=== PATIENT | female | born 1950 | race Caucasian/White ===

== ENCOUNTER → 2017-12-08 | Outpatient (CLI) | payer MEDICARE ==
--- NOTE | 2017-12-09 07:21 | CT ---
EXAMINATION TYPE: CT abdomen wo con DATE OF EXAM: 12/08/2017 COMPARISON: 08/23/2015 HISTORY: Abnormal labs CT DLP: 483.2 mGycm Automated exposure control for dose reduction was used. TECHNIQUE: Helical acquisition of images was performed from the lung bases through the top of iliac crest to include entire abdomen. CONTRAST: Performed with Oral Contrast and without IV contrast. FINDINGS: LUNG BASES: There is minimal bibasilar subsegmental dependent atelectasis and subpleural reticulation at the right lung base. LIVER/GB: Hepatic parenchyma is unremarkable in its unenhanced morphology. Near the gallbladder neck on series 3 image 31 and series 6 image 41 is a peripherally calcified stru cture. However, on sagittal imaging this appears to be external to the gallbladder such as on series 7 image 46 and could represent a peripherally calcified mingo hepatis lymph nodes or focal dilation o f the cystic duct. The downstream common bile duct is nondilated measuring up to 6 mm on series 3 gregory ge 27. There is no pericholecystic fluid surrounding the gallbladder or gallbladder dilatation. What is thought to be the cystic duct on coronal image 43 does appear prominent in size. PANCREAS: Unremarkable unenhanced morphology. SPLEEN: No splenomegaly. ADRENALS: There is thickening of the left adrenal gland although it maintains its normal adreniform s hape and is without discrete measurable nodule therefore this likely relates to adrenal gland hyperpl nicola. KIDNEYS: No nephrolithiasis or hydronephrosis is seen bilaterally. There is a probable exophytic righ t renal cyst measuring 9 mm. BOWEL: Scattered colonic diverticula are noted without pericolonic fat stranding. LYMPH NODES: Other than the questionable [place]ingo hepatis lymph node there are no other greater than 1 cm short axis lymph nodes within the abdomen. OSSEOUS STRUCTURES: Mild multilevel degenerative changes of the spine are noted. Additionally there are some patchy bone marrow signal that should be correlated with CBC to ensure no hematologic pathol ogy such as anemia arm lymphoproliferative disorder. FREE AIR: No free air is visualized. OTHER: Extensive calcific atheromatous changes seen of the abdominal aorta and its branches. There is a very small fat filled umbilical hernia. IMPRESSION: 1. PERIPHERALLY CALCIFIED ROUNDED STRUCTURE IN THE MINGO HEPATIS THAT APPEARS TO BE EXTERNAL TO THE G ALLBLADDER ON SAGITTAL IMAGING. THIS COULD REPRESENT A FOCALLY DILATED CYSTIC DUCT, PERIPHERALLY CALC IFIED M[place]O HEPATIS LYMPH NODE, OR LESS LIKELY PERIPHERAL CHOLELITH WITHIN A FOCAL OUTPOUCHING OF THE GALLBLADDER NECK. HIDA SCAN COULD BE PERFORMED TO EVALUATE FOR OBSTRUCTION ALTHOUGH NO OTHER CT EVID ENCE OF ACUTE CHOLECYSTITIS ARE SEEN. 2. HETEROGENOUS BONE MARROW AND MAY BE AN INCIDENTAL FINDING OR COULD RELATE TO MYELOPROLIFERATIVE DI SORDER OR ANEMIA. CORRELATE WITH CBC.
== END | disposition home or self-care (01) ==
LOC: RADCTMAIN 14:11
PROVIDERS: ATTEND Family Medicine
DX: R93.2 Abnormal findings on diagnostic imaging of liver and biliary tract (principal)
CPT/HCPCS: 36415; 74150; 82565; 84520

== ENCOUNTER 2017-12-23 09:05 | Day surgery (SDC) | payer MEDICARE ==
[2017-12-19 14:33] VITALS: BMI 34.4
[~2017-12-23 09:05] MED LIST: DEXAMETHASONE SOD PHOSPHATE 10 MG/ML 1 ML VIAL IV ONE; HEPARIN SODIUM,PORCINE 5,000 UNIT/ML 1 ML VIAL SQ ONE; LACTATED RINGERS 1,000 ML IV SCH; LIDOCAINE 1% 20 ML VIAL (10MG/ML) FOR IV START INTRADERMA PRN; MIDAZOLAM 2 MG/2 ML VIAL IV PRN; ONDANSETRON 4 MG/2 ML VIAL IVP ONE; ceFAZolin IN SWFI 2 GM/20 ML SYRINGE IVP ONE; fentaNYL (PF) 50 MCG/ML 2 ML AMP IV PRN
--- NOTE | 2017-12-23 10:08 | P.GSHP ---
History of Present Illness H&P Date: 12/23/17 Chief Complaint: Right upper quadrant pain Cyst 77-year-old female who presents today for laparoscopic cholestatic. Patient's had complaints of right quadrant pain. Her recent ultrasound shows evidence of cholelithiasis. 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, History of Any Multi-Drug Resistant Organisms: None Reported Past Surgical History: No Surgical Hx Reported Additional Past Surgical History / Comment(s): colonoscopy Past Anesthesia/Blood Transfusion Reactions: No Reported Reaction Smoking Status: Current every day smoker - Past Family History Father Family Medical History: Diabetes Mellitus, Myocardial Infarction ([place]) Additional Family Medical History / Comment(s): KIDNEY FAILURE,EMPHYSEMA Mother Family Medical History: Cancer Additional Family Medical History / Comment(s): bladder/kidney Sister(s) Family Medical History: Diabetes Mellitus Son(s) Family Medical History: Deep Vein Thrombosis (DVT) Medications and Allergies Home Medications Medication Instructions Recorded Confirmed Type Acetaminophen Tab [Tylenol Tab] 325 - 650 mg PO Q4H PRN 12/19/17 12/23/17 History Diazepam [Valium] 5 mg PO HS 12/19/17 12/23/17 History Lisinopril-Hctz 20-25 mg 1 tab PO QAM 12/19/17 12/23/17 History [Zestoretic 20-25] Magokide 1 tab PO DAILY 12/19/17 12/23/17 History rOPINIRole HCL [Requip] 1 mg PO HS 12/19/17 12/23/17 History Allergies Allergy/AdvReac Type Severity Reaction Status Date / Time No Known Allergies Allergy Verified 12/23/17 09:26 Surgical - Exam Vital Signs Temp Pulse Resp BP Pulse Ox 97.8 F 89 18 121/77 97 12/23/17 09:54 12/23/17 09:54 12/23/17 09:54 12/23/17 09:54 12/23/17 09:54 - General well developed, no distress - Eyes PERRL - ENT normal pinna - Neck no masses - Respiratory normal expansion - Cardiovascular Rhythm: regular - Abdomen Abdomen: soft, non tender Assessment and Plan Assessment: Symptomatically lithiasis Chronic cholecystitis We'll perform laparoscopic cholecystectomy.
[2017-12-23 10:26] LABS: Basophils % (A) 0 %; Eosinophils # (A) 0.2 k/uL (0-0.7); Eosinophils % (A) 2 %; HCT 35.5 % (34.0-46.0); HGB 12.3 gm/dL (11.4-16.0); Lymphocytes # (A) 2.7 k/uL (1.0-4.8); Lymphocytes % (A) 31 %; MCH 34.8 pg (25.0-35.0); MCHC 34.7 g/dL (31.0-37.0); MCV 100.3 fL (80.0-100.0); Mean Platelet Volume 6.5; Monocytes # (A) 0.6 k/uL (0-1.0); Monocytes % (A) 7 %; Neutrophils % (A) 57 %; Platelet Count 265 k/uL (150-450); RBC 3.54 m/uL (3.80-5.40); WBC 8.7 k/uL (3.8-10.6)
[2017-12-23 10:36] LABS: Potassium 4.8 mmol/L (3.5-5.1)
[2017-12-23] MEDS ORDERED: KETOROLAC 30 MG/ML 1 ML VIAL ONE (10:40)
[2017-12-23] MEDS ORDERED: GLYCOPYRROLATE 0.2 MG/ML 2 ML VIAL ONE (10:40)
[2017-12-23] MEDS ORDERED: LIDOCAINE 1% INJ 10MG/ML (20 ML MDV) ONE (10:40)
[2017-12-23] MEDS ORDERED: ROCURONIUM BROMIDE 10 MG/ML 10 ML VIAL IV ONE (10:40)
[2017-12-23] MEDS ORDERED: NEOSTIGMINE 1 MG/ML 10 ML VIAL ONE (10:40)
[2017-12-23] MEDS ORDERED: MIDAZOLAM 2 MG/2 ML VIAL ONE (10:40)
[2017-12-23] MEDS ORDERED: SUCCINYLCHOLINE CHLORIDE 100 MG/5 ML SYR IV ONE (10:40)
[2017-12-23] MEDS ORDERED: ALBUTEROL INHALER 60 PUFF/8 GM INHALER INHALATION ONE (10:40)
[2017-12-23] MEDS ORDERED: fentaNYL (PF) 50 MCG/ML 2 ML AMP ONE (10:40)
[2017-12-23] MEDS ORDERED: PROPOFOL 10 MG/ML 20 ML VIAL IV ONE (10:40)
[2017-12-23] MEDS ORDERED: BUPIVACAIN-EPI 0.5%-1:200,000 30 ML VIAL SQ ONE (10:58)
[2017-12-23] MEDS ORDERED: LACTATED RINGERS 1,000 ML IV ONE (11:11)
--- NOTE | 2017-12-23 11:39 | P.OP ---
Date of Procedure: 12/23/17 Preoperative Diagnosis: Cholecystitis Cholelithiasis Postoperative Diagnosis: Cholecystitis Cholelithiasis Procedure(s) Performed: Laparoscopic cholecystectomy Anesthesia: THOM Surgeon: Pasquale Hussein Pathology: other (Gallbladder) Condition: stable Disposition: PACU Description of Procedure: The patient was placed on the operating table. The patient received a general endotracheal tube anesthesia. The patients abdomen was prepped and draped in the usual sterile fashion. Through an infraumbilical stab incision, the fascia of the anterior abdominal wall was grasped with a pair of Kochers and then the Veress needle was placed in the peritoneal cavity. Position of the Veress needle was confirmed with positive drop test. The abdomen was then insufflated. After adequate insufflation, the 10 mm trocar was placed in the peritoneal cavity. Following this the laparoscope was placed in the peritoneal cavity. The patient was placed in the head-up, right side up position and then a 5 mm trocar was placed in the right lateral and right subcostal position under direct visualization. A 8 mm trocar was placed in the epigastric position. The gallbladder was grasped in the fundus and infundibulum. Traction on the gallbladder was placed in the lateral and the cephalad positions. The triangle of Calot was visualized.. The cystic duct was bluntly dissected until the union of the cystic duct and common bile duct was seen. The cystic duct was then divided and sealed with the Harmonic scissors. A PDS Endoloop was then placed throughout the cystic duct stump. The cystic artery divided and sealed with the Harmonic scissors. The gallbladder was then removed from the liver bed using Harmonic scissors. The gallbladder was then extracted through the epigastric port site. Operative field was checked for any bleeding spots and Harmonic scissors was used to coagulate the liver bed. The abdomen was irrigated. The trocars were removed. The skin was closed using interrupted 3-0 Vicryl suture. Dermabond dressing were applied. The patient tolerated the procedure well.
[2017-12-23 11:51] VITALS: TEMP 97.2
[2017-12-23] MEDS ORDERED: MEPERIDINE 50 MG/ML SYRINGE IVP ONE (11:51)
[2017-12-23] MEDS: HYDROmorphone 1 MG/ML 1 ML SYRINGE IVP ONE ×2 (12:23→12:36)
[2017-12-23] MEDS ORDERED: ONDANSETRON 4 MG/2 ML VIAL IVP ONE (14:12)
[2017-12-23] MEDS ORDERED: HYDROcodone/APAP 7.5-325MG 1 EACH TAB PO ONE ×2 (14:35)
[2017-12-23 14:56] VITALS: BP 154/96; PULSE 94; RESP 20
== END 2017-12-23 16:11 | disposition home or self-care (01) ==
LOC: OR 09:05
PROVIDERS: ATTEND Surgery
DX: K80.10 Calculus of gallbladder with chronic cholecystitis without obstruction (principal); I10 Essential (primary) hypertension; F41.9 Anxiety disorder, unspecified; F32.9 Major depressive disorder, single episode, unspecified; G25.81 Restless legs syndrome; F17.210 Nicotine dependence, cigarettes, uncomplicated; Z79.899 Other long term (current) drug therapy
CPT/HCPCS: 88304; 80051; 85025; 47562; J2250; J1644; J1100; J2710; J2175; J2405; J2001; J3010; J1885; J1170; J0330; J2704; J0690

== ENCOUNTER 2017-12-26 12:23 | Inpatient (IN) | payer MEDICARE ==
--- NOTE | 2017-12-26 13:15 | ED ---
Abdominal Pain HPI - General Source: patient, family, RN notes reviewed Mode of arrival: wheelchair Limitations: no limitations <Claudette Chan - Last Filed: 12/26/17 19:04> <Nesha Son - Last Filed: 01/02/18 22:26> - General Chief Complaint: Abdominal Pain Stated Complaint: Post Op Pain Time Seen by Provider: 12/26/17 13:03 - History of Present Illness Initial Comments: This is a 67-year-old female who presents to the emergency department with chief complaint of postoperative abdominal pain. Patient reports having a cholecystectomy performed on Tuesday by Dr. Hussein. Patient states that her pain was improving but yesterday worsened. She states that she is having intermittent sharp pains throughout her entire abdomen. She reports no bowel movement since before surgery. She reports vomiting that started last night. She states that she presented to Dr. Villafana's office this morning and had an x -ray performed. They were concerned for a small bowel obstruction so sent patient to the emergency department for further evaluation. She denies fevers or chills, chest pain or shortness of breath, diarrhea. (Claudette Chan) - Related Data Home Medications Medication Instructions Recorded Confirmed Acetaminophen Tab [Tylenol Tab] 325 - 650 mg PO Q4H PRN 12/19/17 12/26/17 Diazepam [Valium] 5 mg PO HS 12/19/17 12/26/17 Lisinopril-Hctz 20-25 mg 1 tab PO QAM 12/19/17 12/26/17 [Zestoretic 20-25] Magokide 1 tab PO DAILY 12/19/17 12/26/17 rOPINIRole HCL [Requip] 1 mg PO HS 12/19/17 12/26/17 Previous Rx's Medication Instructions Recorded Docusate [Colace] 100 mg PO BID #20 capsule 12/23/17 HYDROcodone/APAP 7.5-325MG [[place] 1 tab PO Q4H PRN 3 Days #18 tab 12/23/17 7.5-325] Allergies Allergy/AdvReac Type Severity Reaction Status Date / Time No Known Allergies Allergy Verified 12/26/17 12:40 Review of Systems ROS Other: All systems not noted in ROS Statement are negative. <Claudette Chan - Last Filed: 12/26/17 19:04> ROS Other: All systems not noted in ROS Statement are negative. <Nesha Son P - Last Filed: 01/02/18 22:26> ROS Statement: Those systems with pertinent positive or pertinent negative responses have been documented in the HPI. 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, History of Any Multi-Drug Resistant Organisms: None Reported Past Surgical History: Cholecystectomy Additional Past Surgical History / Comment(s): colonoscopy Past Anesthesia/Blood Transfusion Reactions: No Reported Reaction Past Psychological History: Anxiety, Depression Smoking Status: Current every day smoker Past Alcohol Use History: None Reported Past Drug Use History: None Reported - Past Family History Father Family Medical History: Diabetes Mellitus, Myocardial Infarction ([place]) Additional Family Medical History / Comment(s): KIDNEY FAILURE,EMPHYSEMA Mother Family Medical History: Cancer Additional Family Medical History / Comment(s): bladder/kidney Sister(s) Family Medical History: Diabetes Mellitus Son(s) Family Medical History: Deep Vein Thrombosis (DVT) <Claudette Chan M - Last Filed: 12/26/17 19:04> General Exam Limitations: no limitations <Claudette Chan M - Last Filed: 12/26/17 19:04> <Nesha Son P - Last Filed: 01/02/18 22:26> - General Exam Comments Initial Comments: General: Awake and alert, well-developed; in no apparent distress. HEENT: Head atraumatic, normocephalic. Pupils are equal, round and reactive to light. Extraocular movements intact. Oropharynx moist without erythema or exudate. Neck: Supple. Normal ROM. Cardiovascular: Regular rate and rhythm. No murmurs, rubs or gallops. Chest symmetrical. Respiratory: Lungs clear to auscultation bilaterally. No wheezes, rales or rhonchi. Normal respiratory effort with no use of accessory muscles. Abdomen: Firm, distended. Generalized tenderness on palpation. Hypoactive bowel sounds in all 4 quadrants. No rigidity or rebound. Incision sites from previous cholecystectomy are noted with surrounding ecchymosis. Musculoskeletal: Normal ROM, no tenderness bilateral upper and lower extremities. Skin: [place], warm and dry without rashes or lesions. Neurological: Alert and oriented x3. CN II-XII grossly intact. Speech is fluent and answers are appropriate. No focal neuro deficits. Psychiatric: Normal mood and affect. No overt signs of depression or anxiety noted. (Claudette Chan) Vital Signs 12/26/17 12/26/17 12/26/17 12:29 13:55 15:56 Temperature 97.4 F L Pulse Rate 118 H 108 H 115 H Respiratory 20 20 22 Rate Blood Pressure 93/79 96/56 115/75 O2 Sat by Pulse 94 L 99 96 Oximetry Medical Decision Making - Lab Data Result diagrams: 12/26/17 13:31 12/26/17 13:31 - Radiology Data Radiology results: report reviewed <Claudette Chan - Last Filed: 12/26/17 19:04> - Lab Data Result diagrams: 12/28/17 06:10 12/28/17 10:33 <Nesha Son - Last Filed: 01/02/18 22:26> - Medical Decision Making This is a 67-year-old female who presents to the emergency department chief complaint of postoperative pain. Patient reports cholecystectomy was performed on Tuesday by Dr. Hussein. Patient states she has not had a bowel movement since before the surgery and has been vomiting. On physical examination, abdomen is firm and distended. Hypoactive bowel sounds. X-ray KUB revealed evidence for a small bowel instruction. CBC revealed an elevated white count 11.7 with left shift at 9.6. BUN elevated at 49 and creatinine 1.90. Liver transaminases are also elevated compared to baseline with AST at [address] Son was in contact with Dr. Hussein. Recommended CT abdomen and pelvis with po contrast. This revealed new ascites, diverticulosis without diverticulitis, new multiple loops of proximal small bowel dilated, dilated stomach. Likely related to an ileus. Case discussed with attending physician, Dr. Son. Patient will be given a bolus of D5 normal saline 250 per hour as well as maintenance normal saline. PRN orders of Reglan and Zofran. Clear liquids to advance as tolerated. Findings and plan were discussed with patient. She is in agreement for admission. Her vital signs are stable and she is in no acute distress. (Claudette Chan) Personally saw and evaluated this patient, patient care was discussed with surgeon Dr. Dunaway who recommended computed tomography scan. Computed tomography scan was suggestive of an ileus. I discussed these results with Dr. Dunaway who agrees to admit patient. Admission orders placed. (Nesha Son) - Lab Data Lab Results 12/26/17 12/26/17 12/26/17 Range/Units 13:31 13:31 13:31 WBC 11.7 H (3.8-10.6) k/uL RBC 3.82 (3.80-5.40) m/uL Hgb 12.9 (11.4-16.0) gm/dL Hct 38.6 (34.0-46.0) % MCV 101.0 H (80.0-100.0) fL MCH 33.7 (25.0-35.0) pg MCHC 33.4 (31.0-37.0) g/dL RDW 12.0 (11.5-15.5) % Plt Count 285 (150-450) k/uL Neutrophils % 82 % Lymphocytes % 9 % Monocytes % 7 % Eosinophils % 1 % Basophils % 0 % Neutrophils # 9.6 H (1.3-7.7) k/uL Lymphocytes # 1.1 (1.0-4.8) k/uL Monocytes # 0.8 (0-1.0) k/uL Eosinophils # 0.1 (0-0.7) k/uL Basophils # 0.0 (0-0.2) k/uL PT 9.6 (9.0-12.0) sec INR 1.0 (<1.2) APTT 21.0 L (22.0-30.0) sec Sodium 134 L (137-145) mmol/L Potassium 4.5 (3.5-5.1) mmol/L Chloride 92 L (98-107) mmol/L Carbon Dioxide 29 (22-30) mmol/L Anion Gap 13 mmol/L BUN 49 H (7-17) mg/dL Creatinine 1.98 H (0.52-1.04) mg/dL Est GFR (CKD-EPI)AfAm 30 (>60 ml/min/1.73 sqM) Est GFR (CKD-EPI)NonAf 26 (>60 ml/min/1.73 sqM) Glucose 123 H (74-99) mg/dL Calcium 12.0 H (8.4-10.2) mg/dL Total Bilirubin 3.4 H (0.2-1.3) mg/dL AST 109 H (14-36) U/L ALT 124 H (9-52) U/L Alkaline Phosphatase 92 (38-126) U/L Total Protein 7.0 (6.3-8.2) g/dL Albumin 3.7 (3.5-5.0) g/dL Amylase 62 (30-110) U/L Lipase 34 (23-300) U/L Urine Color Urine Appearance (Clear) Urine pH (5.0-8.0) Ur Specific [place] (1.001-1.035) Urine Protein (Negative) Urine Glucose (UA) (Negative) Urine Ketones (Negative) Urine Blood (Negative) Urine Nitrite (Negative) Urine Bilirubin (Negative) Urine Urobilinogen (<2.0) mg/dL Ur Leukocyte Esterase (Negative) Urine RBC (0-5) /hpf Urine WBC (0-5) /hpf Ur Squamous Epith Cells (0-4) /hpf Hyaline Casts (0-2) /lpf Urine Mucus (None) /hpf 12/26/ Range/Units 13:46 WBC (3.8-10.6) k/uL RBC (3.80-5.40) m/uL Hgb (11.4-16.0) gm/dL Hct (34.0-46.0) % MCV (80.0-100.0) fL MCH (25.0-35.0) pg MCHC (31.0-37.0) g/dL RDW (11.5-15.5) % Plt Count (150-450) k/uL Neutrophils % % Lymphocytes % % Monocytes % % Eosinophils % % Basophils % % Neutrophils # (1.3-7.7) k/uL Lymphocytes # (1.0-4.8) k/uL Monocytes # (0-1.0) k/uL Eosinophils # (0-0.7) k/uL Basophils # (0-0.2) k/uL PT (9.0-12.0) sec INR (<1.2) APTT (22.0-30.0) sec Sodium (137-145) mmol/L Potassium (3.5-5.1) mmol/L Chloride (98-107) mmol/L Carbon Dioxide (22-30) mmol/L Anion Gap mmol/L BUN (7-17) mg/dL Creatinine (0.52-1.04) mg/dL Est GFR (CKD-EPI)AfAm (>60 ml/min/1.73 sqM) Est GFR (CKD-EPI)NonAf (>60 ml/min/1.73 sqM) Glucose (74-99) mg/dL Calcium (8.4-10.2) mg/dL Total Bilirubin (0.2-1.3) mg/dL AST (14-36) U/L ALT (9-52) U/L Alkaline Phosphatase (38-126) U/L Total Protein (6.3-8.2) g/dL Albumin (3.5-5.0) g/dL Amylase (30-110) U/L Lipase (23-300) U/L Urine Color Dark Brown Urine Appearance Cloudy H (Clear) Urine pH 5.5 (5.0-8.0) Ur Specific [place] 1.023 (1.001-1.035) Urine Protein 1+ H (Negative) Urine Glucose (UA) Negative (Negative) Urine Ketones Negative (Negative) Urine Blood Negative (Negative) Urine Nitrite Negative (Negative) Urine Bilirubin 2+ H (Negative) Urine Urobilinogen 6.0 (<2.0) mg/dL Ur Leukocyte Esterase Negative (Negative) Urine RBC 3 (0-5) /hpf Urine WBC 8 H (0-5) /hpf Ur Squamous Epith Cells 22 H (0-4) /hpf Hyaline Casts 15 H (0-2) /lpf Urine Mucus Rare H (None) /hpf - Radiology Data X-ray KUB impression: Findings suggest small bowel obstruction. Correlate clinically. CT abdomen and pelvis with oral contrast impression: Compared to last exam there is new infiltrate and atelectasis in left lower lobe with small pleural effusion. There is new ascites. There is moderate colonic diverticulosis without diverticulitis. There are multiple loops of proximal small bowel dilated. Dilated stomach. This is likely related to ileus. No transition point seen. (Claudette Chan) Disposition Is patient prescribed a controlled substance at d/c from ED?: No Time of Disposition: 19:11 <[place],Claudette M - Last Filed: 12/26/17 19:04> <Nesha Son - Last Filed: 01/02/18 22:26> Clinical Impression: Postoperative ileus, Ascites Disposition: ADMITTED IP TO THIS HOSP Condition: Good
[2017-12-26 13:43] LABS: Basophils % (A) 0 %; Eosinophils # (A) 0.1 k/uL (0-0.7); Eosinophils % (A) 1 %; HCT 38.6 % (34.0-46.0); HGB 12.9 gm/dL (11.4-16.0); Lymphocytes # (A) 1.1 k/uL (1.0-4.8); Lymphocytes % (A) 9 %; MCH 33.7 pg (25.0-35.0); MCHC 33.4 g/dL (31.0-37.0); Mean Platelet Volume 6.7; Monocytes # (A) 0.8 k/uL (0-1.0); Monocytes % (A) 7 %; Neutrophils # (A) 9.6 k/uL (1.3-7.7); Neutrophils % (A) 82 %; Platelet Count 285 k/uL (150-450); RBC 3.82 m/uL (3.80-5.40); WBC 11.7 k/uL (3.8-10.6)
[2017-12-26 13:54] LABS: Albumin 3.7 g/dL (3.5-5.0); Potassium 4.5 mmol/L (3.5-5.1); Total Bilirubin 3.4 mg/dL (0.2-1.3)
[2017-12-26 13:58] LABS: Prothrombin Time 9.6 sec (9.0-12.0)
--- NOTE | 2017-12-26 15:07 | XR ---
EXAMINATION TYPE: XR KUB DATE OF EXAM: 12/26/2017 COMPARISON: NONE HISTORY: Pain TECHNIQUE: Single supine KUB image of the abdomen is obtained FINDINGS: Dilated loops of small bowel with air-fluid levels seen. Bowel measures up to 4 cm. There is a possibility of gas noted within the colon. No convincing evidence for pneumoperitoneum. No unusual calcifications. The lung bases are clear. The osseous structures are intact. IMPRESSION: 1. Findings suggest small bowel obstruction. Correlate clinically.
[2017-12-26] MEDS ORDERED: SODIUM CHLORIDE 0.9% 1,000 ML IV STA ×2 (15:37→19:05)
[2017-12-26] MEDS ORDERED: SODIUM CHLORIDE 0.9% 2,000 ML IV STA (15:37)
[2017-12-26] MEDS ORDERED: IOPAMIDOL-300 CONTRAST 30 ML VIAL (ORAL USE) PO PRN (15:38)
[2017-12-26 15:54] LABS: Appearance,Urine Cloudy (Clear); Bilirubin,Urine 2+ (Negative); Blood,Urine Negative (Negative); Color,Urine Dark Brown; Glucose,Urine (UA) Negative (Negative); Hyaline Casts,Urine 15 /lpf (0-2); Ketones,Urine Negative (Negative); Leukocyte Esterase,Urine Negative (Negative); Mucus,Urine Rare /hpf; Nitrite,Urine Negative (Negative); PH, Urine 5.5 (5.0-8.0); Protein,Urine 1+ (Negative); RBC,Urine 3 /hpf (0-5); Specific Gravity,Urine 1.023 (1.001-1.035); Squamous Epithelial Cell,Urine 22 /hpf (0-4); WBC,Urine 8 /hpf (0-5)
--- NOTE | 2017-12-26 17:36 | CT ---
EXAMINATION TYPE: CT abdomen pelvis wo con DATE OF EXAM: 12/26/2017 COMPARISON: 12/08/2017 HISTORY: Abdominal pain with nausea and vomiting. Cholecystectomy [address] DLP: 897 mGycm Automated exposure control for dose reduction was used. TECHNIQUE: Helical acquisition of images was performed from the lung bases through the pelvis. FINDINGS: There is some patchy consolidation and atelectasis at the lateral left lung base. There is small left pleural effusion. Liver shows no focal defect. Spleen appears normal. There is a dilated fluid-filled stomach. There ar e some mildly dilated loops of fluid-filled small bowel. These measure up to 3.2 cm. I see no transit ion point. The distal small bowel is nondilated. There are numerous diverticula in the large bowel. T here is mild free fluid in the pelvis. There is no evidence of pancreatic mass. Gallbladder is absent. There is no free air. There is no ret roperitoneal adenopathy. Abdominal aorta is atheromatous. Kidneys show no hydronephrosis. There is a 2 cm cyst on the anterior left kidney. There is no evidence of retroperitoneal adenopathy. I see no s ign of free air. Bladder distends smoothly. Appendix is not seen. There is no sign of appendicitis. IMPRESSION: COMPARED TO LAST EXAM THERE IS NEW INFILTRATE AND ATELECTASIS IN LEFT LOWER LOBE WITH SMALL PLEURAL E FFUSION. THERE IS NEW ASCITES. THERE IS MODERATE COLONIC DIVERTICULOSIS WITHOUT DIVERTICULITIS. THERE ARE NEW MULTIPLE LOOPS OF PROXIMAL SMALL BOWEL DILATED. DILATED STOMACH. THIS IS LIKELY RELATED TO I LEUS. NO TRANSITION POINT SEEN.
[2017-12-26] MEDS ORDERED: ONDANSETRON 4 MG/2 ML VIAL IVP PRN (19:18)
[2017-12-26] MEDS ORDERED: METOCLOPRAMIDE 5 MG/ML 2 ML VIAL IVP PRN (19:18)
[2017-12-26] MEDS: DEXTROSE 5%-0.9% NACL 1,000 ML IV SCH (19:51)
[2017-12-26] MEDS: HYDROmorphone 1 MG/ML 1 ML SYRINGE IVP PRN (23:38)
[2017-12-27] MEDS: DEXTROSE 5%-0.9% NACL 1,000 ML IV SCH ×6 (04:17→23:51)
[2017-12-27] MEDS: HYDROmorphone 1 MG/ML 1 ML SYRINGE IVP PRN ×3 (05:17→13:13)
--- NOTE | 2017-12-27 09:01 | P.GSHP ---
History of Present Illness H&P Date: 12/27/17 Chief Complaint: abdominal pain, nausea this is a 67-year-old female who presented to the emergency room with complaints of nausea and vomiting. The patient also has complaints of some epigastric abdominal pain. She underwent laparoscopic cholecystectomy last week. Patient's CAT scan shows evidence of an ileus. Patient received fluid hydration overnight. Still she still has complaints of some abdominal pain this morning. 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, History of Any Multi-Drug Resistant Organisms: None Reported Past Surgical History: Cholecystectomy Additional Past Surgical History / Comment(s): colonoscopy Past Anesthesia/Blood Transfusion Reactions: No Reported Reaction Past Psychological History: Anxiety, Depression Additional Psychological History / Comment(s): . Smoking Status: Current every day smoker Past Alcohol Use History: None Reported Additional Past Alcohol Use History / Comment(s): CURRENTLY SMOKING 2ppd, states started age 25 Past Drug Use History: None Reported - Past Family History Father Family Medical History: Diabetes Mellitus, Myocardial Infarction ([place]) Additional Family Medical History / Comment(s): KIDNEY FAILURE,EMPHYSEMA Mother Family Medical History: Cancer Additional Family Medical History / Comment(s): bladder/kidney Sister(s) Family Medical History: Diabetes Mellitus Son(s) Family Medical History: Deep Vein Thrombosis (DVT) Medications and Allergies Home Medications Medication Instructions Recorded Confirmed Type Acetaminophen Tab [Tylenol Tab] 325 - 650 mg PO Q4H PRN 12/19/17 12/26/17 History Diazepam [Valium] 5 mg PO HS 12/19/17 12/26/17 History Lisinopril-Hctz 20-25 mg 1 tab PO QAM 12/19/17 12/26/17 History [Zestoretic 20-25] Magokide 1 tab PO DAILY 12/19/17 12/26/17 History rOPINIRole HCL [Requip] 1 mg PO HS 12/19/17 12/26/17 History Docusate [Colace] 100 mg PO BID #20 capsule 12/23/17 12/26/17 Rx HYDROcodone/APAP 7.5-325MG [Hardy 1 tab PO Q4H PRN 3 Days #18 tab 12/23/1712/26 Rx 7.5-325] Allergies Allergy/AdvReac Type Severity Reaction Status Date / Time No Known Allergies Allergy Verified 12/26/17 12:40 Surgical - Exam Vital Signs Temp Pulse Resp BP Pulse Ox 97.4 F L 118 H 20 93/79 94 L 12/26/17 12:29 12/26/17 12:29 12/26/17 12:29 12/26/17 12:29 12/26/17 12:29 - General well developed, well nourished, no distress - Eyes PERRL - ENT normal pinna - Neck no masses - Respiratory normal expansion - Cardiovascular Rhythm: regular - Abdomen abdomen soft. There is minimal tenderness throughout. Incision sites are clean dry and intact. Abdomen: soft Results - Labs 12/26/17 13:31 12/26/17 13:31 Abnormal Lab Results - Last 24 Hours (Table) 12/26/17 12/26/17 12/26/17 Range/Units 13:31 13:31 13:31 WBC 11.7 H (3.8-10.6) k/uL MCV 101.0 H (80.0-100.0) fL Neutrophils # 9.6 H (1.3-7.7) k/uL APTT 21.0 L (22.0-30.0) sec Sodium 134 L (137-145) mmol/L Chloride 92 L (98-107) mmol/L BUN 49 H (7-17) mg/dL Creatinine 1.98 H (0.52-1.04) mg/dL Glucose 123 H (74-99) mg/dL Calcium 12.0 H (8.4-10.2) mg/dL Total Bilirubin 3.4 H (0.2-1.3) mg/dL AST 109 H (14-36) U/L ALT 124 H (9-52) U/L Urine Appearance (Clear) Urine Protein (Negative) Urine Bilirubin (Negative) Urine WBC (0-5) /hpf Ur Squamous Epith Cells (0-4) /hpf Hyaline Casts (0-2) /lpf Urine Mucus (None) /hpf 12/26/17 Range/Units 13:46 WBC (3.8-10.6) k/uL MCV (80.0-100.0) fL Neutrophils # (1.3-7.7) k/uL APTT (22.0-30.0) sec Sodium (137-145) mmol/L Chloride (98-107) mmol/L BUN (7-17) mg/dL Creatinine (0.52-1.04) mg/dL Glucose (74-99) mg/dL Calcium (8.4-10.2) mg/dL Total Bilirubin (0.2-1.3) mg/dL AST (14-36) U/L ALT (9-52) U/L Urine Appearance Cloudy H (Clear) Urine Protein 1+ H (Negative) Urine Bilirubin 2+ H (Negative) Urine WBC 8 H (0-5) /hpf Ur Squamous Epith Cells 22 H (0-4) /hpf Hyaline Casts 15 H (0-2) /lpf Urine Mucus Rare H (None) /hpf Diabetes panel 12/26/17 Range/Units 13:31 Sodium 134 L (137-145) mmol/L Potassium 4.5 (3.5-5.1) mmol/L Chloride 92 L (98-107) mmol/L Carbon Dioxide 29 (22-30) mmol/L BUN 49 H (7-17) mg/dL Creatinine 1.98 H (0.52-1.04) mg/dL Glucose 123 H (74-99) mg/dL Calcium 12.0 H (8.4-10.2) mg/dL AST 109 H (14-36) U/L ALT 124 H (9-52) U/L Alkaline Phosphatase 92 (38-126) U/L Total Protein 7.0 (6.3-8.2) g/dL Albumin 3.7 (3.5-5.0) g/dL Calcium panel 12/26/17 Range/Units 13:31 Calcium 12.0 H (8.4-10.2) mg/dL Albumin 3.7 (3.5-5.0) g/dL Pituitary panel 12/26/17 Range/Units 13:31 Sodium 134 L (137-145) mmol/L Potassium 4.5 (3.5-5.1) mmol/L Chloride 92 L (98-107) mmol/L Carbon Dioxide 29 (22-30) mmol/L BUN 49 H (7-17) mg/dL Creatinine 1.98 H (0.52-1.04) mg/dL Glucose 123 H (74-99) mg/dL Calcium 12.0 H (8.4-10.2) mg/dL Adrenal panel 12/26/17 Range/Units 13:31 Sodium 134 L (137-145) mmol/L Potassium 4.5 (3.5-5.1) mmol/L Chloride 92 L (98-107) mmol/L Carbon Dioxide 29 (22-30) mmol/L BUN 49 H (7-17) mg/dL Creatinine 1.98 H (0.52-1.04) mg/dL Glucose 123 H (74-99) mg/dL Calcium 12.0 H (8.4-10.2) mg/dL Total Bilirubin 3.4 H (0.2-1.3) mg/dL AST 109 H (14-36) U/L ALT 124 H (9-52) U/L Alkaline Phosphatase 92 (38-126) U/L Total Protein 7.0 (6.3-8.2) g/dL Albumin 3.7 (3.5-5.0) g/dL - Imaging CT scan - abdomen: report reviewed (CT shows evidence of cholecystectomy. There is some mention of some ascitic fluid which may be irrigation fluid. There is evidence of an ileus with dilated proximal small bowel.) Assessment and Plan Assessment: status post cholecystectomy. Patient has evidence of ileus. Patient's pathology was reviewed. Patient hadchronic erosive cholecystitis and cholelithiasis. The patient has mildly elevated liver function tests and elevated bilirubin. The GI service has been consult for possible ERCP for choledocholithiasis. I discussed the case with Dr. Isaacs. The patient will be nothing by mouth for possible ERCP. I will be leaving town today. Dr. Avalos will cover me in my absence.
[2017-12-27] MEDS ORDERED: AMPICILLIN-SULBACTAM 3 GM in SODIUM CHLORIDE 0.9% 100 ML IVPB STA (11:41)
[2017-12-27] MEDS ORDERED: INDOMETHACIN 50MG SUPPOSITORY RECTAL ONE (11:45)
[2017-12-27] MEDS ORDERED: IV FLUID CONTINUATION 1,000 ML IV ONE (14:00)
[2017-12-27 14:08] LABS: HCT 33.3 % (34.0-46.0); HGB 10.7 gm/dL (11.4-16.0); MCH 34.3 pg (25.0-35.0); MCHC 32.2 g/dL (31.0-37.0); Macrocytosis Slight; Mean Platelet Volume 6.8; Platelet Count 216 k/uL (150-450); RBC 3.14 m/uL (3.80-5.40); RDW 12.2 % (11.5-15.5); WBC 9.2 k/uL (3.8-10.6)
[2017-12-27] MEDS ORDERED: PROPOFOL 10 MG/ML 20 ML VIAL IV ONE ×2 (14:11→21:09)
[2017-12-27] MEDS ORDERED: GLUCAGON 1 MG/ML VIAL ONE (14:11)
[2017-12-27] MEDS ORDERED: fentaNYL (PF) 50 MCG/ML 2 ML AMP ONE ×2 (14:11→21:09)
[2017-12-27] MEDS ORDERED: MIDAZOLAM 2 MG/2 ML VIAL ONE ×2 (14:11→21:09)
[2017-12-27] MEDS ORDERED: ePHEDrine SULFATE/0.9% NACL/PF 50 MG/5 ML SYRINGE IV ONE (14:11)
[2017-12-27] MEDS ORDERED: PHENYLEPHRINE-0.9% NACL SYG 1 MG/10 ML SYRINGE ONE ×2 (14:11→21:09)
[2017-12-27] MEDS ORDERED: SUCCINYLCHOLINE CHLORIDE 100 MG/5 ML SYR IV ONE ×2 (14:11→21:09)
[2017-12-27] MEDS ORDERED: LIDOCAINE 1% INJ 10MG/ML (20 ML MDV) ONE ×2 (14:11→21:09)
[2017-12-27 14:14] LABS: Albumin 2.7 g/dL (3.5-5.0); Calcium 9.4 mg/dL (8.4-10.2); Potassium 4.2 mmol/L (3.5-5.1); Total Bilirubin 2.3 mg/dL (0.2-1.3); Total Protein 5.5 g/dL (6.3-8.2)
[2017-12-27 14:15] LABS: MCV 106.3 fL (80.0-100.0)
[2017-12-27] MEDS ORDERED: LACTATED RINGERS 1,000 ML IV ONE ×2 (14:45→22:18)
--- NOTE | 2017-12-27 15:54 | P.CONS ---
History of Present Illness - Reason for Consult Consult date: 12/27/17 Medical management Requesting physician: Pasquale Hussein - Chief Complaint Abdominal pain - History of Present Illness This is a 67-year-old female, patient of [facility]. She has a known past medical history of hypertension, chronic knee disease, nicotine dependence and recent cholecystectomy. She had a cholecystectomy completed on Tuesday. Presents to the emergency room with complaints of abdominal pain. She was admitted to Dr. Gan service and he was the surgeon who completed the laparoscopic cholecystectomy last Tuesday. We have been consulted for medical management. Patient had a computed tomography scan of the abdomen and pelvis completed in the ER showing new infiltrate and atelectasis in the left lower lobe with pleural effusion. There is new ascites. There is moderate colonic diverticulosis without diverticulitis. There are new multiple loops of proximal small bowel dilated. Dilated stomach. This is likely related to ileus. Patient also had elevated LFTs and total bilirubin. Total bili 3.4 AST 109 and ALT 124. There were concerns for possible choledocholithiasis and GI service was also consulted. GI service was proceeding with an ERCP today. Patient also having episodes of hypotension. Her Zestoretic has been on hold. She's been given IV fluids. Patient denies any fever chills or sweats. Denies any nausea or vomiting. Denies any chest pain. Denies any burning with urination. Does report constipation. White count 11.7 on admission. Review of Systems Please refer to HPI otherwise unremarkable 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, History of Any Multi-Drug Resistant Organisms: None Reported Past Surgical History: Cholecystectomy Additional Past Surgical History / Comment(s): colonoscopy Past Anesthesia/Blood Transfusion Reactions: No Reported Reaction Past Psychological History: Anxiety, Depression Additional Psychological History / Comment(s): . Smoking Status: Current every day smoker Past Alcohol Use History: None Reported Additional Past Alcohol Use History / Comment(s): CURRENTLY SMOKING 2ppd, states started age 25 Past Drug Use History: None Reported - Past Family History Father Family Medical History: Diabetes Mellitus, Myocardial Infarction ([place]) Additional Family Medical History / Comment(s): KIDNEY FAILURE,EMPHYSEMA Mother Family Medical History: Cancer Additional Family Medical History / Comment(s): bladder/kidney Sister(s) Family Medical History: Diabetes Mellitus Son(s) Family Medical History: Deep Vein Thrombosis (DVT) Medications and Allergies Home Medications Medication Instructions Recorded Confirmed Type Acetaminophen Tab [Tylenol Tab] 325 - 650 mg PO Q4H PRN 12/19/17 12/26/17 History Diazepam [Valium] 5 mg PO HS 12/19/17 12/26/17 History Lisinopril-Hctz 20-25 mg 1 tab PO QAM 12/19/17 12/26/17 History [Zestoretic 20-25] Magokide 1 tab PO DAILY 12/19/17 12/26/17 History rOPINIRole HCL [Requip] 1 mg PO HS 12/19/17 12/26/17 History Docusate [Colace] 100 mg PO BID #20 capsule 12/23/17 12/26/17 Rx HYDROcodone/APAP 7.5-325MG [Ephraim 1 tab PO Q4H PRN 3 Days #18 tab 12/23/1712/26 Rx 7.5-325] Allergies Allergy/AdvReac Type Severity Reaction Status Date / Time No Known Allergies Allergy Verified 12/26/17 12:40 Physical Exam Vitals: Vital Signs Temp Pulse Pulse Resp BP BP Pulse Ox 12/27/17 08:00 16 12/27/17 05:42 97.3 F L 98 16 90/60 94 L 12/26/17 22:53 96.8 F L 92 16 95/62 94 L 12/26/17 20:31 99.0 F 92 16 147/57 96 12/26/17 15:56 115 H 22 115/75 96 Intake and Output 12/27/17 12/27/17 12/27/17 06:59 14:59 22:59 Other: Voiding Method Toilet # Voids 2 1 Head normocephalic Neck supple Lungs clear to auscultation bilaterally no wheezing or crackles Heart regular rate and rhythm S1-S2, no rub or gallop Abdomen is soft nontender nondistended positive bowel sounds no hepatosplenomegaly Extremities no edema Neuro alert and orientated to 3 Results CBC & Chem 7: 12/27/17 13:54 12/27/17 13:54 Labs: Abnormal Lab Results - Last 24 Hours (Table) 12/26/17 12/27/17 12/27/17 Range/Units 13:46 13:54 13:54 RBC 3.14 L (3.80-5.40) m/uL Hgb 10.7 L (11.4-16.0) gm/dL Hct 33.3 L (34.0-46.0) % MCV 106.3 H D (80.0-100.0) fL Sodium 134 L (137-145) mmol/L BUN 40 H (7-17) mg/dL Creatinine 1.29 H (0.52-1.04) mg/dL Glucose 100 H (74-99) mg/dL Total Bilirubin 2.3 H (0.2-1.3) mg/dL AST 58 H (14-36) U/L ALT 81 H (9-52) U/L Total Protein 5.5 L (6.3-8.2) g/dL Albumin 2.7 L (3.5-5.0) g/dL Urine Appearance Cloudy H (Clear) Urine Protein 1+ H (Negative) Urine Bilirubin 2+ H (Negative) Urine WBC 8 H (0-5) /hpf Ur Squamous Epith Cells 22 H (0-4) /hpf Hyaline Casts 15 H (0-2) /lpf Urine Mucus Rare H (None) /hpf Assessment and Plan Assessment: 1. Abdominal pain: Status post recent cholecystectomy about 5 days ago. Abdominal pain could be contributed to ileus as well as possible choledocholithiasis. 2. Choledocholithiasis with elevated LFTs and total bilirubin. GI service is following and patient is having ERCP today 3. Hypotension: Continue IV fluid hydration. Hold Zestoretic. Continue to monitor 4. Infiltrate and atelectasis left lower lobe. Check chest x-ray and order incentive spirometer 5. History of nicotine dependence: Discussed smoking cessation for greater than 3 minutes 6. Acute on chronic kidney disease, stage 3. Creatinine is showing improvement with IV fluids. Creatinine 1.29. 7. History of essential hypertension GI prophylaxis Pepcid and DVT prophylaxis subcu heparin Thank you for this consultation. We will continue to follow along during patient's hospitalization Time with Patient: Greater than 30 (Greater than 60% of the total time spent in counseling and coordination of care.I performed an examination of the patient and discussed their management with the physician Record Press Operator. I have reviewed the Physician Record Press Operator's notes and agree with the documented findings and plan of care)
--- NOTE | 2017-12-27 18:26 | XR ---
EXAMINATION TYPE: XR chest 2V DATE OF EXAM: 12/27/2017 COMPARISON: 08/22/2015 HISTORY: Follow-up pneumonia TECHNIQUE: Frontal and lateral views of the chest are obtained. FINDINGS: There is some patchy infiltrate and atelectasis at the right lung base. There is no heart failure. Heart size is normal. Thoracic aorta is atheromatous. Bony thorax is intact. IMPRESSION: There is new infiltrate and atelectasis at the lateral right lung base compared to old e xam. No heart failure seen.
--- NOTE | 2017-12-27 20:45 | P.PN ---
Progress Note - Text Progress Note Date: 12/27/17 I was contacted by the nursing staff to evaluate the patient because of bilious drainage from her umbilical incision. There is a large volume of bile present on the dressing and on the sheets. Patient is having some abdominal discomfort although she states that about the same as it was previously. She has had some blood pressure readings that are lower than they had been previously with one of the systolic blood pressures in the 80s. ERCP attempted earlier today was not able to cannulate the common bile duct. No definite choledocholithiasis seen. No bile leak seen. Abdomen is distended with some tenderness. Tenderness is mostly diffuse in nature. Only area of bilious drainage from the incision is at the umbilicus. Options discussed with the patient in detail. Advise diagnostic laparoscopy with control of bile leak at this time. Goal will be to identify the source of bilious drainage and close the leak site if possible. If exact site is not identifiable or if this is close to the common bile duct will plan drain placement. Attempts at cholangiogram or common bile duct exploration not plan at this time as the bile leak may be the etiology for the patient's review presentation and elevated liver enzymes. Patient was informed that she may require reattempts at ERCP or possibly even reoperation if choledocholithiasis is felt to be contributing to the bile leak. Was discussed with the patient that those secondary procedures would likely be best served at a tertiary care center if necessary. Patient understands the above issues and the clinical scenario and consents for procedure.
[2017-12-27] MEDS ORDERED: DOCUSATE 100 MG CAP PO SCH (21:00)
[2017-12-27] MEDS ORDERED: DIAZEPAM 5 MG TAB PO SCH (21:00)
[2017-12-27] MEDS ORDERED: ONDANSETRON 4 MG/2 ML VIAL ONE (21:09)
[2017-12-27] MEDS ORDERED: ROCURONIUM BROMIDE 10 MG/ML 10 ML VIAL IV ONE (21:09)
[2017-12-27] MEDS ORDERED: IV FLUID CONTINUATION 300 ML IV ONE (21:09)
[2017-12-27] MEDS ORDERED: HEPARIN SODIUM,PORCINE 5,000 UNIT/ML 1 ML VIAL ONE (21:09)
[2017-12-27] MEDS ORDERED: GLYCOPYRROLATE 0.2 MG/ML 2 ML VIAL ONE (21:09)
[2017-12-27] MEDS ORDERED: HYDROmorphone (PF) 1 MG/ML ONE (21:09)
[2017-12-27] MEDS ORDERED: NEOSTIGMINE 1 MG/ML 10 ML VIAL ONE (21:09)
[2017-12-27] MEDS ORDERED: SODIUM CHLORIDE 0.9% 100 ML with ceFAZolin 2,000 MG IV ONE ×2 (21:27)
--- NOTE | 2017-12-27 21:37 | FL ---
EXAMINATION TYPE: FL ERCP DATE OF EXAM: 12/27/2017 FLUOROSCOPY Fluoroscopy time of 27 seconds was used during ERCP. 1 image/s document/s the procedure.
[2017-12-27] MEDS ORDERED: BUPIVACAIN-EPI 0.5%-1:200,000 30 ML VIAL SQ ONE (21:40)
[2017-12-27] MEDS ORDERED: MORPHINE SULFATE 2 MG/ML SYRINGE IV PRN (21:43)
[2017-12-27] MEDS ORDERED: ONDANSETRON 4 MG/2 ML VIAL IVP PRN (21:43)
[2017-12-27] MEDS ORDERED: HYDROmorphone 1 MG/ML 1 ML SYRINGE IVP PRN (21:43)
[2017-12-27] MEDS ORDERED: LACTATED RINGERS 1,000 ML IV SCH (21:45)
--- NOTE | 2017-12-27 22:30 | P.OP ---
Date of Procedure: 12/27/17 Procedure(s) Performed: PREOPERATIVE DIAGNOSIS: Bile leak POSTOPERATIVE DIAGNOSIS: Same PROCEDURE: Diagnostic laparoscopy with drain placement SURGEON: Teagan EBL: Minimal see anesthesia record ANESTHESIA: Gen. COMPLICATIONS: None OPERATIVE PROCEDURE: The patient was brought and placed on the operating room table in the supine position. The patient was placed under general anesthesia at that time. The abdomen was prepped and draped in the usual sterile fashion. A small vertical infraumbilical incision was made through the previous incision site. This was where bile was seen leaking. The fascia was retracted anteriorly and the Veress needle was advanced into the perineal cavity. The saline drop test was normal. Insufflation took place up to 15 mmHg. A 5 mm optical trocar was advanced and the peritoneal cavity. 2 additional 5 mm trochars were placed in the right upper quadrant under direct visualization through the previous trocar sites. A 10 mm trocar was advanced into the epigastric incision site. The patient had moderate amount of bilious fluid within the abdominal cavity. This was evacuated to the best of my ability. The patient's small bowel and even colon were distended with air. This appeared consistent with an ileus and also consistent with the endoscopic procedure performed earlier. I inspected the area of the cystic duct and the agustin hepatis. The previously placed Prolene Endoloop was identified and appeared free of any bilious leak in that area. Pushing on the agustin hepatis bluntly did not elicit any definite bilious leak. There was no evidence of leak from the stomach or duodenal sweep. There was an area at the lower aspect of the gallbladder fossa that had a small ooze that was thought to be likely a small amount of venous blood. The more I inspected that area and watched it mixed with our saline irrigation the more I question whether this could be the source of the bile leak. This would have been consistent with a duct of Luschka leak. The fluid had a reddish tinge however and I'm not confident that that was the actual site of leak. This was controlled either way with a single firing of the 10 mm clip. No additional abnormalities suspicious areas were seen. A channel drain was placed in the gallbladder fossa and exited from the most lateral right upper quadrant trocar site. This was sutured to the skin using a 2-0 silk stitch. The pneumoperitoneum was evacuated. The skin at all 4 sites was closed using a 4-0 Monocryl stitch. At the end of this procedure the sponge and needle counts were correct. DISPOSITION: Stable to the recovery room
[2017-12-27 22:49] LABS: Glucose,Whole Blood 112 mg/dL (75-99)
[2017-12-27] MEDS ORDERED: NALOXONE 0.4 MG/ML 1 ML VIAL IV PRN (22:59)
[2017-12-27 23:17] LABS: Appearance,Urine Clear (Clear); Bilirubin,Urine 1+ (Negative); Blood,Urine Negative (Negative); Color,Urine Yellow; Glucose,Urine (UA) Negative (Negative); Ketones,Urine Negative (Negative); Leukocyte Esterase,Urine Negative (Negative); Nitrite,Urine Negative (Negative); Protein,Urine Trace (Negative); Specific Gravity,Urine 1.016 (1.001-1.035); Urobilinogen,Urine <2.0 mg/dL (<2.0)
--- NOTE | 2017-12-27 23:25 | P.CONS ---
History of Present Illness - Reason for Consult Consult date: 12/27/17 Abdominal pain, elevated liver enzymes, suspected choledocholithiasis Requesting physician: Pasquale Hussein - Chief Complaint Abdominal pain - History of Present Illness Patient is a 67-year-old female who recently underwent a laparoscopic cholecystectomy on Tuesday of last week. The patient presents back to the hospital with complaints of nausea and vomiting as well as epigastric abdominal pain. The patient reports intermittent sharp abdominal pain diffusely across her abdomen. She reports that the pain initially started the day after the procedure and continued to increase. This was associated with multiple episodes of nonbloody nonbilious vomiting. The patient presented back to the hospital where she was found to have elevation in her liver enzymes with a total bilirubin of 3.4, a alkaline phosphatase of 92, a AST of 109, and an ALT of 124. The patient also had a CT scan which was significant for ascites, diverticulosis and dilated bowel suggestive of an ileus. Review of Systems Constitutional: Denies any fatigue, change in weight Eyes: Denies any change in vision, pain denies Nose: Denies any congestion, rhinorrhea Ears: Denies any change in hearing, new onset tinnitus Lungs: Denies any wheezing, shortness of breath, cough, or hemoptysis Cardiac: Denies any pain in chest, shortness of breath, lower extremity swelling Abdomen: As per history of present illness Skin: Denies any new rashes or pruritus Urine: Denies any dysuria or hematuria Neuro: Denies any change in mental status, new focal deficits 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, History of Any Multi-Drug Resistant Organisms: None Reported Past Surgical History: Cholecystectomy Additional Past Surgical History / Comment(s): colonoscopy Past Anesthesia/Blood Transfusion Reactions: No Reported Reaction Past Psychological History: Anxiety, Depression Additional Psychological History / Comment(s): . Smoking Status: Current every day smoker Past Alcohol Use History: None Reported Additional Past Alcohol Use History / Comment(s): CURRENTLY SMOKING 2ppd, states started age 25 Past Drug Use History: None Reported - Past Family History Father Family Medical History: Diabetes Mellitus, Myocardial Infarction ([place]) Additional Family Medical History / Comment(s): KIDNEY FAILURE,EMPHYSEMA Mother Family Medical History: Cancer Additional Family Medical History / Comment(s): bladder/kidney Sister(s) Family Medical History: Diabetes Mellitus Son(s) Family Medical History: Deep Vein Thrombosis (DVT) Medications and Allergies Home Medications Medication Instructions Recorded Confirmed Type Acetaminophen Tab [Tylenol Tab] 325 - 650 mg PO Q4H PRN 12/19/17 12/26/17 History Diazepam [Valium] 5 mg PO HS 12/19/17 12/26/17 History Lisinopril-Hctz 20-25 mg 1 tab PO QAM 12/19/17 12/26/17 History [Zestoretic 20-25] Magokide 1 tab PO DAILY 12/19/17 12/26/17 History rOPINIRole HCL [Requip] 1 mg PO HS 12/19/17 12/26/17 History Docusate [Colace] 100 mg PO BID #20 capsule 12/23/17 12/26/17 Rx HYDROcodone/APAP 7.5-325MG [Palmer 1 tab PO Q4H PRN 3 Days #18 tab 12/23/1712/26 Rx 7.5-325] Allergies Allergy/AdvReac Type Severity Reaction Status Date / Time No Known Allergies Allergy Verified 12/26/17 12:40 Physical Exam Vitals: Vital Signs Temp Pulse Resp BP Pulse Ox 12/27/17 19:18 97.7 F 112 H 16 87/62 97 12/27/17 18:30 61 148/70 92 L 12/27/17 18:15 77 149/73 92 L 12/27/17 18:00 69 122/72 93 L 12/27/17 17:45 78 137/83 92 L 12/27/17 17:28 97.6 F 114 H 18 115/76 92 L 12/27/17 17:00 115 H 16 102/70 12/27/17 16:45 110 H 18 105/70 95 12/27/17 16:38 97.6 F 113 H 12 115/74 96 12/27/17 16:00 114 H 18 12/27/17 08:00 16 12/27/17 05:42 97.3 F L 98 16 90/60 94 L Intake and Output 12/27/17 12/27/17 12/28/17 14:59 22:59 06:59 Intake Total 900 800 Output Total 5 Balance 900 795 Intake: IV 900 800 Output: Estimated Blood Loss 5 Other: Voiding Method Toilet Toilet # Voids 1 Results CBC & Chem 7: 12/27/17 13:54 12/27/17 13:54 Labs: Abnormal Lab Results - Last 24 Hours (Table) 12/27/17 12/27/17 12/27/17 Range/Units 13:54 13:54 22:46 RBC 3.14 L (3.80-5.40) m/uL Hgb 10.7 L (11.4-16.0) gm/dL Hct 33.3 L (34.0-46.0) % MCV 106.3 H D (80.0-100.0) fL Sodium 134 L (137-145) mmol/L BUN 40 H (7-17) mg/dL Creatinine 1.29 H (0.52-1.04) mg/dL Glucose 100 H (74-99) mg/dL POC Glucose (mg/dL) 112 H (75-99) mg/dL Total Bilirubin 2.3 H (0.2-1.3) mg/dL AST 58 H (14-36) U/L ALT 81 H (9-52) U/L Total Protein 5.5 L (6.3-8.2) g/dL Albumin 2.7 L (3.5-5.0) g/dL Urine Protein (Negative) Urine Bilirubin (Negative) 12/27/17 Range/Units 23:00 RBC (3.80-5.40) m/uL Hgb (11.4-16.0) gm/dL Hct (34.0-46.0) % MCV (80.0-100.0) fL Sodium (137-145) mmol/L BUN (7-17) mg/dL Creatinine (0.52-1.04) mg/dL Glucose (74-99) mg/dL POC Glucose (mg/dL) (75-99) mg/dL Total Bilirubin (0.2-1.3) mg/dL AST (14-36) U/L ALT (9-52) U/L Total Protein (6.3-8.2) g/dL Albumin (3.5-5.0) g/dL Urine Protein Trace H (Negative) Urine Bilirubin 1+ H (Negative) CT scan - abdomen: pending (Significant for diverticulosis without diverticulitis, ascites and dilated bowel suggestive of ileus.) Assessment and Plan (1) Elevated liver enzymes Narrative/Plan: Elevated liver enzymes with total bilirubin of 3.2 on presentation as well as elevation of AST ALT and alkaline phosphatase suggestive of possible choledocholithiasis in a patient who is status post cholecystectomy 5 days ago. Current Visit: Yes Status: Acute Code(s): R74.8 - ABNORMAL LEVELS OF OTHER SERUM ENZYMES SNOMED Code(s): 028326074 (2) Abdominal pain Narrative/Plan: Multifactorial given findings of a ascites, ileus and suggestion of choledocholithiasis on labs. Current Visit: Yes Status: Acute Code(s): R10.9 - UNSPECIFIED ABDOMINAL PAIN SNOMED Code(s): 16017494 (3) Ascites Narrative/Plan: Likely secondary to irrigation during recent cholecystectomy versus bile leak versus postop bleed. Current Visit: Yes Status: Acute Code(s): R18.8 - OTHER ASCITES SNOMED Code(s): 157131786 (4) Postoperative ileus Current Visit: Yes Status: Acute Code(s): K91.89 - OTH POSTPROCEDURAL COMPLICATIONS AND DISORDERS OF DGSTV SYS; K56.7 - ILEUS, UNSPECIFIED SNOMED Code(s): 989235124 Plan: Supportive care Nothing by mouth Plan on ERCP We'll discuss findings with surgical team Further management further service Will follow liver enzymes Thank you for allowing us to protect this patient in the care of this patient
--- NOTE | 2017-12-27 23:25 | P.PCN ---
Date of Procedure: 12/27/17 Description of Procedure: Brief history: This 67-year-old female who presented to the hospital with complaints of worsening abdominal pain after recent laparoscopic cholecystectomy last Tuesday. In discussion with the surgeon the patient had multiple gallstones noted at that time. CT scan on presentation was significant for ascites, diverticulosis and dilated bowel suggestive of an ileus. The patient had elevation in her liver enzymes suggestive of choledocholithiasis and given her pain was brought for ERCP. Procedure performed: Attempted ERCP, failed cannulation Procedure performed by: Dr. Herbert Bowers, Dr. Kwasi Putnam Preoperative diagnoses: Elevated bilirubin, elevated transaminases, abdominal pain IV sedation per anesthesia: Procedure: After informed consent was obtained from the patient and after the risks benefits and complications including bleeding perforation and pancreatitis explained in detail the patient was brought into the endoscopy unit. The patient was placed in prone position and IV conscious sedation was administered by anesthesia under continuous monitoring. The Olympus side-viewing duodenoscope was then inserted into the mouth and esophagus intubated without any difficulty. The scope was gradually advanced into the stomach and duodenum. The major papilla was identified without any difficulty. Multiple attempts were made cannulation with a short nose Ultratome however given the patient's anatomy, diverticular relationship of the ampulla, the procedure was technically difficult and cannulation was not achieved. The pancreatic duct was not injected, however wire cannulation did occur. The procedure was aborted. Impression: Attempted ERCP aborted due to failed cannulation of the bile duct Recommendations: The findings of this examination were discussed with both Dr Hussein who performed omrgan patients cholecystectomy and Dr. Jett who is the covering physician. Multiple attempts were made to discuss the findings of the examination with the patient's however he left the waiting area and could not be found. At this time the recommendation is to keep the patient overnight and follow liver enzymes in the morning. The patient can be started on a clear diet. We'll decide on further management depending on the patient's clinical condition and laboratory values tomorrow.
[2017-12-28] MEDS ORDERED: SODIUM CHLORIDE 0.9% 2,000 ML IV ONE (00:19)
--- NOTE | 2017-12-28 00:19 | XR ---
EXAM: XR Chest, 1 View CLINICAL HISTORY: recent intubation TECHNIQUE: Frontal view of the chest. COMPARISON: No relevant prior studies available. FINDINGS: Lungs: Bilateral atelectasis or scar. Pleural space: Small bilateral pleural effusions. No pneumothorax. Heart: Stable cardiomediastinal silhouette. Mediastinum: See above. Bones/joints: No acute osseous abnormality. Tubes, lines and devices: Endotracheal tube terminates approximately 3. 9 cm above the abraham. Esophagogastric tube traverses the diaphragm and extends off the [id number]. IMPRESSION: 1. Endotracheal tube terminates approximately 3.9 cm above the abraham. 2. Small bilateral pleural effusions.
[2017-12-28 00:24] LABS: HCT 30.4 % (34.0-46.0); HGB 10.2 gm/dL (11.4-16.0); MCH 35.3 pg (25.0-35.0); MCHC 33.5 g/dL (31.0-37.0); MCV 105.3 fL (80.0-100.0); Macrocytosis Slight; Mean Platelet Volume 7.5; Platelet Count 184 k/uL (150-450); RBC 2.88 m/uL (3.80-5.40); RDW 12.3 % (11.5-15.5); WBC 8.6 k/uL (3.8-10.6)
[2017-12-28] MEDS ORDERED: NOREPINEPHRINE 4 MG in SODIUM CHLORIDE 0.9% 250 ML IV SCH (00:30)
[2017-12-28 00:43] LABS: Calcium 8.8 mg/dL (8.4-10.2); Magnesium 1.4 mg/dL (1.6-2.3); Phosphorus 3.1 mg/dL (2.5-4.5); Potassium 4.7 mmol/L (3.5-5.1)
[2017-12-28] MEDS ORDERED: SODIUM CHLORIDE 0.9% 1,000 ML IV ONE (00:49)
[2017-12-28 00:50] LABS: Albumin 2.2 g/dL (3.5-5.0); Total Bilirubin 1.7 mg/dL (0.2-1.3); Total Protein 4.8 g/dL (6.3-8.2)
[2017-12-28 00:55] LABS: ABG Base Excess -6.5 mmol/L; ABG HCO3 20 mmol/L (21-25); ABG Oxygen Saturation 99.9 % (94-97); ABG PCO2 42 mmHg (35-45); ABG PH 7.29 (7.35-7.45); ABG PO2 196 mmHg (83-108); ABG TCO2 21 mmol/L (19-24)
[2017-12-28] MEDS ORDERED: DOCUSATE ORAL SOLN 100 MG/10 ML CUP PO PRN (01:14)
[2017-12-28] MEDS: AMPICILLIN-SULBACTAM 3 GM in SODIUM CHLORIDE 0.9% 100 ML IVPB SCH ×2 (01:15→08:30)
[2017-12-28] MEDS ORDERED: Magnesium Replacement Protocol 1 EACH MISC MISCELLANE PRN (01:31)
[2017-12-28] MEDS: HEPARIN SODIUM,PORCINE 5,000 UNIT/ML 1 ML VIAL SQ SCH ×2 (01:45→08:26)
[2017-12-28] MEDS: MAGNESIUM SULFATE-D5W PMX 1 GM in DEXTROSE/WATER 1 100ML.BAG IVPB SCH ×3 (02:15→05:00)
[2017-12-28] MEDS: DEXTROSE 5%-0.9% NACL 1,000 ML IV SCH ×3 (02:15→12:28)
[2017-12-28] MEDS: PROPOFOL 1,000 MG in EMPTY BAG 1 BAG IV SCH ×3 (02:16→09:28)
[2017-12-28] MEDS: CHLORHEXIDINE GLUCONATE 15 ML CUP MUCOUS MEM SCH ×2 (02:38→08:26)
[2017-12-28 06:01] LABS: Calcium 7.6 mg/dL (8.4-10.2); Magnesium 2.1 mg/dL (1.6-2.3); Phosphorus 2.5 mg/dL (2.5-4.5); Potassium 3.9 mmol/L (3.5-5.1); Total Protein 4.4 g/dL (6.3-8.2)
[2017-12-28] MEDS ORDERED: Potassium Replacement Protocol 1 EACH MISC MISCELLANE PRN (06:03)
[2017-12-28 06:31] LABS: Glucose,Whole Blood 172 mg/dL (75-99)
[2017-12-28 06:44] LABS: Basophils % (A) 0 %; Eosinophils # (A) 0.3 k/uL (0-0.7); Eosinophils % (A) 3 %; HCT 32.9 % (34.0-46.0); HGB 10.7 gm/dL (11.4-16.0); Lymphocytes # (A) 1.6 k/uL (1.0-4.8); Lymphocytes % (A) 16 %; MCH 34.7 pg (25.0-35.0); MCHC 32.6 g/dL (31.0-37.0); MCV 106.3 fL (80.0-100.0); Macrocytosis Slight; Mean Platelet Volume 7.5; Monocytes # (A) 0.6 k/uL (0-1.0); Monocytes % (A) 6 %; Neutrophils # (A) 7.5 k/uL (1.3-7.7); Neutrophils % (A) 74 %; Platelet Count 275 k/uL (150-450); RBC 3.09 m/uL (3.80-5.40); RDW 12.3 % (11.5-15.5); WBC 10.2 k/uL (3.8-10.6)
[2017-12-28] MEDS ORDERED: POTASSIUM BICARBONATE/CIT AC 20 MEQ TABLET.EFF NG-TUBE SCH ×2 (07:00→12:00)
[2017-12-28] MEDS ORDERED: INSULIN ASPART 100 UNIT/ML 1 ML 10 ML VIAL SQ SCH ×2 (07:30→12:00)
[2017-12-28 07:44] LABS: ABG Base Excess -7.2 mmol/L; ABG HCO3 20 mmol/L (21-25); ABG Oxygen Saturation 99.3 % (94-97); ABG PCO2 43 mmHg (35-45); ABG PH 7.27 (7.35-7.45); ABG PO2 155 mmHg (83-108); ABG TCO2 21 mmol/L (19-24)
[2017-12-28] MEDS: NOREPINEPHRINE 4 MG in DEXTROSE 5% IN WATER 250 ML IV SCH ×4 (08:57)
[2017-12-28] MEDS ORDERED: FAMOTIDINE 20 MG TAB PO SCH (09:00)
[2017-12-28] MEDS ORDERED: FAMOTIDINE 20 MG/2 ML VIAL IV SCH (09:00)
--- NOTE | 2017-12-28 09:37 | XR ---
EXAMINATION TYPE: XR chest 1V portable DATE OF EXAM: 12/28/2017 COMPARISON: 12/27/2017 INDICATION: Tube placement, prior abnormal chest TECHNIQUE: Single frontal view of the chest is obtained. FINDINGS: The heart size is normal. The pulmonary vasculature is normal. Some atelectatic changes are at the right base. There is diaphragm silhouetting on the left. Small ef fusion is likely present. Findings are stable from comparison. Endotracheal tube has its tip above the abraham. Nasogastric tube transverses the thorax the tip in th e left upper quadrant of the abdomen. IMPRESSION: 1. Bibasilar infiltrates. Small left pleural effusion may be present. Findings are stable. 2. Lines and catheters stable in position.
[2017-12-28] MEDS ORDERED: NOREPINEPHRINE 16 MG in SODIUM CHLORIDE 0.9% 250 ML IV SCH (10:15)
--- NOTE | 2017-12-28 10:24 | XR ---
EXAMINATION TYPE: XR chest 1V portable DATE OF EXAM: 12/28/2017 COMPARISON: 12/28/2017 INDICATION: Right central line placement TECHNIQUE: Single frontal view of the chest is obtained. FINDINGS: The heart size is enlarged. The pulmonary vasculature is normal. Small left pleural effusion and silhouetting left diaphragm remains present. There may be some improv ement of suspected atelectasis at the right base. Endotracheal tube and nasogastric tube remain in position. There is placement of a right central veno us catheter, tip is within the right atrium. No pneumothorax is evident. IMPRESSION: 1. Placement of a right central venous catheter with tip in the right atrium. No pneumothorax. 2. Additional lines and catheters stable in position. 3. Bibasilar infiltrates and left pleural effusion again evident.
[2017-12-28 10:41] VITALS: BP 135/63
--- NOTE | 2017-12-28 10:48 | PCN ---
PROCEDURE NOTE PROCEDURE: Placement of a left radial arterial line. PREOPERATIVE DIAGNOSES: 1. Hypotension and cough. 2. Possible abdominal sepsis. POSTOPERATIVE DIAGNOSES: 1. Hypotension and cough. 2. Possible abdominal sepsis. ANESTHESIA USED: None deployed. PROCEDURE DESCRIPTION: The left wrist was prepared in a sterile fashion, drapes were applied. The left radial artery was palpated, cannulated easily, and a guidewire was placed. Good blood flow was noted, and then a Cook catheter was inserted over the guidewire, and the guidewire was removed. Good blood flow noted, line was secured using 3.0 silk sutures, good waveform was noted. The procedure was well tolerated. No evidence of any immediate complications. MMODL / IJN: [id number] /
--- NOTE | 2017-12-28 10:51 | P.CNPUL ---
History of Present Illness Consult date: 12/28/17 Requesting physician: Honorio Candelaria Reason for consult: other (ICU management, patient is on mechanical ventilation , hypotensive.) Chief complaint: Abdominal pain, nausea and vomiting History of present illness: This is a 67-year-old female who had recent laparoscopic cholecystectomy, on Tuesday, about 5 days ago. This was done by Dr. Hussein. Patient presented back to the hospital yesterday complaining of few days' history of abdominal pain, epigastric discomfort, nausea and vomiting. Pain actually started the day after the procedure, and his been gradually getting worse. Patient had multiple episodes of nonbloody nonbilious vomiting. Workup in the ER included liver enzymes which were noted to be elevated including elevated total bilirubin of 3.4, and the transaminases were slightly elevated. CT of the abdomen and pelvis showed ascites, diverticulosis, and dilated bowel loops suggestive of an ileus. Patient was admitted, hydrated, and she was seen by gastroenterology on consultation. ERCP was attempted, but it was aborted due to failed cannulation of the bile duct. Apparently multiple attempts were made to cannulate the bile duct, apparently the procedure was technically difficult, and cannulation could not be achieved. Dr. segovia will is covering for Dr. Hussein was consulted, he felt that the patient may have bile leak, then patient was taken to the OR, and she underwent diagnostic laparoscopy with drain placement. Patient was found to have moderate amount of bilious fluid within the abdominal cavity. However could not identify the exact source of the biliary leak. He felt that the patient will definitely need stenting of the common bile duct, but since ERCP could not be accomplished he is now recommending transferring the patient to [facility]. I was asked to see the patient on consultation, she is presently on mechanical ventilation, and her ventilator settings were adjusted. She is now on FiO2 of 40%, assist control rate of 18, tidal volume of 450. PEEP of 5. Patient is now on 20 mics of norepinephrine, and she has no central access. And there is no arterial line noted. As soon as I evaluated the patient, and realized that the patient is being transferred I recommended a central line placement which was done, I was able to place a right IJ triple-lumen catheter. I also recommended an arterial line, and I was able to place a left radial arterial line. Dr. segovia is in the process of communicating with the surgeons at [facility] to arrange for the transfer as soon as possible. I recommended a CVP monitor, will likely give the patient more fluids and try to cut down on the dose of norepinephrine. Patient is presently on antibiotics in the form of Unasyn. She is on 50 g of propofol, and the dose is being adjusted accordingly. We'll maintain a rass scale of -3. Chest x-ray showed bibasilar atelectasis and small left pleural effusion noted. No evidence of pneumothorax post line placement. All labs were reviewed. Review of Systems ROS unobtainable: due to endotracheal tube 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, History of Any Multi-Drug Resistant Organisms: None Reported Past Surgical History: Cholecystectomy Additional Past Surgical History / Comment(s): colonoscopy Past Anesthesia/Blood Transfusion Reactions: No Reported Reaction Past Psychological History: Anxiety, Depression Additional Psychological History / Comment(s): . Smoking Status: Current every day smoker Past Alcohol Use History: None Reported Additional Past Alcohol Use History / Comment(s): CURRENTLY SMOKING 2ppd, states started age 25 Past Drug Use History: None Reported - Past Family History Father Family Medical History: Diabetes Mellitus, Myocardial Infarction ([place]) Additional Family Medical History / Comment(s): KIDNEY FAILURE,EMPHYSEMA Mother Family Medical History: Cancer Additional Family Medical History / Comment(s): bladder/kidney Sister(s) Family Medical History: Diabetes Mellitus Son(s) Family Medical History: Deep Vein Thrombosis (DVT) Medications and Allergies Home Medications Medication Instructions Recorded Confirmed Type Acetaminophen Tab [Tylenol Tab] 325 - 650 mg PO Q4H PRN 12/19/17 12/26/17 History Diazepam [Valium] 5 mg PO HS 12/19/17 12/26/17 History Lisinopril-Hctz 20-25 mg 1 tab PO QAM 12/19/17 12/26/17 History [Zestoretic 20-25] [place] 1 tab PO DAILY 12/19/17 12/26/17 History rOPINIRole HCL [Requip] 1 mg PO HS 12/19/17 12/26/17 History Docusate [Colace] 100 mg PO BID #20 capsule 12/23/17 12/26/17 Rx HYDROcodone/APAP 7.5-325MG [[place] 1 tab PO Q4H PRN 3 Days #18 tab 12/23/1712/26 Rx 7.5-325] Allergies Allergy/AdvReac Type Severity Reaction Status Date / Time No Known Allergies Allergy Verified 12/26/17 12:40 Physical Exam Vitals: Vital Signs Temp Pulse Pulse Resp BP BP Pulse Ox 12/28/17 08:30 80 12 92/72 100 12/28/17 08:15 86 16 108/72 98 12/28/17 08:00 85 22 125/62 100 12/28/17 07:45 96.8 F L 76 18 99/66 100 12/28/17 07:30 63 15 91/57 100 12/28/17 07:15 63 16 81/57 100 12/28/17 07:00 67 16 81/55 100 12/28/17 06:45 65 16 82/54 100 12/28/17 06:30 68 16 91/63 100 12/28/17 06:15 64 16 89/50 100 12/28/17 06:00 66 16 83/59 100 12/28/17 05:45 64 16 86/57 100 12/28/17 05:30 64 16 85/57 100 12/28/17 05:15 66 16 95/59 100 12/28/17 05:00 68 16 100/59 100 12/28/17 04:45 82 16 87/59 100 12/28/17 04:30 86 16 97/56 100 12/28/17 04:15 110 H 18 99/73 100 12/28/17 04:00 96.8 F L 104 H 17 106/83 99 12/28/17 03:45 77 18 83/54 99 12/28/17 03:30 85 17 91/58 99 12/28/17 03:15 73 16 91/58 100 12/28/17 03:00 75 16 85/64 100 12/28/17 02:45 60 16 89/59 100 12/28/17 02:30 61 16 95/63 100 12/28/17 02:00 62 16 96/52 100 12/28/17 01:30 64 16 98/58 100 12/28/17 01:00 59 L 16 108/69 100 12/28/17 00:30 87 20 86/50 100 12/28/17 00:00 80 25 H 93/46 100 12/27/17 23:30 87 29 H 134/96 100 12/27/17 23:00 114 H 27 H 87/60 100 12/27/17 22:46 97.4 F L 12/27/17 20:45 97/68 12/27/17 20:00 97.7 F 109 H 17 83/62 97 12/27/17 19:18 97.7 F 112 H 16 87/62 97 12/27/17 18:30 61 148/70 92 L 12/27/17 18:15 77 149/73 92 L 12/27/17 18:00 69 122/72 93 L 12/27/17 17:45 78 137/83 92 L 12/27/17 17:28 97.6 F 114 H 18 115/76 92 L 12/27/17 17:00 115 H 16 102/70 12/27/17 16:45 110 H 18 105/70 95 12/27/17 16:38 97.6 F 113 H 12 115/74 96 12/27/17 16:00 114 H 18 Intake and Output 12/27/17 12/28/17 12/28/17 22:59 06:59 14:59 Intake Total 800 4581.840 622.544 Output Total 5 2195 430 Balance 795 2386.840 192.544 Intake: IV 800 4400 380 Ampicillin-Sulbactam 3 gm 100 100 In Sodium Chloride 0.9% 100 ml @ 100 mls/hr IVPB ONCE STA Rx#:[id number] Dextrose 5%-0.9% NaCl 1, 1000 250 000 ml @ 125 mls/hr IV . Q8H [facility] Rx#:[id number] Lactated Ringers 1,000 ml 20 @ 20 mls/hr IV .Q24H ESTELA Rx#:[id number] Magnesium Sulfate-D5w Pmx 300 1 gm In Dextrose/Water 1 100ml.bag @ 100 mls/hr IVPB Q1H [facility] Rx#: [id number] NS 10 Sodium Chloride 0.9% 2, 3000 000 ml @ 999 mls/hr IV . Q2H1M ONE Rx#:[id number] Intake, IV Titration 181.840 242.544 Amount Norepinephrine 4 mg In 103.125 146.875 Dextrose 5% in Water 250 ml @ Titrate IV .Q0M ESTELA Rx#:[id number] Propofol 1,000 mg In 78.715 95.669 Empty Bag 1 bag @ Titrate IV .Q0M [facility] Rx#: [id number] Output: Drainage 900 80 Right Abdomen 900 80 Urine 1295 350 Estimated Blood Loss 5 Other: Voiding Method Toilet Indwelling Catheter Indwelling Catheter Weight 99.9 kg Physical Exam: Revealed a 67-year-old female on mechanical ventilation, arousable, follows simple instructions, not in pain and not in distress. Head: Atraumatic, normocephalic, endotracheal tube is intact, orogastric tube is intact. HEENT:[Neck is supple.] [No neck masses.] [No thyromegaly.] [No JVD.] PERRLA, EOMI, no icterus. Throat is clear. Tubes were intact. Right IJ triple-lumen catheter is noted. Chest: [Diminished breath sounds at the bases, no crackles or rhonchi or wheezes , symmetrical chest expansion noted, no chest wall tenderness.] Cardiac Exam: [Normal S1 and S2, no S3 gallop, no murmur.] Abdomen: [Soft, nontender, no megaly, no rebound, no guarding, diminished bowel sounds, postsurgical changes noted in the abdomen ANMOL drain is noted. Extremities: [No clubbing, no edema, no cyanosis.] Neurological Exam: Sedated, but arousable, follows simple instructions. No gross focal neurologic deficits. Psychiatric: Could not be assessed. Lymphatics: No lymphadenopathy. Results - Laboratory Findings CBC and BMP: 12/28/17 06:10 12/28/17 05:06 ABG ABG pH 7.27 (7.35-7.45) L 12/28/17 07:39 ABG pCO2 43 mmHg (35-45) 12/28/17 07:39 ABG pO2 155 mmHg (83-108) H 12/28/17 07:39 ABG O2 Saturation 99.3 % (94-97) H 12/28/17 07:39 PT/INR, D-dimer PT 9.6 sec (9.0-12.0) 12/26/17 13:31 INR 1.0 (<1.2) 12/26/17 13:31 Abnormal lab findings: Abnormal Labs 12/26/17 12/26/17 12/26/17 13:31 13:31 13:31 WBC 11.7 H RBC Hgb Hct MCV 101.0 H MCH Neutrophils # 9.6 H APTT 21.0 L ABG pH ABG pO2 ABG HCO3 ABG O2 Saturation Sodium 134 L Chloride 92 L Carbon Dioxide BUN 49 H Creatinine 1.98 H Glucose 123 H POC Glucose (mg/dL) Calcium 12.0 H Magnesium Total Bilirubin 3.4 H AST 109 H ALT 124 H Total Protein Albumin Urine Appearance Urine Protein Urine Bilirubin Urine WBC Ur Squamous Epith Cells Hyaline Casts Urine Mucus 12/26/17 12/27/17 12/27/17 13:46 00:50 13:54 WBC RBC Hgb Hct MCV MCH Neutrophils # APTT ABG pH 7.29 L ABG pO2 196 H ABG HCO3 20 L ABG O2 Saturation 99.9 H Sodium 134 L Chloride Carbon Dioxide BUN 40 H Creatinine 1.29 H Glucose 100 H POC Glucose (mg/dL) Calcium Magnesium Total Bilirubin 2.3 H AST 58 H ALT 81 H Total Protein 5.5 L Albumin 2.7 L Urine Appearance Cloudy H Urine Protein 1+ H Urine Bilirubin 2+ H Urine WBC 8 H Ur Squamous Epith Cells 22 H Hyaline Casts 15 H Urine Mucus Rare H 12/27/17 12/27/17 12/27/17 13:54 22:46 23:00 WBC RBC 3.14 L Hgb 10.7 L Hct 33.3 L MCV 106.3 H D MCH Neutrophils # APTT ABG pH ABG pO2 ABG HCO3 ABG O2 Saturation Sodium Chloride Carbon Dioxide BUN Creatinine Glucose POC Glucose (mg/dL) 112 H Calcium Magnesium Total Bilirubin AST ALT Total Protein Albumin Urine Appearance Urine Protein Trace H Urine Bilirubin 1+ H Urine WBC Ur Squamous Epith Cells Hyaline Casts Urine Mucus 12/27/17 12/27/17 12/28/17 23:59 23:59 05:06 WBC RBC 2.88 L Hgb 10.2 L Hct 30.4 L MCV 105.3 H MCH 35.3 H Neutrophils # APTT ABG pH ABG pO2 ABG HCO3 ABG O2 Saturation Sodium 133 L 135 L Chloride 109 H 113 H Carbon Dioxide 18 L 16 L BUN 40 H 28 H Creatinine 1.20 H Glucose 154 H 152 H POC Glucose (mg/dL) Calcium 7.6 L Magnesium 1.4 L Total Bilirubin 1.7 H AST 73 H 52 H ALT 75 H 66 H Total Protein 4.8 L 4.4 L Albumin 2.2 L 2.0 L Urine Appearance Urine Protein Urine Bilirubin Urine WBC Ur Squamous Epith Cells Hyaline Casts Urine Mucus 12/28/17 12/28/17 12/28/17 06:10 06:29 07:39 WBC RBC 3.09 L Hgb 10.7 L Hct 32.9 L MCV 106.3 H MCH Neutrophils # APTT ABG pH 7.27 L ABG pO2 155 H ABG HCO3 20 L ABG O2 Saturation 99.3 H Sodium Chloride Carbon Dioxide BUN Creatinine Glucose POC Glucose (mg/dL) 172 H Calcium Magnesium Total Bilirubin AST ALT Total Protein Albumin Urine Appearance Urine Protein Urine Bilirubin Urine WBC Ur Squamous Epith Cells Hyaline Casts Urine Mucus - Diagnostic Findings CT scan - chest: image reviewed (As noted in HPI.) Assessment and Plan Assessment: Impression: 1 abdominal pain, elevated liver enzymes, with biliary leak post cholecystectomy most likely secondary to bile duct injury. 2 postoperative respiratory failure requiring mechanical ventilation, unexpected , associated with hypotension, which is likely multifactorial, and the differential diagnoses includes hypovolemia, abdominal sepsis, and also secondary to sedation. Blood pressure was noted to improve once I cut down on the propofol to a lower dose. 3 postoperative ileus, being addressed by surgery on the case. 4 postoperative ascites, could be related to recent laparoscopic cholecystectomy and irrigation. 5 suspect bile duct injury from recent gallbladder surgery 6 failed ERCP to cannulate and stent common bile duct. 7 history of multiple comorbidities including benign essential hypertension, restless leg syndrome, osteoarthritis of both hips, and history of diverticulitis. Recommendation: Agree with the present treatment plan, patient will remain on mechanical ventilation, fluids, antibiotics, pressors, GI and DVT prophylaxis, degree with transfer plans to [facility]. Prior to transfer, I went ahead and placed a right IJ triple-lumen catheter, and a left radial arterial line. We'll continue to follow. Critical care time is 55 minutes not including the time spent on procedures. Time with Patient: Greater than 30
--- NOTE | 2017-12-28 11:08 | PCN ---
PROCEDURE NOTE OPERATIVE REPORT: Placement of a right internal jugular triple-lumen catheter. PREOPERATIVE DIAGNOSES: 1. Hypotension. 2. Possible abdominal sepsis. POSTOPERATIVE DIAGNOSES: 1. Hypotension. 2. Possible abdominal sepsis. ANESTHESIA USED: 2 mL of 1% lidocaine. PROCEDURE: Patient was placed in a Trendelenburg position. The area of the right subclavian was initially prepared in a sterile fashion and drapes were applied. The area of the right subclavian was attempted, and could not cannulate the right subclavian vein easily, then I moved to the right IJ area. The area was locally anesthetized, and using the posterior approach, I accessed the right internal jugular vein easily. Then, a guidewire was placed, and the area around the guidewire was dilated using a dilator. The dilator was removed. Then a triple-lumen catheter was inserted over the guidewire, and the guidewire was removed. Good blood flow was noted in the 3 different ports of the triple-lumen catheter. The procedure was well tolerated. Line was secured using 3.0 silk sutures. Chest x-ray postoperatively showed no evidence of any pneumothorax. MMODL / IJN: [id number] /
[2017-12-28 12:01] LABS: Glucose,Whole Blood 116 mg/dL (75-99)
[2017-12-28 12:40] VITALS: TEMP 97.8
--- NOTE | 2017-12-28 12:56 | P.PN ---
Subjective Progress Note Date: 12/28/17 This is a 67-year-old female, patient of [facility]. She has a known past medical history of hypertension, chronic knee disease, nicotine dependence and recent cholecystectomy. She had a cholecystectomy completed on Tuesday. Presents to the emergency room with complaints of abdominal pain. She was admitted to Dr. Gan service and he was the surgeon who completed the laparoscopic cholecystectomy last Tuesday. We have been consulted for medical management. Patient had a computed tomography scan of the abdomen and pelvis completed in the ER showing new infiltrate and atelectasis in the left lower lobe with pleural effusion. There is new ascites. There is moderate colonic diverticulosis without diverticulitis. There are new multiple loops of proximal small bowel dilated. Dilated stomach. This is likely related to ileus. Patient also had elevated LFTs and total bilirubin. Total bili 3.4 AST 109 and ALT 124. There were concerns for possible choledocholithiasis and GI service was also consulted. GI service was proceeding with an ERCP today. Patient also having episodes of hypotension. Her Zestoretic has been on hold. She's been given IV fluids. Patient denies any fever chills or sweats. Denies any nausea or vomiting. Denies any chest pain. Denies any burning with urination. Does report constipation. White count 11.7 on admission. On 12/28/2017 patient is currently in the intensive care unit on mechanical ventilation. ERCP was attempted, but was aborted due to failed cannulation of the bile duct. Family multiple times for me to cannulate bile duct apparently the procedure was technically difficult cannulation could not be achieved. Patient was then taken to the OR where she underwent a diagnostic laparoscope he with drain placement. Patient was found to have a moderate amount of bilious fluid within the abdominal cavity. However could not identify the exact source of the biliary leak. Surgical services recommending transferred to [facility] for further intervention. Patient is currently requiring levophed for blood pressure support. Patient remains on diprivan for sedation. Critical care team following closely. Surgical team initiating transferred to [facility]. Objective - Vital Signs Vital signs: Vital Signs Temp 97.8 F 12/28/17 12:00 Pulse 94 12/28/17 12:30 Resp 17 12/28/17 12:30 BP 135/63 12/28/17 09:45 Pulse Ox 99 12/28/17 12:30 Intake & Output 12/27/17 12/28/17 12/28/17 18:59 06:59 18:59 Intake Total 1000 5281.840 1352.857 Output Total 2200 975 Balance 1000 3081.840 377.857 Weight 99.9 kg Intake: IV 1000 5100 990 Ampicillin-Sulbactam 3 gm 100 100 In Sodium Chloride 0.9% 100 ml @ 100 mls/hr IVPB ONCE [facility] Rx#:[id number] Dextrose 5%-0.9% NaCl 1, 1000 750 000 ml @ 125 mls/hr IV . Q8H [facility] Rx#:[id number] Lactated Ringers 1,000 ml 100 @ 20 mls/hr IV .Q24H [facility] Rx#:[id number] Magnesium Sulfate-D5w Pmx 300 1 gm In Dextrose/Water 1 100ml.bag @ 100 mls/hr IVPB Q1H [facility] Rx#: [id number] NS 40 Sodium Chloride 0.9% 2, 3000 000 ml @ 999 mls/hr IV . Q2H1M [facility] Rx#:[id number] Intake, IV Titration 181.840 362.857 Amount Norepinephrine 4 mg In 103.125 267.188 Dextrose 5% in Water 250 ml @ Titrate IV .Q0M [facility] Rx#:[id number] Propofol 1,000 mg In 78.715 95.669 Empty Bag 1 bag @ Titrate IV .Q0M [facility] Rx#: [id number] Output: Drainage 900 180 Right Abdomen 900 180 Urine 1295 795 Estimated Blood Loss 5 Other: Voiding Method Toilet Indwelling Catheter Indwelling Catheter # Voids 1 ABP, PAP, CO, CI - Last Documented Arterial Blood Pressure 101/57 - Exam Head normocephalic Neck supple Lungs patient currently on mechanical ventilation. Heart regular rate and rhythm S1-S2, no rub or gallop Abdomen ANMOL drain in place. Extremities no edema Neuro patient on sedation - Labs CBC & Chem 7: 12/28/17 06:10 12/28/17 10:33 Labs: Abnormal Lab Results - Last 24 Hours (Table) 12/27/17 12/27/17 12/27/17 Range/Units 00:50 13:54 13:54 RBC 3.14 L (3.80-5.40) m/uL Hgb 10.7 L (11.4-16.0) gm/dL Hct 33.3 L (34.0-46.0) % MCV 106.3 H D (80.0-100.0) fL MCH (25.0-35.0) pg ABG pH 7.29 L (7.35-7.45) ABG pO2 196 H (83-108) mmHg ABG HCO3 20 L (21-25) mmol/L ABG O2 Saturation 99.9 H (94-97) % Sodium 134 L (137-145) mmol/L Chloride (98-107) mmol/L Carbon Dioxide (22-30) mmol/L BUN 40 H (7-17) mg/dL Creatinine 1.29 H (0.52-1.04) mg/dL Glucose 100 H (74-99) mg/dL POC Glucose (mg/dL) (75-99) mg/dL Calcium (8.4-10.2) mg/dL Magnesium (1.6-2.3) mg/dL Total Bilirubin 2.3 H (0.2-1.3) mg/dL AST 58 H (14-36) U/L ALT 81 H (9-52) U/L Total Protein 5.5 L (6.3-8.2) g/dL Albumin 2.7 L (3.5-5.0) g/dL Urine Protein (Negative) Urine Bilirubin (Negative) 12/27/17 12/27/17 12/27/17 Range/Units 22:46 23:00 23:59 RBC 2.88 L (3.80-5.40) m/uL Hgb 10.2 L (11.4-16.0) gm/dL Hct 30.4 L (34.0-46.0) % MCV 105.3 H (80.0-100.0) fL MCH 35.3 H (25.0-35.0) pg ABG pH (7.35-7.45) ABG pO2 (83-108) mmHg ABG HCO3 (21-25) mmol/L ABG O2 Saturation (94-97) % Sodium (137-145) mmol/L Chloride (98-107) mmol/L Carbon Dioxide (22-30) mmol/L BUN (7-17) mg/dL Creatinine (0.52-1.04) mg/dL Glucose (74-99) mg/dL POC Glucose (mg/dL) 112 H (75-99) mg/dL Calcium (8.4-10.2) mg/dL Magnesium (1.6-2.3) mg/dL Total Bilirubin (0.2-1.3) mg/dL AST (14-36) U/L ALT (9-52) U/L Total Protein (6.3-8.2) g/dL Albumin (3.5-5.0) g/dL Urine Protein Trace H (Negative) Urine Bilirubin 1+ H (Negative) 12/27/17 12/28/17 12/28/17 Range/Units 23:59 05:06 06:10 RBC 3.09 L (3.80-5.40) m/uL Hgb 10.7 L (11.4-16.0) gm/dL Hct 32.9 L (34.0-46.0) % MCV 106.3 H (80.0-100.0) fL MCH (25.0-35.0) pg ABG pH (7.35-7.45) ABG pO2 (83-108) mmHg ABG HCO3 (21-25) mmol/L ABG O2 Saturation (94-97) % Sodium 133 L 135 L (137-145) mmol/L Chloride 109 H 113 H (98-107) mmol/L Carbon Dioxide 18 L 16 L (22-30) mmol/L BUN 40 H 28 H (7-17) mg/dL Creatinine 1.20 H (0.52-1.04) mg/dL Glucose 154 H 152 H (74-99) mg/dL POC Glucose (mg/dL) (75-99) mg/dL Calcium 7.6 L (8.4-10.2) mg/dL Magnesium 1.4 L (1.6-2.3) mg/dL Total Bilirubin 1.7 H (0.2-1.3) mg/dL AST 73 H 52 H (14-36) U/L ALT 75 H 66 H (9-52) U/L Total Protein 4.8 L 4.4 L (6.3-8.2) g/dL Albumin 2.2 L 2.0 L (3.5-5.0) g/dL Urine Protein (Negative) Urine Bilirubin (Negative) 12/28/17 12/28/17 12/28/17 Range/Units 06:29 07:39 11:57 RBC (3.80-5.40) m/uL Hgb (11.4-16.0) gm/dL Hct (34.0-46.0) % MCV (80.0-100.0) fL MCH (25.0-35.0) pg ABG pH 7.27 L (7.35-7.45) ABG pO2 155 H (83-108) mmHg ABG HCO3 20 L (21-25) mmol/L ABG O2 Saturation 99.3 H (94-97) % Sodium (137-145) mmol/L Chloride (98-107) mmol/L Carbon Dioxide (22-30) mmol/L BUN (7-17) mg/dL Creatinine (0.52-1.04) mg/dL Glucose (74-99) mg/dL POC Glucose (mg/dL) 172 H 116 H (75-99) mg/dL Calcium (8.4-10.2) mg/dL Magnesium (1.6-2.3) mg/dL Total Bilirubin (0.2-1.3) mg/dL AST (14-36) U/L ALT (9-52) U/L Total Protein (6.3-8.2) g/dL Albumin (3.5-5.0) g/dL Urine Protein (Negative) Urine Bilirubin (Negative) Microbiology - Last 24 Hours (Table) 12/27/17 23:30 Gram Stain - Preliminary Sputum Sputum Culture - Preliminary Assessment and Plan Assessment: 1. Abdominal pain: Status post recent cholecystectomy about 5 days ago. Abdominal pain could be contributed to ileus as well as possible choledocholithiasis.1. Abdominal pain: Status post recent cholecystectomy about 5 days ago. Abdominal pain could be contributed to ileus as well as possible choledocholithiasis. Patient currently on Unasyn IV antibiotic per surgical team 2. Choledocholithiasis with elevated LFTs and total bilirubin. GI service is following and patient is having ERCP today. ERCP was attempted, but was aborted due to failed cannulation of the bile duct. multiple attemps were made to cannulate bile duct apparently the procedure was technically difficult and cannulation could not be achieved. Patient was then taken to the OR where she underwent a diagnostic laparoscope he with drain placement. Patient was found to have a moderate amount of bilious fluid within the abdominal cavity. However could not identify the exact source of the biliary leak. Surgical services recommending transferred to [facility] for further intervention. 3. Postoperative respiratory failure requiring mechanical ventilation. Patient is currently in the intensive care unit. Critical team following closely. Transfer to [facility] per surgical team in process 3. Hypotension: Continue IV fluid hydration. Hold Zestoretic. Continue to monitor. Patient currently on Levophed for pressure support 4. Infiltrate and atelectasis left lower lobe. Chest x-ray completed showing bibasilar infiltrates and left pleural effusion again evident. 5. History of nicotine dependence: Discussed smoking cessation for greater than 3 minutes 6. Acute on chronic kidney disease, stage 3. Creatinine is showing improvement with IV fluids. Creatinine 1.04. 7. History of essential hypertension. Patient is now having hypotension. CVP monitoring per critical care team. Patient currently on levophed for pressure support Patient is in the process of being transferred to [facility] for further intervention per surgical team I performed an examination of the patient and discussed their management with the Nurse Practitioner. I have reviewed the Nurse Practitioner's notes and agree with the documented findings and plan of care
[2017-12-28 14:53] VITALS: PULSE 87; RESP 18
[2017-12-28 18:29] LABS: Hemoglobin A1C 5.1 % (4.0-6.0)
--- NOTE | 2017-12-28 22:15 | P.PN ---
Subjective Progress Note Date: 12/28/17 Principal diagnosis: Bile leak Patient was evaluated earlier this morning. I had a long discussion on the phone with the patient's son and also in person with the patient's daughter and sister and niece. The patient's liver enzymes are improved. Her ANMOL drain output and the output around her ANMOL drain itself is a light yellowish tinged fluid. This is not wen bile in color at this time although does appear to contain some degree of bile. The patient unfortunately did demonstrate some vascular clamps last night and required multiple boluses some oliguria and pressor support. The Levophed requirements have improved however. The patient remains sedated on a ventilator. Objective - Vital Signs Vital signs: Vital Signs Temp 97.8 F 12/28/17 12:00 Pulse 87 12/28/17 14:15 Resp 18 12/28/17 14:15 BP 135/63 12/28/17 09:45 Pulse Ox 100 12/28/17 14:15 Intake & Output 12/28/17 12/28/17 12/29/17 06:59 18:59 06:59 Intake Total 5281.840 1733.176 Output Total 2200 1275 Balance 3081.840 458.176 Weight 99.9 kg 100.2 kg Intake: IV 5100 1250 Ampicillin-Sulbactam 3 gm 100 100 In Sodium Chloride 0.9% 100 ml @ 100 mls/hr IVPB ONCE ST[facility] Rx#:[id number] Dextrose 5%-0.9% NaCl 1, 1000 1000 000 ml @ 125 mls/hr IV . Q8H [facility] Rx#:[id number] Lactated Ringers 1,000 ml 100 @ 20 mls/hr IV .Q24H [facility] Rx#:[id number] Magnesium Sulfate-D5w Pmx 300 1 gm In Dextrose/Water 1 100ml.bag @ 100 mls/hr IVPB Q1H [facility] Rx#: [id number] NS 50 Sodium Chloride 0.9% 2, 3000 000 ml @ 999 mls/hr IV . Q2H1M [facility] Rx#:[id number] Intake, IV Titration 181.840 483.176 Amount Norepinephrine 4 mg In 103.125 302.813 Dextrose 5% in Water 250 ml @ Titrate IV .Q0M [facility] Rx#:[id number] Propofol 1,000 mg In 78.715 180.363 Empty Bag 1 bag @ Titrate IV .Q0M [facility] Rx#: [id number] Output: Drainage 900 280 Right Abdomen 900 280 Urine 1295 995 Estimated Blood Loss 5 Other: Voiding Method Indwelling Catheter Indwelling Catheter ABP, PAP, CO, CI - Last Documented Arterial Blood Pressure 124/64 - Exam Abdomen: Soft, Ali distended, incisions clean and dry, ANMOL drain with light yellowish color - Labs CBC & Chem 7: 12/28/17 06:10 12/28/17 10:33 Labs: Abnormal Lab Results - Last 24 Hours (Table) 12/27/17 12/27/17 12/27/17 Range/Units 00:50 22:46 23:00 RBC (3.80-5.40) m/uL Hgb (11.4-16.0) gm/dL Hct (34.0-46.0) % MCV (80.0-100.0) fL MCH (25.0-35.0) pg ABG pH 7.29 L (7.35-7.45) ABG pO2 196 H (83-108) mmHg ABG HCO3 20 L (21-25) mmol/L ABG O2 Saturation 99.9 H (94-97) % Sodium (137-145) mmol/L Chloride (98-107) mmol/L Carbon Dioxide (22-30) mmol/L BUN (7-17) mg/dL Creatinine (0.52-1.04) mg/dL Glucose (74-99) mg/dL POC Glucose (mg/dL) 112 H (75-99) mg/dL Calcium (8.4-10.2) mg/dL Magnesium (1.6-2.3) mg/dL Total Bilirubin (0.2-1.3) mg/dL AST (14-36) U/L ALT (9-52) U/L Total Protein (6.3-8.2) g/dL Albumin (3.5-5.0) g/dL Urine Protein Trace H (Negative) Urine Bilirubin 1+ H (Negative) 12/27/17 12/27/17 12/28/17 Range/Units 23:59 23:59 05:06 RBC 2.88 L (3.80-5.40) m/uL Hgb 10.2 L (11.4-16.0) gm/dL Hct 30.4 L (34.0-46.0) % MCV 105.3 H (80.0-100.0) fL MCH 35.3 H (25.0-35.0) pg ABG pH (7.35-7.45) ABG pO2 (83-108) mmHg ABG HCO3 (21-25) mmol/L ABG O2 Saturation (94-97) % Sodium 133 L 135 L (137-145) mmol/L Chloride 109 H 113 H (98-107) mmol/L Carbon Dioxide 18 L 16 L (22-30) mmol/L BUN 40 H 28 H (7-17) mg/dL Creatinine 1.20 H (0.52-1.04) mg/dL Glucose 154 H 152 H (74-99) mg/dL POC Glucose (mg/dL) (75-99) mg/dL Calcium 7.6 L (8.4-10.2) mg/dL Magnesium 1.4 L (1.6-2.3) mg/dL Total Bilirubin 1.7 H (0.2-1.3) mg/dL AST 73 H 52 H (14-36) U/L ALT 75 H 66 H (9-52) U/L Total Protein 4.8 L 4.4 L (6.3-8.2) g/dL Albumin 2.2 L 2.0 L (3.5-5.0) g/dL Urine Protein (Negative) Urine Bilirubin (Negative) 12/28/17 12/28/17 12/28/17 Range/Units 06:10 06:29 07:39 RBC 3.09 L (3.80-5.40) m/uL Hgb 10.7 L (11.4-16.0) gm/dL Hct 32.9 L (34.0-46.0) % MCV 106.3 H (80.0-100.0) fL MCH (25.0-35.0) pg ABG pH 7.27 L (7.35-7.45) ABG pO2 155 H (83-108) mmHg ABG HCO3 20 L (21-25) mmol/L ABG O2 Saturation 99.3 H (94-97) % Sodium (137-145) mmol/L Chloride (98-107) mmol/L Carbon Dioxide (22-30) mmol/L BUN (7-17) mg/dL Creatinine (0.52-1.04) mg/dL Glucose (74-99) mg/dL POC Glucose (mg/dL) 172 H (75-99) mg/dL Calcium (8.4-10.2) mg/dL Magnesium (1.6-2.3) mg/dL Total Bilirubin (0.2-1.3) mg/dL AST (14-36) U/L ALT (9-52) U/L Total Protein (6.3-8.2) g/dL Albumin (3.5-5.0) g/dL Urine Protein (Negative) Urine Bilirubin (Negative) 12/28/17 Range/Units 11:57 RBC (3.80-5.40) m/uL Hgb (11.4-16.0) gm/dL Hct (34.0-46.0) % MCV (80.0-100.0) fL MCH (25.0-35.0) pg ABG pH (7.35-7.45) ABG pO2 (83-108) mmHg ABG HCO3 (21-25) mmol/L ABG O2 Saturation (94-97) % Sodium (137-145) mmol/L Chloride (98-107) mmol/L Carbon Dioxide (22-30) mmol/L BUN (7-17) mg/dL Creatinine (0.52-1.04) mg/dL Glucose (74-99) mg/dL POC Glucose (mg/dL) 116 H (75-99) mg/dL Calcium (8.4-10.2) mg/dL Magnesium (1.6-2.3) mg/dL Total Bilirubin (0.2-1.3) mg/dL AST (14-36) U/L ALT (9-52) U/L Total Protein (6.3-8.2) g/dL Albumin (3.5-5.0) g/dL Urine Protein (Negative) Urine Bilirubin (Negative) Microbiology - Last 24 Hours (Table) 12/27/17 23:30 Gram Stain - Preliminary Sputum Sputum Culture - Preliminary Assessment and Plan (1) Bile leak, postoperative Narrative/Plan: Clinical scenario discussed with the family members earlier today. Given the potential need for repeat ERCP I favor transferred to [facility] given the inability to perform the ERCP locally yesterday. I am however more optimistic after seeing the patient just prior to transfer given the appearance of the ANMOL drain output. The seriousness of the patient's condition was reviewed with family in detail and they are agreeable to the transfer and appear happy with the care she has received while here locally. Status: Acute Code(s): K91.89 - OTH POSTPROCEDURAL COMPLICATIONS AND DISORDERS OF DGSTV SYS; K83.8 - OTHER SPECIFIED DISEASES OF BILIARY TRACT SNOMED Code(s): 226724211
[2017-12-29] MEDS ORDERED: FAMOTIDINE 20 MG/2 ML VIAL IV SCH (09:00)
--- NOTE | 2017-12-29 10:25 | CDI ---
Last Revision, April 2017 Documentation Clarification Form Date: 12/29/17 From: Ashlie Rocha Phone: If you have a question regarding this query, please contact Patsy Vanegas at [phone] between 8am and 5pm. Admit Date: 12/26/2017 7:12:00 PM Patient Name: Bianka Saleem Visit Number: [id number] Discharge Date: 12/28/17 ATTENTION: The Clinical Documentation Specialists (CDI) and [facility] Coding Staff appreciate your assistance in clarifying documentation. Please respond to the clarification below the line at the bottom and electronically sign. The CDI & [facility] Coding staff will review the response and follow-up if needed. Please note: Queries are made part of the Legal Health Record. If you have any questions, please contact the author of this message via ITS. Dr. TOMAS, Possible abdominal sepsis documented in Dr. Spera's procedure notes and Consult Note. Patient history/risk factors: Patient recently had a cholecystectomy. Patient admitted for choledocholithiasis and ileus and had a bile leak. Clinical Indicators: Abdominal pain. Lab findings: WBC 11.7, lactic acid 1.3 Vital Signs: T. 97.4, P. 118, R. 20, BP 93/79 on admission then down to 96/56 1.5 hours later. Treatment: IV ampicillin, IV Sodium Chloride 2,000 mls @999 mls/hr. Laparoscopy with drain placement. In your professional opinion, can you please clarify the condition that best describes the above findings? Peritoneal infection Sepsis Severe sepsis Other, please specify Unable to determine Unable to determine MTDD
== END 2017-12-28 15:13 | disposition short-term general hospital (02) | DRG 388 ==
LOC: EC 12:23 → 4MS4W 19:12 → 6ICU 12-27 22:42
PROVIDERS: ADMIT Surgery; ATTEND Surgery
PROC: 0DJ08ZZ Inspection of Upper Intestinal Tract, Via Natural or Artificial Opening Endoscopic (ICD-10-PCS; 2017-12-27)
PROC: 5A1935Z Respiratory Ventilation, Less than 24 Consecutive Hours (ICD-10-PCS; 2017-12-27)
PROC: 0BH17EZ Insertion of Endotracheal Airway into Trachea, Via Natural or Artificial Opening (ICD-10-PCS; 2017-12-27)
PROC: 0W9G40Z Drainage of Peritoneal Cavity with Drainage Device, Percutaneous Endoscopic Approach (ICD-10-PCS; principal; 2017-12-27 07:30)
PROC: 02H633Z Insertion of Infusion Device into Right Atrium, Percutaneous Approach (ICD-10-PCS; 2017-12-28)
PROC: 03HC33Z Insertion of Infusion Device into Left Radial Artery, Percutaneous Approach (ICD-10-PCS; 2017-12-28)
DX: K91.30 Postprocedural intestinal obstruction, unspecified as to partial versus complete (principal); J96.00 Acute respiratory failure, unspecified whether with hypoxia or hypercapnia; J90 Pleural effusion, not elsewhere classified; K91.86 Retained cholelithiasis following cholecystectomy; J98.11 Atelectasis; K91.89 Other postprocedural complications and disorders of digestive system; N17.9 Acute kidney failure, unspecified; R18.8 Other ascites; F17.210 Nicotine dependence, cigarettes, uncomplicated; N18.3 Chronic kidney disease, stage 3 (moderate); F32.9 Major depressive disorder, single episode, unspecified; F41.9 Anxiety disorder, unspecified; G25.81 Restless legs syndrome; G89.18 Other acute postprocedural pain; I12.9 Hypertensive chronic kidney disease with stage 1 through stage 4 chronic kidney disease, or unspecified chronic kidney disease; K57.30 Diverticulosis of large intestine without perforation or abscess without bleeding; M16.0 Bilateral primary osteoarthritis of hip; R74.8 Abnormal levels of other serum enzymes; Z79.899 Other long term (current) drug therapy; Z83.3 Family history of diabetes mellitus; Z82.49 Family history of ischemic heart disease and other diseases of the circulatory system; Z82.5 Family history of asthma and other chronic lower respiratory diseases; Z80.52 Family history of malignant neoplasm of bladder; Z80.51 Family history of malignant neoplasm of kidney; Z84.1 Family history of disorders of kidney and ureter
CPT/HCPCS: 36415; 36600; 43260; 71045; 71046; 74018; 74176; 74330; 80053; 81001; 81003; 82150; 82805; 83036; 83605; 83690; 83735; 84100; 84132; 85025; 85027; 85610; 85730; 87070; 87205; 94002; 94003; 96360; 96361; 99285

== ENCOUNTER 2018-02-10 09:30 | Day surgery (SDC) | payer MEDICARE ==
[2018-02-09 09:47] VITALS: BMI 32.3
[~2018-02-10 09:30] MED LIST changes: -DEXAMETHASONE SOD PHOSPHATE 10 MG/ML 1 ML VIAL IV ONE; -HEPARIN SODIUM,PORCINE 5,000 UNIT/ML 1 ML VIAL SQ ONE; -MIDAZOLAM 2 MG/2 ML VIAL IV PRN; -ONDANSETRON 4 MG/2 ML VIAL IVP ONE; -ceFAZolin IN SWFI 2 GM/20 ML SYRINGE IVP ONE; -fentaNYL (PF) 50 MCG/ML 2 ML AMP IV PRN
[2018-02-10 11:12] VITALS: TEMP 97.9
[2018-02-10] MEDS ORDERED: MIDAZOLAM 2 MG/2 ML VIAL IV ONE (11:32)
[2018-02-10] MEDS ORDERED: PROPOFOL 10 MG/ML 20 ML VIAL IV ONE (11:50)
[2018-02-10] MEDS ORDERED: LIDOCAINE 1% INJ 10MG/ML (20 ML MDV) ONE (11:50)
--- NOTE | 2018-02-10 11:51 | P.GSHP ---
History of Present Illness H&P Date: 02/10/18 Chief Complaint: History of biloma This a 67-year-old female who's had previous history of a biloma after laparoscopic cholestatic. Patient is today for biliary stent removal. 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, STATES HAD COMPLICATION POST CHOLECYSTECTOMY AND WAS TRANSFERRED TO [facility] AND WAS ON A VENTILATOR History of Any Multi-Drug Resistant Organisms: None Reported Past Surgical History: Cholecystectomy Additional Past Surgical History / Comment(s): colonoscopy Past Anesthesia/Blood Transfusion Reactions: No Reported Reaction Smoking Status: Current every day smoker - Past Family History Father Family Medical History: Diabetes Mellitus, Myocardial Infarction ([place]) Additional Family Medical History / Comment(s): KIDNEY FAILURE,EMPHYSEMA Mother Family Medical History: Cancer Additional Family Medical History / Comment(s): bladder/kidney Sister(s) Family Medical History: Diabetes Mellitus Son(s) Family Medical History: Deep Vein Thrombosis (DVT) Medications and Allergies Home Medications Medication Instructions Recorded Confirmed Type Acetaminophen Tab [Tylenol Tab] 325 - 650 mg PO Q4H PRN 12/19/17 02/10/18 History Diazepam [Valium] 5 mg PO HS 12/19/17 02/10/18 History Lisinopril-Hctz 20-25 mg 1 tab PO QAM 12/19/17 02/10/18 History [Zestoretic 20-25] rOPINIRole HCL [Requip] 1 mg PO HS 12/19/17 02/10/18 History Docusate [Colace] 100 mg PO BID PRN 02/09/18 02/10/18 History Multivitamins, Thera [Multivitamin 1 tab PO DAILY 02/09/18 02/09/18 History (formulary)] Allergies Allergy/AdvReac Type Severity Reaction Status Date / Time No Known Allergies Allergy Verified 02/10/18 11:13 Surgical - Exam Vital Signs Temp Pulse Resp BP Pulse Ox 97.9 F 89 16 130/77 99 02/10/18 11:11 02/10/18 11:11 02/10/18 11:11 02/10/18 11:11 02/10/18 11:11 - General well developed, no distress - Eyes PERRL - ENT normal pinna - Neck no masses - Respiratory normal expansion - Cardiovascular Rhythm: regular - Abdomen Abdomen: soft, non tender Assessment and Plan Assessment: History of biloma. We'll perform EGD with removal of biliary stent.
--- NOTE | 2018-02-10 12:01 | P.OP ---
Date of Procedure: 02/10/18 Preoperative Diagnosis: History of bile duct leak Postoperative Diagnosis: History of bile duct leak Procedure(s) Performed: EGD with removal of biliary stent Anesthesia: MAC Surgeon: Pasquale Hussein Pathology: none sent Condition: stable Disposition: PACU Description of Procedure: Patient's placed on the endoscopy table in the lateral position. She received IV sedation. The gastroscope placed oropharynx passed in the esophagus and stomach. Scope was then placed through the pylorus. The biliary stent was visualized. This was snared. The patient was then removed. The gastric scope was removed from patient. The entire stent was removed the patient. Patient top she will was sent to recovery in stable condition.
[2018-02-10 12:15] VITALS: RESP 18
[2018-02-10 12:21] VITALS: BP 110/79; PULSE 96
[2018-02-10] MEDS ORDERED: HYDROcodone/APAP 7.5-325MG 1 EACH TAB PO ONE (12:25)
== END 2018-02-10 13:00 | disposition home or self-care (01) ==
LOC: ORWHC2ENDO 09:30
PROVIDERS: ATTEND Surgery
DX: K91.89 Other postprocedural complications and disorders of digestive system (principal); Z45.89 Encounter for adjustment and management of other implanted devices; I10 Essential (primary) hypertension; G25.81 Restless legs syndrome; F17.200 Nicotine dependence, unspecified, uncomplicated; Z80.52 Family history of malignant neoplasm of bladder; Z80.51 Family history of malignant neoplasm of kidney; Z79.899 Other long term (current) drug therapy
CPT/HCPCS: 43247; J2250; J2001; J2704; 44799

== ENCOUNTER 2019-04-07 13:52 | Emergency (ER) | payer MEDICARE ==
[2019-04-07 14:21] VITALS: TEMP 98.2
[2019-04-07] MEDS ORDERED: SODIUM CHLORIDE 0.9% 1,000 ML IV ONE (15:06)
[2019-04-07] MEDS ORDERED: SODIUM CHLORIDE 0.9% 1,000 ML IV STA ×2 (15:06→16:40)
--- NOTE | 2019-04-07 15:07 | ED ---
Altered Mental Status HPI - General Chief Complaint: Altered Mental Status Stated Complaint: AMS Source: patient Mode of arrival: EMS Limitations: altered mental status - History of Present Illness Initial Comments: This is a 60-year-old female here for evaluation. Patient several blood pressure history no medications no recent traumas. Patient is brought in by family member for evaluation of possible stroke. Patient's respiratory arrest secondary to unresponsive. Concern for again stroke. Patient herself is arousable but altered. No recent travel history or sick contact appears cough or congestion. MD Complaint: altered mental status, confusion, decreased responsiveness, weakness -: hour(s) Severity: moderate Consistency of Symptoms: waxing and waning Associated Symptoms: denies other symptoms - Related Data Home Medications Medication Instructions Recorded Confirmed Acetaminophen Tab [Tylenol Tab] 325 - 650 mg PO Q4H PRN 12/19/17 02/10/18 Diazepam [Valium] 5 mg PO HS 12/19/17 02/10/18 Lisinopril-Hctz 20-25 mg 1 tab PO QAM 12/19/17 02/10/18 [Zestoretic 20-25] rOPINIRole HCL [Requip] 1 mg PO HS 12/19/17 02/10/18 Docusate [Colace] 100 mg PO BID PRN 02/09/18 02/10/18 Multivitamins, Thera [Multivitamin 1 tab PO DAILY 02/09/18 02/09/18 (formulary)] Allergies Allergy/AdvReac Type Severity Reaction Status Date / Time No Known Allergies Allergy Verified 02/10/18 11:13 Review of Systems ROS Statement: Those systems with pertinent positive or pertinent negative responses have been documented in the HPI. ROS Other: All systems not noted in ROS Statement are negative. 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, STATES HAD COMPLICATION POST CHOLECYSTECTOMY AND WAS TRANSFERRED TO [facility] AND WAS ON A VENTILATOR History of Any Multi-Drug Resistant Organisms: None Reported Past Surgical History: Cholecystectomy Additional Past Surgical History / Comment(s): colonoscopy Past Anesthesia/Blood Transfusion Reactions: No Reported Reaction Past Psychological History: Anxiety, Depression Smoking Status: Current every day smoker - Past Family History Father Family Medical History: Diabetes Mellitus, Myocardial Infarction ([place]) Additional Family Medical History / Comment(s): KIDNEY FAILURE,EMPHYSEMA Mother Family Medical History: Cancer Additional Family Medical History / Comment(s): bladder/kidney Sister(s) Family Medical History: Diabetes Mellitus Son(s) Family Medical History: Deep Vein Thrombosis (DVT) General Exam Limitations: altered mental status General appearance: alert, in no apparent distress, anxious Head exam: Present: atraumatic, normocephalic, normal inspection Eye exam: Present: normal appearance, PERRL, EOMI. Absent: scleral icterus, conjunctival injection, periorbital swelling ENT exam: Present: normal exam, mucous membranes moist Neck exam: Present: normal inspection. Absent: tenderness, meningismus, lymphadenopathy Respiratory exam: Present: normal lung sounds bilaterally. Absent: respiratory distress, wheezes, rales, rhonchi, stridor Cardiovascular Exam: Present: normal rhythm, tachycardia, normal heart sounds. Absent: systolic murmur, diastolic murmur, rubs, gallop, clicks GI/Abdominal exam: Present: soft, normal bowel sounds. Absent: distended, tenderness, guarding, rebound, rigid Extremities exam: Present: normal inspection, full ROM, normal capillary refill. Absent: tenderness, pedal edema, joint swelling, calf tenderness Back exam: Present: normal inspection Neurological exam: Present: alert, oriented X3, CN II-XII intact Psychiatric exam: Present: normal affect, normal mood Skin exam: Present: warm, dry, intact, normal color. Absent: rash Course Vital Signs 04/07/19 04/07/19 14:17 15:00 Temperature 98.2 F Pulse Rate 123 H 122 H Respiratory 18 28 H Rate Blood Pressure 139/110 176/112 O2 Sat by Pulse 96 96 Oximetry - Reevaluation(s) Reevaluation #1: 04/07/19 16:51 Records reviewed Reevaluation #2: 04/07/19 16:51 Patient is able to respond, able to answer questions and understand family members at bedside disagreeable family members regarding patient's findings, the questions were answered - Consultations Consultation #1: Spoke jose Barr will call agreeable to accept transfer Medical Decision Making - Medical Decision Making 60 female DF for evaluation patient presents today for evaluation regarding altered mental status and acting appropriately. Patient has evidence of basal gain or hemorrhage could be underlying mass with surrounding vasogenic edema. Patient given steroids transferable clinical call for neurosurgical evaluation - Lab Data Result diagrams: 04/07/19 14:36 04/07/19 14:36 Lab Results 04/07/19 04/07/19 04/07/19 Range/Units 14:35 14:36 14:36 WBC 16.1 H (3.8-10.6) k/uL RBC 4.36 (3.80-5.40) m/uL Hgb 14.6 (11.4-16.0) gm/dL Hct 42.4 (34.0-46.0) % MCV 97.3 (80.0-100.0) fL MCH 33.6 (25.0-35.0) pg MCHC 34.5 (31.0-37.0) g/dL RDW 12.3 (11.5-15.5) % Plt Count 265 (150-450) k/uL Neutrophils % 82 % Lymphocytes % 11 % Monocytes % 5 % Eosinophils % 1 % Basophils % 0 % Neutrophils # 13.1 H (1.3-7.7) k/uL Lymphocytes # 1.8 (1.0-4.8) k/uL Monocytes # 0.8 (0-1.0) k/uL Eosinophils # 0.1 (0-0.7) k/uL Basophils # 0.0 (0-0.2) k/uL PT (9.0-12.0) sec INR (<1.2) APTT (22.0-30.0) sec Sodium (137-145) mmol/L Potassium (3.5-5.1) mmol/L Chloride (98-107) mmol/L Carbon Dioxide (22-30) mmol/L Anion Gap mmol/L BUN (7-17) mg/dL Creatinine (0.52-1.04) mg/dL Est GFR (CKD-EPI)AfAm (>60 ml/min/1.73 sqM) Est GFR (CKD-EPI)NonAf (>60 ml/min/1.73 sqM) Glucose (74-99) mg/dL Plasma Lactic Acid Nico 1.6 (0.7-2.0) mmol/L Calcium (8.4-10.2) mg/dL Phosphorus (2.5-4.5) mg/dL Magnesium (1.6-2.3) mg/dL Total Bilirubin (0.2-1.3) mg/dL AST (14-36) U/L ALT (9-52) U/L Alkaline Phosphatase (38-126) U/L Ammonia <9 (<30) umol/L Creatine Kinase (30-135) U/L Troponin I (0.000-0.034) ng/mL NT-Pro-B Natriuret Pep pg/mL Total Protein (6.3-8.2) g/dL Albumin (3.5-5.0) g/dL TSH (0.465-4.680) mIU/L Urine Color Yellow Urine Appearance Clear (Clear) Urine pH 6.5 (5.0-8.0) Ur Specific Temple 1.017 (1.001-1.035) Urine Protein 1+ H (Negative) Urine Glucose (UA) Negative (Negative) Urine Ketones 1+ H (Negative) Urine Blood Negative (Negative) Urine Nitrite Negative (Negative) Urine Bilirubin Negative (Negative) Urine Urobilinogen <2.0 (<2.0) mg/dL Ur Leukocyte Esterase Negative (Negative) Urine RBC 1 (0-5) /hpf Urine WBC 1 (0-5) /hpf Ur Squamous Epith Cells <1 (0-4) /hpf Hyaline Casts 1 (0-2) /lpf Urine Opiates Screen Not Detected (NotDetected) Ur Oxycodone Screen Not Detected (NotDetected) Urine Methadone Screen Not Detected (NotDetected) Ur Propoxyphene Screen Not Detected (NotDetected) Ur Barbiturates Screen Not Detected (NotDetected) U Tricyclic Antidepress Not Detected (NotDetected) Ur Phencyclidine Scrn Not Detected (NotDetected) Ur Amphetamines Screen Not Detected (NotDetected) U Methamphetamines Scrn Not Detected (NotDetected) U Benzodiazepines Scrn Not Detected (NotDetected) Urine Cocaine Screen Not Detected (NotDetected) U Marijuana (THC) Screen Not Detected (NotDetected) 04/07/19 04/07/19 04/07/19 Range/Units 14:36 14:36 14:36 WBC (3.8-10.6) k/uL RBC (3.80-5.40) m/uL Hgb (11.4-16.0) gm/dL Hct (34.0-46.0) % MCV (80.0-100.0) fL MCH (25.0-35.0) pg MCHC (31.0-37.0) g/dL RDW (11.5-15.5) % Plt Count (150-450) k/uL Neutrophils % % Lymphocytes % % Monocytes % % Eosinophils % % Basophils % % Neutrophils # (1.3-7.7) k/uL Lymphocytes # (1.0-4.8) k/uL Monocytes # (0-1.0) k/uL Eosinophils # (0-0.7) k/uL Basophils # (0-0.2) k/uL PT 9.7 (9.0-12.0) sec INR 0.9 (<1.2) APTT 24.5 (22.0-30.0) sec Sodium 138 (137-145) mmol/L Potassium 4.6 (3.5-5.1) mmol/L Chloride 103 (98-107) mmol/L Carbon Dioxide 26 (22-30) mmol/L Anion Gap 9 mmol/L BUN 22 H (7-17) mg/dL Creatinine 1.24 H (0.52-1.04) mg/dL Est GFR (CKD-EPI)AfAm 52 (>60 ml/min/1.73 sqM) Est GFR (CKD-EPI)NonAf 45 (>60 ml/min/1.73 sqM) Glucose 108 H (74-99) mg/dL Plasma Lactic Acid Nico (0.7-2.0) mmol/L Calcium 9.7 (8.4-10.2) mg/dL Phosphorus 4.3 (2.5-4.5) mg/dL Magnesium 1.9 (1.6-2.3) mg/dL Total Bilirubin 0.8 (0.2-1.3) mg/dL AST 33 (14-36) U/L ALT 22 (9-52) U/L Alkaline Phosphatase 95 (38-126) U/L Ammonia (<30) umol/L Creatine Kinase 633 H (30-135) U/L Troponin I (0.000-0.034) ng/mL NT-Pro-B Natriuret Pep 604 pg/mL Total Protein 8.1 (6.3-8.2) g/dL Albumin 4.3 (3.5-5.0) g/dL TSH 4.240 (0.465-4.680) mIU/L Urine Color Urine Appearance (Clear) Urine pH (5.0-8.0) Ur Specific Temple (1.001-1.035) Urine Protein (Negative) Urine Glucose (UA) (Negative) Urine Ketones (Negative) Urine Blood (Negative) Urine Nitrite (Negative) Urine Bilirubin (Negative) Urine Urobilinogen (<2.0) mg/dL Ur Leukocyte Esterase (Negative) Urine RBC (0-5) /hpf Urine WBC (0-5) /hpf Ur Squamous Epith Cells (0-4) /hpf Hyaline Casts (0-2) /lpf Urine Opiates Screen (NotDetected) Ur Oxycodone Screen (NotDetected) Urine Methadone Screen (NotDetected) Ur Propoxyphene Screen (NotDetected) Ur Barbiturates Screen (NotDetected) U Tricyclic Antidepress (NotDetected) Ur Phencyclidine Scrn (NotDetected) Ur Amphetamines Screen (NotDetected) U Methamphetamines Scrn (NotDetected) U Benzodiazepines Scrn (NotDetected) Urine Cocaine Screen (NotDetected) U Marijuana (THC) Screen (NotDetected) 04/07/19 Range/Units 14:36 WBC (3.8-10.6) k/uL RBC (3.80-5.40) m/uL Hgb (11.4-16.0) gm/dL Hct (34.0-46.0) % MCV (80.0-100.0) fL MCH (25.0-35.0) pg MCHC (31.0-37.0) g/dL RDW (11.5-15.5) % Plt Count (150-450) k/uL Neutrophils % % Lymphocytes % % Monocytes % % Eosinophils % % Basophils % % Neutrophils # (1.3-7.7) k/uL Lymphocytes # (1.0-4.8) k/uL Monocytes # (0-1.0) k/uL Eosinophils # (0-0.7) k/uL Basophils # (0-0.2) k/uL PT (9.0-12.0) sec INR (<1.2) APTT (22.0-30.0) sec Sodium (137-145) mmol/L Potassium (3.5-5.1) mmol/L Chloride (98-107) mmol/L Carbon Dioxide (22-30) mmol/L Anion Gap mmol/L BUN (7-17) mg/dL Creatinine (0.52-1.04) mg/dL Est GFR (CKD-EPI)AfAm (>60 ml/min/1.73 sqM) Est GFR (CKD-EPI)NonAf (>60 ml/min/1.73 sqM) Glucose (74-99) mg/dL Plasma Lactic Acid Nico (0.7-2.0) mmol/L Calcium (8.4-10.2) mg/dL Phosphorus (2.5-4.5) mg/dL Magnesium (1.6-2.3) mg/dL Total Bilirubin (0.2-1.3) mg/dL AST (14-36) U/L ALT (9-52) U/L Alkaline Phosphatase (38-126) U/L Ammonia (<30) umol/L Creatine Kinase (30-135) U/L Troponin I <0.012 (0.000-0.034) ng/mL NT-Pro-B Natriuret Pep pg/mL Total Protein (6.3-8.2) g/dL Albumin (3.5-5.0) g/dL TSH (0.465-4.680) mIU/L Urine Color Urine Appearance (Clear) Urine pH (5.0-8.0) Ur Specific Temple (1.001-1.035) Urine Protein (Negative) Urine Glucose (UA) (Negative) Urine Ketones (Negative) Urine Blood (Negative) Urine Nitrite (Negative) Urine Bilirubin (Negative) Urine Urobilinogen (<2.0) mg/dL Ur Leukocyte Esterase (Negative) Urine RBC (0-5) /hpf Urine WBC (0-5) /hpf Ur Squamous Epith Cells (0-4) /hpf Hyaline Casts (0-2) /lpf Urine Opiates Screen (NotDetected) Ur Oxycodone Screen (NotDetected) Urine Methadone Screen (NotDetected) Ur Propoxyphene Screen (NotDetected) Ur Barbiturates Screen (NotDetected) U Tricyclic Antidepress (NotDetected) Ur Phencyclidine Scrn (NotDetected) Ur Amphetamines Screen (NotDetected) U Methamphetamines Scrn (NotDetected) U Benzodiazepines Scrn (NotDetected) Urine Cocaine Screen (NotDetected) U Marijuana (THC) Screen (NotDetected) - EKG Data -: EKG Interpreted by Me (EKG shows sinus tachycardia rate of 180, ID 140, QRS 70, QTc 451) - Radiology Data Radiology results: report reviewed (CT brain shows basal ganglia mass possible intracerebral hemorrhage, edema), image reviewed Critical Care Time Critical Care Time: Yes Total Critical Care Time: 31 Disposition Clinical Impression: Intracerebral hemorrhage Narrative: Possible Edema from Brain Tumor Disposition: OTHER INSTITUTION NOT DEFINED Condition: Fair Is patient prescribed a controlled substance at d/c from ED?: No Referrals: Sandra Villafana DO [Primary Care Provider] - 1-2 days - Out of Hospital Transfer - Req. Specs Out of Hospital Transfer - Requested Specifics: Other Emergency Center ([facility])
[2019-04-07 15:37] LABS: Basophils % (A) 0 %; Eosinophils # (A) 0.1 k/uL (0-0.7); Eosinophils % (A) 1 %; HCT 42.4 % (34.0-46.0); HGB 14.6 gm/dL (11.4-16.0); Lymphocytes # (A) 1.8 k/uL (1.0-4.8); Lymphocytes % (A) 11 %; MCH 33.6 pg (25.0-35.0); MCHC 34.5 g/dL (31.0-37.0); MCV 97.3 fL (80.0-100.0); Mean Platelet Volume 7.1; Monocytes # (A) 0.8 k/uL (0-1.0); Monocytes % (A) 5 %; Neutrophils # (A) 13.1 k/uL (1.3-7.7); Neutrophils % (A) 82 %; Platelet Count 265 k/uL (150-450); RBC 4.36 m/uL (3.80-5.40); RDW 12.3 % (11.5-15.5); WBC 16.1 k/uL (3.8-10.6)
[2019-04-07 15:39] LABS: Appearance,Urine Clear (Clear); Bilirubin,Urine Negative (Negative); Blood,Urine Negative (Negative); Color,Urine Yellow; Glucose,Urine (UA) Negative (Negative); Hyaline Casts,Urine 1 /lpf (0-2); Ketones,Urine 1+ (Negative); Leukocyte Esterase,Urine Negative (Negative); Nitrite,Urine Negative (Negative); PH, Urine 6.5 (5.0-8.0); Protein,Urine 1+ (Negative); RBC,Urine 1 /hpf (0-5); Specific Gravity,Urine 1.017 (1.001-1.035); Squamous Epithelial Cell,Urine <1 /hpf (0-4); Urobilinogen,Urine <2.0 mg/dL (<2.0); WBC,Urine 1 /hpf (0-5)
[2019-04-07 15:48] LABS: Amphetamine Screen,Urine Not Detected (NotDetected); Barbiturate Screen,Urine Not Detected (NotDetected); Benzodiazepines Screen,Urine Not Detected (NotDetected); Cocaine Screen,Urine Not Detected (NotDetected); Methadone Screen, Urine Not Detected (NotDetected); Opiate Screen,Urine Not Detected (NotDetected); Oxycodone Screen, Urine Not Detected (NotDetected); Phencyclidine Screen,Urine Not Detected (NotDetected); Tricyclic Antidepressant,Urine Not Detected (NotDetected); Urn Cannabinoid Scrn Not Detected (NotDetected)
[2019-04-07 15:50] LABS: INR 0.9 (<1.2); Partial Thromboplastin Time 24.5 sec (22.0-30.0); Prothrombin Time 9.7 sec (9.0-12.0)
[2019-04-07 15:51] LABS: Ammonia <9 umol/L (<30); Lactic Acid, Venous 1.6 mmol/L (0.7-2.0)
[2019-04-07 15:56] LABS: Albumin 4.3 g/dL (3.5-5.0); Calcium 9.7 mg/dL (8.4-10.2); Magnesium 1.9 mg/dL (1.6-2.3); Phosphorus 4.3 mg/dL (2.5-4.5); Potassium 4.6 mmol/L (3.5-5.1); Total Bilirubin 0.8 mg/dL (0.2-1.3); Total Protein 8.1 g/dL (6.3-8.2)
--- NOTE | 2019-04-07 16:17 | CT ---
EXAMINATION TYPE: CT brain wo con DATE OF EXAM: 04/07/2019 HISTORY: Altered mental status COMPARISON: None TECHNIQUE: 1. Axial CT images of the head without contrast. Bone windows and sagittal and coronal reformats were reviewed. 2. CT DLP: 1078.4 mGycm Automated exposure control for dose reduction was used. FINDINGS: There is faint high attenuation within the left basal ganglia spanning 3 cm AP by 0.8 cm TR dimension ; surrounding edema with mild mass effect is noted. A component of the ortiz-white differentiation bet ween the anterior limb internal capsule and caudate head is obscured which is difficult to discern if this represents ischemic change or is a result of edema. The ortiz-white differentiation at the left insular ribbon is maintained. Scattered periventricular and deep cortical white matter areas of low a ttenuation, likely representing sequela of chronic microangiopathy. Mild cerebral volume loss with appropriate size and morphology of the ventricular system. No extra-ax ial fluid collections or midline shift of structures. Patent basal cisterns. No depressed or displaced calvarial fracture. Intracranial vascular calcifications. Visualized parana sayra sinuses and temporal bone structures are well aerated. The orbits and skull base are unremarkable . IMPRESSION: 1. Faint increased attenuation within the left basal ganglia with surrounding edema. This may represe nt subacute intraparenchymal hemorrhage however the possibility of underlying mass is not entirely ex cluded. MRI with intravenous contrast is recommended. 2. Senescent changes including cerebral volume loss and sequale of chronic microangiopathy. The findings were called to Marty Larson by May Jaffe at 4:15 PM on 04/07/2019.
[2019-04-07] MEDS ORDERED: DEXAMETHASONE SOD PHOSPHATE 10 MG/ML 1 ML VIAL IV STA (16:40)
[2019-04-07] MEDS ORDERED: IPRATROPIUM-ALBUTEROL 3 ML NEB INHALATION STA (16:40)
[2019-04-07] MEDS ORDERED: LABETALOL 5 MG/ML VIAL MDV IVP STA (16:54)
[2019-04-07 17:08] VITALS: RESP 18
--- NOTE | 2019-04-07 17:15 | XR ---
EXAMINATION TYPE: XR chest 2V DATE OF EXAM: 04/07/2019 COMPARISON: NONE TECHNIQUE: PA and lateral views submitted. HISTORY: Altered mental status FINDINGS: The lungs are clear and there is no pneumothorax, pleural effusion, or focal pneumonia. 12/28/2018 somewhat nodular density in the right perihilar region measuring 1.2 cm. Atherosclerotic ch dayron of aorta. No overt failure. Heart size stable. IMPRESSION: 1. No acute process. Questionable nodular density right perihilar region which could be followed with short-term follow-up CT chest.
[2019-04-07 18:17] VITALS: BP 153/94; PULSE 89
== END 2019-04-07 18:31 | disposition short-term general hospital (02) ==
LOC: EC 13:52
DX: I61.9 Nontraumatic intracerebral hemorrhage, unspecified (principal); R00.0 Tachycardia, unspecified; I10 Essential (primary) hypertension; G25.81 Restless legs syndrome; F41.9 Anxiety disorder, unspecified; F17.200 Nicotine dependence, unspecified, uncomplicated; Z79.899 Other long term (current) drug therapy; Z82.49 Family history of ischemic heart disease and other diseases of the circulatory system
CPT/HCPCS: 36415; 94640; 93005; 83880; 80053; 82140; 82550; 83605; 83735; 84100; 84443; 84484; 85025; 85610; 85730; 81001; 80306; 71046; 70450; 99291; 96374; 96375; 96361 ×3; J1100

== ENCOUNTER 2021-08-07 08:18 | Inpatient (IN) | payer MEDICARE, OTHER ==
[2021-08-07] MEDS ORDERED: IBUPROFEN 400 MG TAB PO STA (08:42)
--- NOTE | 2021-08-07 08:54 | ED ---
General Adult HPI - General Chief complaint: Recheck/Abnormal Lab/Rx Stated complaint: Sent by , air pocket Time Seen by Provider: 08/07/21 08:28 Source: patient, RN notes reviewed, old records reviewed Mode of arrival: wheelchair Limitations: altered mental status - History of Present Illness Initial comments: Patient is a 71-year-old female who is brought in by son for evaluation. Patient disclosed to her son that she had a fall on Tuesday. A few days later home doctor came to evaluate her. They obtained ultrasound as well as x-rays. His concern for possible fracture in the right arm. There is also concern for "air somewhere in her belly" as they obtain an ultrasound of the abdomen, however patient's son is uncertain where this was. He brought her to the emergency department further evaluation. Patient does have full right arm para lysis secondary to a prior stroke with residual aphasia and dysarthria. She lives at home with a walker which is unchanged. She's been acting normally since Tuesday. He is not on blood thinners. Denies any chest pain. Denies any abdominal pain. Does endorse mild shortness of breath. Also endorses a nonproductive cough. Denies any fevers, chills. Was vaccinated for both Covid as well as flu. Denies any cardiac history. His no other acute complaints at this time. Patient is acting her baseline. Presents for evaluation of the upper respiratory type symptoms, possible right shoulder injury, as well as uncertainty surrounding the ultrasound.Denies PND, orthopnea, lower extremity edema. Patient is relatively a poor historian.Patient is having regular bowel movements and unchanged. Last bowel movement was yesterday and normal, nonbloody. Denies nausea or vomiting. Denies dysuria or hematuria. - Related Data Home Medications Medication Instructions Recorded Confirmed rOPINIRole HCL [Requip] 1 mg PO TID 12/19/17 08/07/21 Atorvastatin [Lipitor] 80 mg PO HS 08/07/21 08/07/21 Citalopram Hydrobromide [CeleXA] 20 mg PO DAILY 08/07/21 08/07/21 Allergies Allergy/AdvReac Type Severity Reaction Status Date / Time No Known Allergies Allergy Verified 08/07/21 11:00 Review of Systems ROS Statement: Those systems with pertinent positive or pertinent negative responses have been documented in the HPI. Review of Systems: CONST: Denies fever EYES: Denies blurry vision ENT: Denies nasal congestion C/V: Denies Chest pain RESP: Endorse's occasional shortness of breath GI: Denies abdominal pain : Denies dysuria SKIN: Denies rash. MSK: Endorses mild right shoulder pain. NEURO: Denies headache ROS Other: All systems not noted in ROS Statement are negative. 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, STATES HAD COMPLICATION POST CHOLECYSTECTOMY AND WAS TRANSFERRED TO [facility] AND WAS ON A VENTILATOR History of Any Multi-Drug Resistant Organisms: None Reported Past Surgical History: Cholecystectomy Additional Past Surgical History / Comment(s): colonoscopy Past Anesthesia/Blood Transfusion Reactions: No Reported Reaction Past Psychological History: Anxiety, Depression Past Alcohol Use History: None Reported Past Drug Use History: None Reported - Past Family History Father Family Medical History: Diabetes Mellitus, Myocardial Infarction (MD) Additional Family Medical History / Comment(s): KIDNEY FAILURE,EMPHYSEMA Mother Family Medical History: Cancer Additional Family Medical History / Comment(s): bladder/kidney Sister(s) Family Medical History: Diabetes Mellitus Son(s) Family Medical History: Deep Vein Thrombosis (DVT) General Exam - General Exam Comments Initial Comments: General: Appears in no acute distress. HEAD: Normal with no signs of head trauma. EYES: PERRLA, EOMI, conjunctiva normal, no discharge. Pupils 2+ and equal bilaterally. ENT: Hearing grossly intact, normal oropharynx. RESPIRATORY: Clear breath sounds bilaterally. No wheezes, rales, or rhonchi. No hypoxia. No increased work of breathing. C/V: Regular rate and rhythm. S1 and S2 auscultated, no edema, peripheral pulses 2+ and intact throughout. Peripheral pulses 2+ in the right radial specifically. ABD: Abd is soft, nontender, nondistended EXT: Patient is paralyzed in the right upper extremity. Normal range of motion of the remainder extremities. Tenderness to palpation all over the right shoulder that is nonspecific. SKIN: No rashes or lesions observed on exposed skin. NEURO: Alert and oriented 3 which is her baseline. Right upper extremity paralysis which is chronic. Aphasia which is chronic. Dysarthria which is chronic. NIH for any symptoms of 0. No focal deficits otherwise. GCS is 15. Limitations: altered mental status Course Vital Signs 08/07/21 08/07/21 08/07/21 08:20 10:31 10:54 Temperature 97.9 F Pulse Rate 88 72 65 Respiratory 16 18 18 Rate Blood Pressure 114/78 126/86 O2 Sat by Pulse 96 98 100 Oximetry 08/07/21 12:13 Temperature Pulse Rate 73 Respiratory 15 Rate Blood Pressure 153/86 O2 Sat by Pulse 100 Oximetry Medical Decision Making - Medical Decision Making Based on the patient's presentation and physical exam, she presents with multiple complaints. Imaging performed earlier this week and some is uncertain of the results. Brought her to the emergency department for further evaluation. Was complaining of abdominal pain early in the week which is resolved. Crystal her pocket on ultrasound early in the week as well. We have no access to this imaging. Therefore we will obtain cardiac labs as well as BNP, d-dimer screening. Patient is a suspected right shoulder injury from fall, we will repeat x-rays. Chest x-ray will also be obtained as well as Covid and flu swabs that she is coughing. They were in agreement with this plan. She'll be given ibuprofen for pain control. EKG showed no signs of acute ischemia. Laboratory studies remarkable for d- dimer elevated to 14.9. Patient is a very mildly elevated BUN and creatinine of 28 and 1.18 respectively. Troponin is negative. BNP is within normal limits. Covid, flu, RSV are not detected. Remainder the labs are unremarkable. Patient's chest x-ray shows a small pneumothorax over the right lung. There are also a right rib fracture. There is also findings concerning for possible mass in the hilar region. X-rays of the right upper extremity reveal a surgical neck fracture of the right humerus that is an acute, nondisplaced transverse fracture. Due to the patient's elevated d-dimer, did recommend we obtain a CT angiogram of the chest. She was in agreement this plan. It showed no signs of PE. It showed a right sixth rib fracture the right chest wall with some mild edema. There is also the redemonstration the small right-sided pneumothorax. There is also a suspicious right hilar and right central lobe upper mass with suspicious metastatic right hilar lymph nodes. Possible concerning for lung cancer. Recommend follow-up.Patient's vital signs remained within normal limits and stable. She is in no respiratory distress. She is saturating normally on room air. On reevaluation, I discussed the findings with the patient as well as her son. Patiently placed in a sling. Orthopedic surgery will evaluate the patient, and I attempted to call Dr. Mustafa due to the fall but he was in surgery so I talked to ROLY Montalvo. Due to the small pneumothorax, I did contact CT surgery initially and spoke with the P who agreed to the consult under Dr. Johnson. They agree with medical management at this time as well as serial chest x-rays. Patient will be continued on nasal cannula oxygen. She declines being in any pain at this time. Patient will therefore be admitted. I did initially speak with trauma surgery on-call, Dr. Boothe and we agreed that as the fall was last week, I believe medicine admit is appropriate with the appropriate consulted services. Therefore I did contact the admitting team, Dr. Jose who was in agreement with this plan. - Lab Data Result diagrams: 08/07/21 09:00 08/07/21 09:11 Lab Results 08/07/21 08/07/21 08/07/21 Range/Units 09:00 09:11 09:11 WBC 8.8 (3.8-10.6) k/uL RBC 3.86 (3.80-5.40) m/uL Hgb 12.9 (11.4-16.0) gm/dL Hct 37.4 (34.0-46.0) % MCV 96.9 (80.0-100.0) fL MCH 33.6 (25.0-35.0) pg MCHC 34.6 (31.0-37.0) g/dL RDW 12.5 (11.5-15.5) % Plt Count 215 (150-450) k/uL MPV 7.0 Neutrophils % 71 % Lymphocytes % 17 % Monocytes % 5 % Eosinophils % 5 % Basophils % 0 % Neutrophils # 6.3 (1.3-7.7) k/uL Lymphocytes # 1.5 (1.0-4.8) k/uL Monocytes # 0.4 (0-1.0) k/uL Eosinophils # 0.4 (0-0.7) k/uL Basophils # 0.0 (0-0.2) k/uL PT 10.5 (9.0-12.0) sec INR 1.0 (<1.2) APTT 20.6 L (22.0-30.0) sec D-Dimer 14.91 H (<0.60) mg/L FEU Sodium 137 (137-145) mmol/L Potassium 4.3 (3.5-5.1) mmol/L Chloride 110 H (98-107) mmol/L Carbon Dioxide 20 L (22-30) mmol/L Anion Gap 7 mmol/L BUN 28 H (7-17) mg/dL Creatinine 1.18 H (0.52-1.04) mg/dL Est GFR (CKD-EPI)AfAm 54 (>60 ml/min/1.73 sqM) Est GFR (CKD-EPI)NonAf 47 (>60 ml/min/1.73 sqM) Glucose 109 H (74-99) mg/dL Calcium 8.7 (8.4-10.2) mg/dL Total Bilirubin 0.8 (0.2-1.3) mg/dL AST 45 H (14-36) U/L ALT 15 (4-34) U/L Alkaline Phosphatase 109 (38-126) U/L Troponin I (0.000-0.034) ng/mL NT-Pro-B Natriuret Pep pg/mL Total Protein 8.0 (6.3-8.2) g/dL Albumin 3.6 (3.5-5.0) g/dL Influenza Type A (PCR) (Not Detectd) Influenza Type B (PCR) (Not Detectd) RSV (PCR) (Not Detectd) SARS-CoV-2 (PCR) (Not Detectd) 08/07/21 08/07/21 08/07/21 Range/Units 09:11 09:11 09:11 WBC (3.8-10.6) k/uL RBC (3.80-5.40) m/uL Hgb (11.4-16.0) gm/dL Hct (34.0-46.0) % MCV (80.0-100.0) fL MCH (25.0-35.0) pg MCHC (31.0-37.0) g/dL RDW (11.5-15.5) % Plt Count (150-450) k/uL MPV Neutrophils % % Lymphocytes % % Monocytes % % Eosinophils % % Basophils % % Neutrophils # (1.3-7.7) k/uL Lymphocytes # (1.0-4.8) k/uL Monocytes # (0-1.0) k/uL Eosinophils # (0-0.7) k/uL Basophils # (0-0.2) k/uL PT (9.0-12.0) sec INR (<1.2) APTT (22.0-30.0) sec D-Dimer (<0.60) mg/L FEU Sodium (137-145) mmol/L Potassium (3.5-5.1) mmol/L Chloride (98-107) mmol/L Carbon Dioxide (22-30) mmol/L Anion Gap mmol/L BUN (7-17) mg/dL Creatinine (0.52-1.04) mg/dL Est GFR (CKD-EPI)AfAm (>60 ml/min/1.73 sqM) Est GFR (CKD-EPI)NonAf (>60 ml/min/1.73 sqM) Glucose (74-99) mg/dL Calcium (8.4-10.2) mg/dL Total Bilirubin (0.2-1.3) mg/dL AST (14-36) U/L ALT (4-34) U/L Alkaline Phosphatase (38-126) U/L Troponin I <0.012 (0.000-0.034) ng/mL NT-Pro-B Natriuret Pep 163 pg/mL Total Protein (6.3-8.2) g/dL Albumin (3.5-5.0) g/dL Influenza Type A (PCR) Not Detected (Not Detectd) Influenza Type B (PCR) Not Detected (Not Detectd) RSV (PCR) Not Detected (Not Detectd) SARS-CoV-2 (PCR) Not Detected (Not Detectd) - EKG Data -: EKG Interpreted by Me EKG Comments: 12-lead Electrocardiogram Interpretation Note EKG was reviewed and interpreted by myself. 12-lead ECG performed at 0903 is interpreted by me as revealing normal sinus rhythm at a rate of 74 beats per minute. [place] is normal. MS interval is 161 ms, QRS duration is 81 ms, QTc is 396 ms.. There were no ST or T wave abnormalities to suggest myocardial ischemia or injury. R wave progression across the precordium was satisfactory. By my interpretation this EKG is non-diagnostic for acute ischemia. Critical Care Time Critical Care Time: Yes Total Critical Care Time: 35 Critical Care Time: Upon my evaluation, this patient had a high probability of imminent or life- threatening deterioration due to right-sided pneumothorax, traumatic. Right surgical humeral neck transverse fracture, rib fracture, which required my direct attention, intervention, and personal management. I have personally provided 35 minutes of critical care time exclusive of time spent on separately billable procedures. Time includes review of laboratory data, radiology results, discussion with consultants, and monitoring for potential decompensation. Interventions were performed as documented in my note. Disposition Clinical Impression: Pneumothorax, traumatic, Rib fracture, Humeral surgical neck fracture, Lung mass Disposition: ADMITTED IP TO THIS HOSP Condition: Serious Referrals: Emir Mcdowell MD [Primary Care Provider] - 1-2 days Time of Disposition: 11:50
[2021-08-07 09:41] LABS: Basophils % (A) 0 %; Eosinophils # (A) 0.4 k/uL (0-0.7); Eosinophils % (A) 5 %; HCT 37.4 % (34.0-46.0); HGB 12.9 gm/dL (11.4-16.0); Lymphocytes # (A) 1.5 k/uL (1.0-4.8); Lymphocytes % (A) 17 %; MCH 33.6 pg (25.0-35.0); MCHC 34.6 g/dL (31.0-37.0); MCV 96.9 fL (80.0-100.0); Monocytes # (A) 0.4 k/uL (0-1.0); Monocytes % (A) 5 %; Neutrophils # (A) 6.3 k/uL (1.3-7.7); Neutrophils % (A) 71 %; Platelet Count 215 k/uL (150-450); RBC 3.86 m/uL (3.80-5.40); RDW 12.5 % (11.5-15.5); WBC 8.8 k/uL (3.8-10.6)
[2021-08-07 10:05] LABS: Albumin 3.6 g/dL (3.5-5.0); Calcium 8.7 mg/dL (8.4-10.2); Total Bilirubin 0.8 mg/dL (0.2-1.3)
[2021-08-07 10:07] LABS: Prothrombin Time 10.5 sec (9.0-12.0)
[2021-08-07 10:10] LABS: Potassium 4.3 mmol/L (3.5-5.1)
[2021-08-07 10:16] LABS: Partial Thromboplastin Time 20.6 sec (22.0-30.0)
[2021-08-07] MEDS ORDERED: SODIUM CHLORIDE 0.9% 1,000 ML IV STA (10:23)
--- NOTE | 2021-08-07 10:26 | XR ---
EXAMINATION TYPE: XR chest 2V DATE OF EXAM: 08/07/2021 COMPARISON: Chest x-ray April 07, 2019 HISTORY: Difficulty breathing after recent fall injury TECHNIQUE: Frontal and lateral views of the chest are obtained. FINDINGS: Diminished inspiration on current study. Dimension inspiration. Enlarging right hilar mass. Increased interstitial markings bilaterally with peripheral increased opacities right mid to lower l sky. There is small right apical pneumothorax estimated near 15%. Adjacent subcutaneous emphysema in the right neck and lateral lower thorax. Mild cardiomegaly with atherosclerotic aorta. Poor visualiza tion of suspected displaced right rib fractures. IMPRESSION: New small right pneumothorax estimated 15-20%. Probable underlying right rib fractures. New subcutaneous emphysema. Diminished inspiration with suspected right hilar mass or neoplasm. Mild diffuse interstitial edema. More focal atelectasis and/or consolidation throughout the right mid to lower lung periphery. Results communicated with ordering ER physician via telephone at time of dictation
--- NOTE | 2021-08-07 10:29 | XR ---
EXAMINATION TYPE: XR shoulder complete RT, XR elbow complete RT, XR humerus RT, XR clavicle RT DATE OF EXAM: 08/07/2021 CLINICAL HISTORY: Fall injury with pain TECHNIQUE: Three views of the right shoulder and elbow are obtained. 2 views right humerus and 2 vie ws right clavicle. COMPARISON: None. FINDINGS: Osseous structures are demineralized. No acute displaced fracture in the right clavicle. F ocal soft tissue swelling and subcutaneous emphysema right supraclavicular region. Moderate to severe narrowing at the acromioclavicular joint with mild spurring. Moderate to severe in ferior narrowing glenohumeral joint. The visualized ribs are intact. Small right apical pneumothorax is identified and externally rotated view. There is acute nondisplaced transverse fracture surgical n robert right proximal humerus. Images of right humerus show no additional acute displaced fracture. Overlying clothing or blanket ma terial is present. Images of right elbow show no additional acute displaced fracture. No abnormal fat pad signs are seen . IMPRESSION: There is acute nondisplaced transverse fracture surgical neck right proximal humerus. Sm all right apical pneumothorax redemonstrated.
--- NOTE | 2021-08-07 11:13 | CT ---
EXAMINATION TYPE: CT chest angio for PE DATE OF EXAM: 08/07/2021 COMPARISON: No previous CT scan is available for comparison. HISTORY: fall. RT side broken ribs and pneumonia CT DLP: 451.1 mGy.cm. Automated Exposure Control for Dose Reduction was Utilized. TECHNIQUE AND CONTRAST: CTA scan of the thorax is performed with IV Contrast, patient injected with 80 mL of Isovue 370, pulm onary angiogram protocol. MIP Images are created on an independent workstation and reviewed. FINDINGS: Right hilar and suprahilar heterogeneous mass with central necrosis measuring 3.4 x 6.1 cm with exten patricio along the posterior aspect of the right upper lobe. More distal soft tissue thickening/consolida tion is also noted at the posterolateral aspect of the right upper lobe. This is suspicious for a elie anthony lung cancer. Suspected multiple right hilar necrotic enlarged lymph nodes, likely metastatic and measuring up to 15 mm. Subcentimeter mediastinal and hilar lymph nodes, nonspecific. Acute fracture of the axillary portion of the right sixth rib with other scattered nondisplaced fract ures of the right ribs, likely chronic. Extensive right chest wall soft tissue emphysema with small t o moderate right-sided pneumothorax. Small right pleural effusion with right basal subsegmental pulmo nary atelectasis. COPD changes. Peripheral pulmonary reticulations and dependent densities. No gross the left lung mass or obvious nodule. No left-sided pleural effusion or pneumothorax. No definite filling defect is seen within the pulmonary trunk, main pulmonary arteries, lobar, segmen garth or proximal subsegmental branches. Distal subsegmental branches are suboptimally assessed. Compre ssion of the right upper lobe pulmonary arteries by the described right hilar mass. The pulmonary carissa nk measures 2.3 cm. Dilated posterior aspect of the aortic arch measuring up to 3.5 cm. Scattered art erial and coronary atherosclerotic calcifications. No gross cardiomegaly. No pericardial effusion. Le ft upper pole renal cyst, not completely included in the scan. No gross aggressive bone lesion. IMPRESSION: 1. No evidence of major or central pulmonary embolism. 2. Acute fracture of the axillary portion of the right sixth rib with right chest wall soft tissue em physema, [id number] right-sided pneumothorax and small right pleural effusion. 3. Highly suspicious right hilar and right central upper lobe mass with suspicious metastatic right h ilar lymph nodes as described above, concerning for lung cancer. Recommend thoracic surgery consultat ion and further PET scan assessment. Other incidental findings as described above.
[2021-08-07] MEDS ORDERED: NALOXONE 0.4 MG/ML 1 ML VIAL IV PRN (11:49)
[2021-08-07] MEDS ORDERED: MORPHINE SULFATE 4 MG/ML SYRINGE IV PRN (11:55)
[2021-08-07] MEDS ORDERED: IBUPROFEN 400 MG TAB PO PRN (11:55)
[2021-08-07] MEDS ORDERED: PROCHLORPERAZINE 5 MG TAB PO PRN (12:50)
[2021-08-07] MEDS ORDERED: LORazepam 0.5 MG TAB PO PRN (12:50)
[2021-08-07] MEDS ORDERED: MELATONIN 3 MG TABLET PO PRN (12:50)
[2021-08-07] MEDS ORDERED: LACTULOSE 20 GM/30 ML CUP PO PRN (12:50)
[2021-08-07] MEDS ORDERED: CALCIUM CARBONATE 500 MG CHEWABLE PO PRN (12:50)
[2021-08-07] MEDS ORDERED: ACETAMINOPHEN TAB 325 MG TAB PO PRN (12:50)
[2021-08-07 13:24] LABS: Appearance,Urine Cloudy (Clear); Bacteria,Urine Occasional /hpf; Bilirubin,Urine Negative (Negative); Blood,Urine Trace (Negative); Color,Urine Yellow; Glucose,Urine (UA) Negative (Negative); Ketones,Urine Negative (Negative); Leukocyte Esterase,Urine Moderate (Negative); Mucus,Urine Rare /hpf; Nitrite,Urine Negative (Negative); Protein,Urine Trace (Negative); RBC,Urine 36 /hpf (0-5); Squamous Epithelial Cell,Urine 22 /hpf (0-4); Urobilinogen,Urine <2.0 mg/dL (<2.0); WBC,Urine 17 /hpf (0-5)
[2021-08-07 13:25] LABS: Specific Gravity,Urine >1.050 (1.001-1.035)
--- NOTE | 2021-08-07 13:33 | P.HPIM ---
History of Present Illness H&P Date: 08/07/21 Chief Complaint: Fall This is a pleasant 71-year-old patient, follows with visiting physician Dr. Mcdowell. 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 For about 2 years patient has dysarthria some expressive dysphasia, right arm weakness much greater than right leg weakness. Patient often uses a wheelchair. Patient fell 6 days ago on Tuesday. Injury to her right arm. She disclosed this to his son today who decided to bring her in. Very slight shortness of breath. No fever no chills. It appears to be a mechanical fall. No history of unconsciousness. No head injury. Patient in the ER found to fraction of the right upper humerus, small pneumothorax, fractured rib. Also discovered to have a right-sided lung mass. Patient seen by cardiothoracic surgery. Only pain in the right arm with movement not otherwise. At the baseline patient able to feed herself with the left arm. Does use a diaper. Review of systems: GEN.: Tired EYES: None HEENT: None NECK: None RESPIRATORY: None CARDIOVASCULAR: None GASTROINTESTINAL: None GENITOURINARY: None MUSCULOSKELETAL: [Joint pains LYMPHATICS: None HEMATOLOGICAL: None PSYCHIATRY: None NEUROLOGICAL: Dysarthria, right arm and right leg weakness arm greater than the leg. Past medical history to include: Hypertension, restless syndrome, diverticulitis, hip pain, kidney failure secondary to Motrin use, anxiety depression., Right arm and leg weakness. Dysarthria Social history: Patient smoked 2 packs a day for many years. Cut down to very few cigarettes a day for last 2 years. Lives with her son. Family history: Diabetes, heart attack, emphysema Physical examination: VITAL SIGNS: 97.9, 88, 16, 140s/78, 96% room air GENERAL: BMI 29.3, laying in bed, awake slightly anxious. EYES: Pupils equal. Conjunctiva normal. HEENT: External appearance of nose and ears normal, oral cavity grossly normal. NECK: JVD not raised; masses not palpable. HEART: First and second heart sounds are normal; no edema. LUNGS: Respiratory rate normal; clear to auscultation. ABDOMEN: Soft, nontender, liver spleen not palpable, no masses palpable. PSYCH: Alert and oriented x3; mood and affect normal. MUSCULOSKELETAL:No Clubbing/cyanosis;muscles-grossly intact. Right ominous laying. NEUROLOGICAL: [Cranial nerves grossly intact; no facial asymmetry, decreased power in the right arm. Some decreased power in the right leg. LYMPHATICS: No lymph nodes palpable in the axilla and neck INVESTIGATIONS, reviewed in the clinical context: White count 8.8 hemoglobin 12.9 platelets 215 sodium 137 potassium 4.3 bicarb 20 BUN 20 creatinine 1.18 Influenza type A, type B, RSV, COVID 19: Not detected EKG tracing personally reviewed by me-normal sinus rhythm. Rate 74 Chest x-ray film personally reviewed by me-right midlung infiltrate. Pneumothorax. Other x-rays: Acute nondisplaced transverse fracture surgical neck right proximal humerus. Chest CTA: Negative for PE. Right 6 red fracture, right chest wall soft tissue emphysema, small to moderate right-sided pneumothorax. Small right pleural effusion. Right hilar and right central no mass and metastatic right hilar lymph node. Assessment and plan: -Possible right lung contusion secondary to fall and fracture Follow pulse ox -Right sixth rib fracture secondary to fall Pain control -Right pneumothorax 10-20%. Asymptomatic Consult cardiothoracic surgery follow with them -Right lung mass with prominent mediastinal lymph nodes. Consult oncology. Computed tomography scan of the brain. -Right arm paresis a right leg paresis. We'll do a computed tomography scan of the brain to rule out metastatic disease. -Chronic nicotine dependence cigarette smoker Nicotine patch -Essential hypertension Follow blood pressure -Restless leg syndrome Recurrent 1 mg by mouth 3 times a day -Hyperlipidemia Lipitor 80 mg daily at bedtime Follow the patient with cardiothoracic surgery. Oncology consulted. Computed tomography scan of the brain. Home medications resumed. Tylenol for pain control. Right ominous laying. Fall precaution. Care was discussed with the patient. Questions answered. 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, STATES HAD COMPLICATION POST CH OLECYSTECTOMY AND WAS TRANSFERRED TO [facility] AND WAS ON A VENTILATOR History of Any Multi-Drug Resistant Organisms: None Reported Past Surgical History: Cholecystectomy Additional Past Surgical History / Comment(s): colonoscopy Past Anesthesia/Blood Transfusion Reactions: No Reported Reaction Past Psychological History: Anxiety, Depression Past Alcohol Use History: None Reported Past Drug Use History: None Reported - Past Family History Father Family Medical History: Diabetes Mellitus, Myocardial Infarction (MA) Additional Family Medical History / Comment(s): KIDNEY FAILURE,EMPHYSEMA Mother Family Medical History: Cancer Additional Family Medical History / Comment(s): bladder/kidney Sister(s) Family Medical History: Diabetes Mellitus Son(s) Family Medical History: Deep Vein Thrombosis (DVT) Medications and Allergies Home Medications Medication Instructions Recorded Confirmed Type rOPINIRole HCL [Requip] 1 mg PO TID 12/19/17 08/07/21 History Atorvastatin [Lipitor] 80 mg PO HS 08/07/21 08/07/21 History Citalopram Hydrobromide [CeleXA] 20 mg PO DAILY 08/07/21 08/07/21 History Allergies Allergy/AdvReac Type Severity Reaction Status Date / Time No Known Allergies Allergy Verified 08/07/21 11:00 Physical Exam Vitals: Vital Signs Temp Pulse Resp BP Pulse Ox 08/07/21 12:13 73 15 153/86 100 08/07/21 10:54 65 18 100 08/07/21 10:31 72 18 126/86 98 08/07/21 08:20 97.9 F 88 16 114/78 96 Intake and Output 08/06/21 08/07/21 08/07/21 22:59 06:59 14:59 Other: Weight 72.575 kg Results CBC & Chem 7: 08/07/21 09:00 08/07/21 09:11 Labs: Abnormal Lab Results - Last 24 Hours (Table) 08/07/21 08/07/21 Range/Units 09:11 09:11 APTT 20.6 L (22.0-30.0) sec D-Dimer 14.91 H (<0.60) mg/L FEU Chloride 110 H (98-107) mmol/L Carbon Dioxide 20 L (22-30) mmol/L BUN 28 H (7-17) mg/dL Creatinine 1.18 H (0.52-1.04) mg/dL Glucose 109 H (74-99) mg/dL AST 45 H (14-36) U/L
--- NOTE | 2021-08-07 13:57 | P.GSCN ---
History of Present Illness Consult date: 08/07/21 Reason for Consult: Right-sided pneumothorax status post fall Requesting physician: Fawad Villafana History of present illness: This is a 71-year-old frail lady who follows on an outpatient basis with Dr. Mcdowell. She has a previous medical history of hypertension, stroke with subsequent right-sided weakness, chronic kidney disease, restless leg syndrome, and previous tobacco dependence. The patient lives with her son. Apparently she fell onto her right side several days ago and did hit her head but did not lose consciousness. She states it took a while before she was able to get up with the help of her son. She did not want to seek medical attention, however her son was increasingly worried and contacted her primary care physician who requested that she come to the emergency room for evaluation and treatment. She presented to [facility] emergency room, denies any pain or shortness of breath. Multiple x-rays were taken and she was noted to have a right humeral fracture as well as right-sided rib fracture. CTA of the chest was completed due to elevation of d-dimer, there was no evidence of pulmonary embolism, there was confirmation of right sixth rib fracture as well as a small to moderate right-sided pneumothorax and small right pleural effusion. Of note there was also a suspicious right hilar and right central upper lobe mass with suspicious metastatic right hilar lymph nodes concerning for cancer. Due to the findings of pneumothorax thoracic surgery was consulted for treatment recommendations. Review of Systems Review of systems was completed and is negative except as noted, however patient is not the best historian and there is no family present at the time of this examination - Musculoskeletal Musculoskeleta Comment(s): Fall as per HPI - Neurological Reports as per HPI, Reports paralysis Past Medical History Past Medical History: CVA/TIA, Hypertension, Renal Disease Additional Past Medical History / Comment(s): Restless leg, diverticulitis, karlie hip pain, hx kidney failure from motrin use, STATES HAD COMPLICATION POST CHOLECYSTECTOMY AND WAS TRANSFERRED TO [facility] AND WAS ON A VENTILATOR History of Any Multi-Drug Resistant Organisms: None Reported Past Surgical History: Cholecystectomy Additional Past Surgical History / Comment(s): colonoscopy Past Anesthesia/Blood Transfusion Reactions: No Reported Reaction Past Psychological History: Anxiety, Depression Smoking Status: Former smoker Past Alcohol Use History: None Reported Past Drug Use History: None Reported Additional History: Patient reports she quit smoking 2 months ago, prior to that was a 1-2 pack-a-day smoker for 20 years - Past Family History Father Family Medical History: Diabetes Mellitus, Myocardial Infarction ([place]) Additional Family Medical History / Comment(s): KIDNEY FAILURE,EMPHYSEMA Mother Family Medical History: Cancer Additional Family Medical History / Comment(s): bladder/kidney Sister(s) Family Medical History: Diabetes Mellitus Son(s) Family Medical History: Deep Vein Thrombosis (DVT) Medications and Allergies Home Medications Medication Instructions Recorded Confirmed Type rOPINIRole HCL [Requip] 1 mg PO TID 12/19/17 08/07/21 History Atorvastatin [Lipitor] 80 mg PO HS 08/07/21 08/07/21 History Citalopram Hydrobromide [CeleXA] 20 mg PO DAILY 08/07/21 08/07/21 History Allergies Allergy/AdvReac Type Severity Reaction Status Date / Time No Known Allergies Allergy Verified 08/07/21 11:00 Surgical - Exam Vital Signs Temp Pulse Resp BP Pulse Ox 97.9 F 88 16 114/78 96 08/07/21 08:20 08/07/21 08:20 08/07/21 08:20 08/07/21 08:20 08/07/21 08:20 CONSTITUTIONAL: Awake and alert, appears comfortable, cooperative, well- developed, well-nourished, no pain, no acute distress EYES: Pupils equal, round, reactive to light, normal ocular movement ENT: Moist mucous membranes without oral lesions present NECK: No masses, no bruits, trachea midline RESPIRATORY: Lungs sounds clear to auscultation bilaterally. Respirations even, nonlabored. Currently on 2 L nasal cannula with oxygen saturation 98% CARDIOVASCULAR: S1, S2 present. Regular rate and rhythm, sinus rhythm on telemetry. Palpable peripheral pulses bilaterally. No edema present. No calf pain or tenderness noted. GASTROINTESTINAL: Abdomen soft, nontender, nondistended without masses or organomegaly noted. There is no rebound or guarding present. Active bowel sounds present 4 quadrants. GENITOURINARY: Deferred INTEGUMENTARY: Skin is warm and dry with evidence of good perfusion. Right arm currently in a sling NEUROLOGIC: Cranial nerves II through XII intact MUSKULOSKELETAL: Able to move left extremities, decreased strength in the right extremities PSYCHIATRIC: Alert and oriented to person, place, unable to recall month or year, appropriate affect Results - Labs 08/07/21 09:00 08/07/21 09:11 Abnormal Lab Results - Last 24 Hours (Table) 08/07/21 08/07/21 08/07/21 Range/Units 09:11 09:11 12:13 APTT 20.6 L (22.0-30.0) sec D-Dimer 14.91 H (<0.60) mg/L FEU Chloride 110 H (98-107) mmol/L Carbon Dioxide 20 L (22-30) mmol/L BUN 28 H (7-17) mg/dL Creatinine 1.18 H (0.52-1.04) mg/dL Glucose 109 H (74-99) mg/dL AST 45 H (14-36) U/L Urine Appearance Cloudy H (Clear) Ur Specific [place] >1.050 H (1.001-1.035) Urine Protein Trace H (Negative) Urine Blood Trace H (Negative) Ur Leukocyte Esterase Moderate H (Negative) Urine RBC 36 H (0-5) /hpf Urine WBC 17 H (0-5) /hpf Ur Squamous Epith Cells 22 H (0-4) /hpf Urine Bacteria Occasional H (None) /hpf Urine Mucus Rare H (None) /hpf Diabetes panel 08/07/21 Range/Units 09:11 Sodium 137 (137-145) mmol/L Potassium 4.3 (3.5-5.1) mmol/L Chloride 110 H (98-107) mmol/L Carbon Dioxide 20 L (22-30) mmol/L BUN 28 H (7-17) mg/dL Creatinine 1.18 H (0.52-1.04) mg/dL Glucose 109 H (74-99) mg/dL Calcium 8.7 (8.4-10.2) mg/dL AST 45 H (14-36) U/L ALT 15 (4-34) U/L Alkaline Phosphatase 109 (38-126) U/L Total Protein 8.0 (6.3-8.2) g/dL Albumin 3.6 (3.5-5.0) g/dL Calcium panel 08/07/21 Range/Units 09:11 Calcium 8.7 (8.4-10.2) mg/dL Albumin 3.6 (3.5-5.0) g/dL Pituitary panel 08/07/21 Range/Units 09:11 Sodium 137 (137-145) mmol/L Potassium 4.3 (3.5-5.1) mmol/L Chloride 110 H (98-107) mmol/L Carbon Dioxide 20 L (22-30) mmol/L BUN 28 H (7-17) mg/dL Creatinine 1.18 H (0.52-1.04) mg/dL Glucose 109 H (74-99) mg/dL Calcium 8.7 (8.4-10.2) mg/dL Adrenal panel 08/07/21 Range/Units 09:11 Sodium 137 (137-145) mmol/L Potassium 4.3 (3.5-5.1) mmol/L Chloride 110 H (98-107) mmol/L Carbon Dioxide 20 L (22-30) mmol/L BUN 28 H (7-17) mg/dL Creatinine 1.18 H (0.52-1.04) mg/dL Glucose 109 H (74-99) mg/dL Calcium 8.7 (8.4-10.2) mg/dL Total Bilirubin 0.8 (0.2-1.3) mg/dL AST 45 H (14-36) U/L ALT 15 (4-34) U/L Alkaline Phosphatase 109 (38-126) U/L Total Protein 8.0 (6.3-8.2) g/dL Albumin 3.6 (3.5-5.0) g/dL - Imaging Chest x-ray: report reviewed, image reviewed CT scan - chest: report reviewed, image reviewed Assessment and Plan Assessment: 1. Small right-sided pneumothorax, no respiratory compromise 2. Fall from standing 3. Right humeral fracture, right sixth rib fracture 4. Right-sided hilar and central upper lobe mass suspicious for cancer 5. History hypertension 6. History of CVA, subsequent right-sided weakness 7. Chronic kidney disease 8. Restless leg syndrome 9. Previous tobacco dependence Plan: The patient was seen and examined in the emergency room. Chart/diagnostics were reviewed, CT and x-ray films were reviewed with Dr. Johnson. The patient is currently in no acute distress, she is oxygenating well on 2 L nasal cannula. No surgical intervention warranted at this time. If patient develops respiratory compromise will consider small-bore chest tube placement. Incentive spirometry ordered and should be encouraged. Pain control per current medicati on regimen. The patient states she quit smoking 2 months ago, encouraged continued smoking cessation. Management of possible lung mass per oncology. Management of other comorbidities per primary care service. More recommendations to follow. Thank you for this consult. We will continue to follow along with you. I have personally seen and examined the patient, performed the documentation and the assessment and plan as written. Number of minutes spent on the visit: 30. MARIANELA PayneC
[2021-08-07] MEDS: ENOXAPARIN 40 MG/0.4 ML SYRINGE SQ SCH (15:13)
[2021-08-07] MEDS ORDERED: HEPARIN SODIUM,PORCINE/PF 5,000 UNIT/0.5 ML SYRINGE SQ SCH (16:00)
--- NOTE | 2021-08-07 18:39 | P.CONS ---
History of Present Illness - Reason for Consult Consult date: 08/07/21 Right Lung mass Requesting physician: Nithin Jose - History of Present Illness Mrs. Saleem is a 71-year-old female who presented after a fall over the weekend. Home physician evaluated a few days lkater and referred to ER for further evaluation for concern of Right arm fracture. During work-up CTA was performed noting a Right hilar and Right Central upper lobe mass with associater hilar lymph nodes suspicious for primary pulmonary malignancy. Therefore we have been asked to further evaluate Patient does have full right arm paralysis secondary to a prior stroke with residual aphasia and dysarthria. She lives at home with son, uses a walker. Review of Systems All systems: negative Constitutional: Reports as per HPI Past Medical History Past Medical History: COPD, CVA/TIA, Dementia, Hyperlipidemia Additional Past Medical History / Comment(s): Cholecystectomy with complication and was transferred to [facility], CVA with R arm paralysis /aphasia/dysarthria, renal failure d/t motrin, RLS, diverticular disease, benign colon polyps. History of Any Multi-Drug Resistant Organisms: None Reported Past Surgical History: Cholecystectomy Additional Past Surgical History / Comment(s): EGD/biliary stent since removed, ERCP, colonoscopies, benign cyst removed from neck, bilateral cataract removals/lens implants. Past Anesthesia/Blood Transfusion Reactions: No Reported Reaction Smoking Status: Former smoker - Past Family History Father Family Medical History: Diabetes Mellitus, Myocardial Infarction ([place]) Additional Family Medical History / Comment(s): KIDNEY FAILURE,EMPHYSEMA Mother Family Medical History: Cancer Additional Family Medical History / Comment(s): bladder/kidney Sister(s) Family Medical History: Diabetes Mellitus Son(s) Family Medical History: Deep Vein Thrombosis (DVT) Medications and Allergies Home Medications Medication Instructions Recorded Confirmed Type rOPINIRole HCL [Requip] 1 mg PO TID 12/19/17 08/07/21 History Atorvastatin [Lipitor] 80 mg PO HS 08/07/21 08/07/21 History Citalopram Hydrobromide [CeleXA] 20 mg PO DAILY 08/07/21 08/07/21 History Allergies Allergy/AdvReac Type Severity Reaction Status Date / Time No Known Allergies Allergy Verified 08/07/21 11:00 Physical Exam Vitals: Vital Signs Temp Pulse Resp BP Pulse Ox 08/07/21 12:13 73 15 153/86 100 08/07/21 10:54 65 18 100 08/07/21 10:31 72 18 126/86 98 08/07/21 08:20 97.9 F 88 16 114/78 96 Intake and Output 08/06/21 08/07/21 08/07/21 22:59 06:59 14:59 Other: Weight 72.575 kg Awake Right sided weakness Diminished Right >Left mild increased effort Abdomen tender Irr Ext weak Results CBC & Chem 7: 08/07/21 09:00 08/07/21 09:11 Labs: Abnormal Lab Results - Last 24 Hours (Table) 08/07/21 08/07/21 08/07/21 Range/Units 09:11 09:11 12:13 APTT 20.6 L (22.0-30.0) sec D-Dimer 14.91 H (<0.60) mg/L FEU Chloride 110 H (98-107) mmol/L Carbon Dioxide 20 L (22-30) mmol/L BUN 28 H (7-17) mg/dL Creatinine 1.18 H (0.52-1.04) mg/dL Glucose 109 H (74-99) mg/dL AST 45 H (14-36) U/L Urine Appearance Cloudy H (Clear) Ur Specific [place] >1.050 H (1.001-1.035) Urine Protein Trace H (Negative) Urine Blood Trace H (Negative) Ur Leukocyte Esterase Moderate H (Negative) Urine RBC 36 H (0-5) /hpf Urine WBC 17 H (0-5) /hpf Ur Squamous Epith Cells 22 H (0-4) /hpf Urine Bacteria Occasional H (None) /hpf Urine Mucus Rare H (None) /hpf CT scan - chest: report reviewed Assessment and Plan Plan: Assessment and Recommendations: 1. Right Lung Mass - tissue biopsy is needed for definitive diagnosis and recommendations - Discussed above with patient and answered all of her questions - Performance status 2-3 2. Fall at Home Defer approach to pulmonary and thoracic surgery, await for pathology results on biopsy MRI of Brain ordered to assess for metastatic disease PET scan will be scheduled outpatient Dr. Aragon: I have completed the full history and physical and developed the above impression and plan, agree with dictation, dictated as a scribe,
--- NOTE | 2021-08-07 18:48 | XR ---
EXAMINATION TYPE: XR chest 1V portable DATE OF EXAM: 08/07/2021 6:23 PM COMPARISON: CT chest 08/07/2021. TECHNIQUE: XR chest 1V portable Frontal view of the chest. CLINICAL INDICATION:Female, 71 years old with history of right pneumothorax; FINDINGS: Lungs/Pleura: Persistent right pneumothorax identified. Pulmonary vascularity: Unremarkable. Heart/mediastinum: Cardiomediastinal silhouette is unremarkable. A loop recorder projects over the le ft thorax over the heart. Musculoskeletal: Right rib fractures better characterized on recent CT. Other findings: Subcutaneous emphysema scattered throughout the right lower neck. IMPRESSION: 1. Persistent right pneumothorax, no significant change from prior. 2. Consolidation masslike area better characterized on recent CT. 3. Right neck subcutaneous emphysema. 4. Underlying right rib fractures better characterized on recent CT.
[2021-08-07] MEDS: ATORVASTATIN 80 MG TAB PO SCH (20:15)
--- NOTE | 2021-08-07 22:59 | MR ---
EXAMINATION TYPE: MR brain wo/w con DATE OF EXAM: 08/07/2021 COMPARISON: HISTORY: Lung Mass assess for metastatic disease CONTRAST: Standard multiplanar, multisequence MRI departmental protocol images were obtained without contrast a nd with 7ml mL intravenous Gadavist gadolinium contrast. There is diffuse cerebral cortical atrophy. There is no mass effect or midline shift. The diffusion i mages show small linear area of increased signal adjacent to the left lateral ventricle in the white matter in the left side internal capsule. There is abnormal increased signal in the left posterior te mporal lobe ortiz and white matter. There is increased fluid signal in the left internal capsule anter iorly and posteriorly. There is some thinning of the corpus callosum. There is no evidence of orbital mass. Sella turcica is intact. On the FLAIR images there is increased signal in the anterior aspect left cerebral peduncle. There is thinning of the left cerebral peduncle. On the FLAIR images there is patchy coalescent incr eased signal around the lateral ventricles bilaterally. The contrast images show normal enhancement of the venous sinuses. There is no pathologic enhancement . IMPRESSION: No evidence of metastatic disease. Old left temporal lobe infarct with encephalomalacia in the ortiz and white matter. Small acute infarct left internal capsule. Multiple old infarcts in the internal capsule on the left side.
--- NOTE | 2021-08-08 07:00 | XR ---
EXAMINATION TYPE: XR chest 1V portable DATE OF EXAM: 08/08/2021 6:29 AM COMPARISON:Chest radiograph from one day prior. CT chest 08/07/2021 TECHNIQUE: XR chest 1V portable Frontal view of the chest. CLINICAL INDICATION:Female, 71 years old with history of pneumothorax; FINDINGS: Lungs/Pleura: Similar multifocal airspace opacities. Right perihilar masslike area is better apprecia magen on prior CT. Pulmonary vascularity: Unremarkable. Heart/mediastinum: Cardiomediastinal silhouette is unremarkable. A loop recorder projects over the le ft thorax over the heart. Musculoskeletal: Right rib fractures better appreciated on prior CT. Other: Subcutaneous gas seen along the right lateral rib and in the right lower neck partially visual ized. IMPRESSION: 1. Right pneumothorax, but appreciated on recent CT. 2. Consolidation masslike area better characterized on recent CT. Involving the right perihilar zora on 3. Right neck and lateral chest subcutaneous emphysema. 4. Underlying right rib fractures better characterized on recent CT.
[2021-08-08] MEDS: ASPIRIN 81 MG PO SCH (07:53)
[2021-08-08] MEDS: ENOXAPARIN 40 MG/0.4 ML SYRINGE SQ SCH (07:53)
[2021-08-08] MEDS: CITALOPRAM HYDROBROMIDE 20 MG TAB PO SCH (07:53)
[2021-08-08 08:47] LABS: Basophils # (A) 0.01 X 10*3/uL (0.00-0.10); Basophils % (A) 0.1 %; Eosinophils # (A) 0.36 X 10*3/uL (0.04-0.35); Eosinophils % (A) 5.1 %; HCT 33.9 % (37.2-46.3); Immature Grans, Automated 0.4 %; Lymphocytes # (A) 1.58 X 10*3/uL (0.90-5.00); Lymphocytes % (A) 22.4 %; MCH 31.8 pg (27.0-32.0); MCHC 32.4 g/dL (32.0-37.0); Mean Platelet Volume 9.9 fL (9.5-12.2); Monocytes # (A) 0.46 X 10*3/uL (0.20-1.00); Monocytes % (A) 6.5 %; NRBC Per 100 WBC 0 /100 WBCS (0.0-0.0); Neutrophils # (A) 4.61 X 10*3/uL (1.80-7.70); Neutrophils % (A) 65.5 %; Platelet Count 178 X 10*3/uL (140-440); RBC 3.46 X 10*6/uL (4.10-5.20); RDW 12.3 % (11.5-14.5); WBC 7.05 X 10*3/uL (4.50-10.00)
--- NOTE | 2021-08-08 08:54 | P.PN ---
Subjective Progress Note Date: 08/08/21 Principal diagnosis: Small right-sided pneumothorax, fall from standing, right humeral fracture, right sixth rib fracture, right-sided hilar and central upper lobe mass suspicious for cancer. Previous medical history of hypertension, hyperlipidemia, CVA with subsequent right-sided weakness, chronic kidney disease, restless leg syndrome, previous tobacco dependence The patient was seen and examined this morning sitting up in bed on the medical/surgical unit in no acute distress. States right shoulder pain controlled with current medication regimen, denies shortness of breath. Currently on 2 LPM NC with oxygen saturation in the high 90s. Using incentive spirometry and achieving 1000 mL. Right arm remains in sling. CXR reviewed. Objective - Vital Signs Vital signs: Vital Signs Temp 98.2 F 08/08/21 07:34 Pulse 63 08/08/21 07:34 Resp 16 08/08/21 07:34 BP 101/66 08/08/21 07:34 Pulse Ox 99 08/08/21 07:34 Intake & Output 08/07/21 08/08/21 08/08/21 18:59 06:59 18:59 Intake Total 450 Balance 450 Weight 72.575 kg Intake: Oral 450 Other: Voiding Method Diaper # Voids 1 3 # Bowel Movements 0 - Exam CONSTITUTIONAL: Awake and alert, appears comfortable, cooperative, well-developed, well-nourished, no pain, no acute distress RESPIRATORY: Lungs sounds clear to auscultation bilaterally. Respirations even, nonlabored. Currently on 2 L nasal cannula with oxygen saturation 99%. Able to achieve 1000 mL on incentive spirometry CARDIOVASCULAR: S1, S2 present. Regular rate and rhythm. Palpable peripheral pulses bilaterally. No edema present. No calf pain or tenderness noted. GASTROINTESTINAL: Abdomen soft, nontender, nondistended. Active bowel sounds present 4 quadrants. GENITOURINARY: Continues to void, remains incontinent INTEGUMENTARY: Skin is warm and dry. Right arm currently in a sling NEUROLOGIC: Cranial nerves II through XII intact MUSKULOSKELETAL: Able to move left extremities, decreased strength in the right extremities PSYCHIATRIC: Alert and oriented to person, place, unable to recall month or year, appropriate affect - Labs CBC & Chem 7: 08/07/21 09:00 08/07/21 09:11 Labs: Abnormal Lab Results - Last 24 Hours (Table) 0408/07/21 08/07/21 Range/Units 09:11 09:11 12:13 APTT 20.6 L (22.0-30.0) sec D-Dimer 14.91 H (<0.60) mg/L FEU Chloride 110 H (98-107) mmol/L Carbon Dioxide 20 L (22-30) mmol/L BUN 28 H (7-17) mg/dL Creatinine 1.18 H (0.52-1.04) mg/dL Glucose 109 H (74-99) mg/dL AST 45 H (14-36) U/L Urine Appearance Cloudy H (Clear) Ur Specific [place] >1.050 H (1.001-1.035) Urine Protein Trace H (Negative) Urine Blood Trace H (Negative) Ur Leukocyte Esterase Moderate H (Negative) Urine RBC 36 H (0-5) /hpf Urine WBC 17 H (0-5) /hpf Ur Squamous Epith Cells 22 H (0-4) /hpf Urine Bacteria Occasional H (None) /hpf Urine Mucus Rare H (None) /hpf Microbiology - Last 24 Hours (Table) 08/07/21 12:13 Urine Culture - Preliminary Urine,Voided - Imaging and Cardiology Chest x-ray: report reviewed, image reviewed Assessment and Plan Assessment: 1. Small right-sided pneumothorax, no respiratory compromise 2. Fall from standing 3. Right humeral fracture, right sixth rib fracture 4. Right-sided hilar and central upper lobe mass suspicious for cancer 5. History of hypertension 6. History of hyperlipidemia 7. History of CVA, subsequent right-sided weakness 8. Chronic kidney disease 9. Restless leg syndrome 10. Previous tobacco dependence Plan: 1. No surgical intervention at this time. If patient develops respiratory compromise will consider small-bore chest tube placement 2. Wean oxygen as tolerated. Encourage incentive spirometry 10x every hour while awake 3. Increase activity as tolerated, out of bed to chair as able. Right arm to remain in sling 4. Pain control per current medication regimen 5. Encourage smoking cessation 6. Pulmonology consulted regarding right sided lung mass, biopsy 7. Will monitor daily CXR 8. Management of other comorbidities per primary care service
[2021-08-08 08:56] LABS: African American GFR (CKD) 56.6 (60.0-200.0); BUN/Creat Ratio 20.18 Ratio (12.00-20.00); Blood Urea Nitrogen 22.8 mg/dL (9.0-27.0); Calcium 8.4 mg/dL (8.7-10.3); Carbon Dioxide 21.4 mmol/L (20.0-27.5); Non-African American GFR(CKD) 48.9 (60.0-200.0); Potassium 4.4 mmol/L (3.5-5.5)
--- NOTE | 2021-08-08 12:24 | P.CNOR ---
History of Present Illness - [facility] Consult date: 08/08/21 Requesting physician: Fawad Villafana Consult reason: other (Right surgical neck fracture humerus) History of present illness: Patient is a 71-year-old female with a history of stroke, hypertension, restless leg syndrome, diverticulosis, chronic kidney disease, right arm weakness and r ight leg weakness who presented to the emergency department status post fall at home. Patient was seen at bedside this morning with sling on right arm. Patient says about 6 days ago she was at home when she fell and landed on her right arm. Patient did not tell her son, whom she lives with about this until yesterday. Son brought patient into the emergency department. Patient says she did hit her head, but she denies losing consciousness. Patient denies any changes in vision. Patient says the only place she is in much pain as her right arm/shoulder. Patient says do stroke previously she does not have any function in her right arm. Patient says she does use a wheelchair at home to get around. Patient also says she has limited mobility in the right leg. Patient denies any previous orthopedic surgical history. Patient says she is not on any blood thinners. Patient denies increasing chest pain, increasing shortness breath, nausea, vomiting, loss of bowel/bladder control. Past Medical History Past Medical History: COPD, CVA/TIA, Dementia, Hyperlipidemia Additional Past Medical History / Comment(s): Cholecystectomy with complication and was transferred to [facility], CVA with R arm paralysis/ap hasia/dysarthria, renal failure d/t motrin, RLS, diverticular disease, benign colon polyps. History of Any Multi-Drug Resistant Organisms: None Reported Past Surgical History: Cholecystectomy Additional Past Surgical History / Comment(s): EGD/biliary stent since removed, ERCP, colonoscopies, benign cyst removed from neck, bilateral cataract removals/lens implants. Past Anesthesia/Blood Transfusion Reactions: No Reported Reaction Smoking Status: Former smoker - Past Family History Father Family Medical History: Diabetes Mellitus, Myocardial Infarction ([place]) Additional Family Medical History / Comment(s): KIDNEY FAILURE,EMPHYSEMA Mother Family Medical History: Cancer Additional Family Medical History / Comment(s): bladder/kidney Sister(s) Family Medical History: Diabetes Mellitus Son(s) Family Medical History: Deep Vein Thrombosis (DVT) Medications and Allergies Home Medications Medication Instructions Recorded Confirmed Type rOPINIRole HCL [Requip] 1 mg PO TID 12/19/17 08/07/21 History Atorvastatin [Lipitor] 80 mg PO HS 08/07/21 08/07/21 History Citalopram Hydrobromide [CeleXA] 20 mg PO DAILY 08/07/21 08/07/21 History Allergies Allergy/AdvReac Type Severity Reaction Status Date / Time No Known Allergies Allergy Verified 08/07/21 11:00 Physical Examination Ecchymosis present in the right upper extremity along the medial aspect of the proximal humerus. No evidence of open fractures, erythema, nodules. Patient does have tenderness to palpation in the right upper extremity along the proximal humerus. Patient is nontender to palpation throughout rest of exam. Sensation is equal, symmetric, bilaterally intact throughout exam. Patient is not able to flex/extend/abduct right shoulder, right elbow, right wrist due to previous stroke. Patient does have good range of motion in right elbow and right wrist passive flexion/extension. Patient has full range of motion left upper extremity as well as bilateral lower extremities. Right upper extremity motor exam unable to be performed because patient has no function in right arm due to previous stroke. Negative Homans bilaterally. Neurovascular status intact. Radial pulses 2+. Cap refill under 3 seconds in digits of upper extremities. Results - Labs Labs: Abnormal Lab Results - Last 24 Hours (Table) 08/07/21 08/07/21 08/07/21 Range/Units 09:11 09:11 12:13 APTT 20.6 L (22.0-30.0) sec D-Dimer 14.91 H (<0.60) mg/L FEU Chloride 110 H (98-107) mmol/L Carbon Dioxide 20 L (22-30) mmol/L BUN 28 H (7-17) mg/dL Creatinine 1.18 H (0.52-1.04) mg/dL Glucose 109 H (74-99) mg/dL AST 45 H (14-36) U/L Urine Appearance Cloudy H (Clear) Ur Specific [place] >1.050 H (1.001-1.035) Urine Protein Trace H (Negative) Urine Blood Trace H (Negative) Ur Leukocyte Esterase Moderate H (Negative) Urine RBC 36 H (0-5) /hpf Urine WBC 17 H (0-5) /hpf Ur Squamous Epith Cells 22 H (0-4) /hpf Urine Bacteria Occasional H (None) /hpf Urine Mucus Rare H (None) /hpf Microbiology - Last 24 Hours (Table) 08/07/21 12:13 Urine Culture - Preliminary Urine,Voided H & H 08/07/21 Range/Units 09:00 Hgb 12.9 (11.4-16.0) gm/dL Hct 37.4 (34.0-46.0) % Coagulation 08/07/21 Range/Units 09:11 INR 1.0 (<1.2) Result Diagrams: 08/08/21 05:56 08/08/21 05:56 Assessment and Plan Assessment: 1. Proximal humerus fracture, right 2. Pneumothorax 3. Multiple medical comorbidities Plan: 1. Proximal humerus fracture, right - patient was evaluated at bedside this morning. New sling was placed on the right arm of patient. At this time we do not recommend any emergent/urgent orthopedic surgical intervention. We do recommend patient to keep arm in sling at this time. patient should not abduct/externally rotated right arm. We do recommend patient to follow-up in office for further evaluation. 2. Appreciate medical management 3. Pain management - [place]; Tylenol 4. DVT prophylaxis - aspirin; Lovenox 5. GI prophylaxis - Tums 6. PT/OT - nonweightbearing right upper extremity. Keep arm in sling. Do not abduct/externally rotate right arm Time with Patient: Less than 30
--- NOTE | 2021-08-08 12:42 | P.CNPUL ---
History of Present Illness Consult date: 08/08/21 Reason for consult: lung mass History of present illness: 71-year-old here patient was found to have a lung mass and for that reason a primary consultation was requested. The patient is a ex-smoker the patient is also known to have COPD. The patient also has previous history of CVA with some right-sided weakness and previous history of expressive aphasia which has improved over the years. She is known to have hypertension, chronic kidney disease along with previous history of CVA. The patient had a fall at home and she had no loss of consciousness. She fell onto the right side and this occurred approximately a week ago. No loss of consciousness. She is currently living with her son. She did not want to seek immediate medical attention. However, she was having issues with pain in her shoulder and the chest area. The patient came into the ED and multiple x-rays were done and x-ray of the right upper extremity showed a right humeral fracture and then sent on the patient underwent a CT scan of the chest that showed fracture of the sixth rib along with some limited to place emphysema in the right upper chest area. That same time there was background COPD and the CAT scan showed a right upper lobe mass with central necrosis measuring around 6.1 x 3.4 cm in size extending into the right hilum. It was very suspicious for primary bronchogenic carcinoma. The patient also has right hilar lymphadenopathy. There was also evidence of right sixth rib fracture and a small right-sided pleural effusion along with background COPD. No evidence of any pulmonary embolism. The MRI of the brain showed old temporal lobe infarct and small acute infarct in left internal capsular multiple old infarcts in the internal capsule on the left. Review of Systems Constitutional: Reports fatigue, Reports weakness Eyes: denies as per HPI, denies blurred vision, denies bulging eye, denies decreased vision, denies diplopia, denies discharge, denies dry eye, denies irr itation, denies itching, denies pain, denies photophobia, denies loss of peripheral vision, denies loss of vision, denies tunnel vision/blind spots Ears: deny: decreased hearing, ear discharge, earache, tinnitus Ears, nose, mouth and throat: Reports as per HPI Breasts: absent: as per HPI, change in shape, gynecomastia, masses, nipple discharge, pain, skin changes, swelling Breasts: Reports as per HPI Cardiovascular: Reports decreased exercise tolerance, Reports dyspnea on exertion Respiratory: Reports dyspnea Gastrointestinal: Reports as per HPI Genitourinary: Reports as per HPI Menstruation: Reports as per HPI Musculoskeletal: Reports fractures, Reports frequent falls, Reports limitation of motion Musculoskeletal: absent: ankle pain, ankle stiffness, ankle swelling Integumentary: Reports as per HPI Neurological: Reports aphasia, Reports ataxia, Reports balance difficulties, Reports gait dysfunction, Reports paresthesias, Reports weakness Psychiatric: Reports as per HPI Endocrine: Reports as per HPI Allergic/Immunologic: Reports as per HPI Past Medical History Past Medical History: COPD, CVA/TIA, Dementia, Hyperlipidemia Additional Past Medical History / Comment(s): Cholecystectomy with complication and was transferred to [facility], CVA with R arm paralysis/aphasia/dysarthria, renal failure d/t motrin, RLS, diverticular disease, benign colon polyps. History of Any Multi-Drug Resistant Organisms: None Reported Past Surgical History: Cholecystectomy Additional Past Surgical History / Comment(s): EGD/biliary stent since removed, ERCP, colonoscopies, benign cyst removed from neck, bilateral cataract removals/lens implants. Past Anesthesia/Blood Transfusion Reactions: No Reported Reaction Smoking Status: Former smoker - Past Family History Father Family Medical History: Diabetes Mellitus, Myocardial Infarction ([place]) Additional Family Medical History / Comment(s): KIDNEY FAILURE,EMPHYSEMA Mother Family Medical History: Cancer Additional Family Medical History / Comment(s): bladder/kidney Sister(s) Family Medical History: Diabetes Mellitus Son(s) Family Medical History: Deep Vein Thrombosis (DVT) Medications and Allergies Home Medications Medication Instructions Recorded Confirmed Type rOPINIRole HCL [Requip] 1 mg PO TID 12/19/17 08/07/21 History Atorvastatin [Lipitor] 80 mg PO HS 08/07/21 08/07/21 History Citalopram Hydrobromide [CeleXA] 20 mg PO DAILY 08/07/21 08/07/21 History Allergies Allergy/AdvReac Type Severity Reaction Status Date / Time No Known Allergies Allergy Verified 08/07/21 11:00 Physical Exam Vitals: Vital Signs Temp Pulse Pulse Resp BP BP Pulse Ox 08/08/21 09:03 99 08/08/21 07:45 16 08/08/21 07:34 98.2 F 63 16 101/66 99 08/08/21 01:40 98.5 F 85 113/73 99 08/07/21 20:17 97.7 F 68 15 112/72 99 08/07/21 16:28 62 16 126/80 100 08/07/21 16:17 97.8 F 63 18 106/71 99 08/07/21 16:15 59 L 16 113/74 100 08/07/21 15:41 149 H 18 82/55 96 08/07/21 15:26 98 F 65 18 126/66 99 08/07/21 14:20 66 17 125/77 99 08/07/21 12:13 73 15 153/86 100 08/07/21 10:54 65 18 100 08/07/21 10:31 72 18 126/86 98 Intake and Output 08/07/21 08/08/21 08/08/21 22:59 06:59 14:59 Intake Total 450 Balance 450 Intake: Oral 450 Other: Voiding Method Diaper Diaper # Voids 1 3 # Bowel Movements 0 0 CONSTITUTIONAL: Awake and alert, appears comfortable, cooperative, well- developed, well-nourished, no pain, no acute distress EYES: Pupils equal, round, reactive to light, normal ocular movement ENT: Moist mucous membranes without oral lesions present NECK: No masses, no bruits, trachea midline RESPIRATORY: Lungs sounds clear to auscultation bilaterally. Respirations even, nonlabored. Currently on 2 L nasal cannula with oxygen saturation 98% CARDIOVASCULAR: S1, S2 present. Regular rate and rhythm, sinus rhythm on telemetry. Palpable peripheral pulses bilaterally. No edema present. No calf pain or tenderness noted. GASTROINTESTINAL: Abdomen soft, nontender, nondistended without masses or org anomegaly noted. There is no rebound or guarding present. Active bowel sounds present 4 quadrants. GENITOURINARY: Deferred INTEGUMENTARY: Skin is warm and dry with evidence of good perfusion. Right arm currently in a sling NEUROLOGIC: Cranial nerves II through XII intact MUSKULOSKELETAL: Able to move left extremities, decreased strength in the right extremities PSYCHIATRIC: Alert and oriented to person, place, unable to recall month or year, appropriate affect Results - Laboratory Findings CBC and BMP: 08/08/21 05:56 08/08/21 05:56 PT/INR, D-dimer PT 10.5 sec (9.0-12.0) 08/07/21 09:11 INR 1.0 (<1.2) 08/07/21 09:11 D-Dimer 14.91 mg/L FEU (<0.60) H 08/07/21 09:11 Abnormal lab findings: Abnormal Labs 08/07/21 08/07/21 08/07/21 09:11 09:11 12:13 RBC Hgb Hct MCV Eosinophils # APTT 20.6 L D-Dimer 14.91 H Chloride 110 H Carbon Dioxide 20 L BUN 28 H Creatinine 1.18 H Est GFR (CKD-EPI)AfAm Est GFR (CKD-EPI)NonAf BUN/Creatinine Ratio Glucose 109 H Calcium AST 45 H Urine Appearance Cloudy H Ur Specific [place] >1.050 H Urine Protein Trace H Urine Blood Trace H Ur Leukocyte Esterase Moderate H Urine RBC 36 H Urine WBC 17 H Ur Squamous Epith Cells 22 H Urine Bacteria Occasional H Urine Mucus Rare H 08/08/21 08/08/21 05:56 05:56 RBC 3.46 L Hgb 11.0 L Hct 33.9 L MCV 98.0 H Eosinophils # 0.36 H APTT D-Dimer Chloride Carbon Dioxide BUN Creatinine Est GFR (CKD-EPI)AfAm 56.6 L Est GFR (CKD-EPI)NonAf 48.9 L BUN/Creatinine Ratio 20.18 H Glucose Calcium 8.4 L AST Urine Appearance Ur Specific [place] Urine Protein Urine Blood Ur Leukocyte Esterase Urine RBC Urine WBC Ur Squamous Epith Cells Urine Bacteria Urine Mucus - Diagnostic Findings Chest x-ray: image reviewed CT scan - chest: image reviewed Assessment and Plan Plan: 1 right upper lobe mass measuring 6 x 3.4 cm in size along with right hilar lymphadenopathy, highly suggestive of locally advanced primary bronchogenic carcinoma. 2 subcutaneous emphysema in the right upper chest, likely related to trauma 3 right sixth rib fractures secondary to trauma to the right chest 4 right humerus fracture secondary to fall 5 small right-sided pleural effusion/pneumothorax secondary to above 6 history of CVA with right-sided weakness and previous history of expressive aphasia 7 COPD 8 chronic kidney disease 9 previous history of smoking 10 history of fall 11 hypertension Plan Obviously this patient will need a bronchoscopy to obtain tissue diagnosis regarding the right upper lobe mass. High likelihood for an underlying malignancy/primary bronchogenic carcinoma. We are going to discuss the timing of the procedure with the patient and her son. The patient is currently having some pain issues in her right chest and arm area. At the same time the patient a small pneumothorax/area of subcu emphysema and rib fracture. We are going to reevaluate her early next week probably by Tuesday or Tuesday in her condition is stable, which should be able to complete a bronchoscopy with transbronchial biopsies. This can be also done on outpatient basis and the patient does not want to proceed with this procedure immediately at this point in time. Meanwhile, we are going to offer adequate pain control. Orthopedic surgery regarding the humerus fracture and the patient has already been offered a sling
--- NOTE | 2021-08-08 15:11 | P.PN ---
Progress Note - Text Progress Note Date: 08/08/21 Chief Complaint: Fall This is a pleasant 71-year-old patient, follows with visiting physician Dr. Mcdowell. 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 For about 2 years patient has dysarthria some expressive dysphasia, right arm weakness much greater than right leg weakness. Patient often uses a wheelchair. Patient fell 6 days ago on Tuesday. Injury to her right arm. She disclosed this to his son today who decided to bring her in. Very slight shortness of breath. No fever no chills. It appears to be a mechanical fall. No history of unconsciousness. No head injury. Patient in the ER found to fraction of the right upper humerus, small pneumothorax, fractured rib. Also discovered to have a right-sided lung mass. Patient seen by cardiothoracic surgery. Only pain in the right arm with movement not otherwise. At the baseline patient able to feed herself with the left arm. Does use a diaper. Admitted with possible right lung contusion secondary to fall, right hip 6 frac ture, small pneumothorax, right lung mass with prominent mediastinal lymph node. August 08: Patient was seen by Dr. Walker from pulmonary. Patient's pain is controlled while laying in bed. I discussed with the patient of questions concerned about a new diagnosis of the lung mass. Has agreed to proceed with the bronchoscopy on Tuesday. Tolerating diet. Answered her questions. MRI of the brain showing possible acute stroke in the internal capsule. No clinical evidence of any new finding. Patient on aspirin and Lipitor. Active Medications Acetaminophen (Acetaminophen Tab 325 Mg Tab) 650 mg PO Q6HR PRN PRN Reason: Mild Pain or Fever > 100.5 Last Admin: 08/08/21 07:53 Dose: 650 mg Documented by: Hydrocodone Bitart/Acetaminophen (Hydrocodone/Apap 5-325mg 1 Each Tab) 1 each PO Q6HR PRN PRN Reason: Pain Aspirin (Aspirin 81 Mg) 81 mg PO DAILY [facility] Last Admin: 08/08/21 07:53 Dose: 81 mg Documented by: Atorvastatin Calcium (Atorvastatin 80 Mg Tab) 80 mg PO HS [facility] Last Admin: 08/07/21 20:15 Dose: 80 mg Documented by: Calcium Carbonate/Glycine (Calcium Carbonate 500 Mg Chewable) 1,000 mg PO Q4HR PRN PRN Reason: Dyspepsia Citalopram Hydrobromide (Citalopram Hydrobromide 20 Mg Tab) 20 mg PO DAILY [facility] Last Admin: 08/08/21 07:53 Dose: 20 mg Documented by: Enoxaparin Sodium (Enoxaparin 40 Mg/0.4 Ml Syringe) 40 mg SQ DAILY [facility] Last Admin: 08/08/21 07:53 Dose: 40 mg Documented by: Lactulose (Lactulose 20 Gm/30 Ml Cup) 20 gm PO DAILY PRN PRN Reason: Constipation Lorazepam (Lorazepam 0.5 Mg Tab) 0.5 mg PO Q6HR PRN PRN Reason: Anxiety Melatonin (Melatonin 3 Mg Tablet) 3 mg PO HS PRN PRN Reason: Insomnia Naloxone HCl (Naloxone 0.4 Mg/Ml 1 Ml Vial) 0.2 mg IV Q2M PRN PRN Reason: Opioid Reversal Prochlorperazine Maleate (Prochlorperazine 5 Mg Tab) 5 mg PO Q8HR PRN PRN Reason: Nausea And Vomiting Ropinirole HCl (Ropinirole Hcl 1 Mg Tab) 1 mg PO TID [facility] Last Admin: 08/08/21 07:53 Dose: 1 mg Documented by: Past medical history to include: Hypertension, restless syndrome, diverticulitis, hip pain, kidney failure secondary to Motrin use, anxiety depression., Right arm and leg weakness. Dysarthria Social history: Patient smoked 2 packs a day for many years. Cut down to very few cigarettes a day for last 2 years. Lives with her son. Family history: Diabetes, heart attack, emphysema Physical examination: VITAL SIGNS: 98.2, 63, 16, 101/66, 99% room air GENERAL: laying in bed, awake slightly anxious. EYES: Pupils equal. Conjunctiva normal. HEENT: External appearance of nose and ears normal, oral cavity grossly normal. NECK: JVD not raised; masses not palpable. HEART: First and second heart sounds are normal; no edema. LUNGS: Respiratory rate normal; clear to auscultation. ABDOMEN: Soft, nontender, liver spleen not palpable, no masses palpable. PSYCH: Alert and oriented x3; mood and affect normal. MUSCULOSKELETAL:No Clubbing/cyanosis;muscles-grossly intact. Right ominous laying. NEUROLOGICAL: [Cranial nerves grossly intact; no facial asymmetry, decreased power in the right arm. Some decreased power in the right leg. LYMPHATICS: No lymph nodes palpable in the axilla and neck INVESTIGATIONS, reviewed in the clinical context: August 08: White count 17 hemoglobin 11 platelets 178 potassium 4.4 creatinine 1.1 MRI brain: Old temporal lobe infarct with encephalomalacia. Multiple old infarcts and internal The Left. Small Acute Infarct Left Internal Capsule. White count 8.8 hemoglobin 12.9 platelets 215 sodium 137 potassium 4.3 bicarb 20 BUN 20 creatinine 1.18 Influenza type A, type B, RSV, COVID 19: Not detected EKG tracing personally reviewed by me-normal sinus rhythm. Rate 74 Chest x-ray film personally reviewed by me-right midlung infiltrate. Pneumothorax. Other x-rays: Acute nondisplaced transverse fracture surgical neck right proximal humerus. Chest CTA: Negative for PE. Right 6 red fracture, right chest wall soft tissue emphysema, small to moderate right-sided pneumothorax. Small right pleural effusion. Right hilar and right central no mass and metastatic right hilar lymph node. Assessment and plan: -Possible right lung contusion secondary to fall and fracture Follow pulse ox -Right chest subcutaneous emphysema -Right sixth rib fracture secondary to fall Pain control -Right pneumothorax 10-20%. Asymptomatic Follow with cardiothoracic surgery -Right lung mass with prominent mediastinal lymph nodes. Follow with pulmonary. 4 bronchoscopy -Right arm paresis a right leg paresis. From previous old temporal lobe infarct. -Chronic nicotine dependence cigarette smoker Nicotine patch -Essential hypertension Follow blood pressure -Restless leg syndrome Requip 1 mg by mouth 3 times a day -Hyperlipidemia Lipitor 80 mg daily at bedtime Aspirin 81 mg added. Patient already on Lipitor. Discussed with patient answered questions. Agreeable to bronchoscopy on Tuesday. Communicated to Dr. Walker. Other medications to continue. Total time spent about 40 minutes with over 25 minutes of discussion.
[2021-08-08] MEDS: NICOTINE 7MG/24HR PATCH TRANSDERM SCH (18:08)
--- NOTE | 2021-08-08 20:22 | US ---
EXAMINATION TYPE: US carotid duplex BILAT DATE OF EXAM: 08/08/2021 COMPARISON: NONE CLINICAL HISTORY: Stroke. EXAM MEASUREMENTS: RIGHT: Peak Systolic Velocity (PSV) cm/sec ----- Right CCA: 74.6 ----- Right ICA: 72.1 ----- Right ECA: 58.1 ICA/CCA ratio: 1.0 RIGHT: End Diastole cm/sec ----- Right CCA: 26.3 ----- Right ICA: 32.8 ----- Right ECA: 11.0 LEFT: Peak Systolic Velocity (PSV) cm/sec ----- Left CCA: 66.5 ----- Left ICA: 69.5 ----- Left ECA: 80.9 ICA/CCA ratio: 1.0 LEFT: End Diastole cm/sec ----- Left CCA: 21.0 ----- Left ICA: 21.9 ----- Left ECA: 14.9 VERTEBRALS (direction of flow): Right Vertebral: Antegrade Left Vertebral: Antegrade Rhythm: Normal Moderate plaque at bilateral bulb without significant velocity increases. IMPRESSION: There is antegrade flow in the vertebral arteries. The images and measurements suggest less than 50% stenosis in both internal carotid arteries. Criteria for Assigning % of Stenosis / Diameter reduction (Estimation based on the indirect measurements of the internal carotid artery velocities (ICA PSV). 1. Normal (no stenosis)=ICA PSV < 125 cm/s: ratio < 2.0: ICA EDV<40 cm/s. 2. Less than 50% stenosis=ICA PSV < 125 cm/s: ratio < 2.0: ICA EDV<40 cm/s. 3. 50 to 69% stenosis=ICA PSV of 125 to 230 cm/s: ration 2.0 ? 4.0: ICA EDV 40-100 cm/s. 4. Greater than 70% stenosis to near occlusion= ICA PSV > 230 cm/s: ratio > 4.0: ICA EDV > 100 cm/s. 5. Near occlusion= ICA PSV velocities may be low or undetectable: variable ratio and ICA EDV. 6. Total occlusion=unable to detect flow.
[2021-08-08] MEDS: ATORVASTATIN 80 MG TAB PO SCH (20:54)
[2021-08-08] MEDS: HYDROcodone/APAP 5-325MG 1 EACH TAB PO PRN (22:21)
--- NOTE | 2021-08-09 06:13 | XR ---
EXAMINATION TYPE: XR chest 1V portable DATE OF EXAM: 08/09/2021 CLINICAL HISTORY: Difficulty breathing and pneumothorax progress study. TECHNIQUE: Single AP portable semiupright view of the chest is obtained. COMPARISON: Chest x-ray from one day earlier and older studies. FINDINGS: Background chronic emphysematous change with left greater than right bibasilar and right m idlung opacities redemonstrated. Cardiac silhouette size is stable within normal limits with atherosc lerotic change in the aortic knob redemonstrated. Age-indeterminate fracture right humeral head noted . Small amount subcutaneous emphysema right lower thorax with right apical pneumothorax estimated 10% redemonstrated thought improved from one day earlier. IMPRESSION: Right pneumothorax near 5-10% thought improved from one day earlier. Remaining adjacent b asilar subcutaneous emphysema. Stable left greater than right bibasilar acute infiltrate and/or atele ctasis and right midlung suspicious mass are all redemonstrated on background chronic emphysematous c hange. No significant change from one day earlier.
--- NOTE | 2021-08-09 08:14 | P.PN ---
Subjective Progress Note Date: 08/09/21 Principal diagnosis: Small right-sided pneumothorax, fall from standing, right humeral fracture, right sixth rib fracture, right-sided hilar and central upper lobe mass suspicious for cancer. Previous medical history of hypertension, hyperlipidemia, CVA with subsequent right-sided weakness, chronic kidney disease, restless leg syndrome, previous tobacco dependence The patient was seen and examined this morning sitting up in bed on the medical/surgical unit in no acute distress. States right shoulder pain controlled with current medication regimen, denies shortness of breath. Currently on 2 LPM NC with oxygen saturation in the high 90s. Using incentive spirometry and achieving 750 mL. Right arm remains in sling. CXR reviewed. Objective - Vital Signs Vital signs: Vital Signs Temp 98.4 F 08/09/21 02:31 Pulse 61 08/09/21 02:31 Resp 15 08/09/21 02:31 BP 98/65 08/09/21 02:31 Pulse Ox 97 08/09/21 07:36 Intake & Output 08/08/21 08/09/21 08/09/21 18:59 06:59 18:59 Other: Voiding Method Diaper # Voids 2 2 # Bowel Movements 1 1 - Exam CONSTITUTIONAL: Awake and alert, appears comfortable, cooperative, well- developed, well-nourished, no pain, no acute distress RESPIRATORY: Lungs sounds clear to auscultation bilaterally. Respirations even, nonlabored. Currently on 2 L nasal cannula with oxygen saturation 98%. Able to achieve 750 mL on incentive spirometry CARDIOVASCULAR: S1, S2 present. Regular rate and rhythm. Palpable peripheral pulses bilaterally. No edema present. No calf pain or tenderness noted. GASTROINTESTINAL: Abdomen soft, nontender, nondistended. Active bowel sounds present 4 quadrants. GENITOURINARY: Continues to void, remains incontinent INTEGUMENTARY: Skin is warm and dry. Right arm currently in a sling NEUROLOGIC: Cranial nerves II through XII intact MUSKULOSKELETAL: Able to move left extremities, decreased strength in the right extremities PSYCHIATRIC: Alert and oriented to person, place, appropriate affect - Allied health notes Allied health notes reviewed: nursing - Labs CBC & Chem 7: 08/08/21 05:56 08/08/21 05:56 Labs: Abnormal Lab Results - Last 24 Hours (Table) 08/08/21 08/08/21 Range/Units 05:56 05:56 RBC 3.46 L (4.10-5.20) X 10*6/uL Hgb 11.0 L (12.0-15.0) g/dL Hct 33.9 L (37.2-46.3) % MCV 98.0 H (80.0-97.0) fL Eosinophils # 0.36 H (0.04-0.35) X 10*3/uL Est GFR (CKD-EPI)AfAm 56.6 L (60.0-200.0) Est GFR (CKD-EPI)NonAf 48.9 L (60.0-200.0) BUN/Creatinine Ratio 20.18 H (12.00-20.00) Ratio Calcium 8.4 L (8.7-10.3) mg/dL - Imaging and Cardiology Chest x-ray: report reviewed, image reviewed Assessment and Plan Assessment: 1. Small right-sided pneumothorax, no respiratory compromise 2. Fall from standing 3. Right humeral fracture, right sixth rib fracture 4. Right-sided hilar and central upper lobe mass suspicious for cancer 5. History of hypertension 6. History of hyperlipidemia 7. History of CVA, subsequent right-sided weakness 8. Chronic kidney disease 9. Restless leg syndrome 10. Previous tobacco dependence Plan: 1. No surgical intervention at this time. If patient develops respiratory compromise will consider small-bore chest tube placement 2. Wean oxygen as tolerated. Encourage incentive spirometry 10x every hour while awake 3. Increase activity as tolerated, out of bed to chair as able. Right arm to remain in sling 4. Pain control per current medication regimen 5. Encourage smoking cessation 6. Pulmonology consulted regarding right sided lung mass, biopsy. Plan for bronchoscopy with transbronchial biopsies early next week if patient agreeable 7. Will monitor daily CXR 8. Management of other comorbidities per primary care service 9. Will continue to follow peripherally
[2021-08-09] MEDS: ENOXAPARIN 40 MG/0.4 ML SYRINGE SQ SCH (09:18)
[2021-08-09] MEDS: NICOTINE 7MG/24HR PATCH TRANSDERM SCH (09:19)
[2021-08-09] MEDS: ASPIRIN 81 MG PO SCH (09:19)
[2021-08-09] MEDS: CITALOPRAM HYDROBROMIDE 20 MG TAB PO SCH (09:19)
--- NOTE | 2021-08-09 09:57 | P.PN ---
Subjective Progress Note Date: 08/09/21 Principal diagnosis: Right proximal humerus fracture Patient was seen at bedside this morning resting comfortably lying in semirecumbent position with sling on right upper extremity. Patient says she is doing much better this morning since getting medication yesterday to help with her pain in her right arm. Patient says she normally uses a wheelchair and has not been out of bed since she has been on the floor. Patient denies increasing chest pain, nausea, vomiting, change in vision, loss of bowel/bladder control. Objective - Vital Signs Vital signs: Vital Signs Temp 98.4 F 08/09/21 08:00 Pulse 52 L 08/09/21 08:00 Resp 16 08/09/21 08:00 BP 133/70 08/09/21 08:00 Pulse Ox 98 08/09/21 08:00 Intake & Output 08/08/21 08/09/21 08/09/21 18:59 06:59 18:59 Other: Voiding Method Diaper Diaper # Voids 2 2 # Bowel Movements 1 1 - Exam Ecchymosis present in the right upper extremity along the medial aspect of the proximal humerus. Sling present on right arm. No evidence of open fractures, erythema, nodules. Patient does have tenderness to palpation in the right upper extremity along the proximal humerus. Patient is nontender to palpation throughout rest of exam. Sensation is equal, symmetric, bilaterally intact thr oughout exam. Patient is not able to flex/extend/abduct right shoulder, right elbow, right wrist due to previous stroke. Patient does have good range of motion in right elbow and right wrist passive flexion/extension. Patient has full range of motion left upper extremity as well as bilateral lower extremities. Right upper extremity motor exam unable to be performed because patient has no function in right arm due to previous stroke. Negative Homans bilaterally. Neurovascular status intact. Radial pulses 2+. Cap refill under 3 seconds in digits of upper extremities. - Labs CBC & Chem 7: 08/08/21 05:56 08/08/21 05:56 Assessment and Plan Assessment: 1. Proximal humerus fracture, right 2. Pneumothorax 3. Multiple medical comorbidities Plan: 1. Proximal humerus fracture, right - patient was evaluated at bedside this morning. Sling present on right upper extremity. At this time we do not recommend any emergent/urgent orthopedic surgical intervention. We do recommend patient to keep arm in sling at this time. patient should not abduct/externally rotated right arm. Pain medications as needed. Patient is orthopedically stable for discharge home. We do recommend patient to follow-up in office with Dr. Mustafa for further evaluation. At this time orthopedics is signing off. Please do not hesitate to contact us for any further questions. 2. Appreciate medical management 3. Pain management - [place]; Tylenol 4. DVT prophylaxis - aspirin; Lovenox 5. GI prophylaxis - Tums 6. PT/OT - nonweightbearing right upper extremity. Keep arm in sling. Do not abduct/externally rotate right arm Time with Patient: Less than 30
--- NOTE | 2021-08-09 12:46 | P.PN ---
Subjective Progress Note Date: 08/09/21 On 08/09/2021, on seeing the patient for a follow-up. The patient is doing well. No specific complaints. A repeat chest x-ray was done and showed a persistent 5-10% pneumothorax in the right lung which is smaller compared to yesterday. She is still expressing some soreness along the right side of the chest. She has consented to undergo the bronchoscopy. Nevertheless, the timing will be decided later stage and I prefer for the pneumothorax to improve or document stability prior doing any manipulation involving the right lung. No evidence of any subcutaneous emphysema on today's chest. The patient has adequate pain control with [place]. The patient is on Lovenox for DVT prophylaxis. High suspicion for malignancy/right upper lobe mass. The patient is currently on 2 L of oxygen by nasal cannula with a pulse ox of 97%. I was able to take it off the oxygen and put on room air oxygen and the patient's pulse ox is around 90%. Hemodynamically stable. Objective - Vital Signs Vital signs: Vital Signs Temp 98.4 F 08/09/21 08:00 Pulse 52 L 08/09/21 08:00 Resp 16 08/09/21 08:00 BP 133/70 08/09/21 08:00 Pulse Ox 98 08/09/21 08:00 Intake & Output 08/08/21 08/09/21 08/09/21 18:59 06:59 18:59 Other: Voiding Method Diaper Diaper # Voids 2 2 # Bowel Movements 1 1 - Exam CONSTITUTIONAL: Awake and alert, appears comfortable, cooperative, well- developed, well-nourished, no pain, no acute distress EYES: Pupils equal, round, reactive to light, normal ocular movement ENT: Moist mucous membranes without oral lesions present NECK: No masses, no bruits, trachea midline RESPIRATORY: Lungs sounds clear to auscultation bilaterally. Respirations even, nonlabored. Currently on 2 L nasal cannula with oxygen saturation 98% CARDIOVASCULAR: S1, S2 present. Regular rate and rhythm, sinus rhythm on telemetry. Palpable peripheral pulses bilaterally. No edema present. No calf pain or tenderness noted. GASTROINTESTINAL: Abdomen soft, nontender, nondistended without masses or organomegaly noted. There is no rebound or guarding present. Active bowel sounds present 4 quadrants. GENITOURINARY: Deferred INTEGUMENTARY: Skin is warm and dry with evidence of good perfusion. Right arm currently in a sling NEUROLOGIC: Cranial nerves II through XII intact MUSKULOSKELETAL: Able to move left extremities, decreased strength in the right extremities PSYCHIATRIC: Alert and oriented to person, place, unable to recall month or year, appropriate affect Results - Labs CBC & Chem 7: 08/08/21 05:56 08/08/21 05:56 Assessment and Plan Plan: 1 right upper lobe mass measuring 6 x 3.4 cm in size along with right hilar lymphadenopathy, highly suggestive of locally advanced primary bronchogenic carcinoma. 2 right-sided pneumothorax in order of 5-10% subcutaneous emphysema in the right upper chest, likely related to trauma 3 right sixth rib fractures secondary to trauma to the right chest 4 right humerus fracture secondary to fall 5 small right-sided pleural effusion/pneumothorax secondary to above, slightly smaller in the order of 5-10% 6 history of CVA with right-sided weakness and previous history of expressive aphasia 7 COPD 8 chronic kidney disease 9 previous history of smoking 10 history of fall 11 hypertension Plan Patient has consented for bronchoscopy There is a persistent right-sided pneumothorax which is smaller I will give the patient another 24-48 hours to document stability and further diminution of the right-sided pneumothorax Bronchoscopy could be done during this current admission or even on outpatient basis This will be a navigational bronchoscopy with right upper lobe biopsies. High likelihood for malignancy Orthopedic surgery regarding the humerus fracture and the patient has already been offered a sling
--- NOTE | 2021-08-09 15:37 | P.PN ---
Progress Note - Text Progress Note Date: 08/09/21 Chief Complaint: Fall This is a pleasant 71-year-old patient, follows with visiting physician Dr. Mcdowell. 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 For about 2 years patient has dysarthria some expressive dysphasia, right arm weakness much greater than right leg weakness. Patient often uses a wheelchair. Patient fell 6 days ago on Tuesday. Injury to her right arm. She disclosed this to his son today who decided to bring her in. Very slight shortness of breath. No fever no chills. It appears to be a mechanical fall. No history of unconsciousness. No head injury. Patient in the ER found to fraction of the right upper humerus, small pneumothorax, fractured rib. Also discovered to have a right-sided lung mass. Patient seen by cardiothoracic surgery. Only pain in the right arm with movement not otherwise. At the baseline patient able to feed herself with the left arm. Does use a diaper. Admitted with possible right lung contusion secondary to fall, right hip 6 frac ture, small pneumothorax, right lung mass with prominent mediastinal lymph node. August 08: Patient was seen by Dr. Walker from pulmonary. Patient's pain is controlled while laying in bed. I discussed with the patient of questions concerned about a new diagnosis of the lung mass. Has agreed to proceed with the bronchoscopy on Tuesday. Tolerating diet. Answered her questions. MRI of the brain showing possible acute stroke in the internal capsule. No clinical evidence of any new finding. Patient on aspirin and Lipitor. August 09: Small right-sided pneumothorax. Pulmonary will decide about timing of bronchoscopy. Oral intake fair. Family visiting. Active Medications Acetaminophen (Acetaminophen Tab 325 Mg Tab) 650 mg PO Q6HR PRN PRN Reason: Mild Pain or Fever > 100.5 Last Admin: 08/08/21 07:53 Dose: 650 mg Documented by: Hydrocodone Bitart/Acetaminophen (Hydrocodone/Apap 5-325mg 1 Each Tab) 1 each PO Q6HR PRN PRN Reason: Pain Last Admin: 08/08/21 22:21 Dose: 1 each Documented by: Aspirin (Aspirin 81 Mg) 81 mg PO DAILY ESTELA Last Admin: 08/09/21 09:19 Dose: 81 mg Documented by: Atorvastatin Calcium (Atorvastatin 80 Mg Tab) 80 mg PO HS ESTELA Last Admin: 08/08/21 20:54 Dose: 80 mg Documented by: Calcium Carbonate/Glycine (Calcium Carbonate 500 Mg Chewable) 1,000 mg PO Q4HR PRN PRN Reason: Dyspepsia Citalopram Hydrobromide (Citalopram Hydrobromide 20 Mg Tab) 20 mg PO DAILY [facility] Last Admin: 08/09/21 09:19 Dose: 20 mg Documented by: Enoxaparin Sodium (Enoxaparin 40 Mg/0.4 Ml Syringe) 40 mg SQ DAILY [facility] Last Admin: 08/09/21 09:18 Dose: 40 mg Documented by: Lactulose (Lactulose 20 Gm/30 Ml Cup) 20 gm PO DAILY PRN PRN Reason: Constipation Lorazepam (Lorazepam 0.5 Mg Tab) 0.5 mg PO Q6HR PRN PRN Reason: Anxiety Melatonin (Melatonin 3 Mg Tablet) 3 mg PO HS PRN PRN Reason: Insomnia Naloxone HCl (Naloxone 0.4 Mg/Ml 1 Ml Vial) 0.2 mg IV Q2M PRN PRN Reason: Opioid Reversal Nicotine (Nicotine 7mg/24hr Patch) 1 patch TRANSDERM DAILY [facility] Last Admin: 08/09/21 09:19 Dose: Not Given Documented by: Prochlorperazine Maleate (Prochlorperazine 5 Mg Tab) 5 mg PO Q8HR PRN PRN Reason: Nausea And Vomiting Ropinirole HCl (Ropinirole Hcl 1 Mg Tab) 1 mg PO TID [facility] Last Admin: 08/09/21 09:19 Dose: 1 mg Documented by: Past medical history to include: Hypertension, restless syndrome, diverticulitis, hip pain, kidney failure secondary to Motrin use, anxiety depression., Right arm and leg weakness. Dysarthria Social history: Patient smoked 2 packs a day for many years. Cut down to very few cigarettes a day for last 2 years. Lives with her son. Family history: Diabetes, heart attack, emphysema Physical examination: VITAL SIGNS: 98.4, 52, 16, 133/70, 98% room air GENERAL: laying in bed, EYES: Pupils equal. Conjunctiva normal. HEENT: External appearance of nose and ears normal, oral cavity grossly normal. NECK: JVD not raised; masses not palpable. HEART: First and second heart sounds are normal; no edema. LUNGS: Respiratory rate normal; clear to auscultation. ABDOMEN: Soft, nontender, liver spleen not palpable, no masses palpable. PSYCH: Alert and oriented x3; mood and affect normal. MUSCULOSKELETAL:No Clubbing/cyanosis;muscles-grossly intact. Right ominous laying. NEUROLOGICAL: [Cranial nerves grossly intact; no facial asymmetry, decreased power in the right arm. Some decreased power in the right leg. 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 Multiple old infarcts and internal The Left. Small Acute Infarct Left Internal Capsule. White count 8.8 hemoglobin 12.9 platelets 215 sodium 137 potassium 4.3 bicarb 20 BUN 20 creatinine 1.18 Influenza type A, type B, RSV, COVID 19: Not detected EKG tracing personally reviewed by me-normal sinus rhythm. Rate 74 Chest x-ray film personally reviewed by me-right midlung infiltrate. Pneumothorax. Other x-rays: Acute nondisplaced transverse fracture surgical neck right proximal humerus. Chest CTA: Negative for PE. Right 6 red fracture, right chest wall soft tissue emphysema, small to moderate right-sided pneumothorax. Small right pleural effusion. Right hilar and right central no mass and metastatic right hilar lymph node. Assessment and plan: -Possible right lung contusion secondary to fall and fracture Follow pulse ox -Right chest subcutaneous emphysema -Right sixth rib fracture secondary to fall Pain control -Right pneumothorax 10-20%. Asymptomatic Follow with cardiothoracic surgery /pulmonary -Right lung mass with prominent mediastinal lymph nodes. Follow with pulmonary. Pending bronchoscopy -Right arm paresis a right leg paresis. From previous old temporal lobe infarct. -Chronic nicotine dependence cigarette smoker Nicotine patch -Essential hypertension Follow blood pressure -Restless leg syndrome Requip 1 mg by mouth 3 times a day -Hyperlipidemia Lipitor 80 mg daily at bedtime Continue current treatment plan. Timing of bronchoscopy per pulmonary. Discussed with patient and family at the bedside.
[2021-08-09] MEDS: ATORVASTATIN 80 MG TAB PO SCH (20:18)
[2021-08-09] MEDS: HYDROcodone/APAP 5-325MG 1 EACH TAB PO PRN (21:16)
--- NOTE | 2021-08-10 07:10 | XR ---
EXAMINATION TYPE: XR chest 1V portable DATE OF EXAM: 08/10/2021 HISTORY: Shortness of breath. COMPARISON: 08/09/2021 TECHNIQUE: Single view of the chest is submitted. FINDINGS: Demonstrated are scattered senescent parenchymal change. Previously noted right upper lobe pneumothorax is not redemonstrated at this time. There is a small a mount of subcutaneous air along the right lateral chest wall inferiorly and throughout the right neck . Ovoid density right mid lung zone persists essentially unchanged. Coarse density periphery of the lef t lung. The heart is stable. Hilar and mediastinal structures are within normal limits. Degenerative changes are seen of the dorsal spine. IMPRESSION: 1. No evidence for sizable pneumothorax this time. 2. Ovoid density right mid lung zone persists essentially unchanged. Coarse density periphery of the left lung.
--- NOTE | 2021-08-10 07:26 | P.PN ---
Subjective Progress Note Date: 08/10/21 Principal diagnosis: Small right-sided pneumothorax, fall from standing, right humeral fracture, right sixth rib fracture, right-sided hilar and central upper lobe mass suspicious for cancer. Previous medical history of hypertension, hyperlipidemia, CVA with subsequent right-sided weakness, chronic kidney disease, restless leg syndrome, previous tobacco dependence The patient was seen and examined this morning laying in bed on the medical/surgical unit in no acute distress. States right shoulder pain controlled with current medication regimen, denies shortness of breath. Currently on 2 LPM NC with oxygen saturation in the high 90s. Using incentive spirometry and achieving 1000 mL. Right arm remains in sling. CXR reviewed, stable. Objective - Vital Signs Vital signs: Vital Signs Temp 98.4 F 08/10/21 02:03 Pulse 58 L 08/10/21 02:03 Resp 16 08/10/21 02:03 BP 105/73 08/10/21 02:03 Pulse Ox 97 08/10/21 02:03 Intake & Output 08/09/21 08/10/21 08/10/21 18:59 06:59 18:59 Other: Voiding Method Diaper Incontinent # Voids 2 3 - Exam CONSTITUTIONAL: Awake and alert, appears comfortable, cooperative, well-devel oped, well-nourished, no pain, no acute distress RESPIRATORY: Lungs sounds clear to auscultation bilaterally. Respirations even, nonlabored. Currently on 2 L nasal cannula with oxygen saturation 97%. Able to achieve 1000 mL on incentive spirometry CARDIOVASCULAR: S1, S2 present. Regular rate and rhythm. Palpable peripheral pulses bilaterally. No edema present. No calf pain or tenderness noted. GASTROINTESTINAL: Abdomen soft, nontender, nondistended. Active bowel sounds present 4 quadrants. GENITOURINARY: Continues to void, remains incontinent INTEGUMENTARY: Skin is warm and dry. Right arm currently in a sling NEUROLOGIC: Cranial nerves II through XII intact MUSKULOSKELETAL: Able to move left extremities, decreased strength in the right extremities PSYCHIATRIC: Alert and oriented to person, place, appropriate affect - Allied health notes Allied health notes reviewed: nursing - Labs CBC & Chem 7: 08/08/21 05:56 08/08/21 05:56 Labs: Microbiology - Last 24 Hours (Table) 08/07/21 12:13 Urine Culture - Final Urine,Voided - Imaging and Cardiology Chest x-ray: report reviewed, image reviewed Assessment and Plan Assessment: 1. Small right-sided pneumothorax, no respiratory compromise 2. Fall from standing 3. Right humeral fracture, right sixth rib fracture 4. Right-sided hilar and central upper lobe mass suspicious for cancer 5. History of hypertension 6. History of hyperlipidemia 7. History of CVA, subsequent right-sided weakness 8. Chronic kidney disease 9. Restless leg syndrome 10. Previous tobacco dependence Plan: 1. No surgical intervention warranted 2. Wean oxygen as tolerated. Encourage incentive spirometry 10x every hour while awake 3. Increase activity as tolerated, out of bed to chair as able. Right arm to remain in sling 4. Pain control per current medication regimen 5. Encourage smoking cessation 6. Pulmonology consulted regarding right sided lung mass, biopsy. Plan for bronchoscopy with transbronchial biopsies early this week if patient agreeable 7. CXR stable with resolution of pneumothorax. Will sign off, patient stable for discharge from our standpoint when ok with other services 8. Management of other comorbidities per primary care service
[2021-08-10] MEDS: ENOXAPARIN 40 MG/0.4 ML SYRINGE SQ SCH (07:58)
[2021-08-10] MEDS: CITALOPRAM HYDROBROMIDE 20 MG TAB PO SCH (07:59)
[2021-08-10] MEDS: ASPIRIN 81 MG PO SCH (07:59)
[2021-08-10] MEDS: NICOTINE 7MG/24HR PATCH TRANSDERM SCH (07:59)
--- NOTE | 2021-08-10 10:07 | CDI ---
Documentation Clarification Form Date: 08/10/2021 09:53:26 AM From: Cheryle Turner CCS, CCDS Admit Date: 08/07/2021 11:49:00 AM Patient Name: Bianka Saleem Visit Number: [id number] Discharge Date: ATTENTION: The Clinical Documentation Specialists (CDI) and [facility] Coding Staff appreciate your assistance in clarifying documentation. Please respond to the clarification below the line at the bottom and electronically sign. The CDI & [facility] Coding staff will review the response and follow-up if needed. Please note: Queries are made part of the Legal Health Record. If you have any questions, please contact the author of this message via ITS. Dr. Nithin Jose: Chronic Kidney Disease is documented in the 08/07 Cardiothoracic Surgeon's Consult, the 08/08 Orthopedic Consult, the 08/08 Pulmonary Consult and in subsequent Progress Notes without further specificity. Additional clarification regarding the stage of CKD is requested. History/Risk Factors per the 08/07 H/P: Hypertension, Restless Leg Syndrome, Diverticulitis, CKD from using Motrin, Dysarthria with expressive Dysphasia and right arm & leg weakness from a previous CVA. Long time smoker. Clinical Indicators: Presented to the ED on 08/07 with altered mental status. Fell on Tuesday (08/01), had an US of her right arm which showed possible fracture. Mild SOB, nonprod cough. Admit with Traumatic Pneumothorax, Right side rib fracture, Humeral surgical neck fracture and a lung mass. 08/07 LAB: BUN 28, Creatinine 1.18, GFR 47 08/08: BUN 22.8, Creatinine 1.1, GFR 48.9 Historical GFR: Not available or documented. Treatment 08/07: Telemetry, Fall precautions, O2 6Lnc, po Motrin 400 mg, IV Na Cl 1,000 mls @ 999 mls/hr q1H, po Tylenol 650 mg q6H/prn, Lovenox 40 mg sq Daily Please clarify the stage of the CKD, if known: [ ] CKD Stage 3 (GFR 30-59) [ ] CKD Stage 3a (GFR 45-59) [ ] CKD Stage 3b (GFR 30-44) [ ] CKD ruled out [ ] Other, please specify: [ ] Unable to determine (Template Last revised: June 2020) CK D stage IIIa, likely nephrosclerosis. MTDD
--- NOTE | 2021-08-10 11:00 | ECHOF ---
Referral Reason:Stroke MEASUREMENTS -------- HEIGHT: 157.5 cm WEIGHT: 72.6 kg BP: 105/73 RVIDd: 2.7 cm (< 3.3) IVSd: 1.1 cm (0.6 - 1.1) LVIDd: 3.2 cm (3.9 - 5.3) LVPWd: 1.0 cm (0.6 - 1.1) IVSs: 1.6 cm LVIDs: 2.2 cm LVPWs: 1.4 cm LA Diam: 2.5 cm (2.7 - 3.8) Ao Diam: 2.6 cm (2.0 - 3.7) AV Cusp: 1.8 cm (1.5 - 2.6) MV EXCURSION: 12.755 mm (> 18.000) MV EF SLOPE: 85 mm/s (70 - 150) EPSS: 0.3 cm MV E Baltazar: 0.85 m/s MV DecT: 289 ms MV A Baltazar: 0.95 m/s MV E/A Ratio: 0.90 RAP: 5.00 mmHg RVSP: 23.10 mmHg FINDINGS -------- Sinus rhythm. This was a technically adequate study. The left ventricular size is normal. There is borderline concentric left ventricular hypertrophy. Overall left ventricular systolic function is normal with, an EF between 60 - 65 %. The right ventricle is normal in size. The left atrium is normal in size. The right atrium is normal in size. Interatrial and interventricular septum intact. Aortic valve is trileaflet and is mildly thickened. Mild mitral annular calcification present. Mild tricuspid regurgitation present. Right ventricular systolic pressure is normal at < 35 mmHg. Trace/mild (physiologic) pulmonic regurgitation. The aortic root size is normal. Normal inferior vena cava with normal inspiratory collapse consistent with estimated right atrial pre ssure of 5 mmHg. There is no pericardial effusion. CONCLUSIONS -------- 1. The left ventricular size is normal. 2. There is borderline concentric left ventricular hypertrophy. 3. Overall left ventricular systolic function is normal with, an EF between 60 - 65 %. 4. Aortic valve is trileaflet and is mildly thickened. 5. Mild mitral annular calcification present. 6. Mild tricuspid regurgitation present. 7. Trace/mild (physiologic) pulmonic regurgitation. 8. There is no pericardial effusion. STOPBOARD ASSEMBLER: Shirley Byrd RDCS
--- NOTE | 2021-08-10 12:08 | P.PN ---
Progress Note - Text Progress Note Date: 08/10/21 Chief Complaint: Fall This is a pleasant 71-year-old patient, follows with visiting physician Dr. Mcdowell. 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 For about 2 years patient has dysarthria some expressive dysphasia, right arm weakness much greater than right leg weakness. Patient often uses a wheelchair. Patient fell 6 days ago on Tuesday. Injury to her right arm. She disclosed this to his son today who decided to bring her in. Very slight shortness of breath. No fever no chills. It appears to be a mechanical fall. No history of unconsciousness. No head injury. Patient in the ER found to fraction of the right upper humerus, small pneumothorax, fractured rib. Also discovered to have a right-sided lung mass. Patient seen by cardiothoracic surgery. Only pain in the right arm with movement not otherwise. At the baseline patient able to feed herself with the left arm. Does use a diaper. Admitted with possible right lung contusion secondary to fall, right hip 6 frac ture, small pneumothorax, right lung mass with prominent mediastinal lymph node. August 08: Patient was seen by Dr. Walker from pulmonary. Patient's pain is controlled while laying in bed. I discussed with the patient of questions concerned about a new diagnosis of the lung mass. Has agreed to proceed with the bronchoscopy on Tuesday. Tolerating diet. Answered her questions. MRI of the brain showing possible acute stroke in the internal capsule. No clinical evidence of any new finding. Patient on aspirin and Lipitor. August 09: Small right-sided pneumothorax. Pulmonary will decide about timing of bronchoscopy. Oral intake fair. Family visiting. August 10: Up in a chair. Breathing stable. Oral intake fair. No intervention for the small pneumothorax thorax. Pending possible bronchoscopy. Active Medications Acetaminophen (Acetaminophen Tab 325 Mg Tab) 650 mg PO Q6HR PRN PRN Reason: Mild Pain or Fever > 100.5 Last Admin: 08/08/21 07:53 Dose: 650 mg Documented by: Hydrocodone Bitart/Acetaminophen (Hydrocodone/Apap 5-325mg 1 Each Tab) 1 each PO Q6HR PRN PRN Reason: Pain Last Admin: 08/09/21 21:16 Dose: 1 each Documented by: Aspirin (Aspirin 81 Mg) 81 mg PO DAILY ESTELA Last Admin: 08/10/21 07:59 Dose: 81 mg Documented by: Atorvastatin Calcium (Atorvastatin 80 Mg Tab) 80 mg PO HS [facility] Last Admin: 08/09/21 20:18 Dose: 80 mg Documented by: Calcium Carbonate/Glycine (Calcium Carbonate 500 Mg Chewable) 1,000 mg PO Q4HR PRN PRN Reason: Dyspepsia Citalopram Hydrobromide (Citalopram Hydrobromide 20 Mg Tab) 20 mg PO DAILY [facility] Last Admin: 08/10/21 07:59 Dose: 20 mg Documented by: Enoxaparin Sodium (Enoxaparin 40 Mg/0.4 Ml Syringe) 40 mg SQ DAILY [facility] Last Admin: 08/10/21 07:58 Dose: 40 mg Documented by: Lactulose (Lactulose 20 Gm/30 Ml Cup) 20 gm PO DAILY PRN PRN Reason: Constipation Lorazepam (Lorazepam 0.5 Mg Tab) 0.5 mg PO Q6HR PRN PRN Reason: Anxiety Melatonin (Melatonin 3 Mg Tablet) 3 mg PO HS PRN PRN Reason: Insomnia Naloxone HCl (Naloxone 0.4 Mg/Ml 1 Ml Vial) 0.2 mg IV Q2M PRN PRN Reason: Opioid Reversal Nicotine (Nicotine 7mg/24hr Patch) 1 patch TRANSDERM DAILY [facility] Last Admin: 08/10/21 07:59 Dose: Not Given Documented by: Prochlorperazine Maleate (Prochlorperazine 5 Mg Tab) 5 mg PO Q8HR PRN PRN Reason: Nausea And Vomiting Ropinirole HCl (Ropinirole Hcl 1 Mg Tab) 1 mg PO TID [facility] Last Admin: 08/10/21 07:59 Dose: 1 mg Documented by: Past medical history to include: Hypertension, restless syndrome, diverticulitis, hip pain, kidney failure secondary to Motrin use, anxiety depression., Right arm and leg weakness. Dysarthria Social history: Patient smoked 2 packs a day for many years. Cut down to very few cigarettes a day for last 2 years. Lives with her son. Family history: Diabetes, heart attack, emphysema Physical examination: VITAL SIGNS: 98.2, 73, 18, 95/66, 99% 2 L GENERAL: Declining in chair EYES: Pupils equal. Conjunctiva normal. HEENT: External appearance of nose and ears normal, oral cavity grossly normal. NECK: JVD not raised; masses not palpable. HEART: First and second heart sounds are normal; no edema. LUNGS: Respiratory rate normal; clear to auscultation. ABDOMEN: Soft, nontender, liver spleen not palpable, no masses palpable. PSYCH: Alert and oriented x3; mood and affect normal. MUSCULOSKELETAL:No Clubbing/cyanosis;muscles-grossly intact. Right ominous laying. NEUROLOGICAL: [Cranial nerves grossly intact; no facial asymmetry, decreased power in the right arm. Some decreased power in the right leg. 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 Multiple old infarcts and internal The Left. Small Acute Infarct Left Internal Capsule. White count 8.8 hemoglobin 12.9 platelets 215 sodium 137 potassium 4.3 bicarb 20 BUN 20 creatinine 1.18 Influenza type A, type B, RSV, COVID 19: Not detected EKG tracing personally reviewed by me-normal sinus rhythm. Rate 74 Chest x-ray film personally reviewed by me-right midlung infiltrate. Pneumothorax. Other x-rays: Acute nondisplaced transverse fracture surgical neck right proximal humerus. Chest CTA: Negative for PE. Right 6 red fracture, right chest wall soft tissue emphysema, small to moderate right-sided pneumothorax. Small right pleural effusion. Right hilar and right central no mass and metastatic right hilar lymph node. Assessment and plan: -Possible right lung contusion secondary to fall and fracture Follow pulse ox -Right chest subcutaneous emphysema -Right sixth rib fracture secondary to fall Pain control -Right pneumothorax 10-20%. Asymptomatic Follow with cardiothoracic surgery /pulmonary. Currently no intervention. -Right lung mass with prominent mediastinal lymph nodes. Follow with pulmonary. Pending bronchoscopy -Right arm paresis a right leg paresis. From previous old temporal lobe i nfarct. -Chronic nicotine dependence cigarette smoker Nicotine patch -Essential hypertension Follow blood pressure -Restless leg syndrome Requip 1 mg by mouth 3 times a day -Hyperlipidemia Lipitor 80 mg daily at bedtime Continue current treatment plan. Timing of bronchoscopy per pulmonary. Discussed with patient
[2021-08-10] MEDS: HYDROcodone/APAP 5-325MG 1 EACH TAB PO PRN ×2 (14:19→22:02)
--- NOTE | 2021-08-10 14:53 | P.PN ---
Subjective Progress Note Date: 08/10/21 Principal diagnosis: Lung mass In f/u today pt reports pain stable, she is using the sling as directed. Her breathing is stable, denies fever or hemoptysis, she does get a little dizzy when changing positions Objective - Vital Signs Vital signs: Vital Signs Temp 98.2 F 08/10/21 07:36 Pulse 73 08/10/21 07:36 Resp 18 08/10/21 08:00 BP 95/66 08/10/21 07:36 Pulse Ox 99 08/10/21 07:36 Intake & Output 08/09/21 08/10/21 08/10/21 18:59 06:59 18:59 Other: Voiding Method Diaper Incontinent Incontinent # Voids 2 3 - Constitutional General appearance: Present: cooperative, no acute distress, obese - EENT Eyes: Present: anicteric sclerae, EOMI ENT: Present: hearing grossly normal - Respiratory Respiratory: bilateral: diminished - Cardiovascular Rhythm: regular Heart sounds: normal: S1, S2 Abnormal Heart Sounds: Absent: systolic murmur, diastolic murmur, rub, S3 Gallop, S4 Gallop, click, other - Peripheral edema leg Peripheral Edema: bilateral: Trace - Gastrointestinal General gastrointestinal: Present: normal bowel sounds, soft - Neurologic Neurologic: Present: CNII-XII intact - Musculoskeletal Musculoskeletal Comment(s): rt arm in sling Musculoskeletal: Present: generalized weakness - Psychiatric Psychiatric: Present: A&O x's 3, appropriate affect, intact judgment & insight - Labs CBC & Chem 7: 08/08/21 05:56 08/08/21 05:56 Labs: Microbiology - Last 24 Hours (Table) 08/07/21 12:13 Urine Culture - Final Urine,Voided Assessment and Plan (1) Humeral surgical neck fracture Current Visit: Yes Status: Acute Priority: High Code(s): S42.213A - UNSP DISP FX OF SURGICAL NECK OF UNSP HUMERUS, INIT SNOMED Code(s): 722595486 (2) Lung mass Current Visit: Yes Status: Acute Priority: High Code(s): R91.8 - OTHER NONSPECIFIC ABNORMAL FINDING OF LUNG FIELD SNOMED Code(s): 897049073 (3) Pneumothorax, traumatic Current Visit: Yes Status: Acute Priority: High Code(s): S27.0XXA - TRAUMATIC PNEUMOTHORAX, INITIAL ENCOUNTER SNOMED Code(s): 93994094 (4) Rib fracture Current Visit: Yes Status: Acute Priority: High Code(s): S22.39XA - FRACTURE OF ONE RIB, UNSP SIDE, INIT FOR CLOS FX SNOMED Code(s): 34844925 Plan: Reviewed MRI brain-neg for evidence of mets Discussed f/u with Pulmonary for bronch and biopsy for tissue diagnosis. Pulmonary is wanting stability of the pt prior to invasive procedure. May have to be planned outpt. Pt is aware that her presentation is most consistent with a lung primary. Tissue diagnosis necessary to establish primary/type malignancy and to develop plan of care and prognosis. She verbalized understanding. Agrees with plan at this time. Staging PET scan outpt will be planned. D. Attests:I have seen and examined pt, performed H&P, developed impression and plan of care. Discussed with dictator. Agree with dictation, documented as a scribe.
--- NOTE | 2021-08-10 15:52 | P.PN ---
Subjective Progress Note Date: 08/10/21 Principal diagnosis: Right upper lobe mass and right-sided pneumothorax secondary to trauma with right sixth rib fracture On 08/09/2021, on seeing the patient for a follow-up. The patient is doing well. No specific complaints. A repeat chest x-ray was done and showed a persistent 5-10% pneumothorax in the right lung which is smaller compared to yesterday. She is still expressing some soreness along the right side of the chest. She has consented to undergo the bronchoscopy. Nevertheless, the timing will be decided later stage and I prefer for the pneumothorax to improve or document stability prior doing any manipulation involving the right lung. No evidence of any subcutaneous emphysema on today's chest. The patient has adequate pain control with [place]. The patient is on Lovenox for DVT prophylaxis. High suspicion for malignancy/right upper lobe mass. The patient is currently on 2 L of oxygen by nasal cannula with a pulse ox of 97%. I was able to take it off the oxygen and put on room air oxygen and the patient's pulse ox is around 90%. Hemodynamically stable. Reevaluated today on 08/10/21, patient seems to be very comfortable, sitting in bed and her O2 sats is 97% on 2 L. I had a chance to review her CT of the chest, and I recommended basically outpatient workup including PET scan, bronchoscopy/navigational and possibly EBUS bronchoscopy since the patient has subcarinal lymphadenopathy. This is to be done on outpatient basis, in the meantime I will recommend possibly discharging the patient home if cleared by other consultants. CBC is relatively unremarkable electrolytes are normal renal profile is normal Objective - Vital Signs Vital signs: Vital Signs Temp 98 F 08/10/21 13:47 Pulse 73 08/10/21 13:47 Resp 18 08/10/21 13:47 BP 96/61 08/10/21 13:47 Pulse Ox 97 08/10/21 15:35 Intake & Output 08/09/21 08/10/21 08/10/21 18:59 06:59 18:59 Other: Voiding Method Diaper Incontinent Incontinent # Voids 2 3 - Exam CONSTITUTIONAL: Revealed a 71-year-old female in no distress. Head: Atraumatic normocephalic. EENT: PERRLA, EOMI, anicteric, no neck masses no JVD. RESPIRATORY: Symmetrical chest expansion crackles at the bases. CARDIOVASCULAR: Distant S1 and S2, no S3 gallop. GASTROINTESTINAL: Obese soft nontender pneumonia and no rebound.. INTEGUMENTARY: Skin is warm and dry with evidence of good perfusion. Right arm currently in a sling NEUROLOGIC: Cranial nerves II through XII intact alert oriented 3 focal deficit, MUSKULOSKELETAL: No gross focal deficit except her right arm is in a sling and immobilized. PSYCHIATRIC: Normal mood affect and normal mental status examination. - Labs CBC & Chem 7: 08/08/21 05:56 08/08/21 05:56 Labs: Microbiology - Last 24 Hours (Table) 08/07/21 12:13 Urine Culture - Final Urine,Voided Assessment and Plan Assessment: Impression: Right upper lobe mass with right hilar lymphadenopathy highly suggestive of advanced bronchogenic carcinoma, patient will eventually require diagnostic procedures/bronchoscopy and biopsy. Right-sided pneumothorax secondary to recent fall and right sixth rib fracture Right humerus fracture secondary to fall History of CVA and right-sided weakness History of COPD Chronic kidney disease Benign essential hypertension Previous smoking history Recommendation: Consider discharge planning Follow-up on outpatient basis with Dr. Walker Arrange for a PET scan on outpatient basis Will clear for discharge if cleared by other consultants including orthopedic surgeon. Patient should have follow-up on outpatient basis and should have a PET scan on outpatient basis and eventually she will need to have a tissue diagnosis/bronchoscopy and biopsy on outpatient basis. Cleared from our perspective for discharge planning and outpatient follow-up Time with Patient: Less than 30
[2021-08-10] MEDS: ATORVASTATIN 80 MG TAB PO SCH (21:05)
[2021-08-11 08:12] VITALS: BP 113/74; RESP 18; TEMP 98.2
[2021-08-11] MEDS: NICOTINE 7MG/24HR PATCH TRANSDERM SCH (08:50)
[2021-08-11] MEDS: CITALOPRAM HYDROBROMIDE 20 MG TAB PO SCH (08:50)
[2021-08-11] MEDS: ENOXAPARIN 40 MG/0.4 ML SYRINGE SQ SCH (08:50)
[2021-08-11] MEDS: ASPIRIN 81 MG PO SCH (08:50)
[2021-08-11 10:13] VITALS: PULSE 64
--- NOTE | 2021-08-11 11:25 | P.PN ---
Subjective Progress Note Date: 08/11/21 On 08/09/2021, on seeing the patient for a follow-up. The patient is doing well. No specific complaints. A repeat chest x-ray was done and showed a persistent 5-10% pneumothorax in the right lung which is smaller compared to yesterday. She is still expressing some soreness along the right side of the c hest. She has consented to undergo the bronchoscopy. Nevertheless, the timing will be decided later stage and I prefer for the pneumothorax to improve or document stability prior doing any manipulation involving the right lung. No evidence of any subcutaneous emphysema on today's chest. The patient has adequate pain control with [place]. The patient is on Lovenox for DVT prophylaxis. High suspicion for malignancy/right upper lobe mass. The patient is currently on 2 L of oxygen by nasal cannula with a pulse ox of 97%. I was able to take it off the oxygen and put on room air oxygen and the patient's pulse ox is around 90%. Hemodynamically stable. Reevaluated today on 08/10/21, patient seems to be very comfortable, sitting in bed and her O2 sats is 97% on 2 L. I had a chance to review her CT of the chest, and I recommended basically outpatient workup including PET scan, bronchoscopy/navigational and possibly EBUS bronchoscopy since the patient has subcarinal lymphadenopathy. This is to be done on outpatient basis, in the meantime I will recommend possibly discharging the patient home if cleared by other consultants. CBC is relatively unremarkable electrolytes are normal renal profile is normal On 08/11/2021 patient seen in follow-up on medical surgical floor, she is alrea dy fully dressed, she is sitting up in the recliner, she has received her discharge instructions, her son is at the bedside and inquiring if the patient is ready to be wheeled out. Patient is awake and alert 3, she is breathing comfortably, she is on room air, with a pulse ox of 92%, vital signs have been stable overnight, lung sounds are clear, diminished, no rhonchi or wheezing. No complaints of chest discomfort, no cough or worsening dyspnea. Today's chest x- ray showed no evidence of sizable pneumothorax and persistence of the right midlung zone ovoid density, and coarse density in the left lung. No new labs today. Patient states she has been breathing comfortably, she said no acute events overnight. She is set up to be seen by Dr. Walker in the office on 09/01/2021, and she will be followed by visiting nurses as well. She needs further workup in regards to a newly diagnosed right upper lobe mass with right hilar lymphadenopathy suspicious for bronchogenic carcinoma. Objective - Vital Signs Vital signs: Vital Signs Temp 98.2 F 08/11/21 08:11 Pulse 64 08/11/21 10:12 Resp 18 08/11/21 10:12 BP 113/74 08/11/21 08:11 Pulse Ox 92 L 08/11/21 10:12 Intake & Output 08/10/21 08/11/21 08/11/21 18:59 06:59 18:59 Intake Total 480 Balance 480 Intake: Oral 480 Other: Voiding Method Incontinent Incontinent # Voids 2 1 - Exam GENERAL EXAM: Alert, area pleasant 71-year-old white female, sitting up in the recliner waiting to be discharged home, on room air breathing comfortably comfortable in no apparent distress. HEAD: Normocephalic/atraumatic. EYES: Normal reaction of pupils, equal size. Conjunctiva pink, sclera white. NOSE: Clear with pink turbinates. THROAT: No erythema or exudates. NECK: No masses, no JVD, no thyroid enlargement, no adenopathy. CHEST: No chest wall deformity. Symmetrical expansion. LUNGS: Equal air entry with no crackles, wheeze, rhonchi or dullness. CVS: Regular rate and rhythm, normal S1 and S2, no gallops, no murmurs, no rubs ABDOMEN: Soft, nontender. No hepatosplenomegaly, normal bowel sounds, no guarding or rigidity. EXTREMITIES: No clubbing, no edema, no cyanosis, 2+ pulses and upper and lower extremities. MUSCULOSKELETAL: Muscle strength and tone normal. SPINE: No scoliosis or deformity SKIN: No rashes CENTRAL NERVOUS SYSTEM: Alert and oriented -3. No focal deficits, tone is normal in all 4 extremities. PSYCHIATRIC: Alert and oriented -3. Appropriate affect. Intact judgment and insight. - Labs CBC & Chem 7: 08/08/21 05:56 08/08/21 05:56 Labs: Microbiology - Last 24 Hours (Table) 08/07/21 12:13 Urine Culture - Final Urine,Voided Assessment and Plan Plan: Assessment: #1.#1. Right upper lobe mass with a right hilar lymphadenopathy highly suggestive of advanced bronchogenic carcinoma, and patient will eventually require diagnostic procedures/bronchoscopy and biopsy #2. Right-sided pneumothorax secondary to recent fall and right sixth rib fracture #3. Right humerus fracture secondary to fall #4. History of CVA and right-sided weakness #5. History of COPD #6. Chronic kidney disease #7. Benign essential hypertension #8. Previous smoking history Plan: Patient is breathing comfortably on today's exam, she is maintaining stable O2 saturations on room air Today's chest x-ray shows no evidence of pneumothorax Patient is clear for discharge from pulmonary perspective Outpatient follow-up with Dr. Walker on 09/01/2021 She will need outpatient PET scan, and eventually diagnostic bronchoscopy with biopsies I have personally seen and examined the patient, performed the documentation and the assessment and plan as written. Number of minutes spent on the visit: [10] Time with Patient: Less than 30
--- NOTE | 2021-08-11 16:05 | P.DS ---
Providers Date of admission: 08/07/21 11:49 Expected date of discharge: 08/11/21 Attending physician: Nithin Jose Consults: 08/07/21 11:40 Consult Physician Routine Consulting Provider: Consuelo Johnson Consult Reason/Comments: Small pneumothorax, right sided post fall Do you want consulting provider notified?: Already Contacted 08/07/21 11:41 Consult Physician Routine Consulting Provider: Suresh Mustafa Consult Reason/Comments: Right surgical neck fracture humerus Do you want consulting provider notified?: Already Contacted 08/07/21 12:47 Consult Physician Routine Consulting Provider: Boo Frias Consult Reason/Comments: R lung mass Do you want consulting provider notified?: Yes 08/08/21 08:45 Consult Physician Routine Consulting Provider: Tony Walker Consult Reason/Comments: right lung mass Do you want consulting provider notified?: Already Contacted Primary care physician: Emir [facility] Course: Chief Complaint: Fall This is a pleasant 71-year-old patient, follows with visiting physician Dr. Mcdowell. 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 For about 2 years patient has dysarthria some expressive dysphasia, right arm weakness much greater than right leg weakness. Patient often uses a wheelchair. Patient fell 6 days ago on Tuesday. Injury to her right arm. She disclosed this to his son today who decided to bring her in. Very slight shortness of breath. No fever no chills. It appears to be a mechanical fall. No history of unconsciousness. No head injury. Patient in the ER found to fraction of the right upper humerus, small pneumothorax, fractured rib. Also discovered to have a right-sided lung mass. Patient seen by cardiothoracic surgery. Only pain in the right arm with movement not otherwise. At the baseline patient able to feed herself with the left arm. Does use a diaper. Admitted with possible right lung contusion secondary to fall, right hip 6 fracture, small pneumothorax, right lung mass with prominent mediastinal lymph node. Patient had a small right-sided pneumothorax. Manage conservatively. Plan is for patient to have outpatient bronchoscopy by Dr. Walker. MRI of the brain showed a small acute left infarct left frontal capsule. 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 Dysarthria Social history: Patient smoked 2 packs a day for many years. Cut down to very few cigarettes a day for last 2 years. Lives with her son. Family history: Diabetes, heart attack, emphysema Physical examination: EYES: Pupils equal. Conjunctiva normal. HEENT: External appearance of nose and ears normal, oral cavity grossly normal. NECK: JVD not raised; masses not palpable. HEART: First and second heart sounds are normal; no edema. LUNGS: Respiratory rate normal; clear to auscultation. ABDOMEN: Soft, nontender, liver spleen not palpable, no masses palpable. PSYCH: Alert and oriented x3; mood and affect normal. MUSCULOSKELETAL:No Clubbing/cyanosis;muscles-grossly intact. Right ominous laying. NEUROLOGICAL: [Cranial nerves grossly intact; no facial asymmetry, decreased power in the right arm. Some decreased power in the right leg. INVESTIGATIONS, reviewed in the clinical context: 2-D echocardiogram: Borderline concentric LVH. EF 60-65%. 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 Multiple old infarcts and internal The Left. Small Acute Infarct Left Internal Capsule. White count 8.8 hemoglobin 12.9 platelets 215 sodium 137 potassium 4.3 bicarb 20 BUN 20 creatinine 1.18 Influenza type A, type B, RSV, COVID 19: Not detected EKG tracing personally reviewed by me-normal sinus rhythm. Rate 74 Chest x-ray film personally reviewed by me-right midlung infiltrate. Pneumothorax. Other x-rays: Acute nondisplaced transverse fracture surgical neck right proximal humerus. Chest CTA: Negative for PE. Right 6 red fracture, right chest wall soft tissue emphysema, small to moderate right-sided pneumothorax. Small right pleural effusion. Right hilar and right central no mass and metastatic right hilar lymph node. Assessment and plan: -Possible right lung contusion secondary to fall and fracture Follow pulse ox -Right chest subcutaneous emphysema -Right sixth rib fracture secondary to fall Pain control -Right pneumothorax 10-20%. Asymptomatic Follow with cardiothoracic surgery /pulmonary. Currently no intervention. -Right lung mass with prominent mediastinal lymph nodes. Outpatient bronchoscopy and biopsy by Dr. Walker -Right arm paresis a right leg paresis. From previous old temporal lobe i nfarct. -Chronic nicotine dependence cigarette smoker Nicotine patch -Essential hypertension Follow blood pressure -Restless leg syndrome Requip 1 mg by mouth 3 times a day -Hyperlipidemia Lipitor 80 mg daily at bedtime Disposition: Home with family Plan - Discharge Summary Discharge Rx Participant: No New Discharge Prescriptions: New Aspirin 81 mg PO DAILY Nicotine 7Mg/24Hr Patch [Habitrol] 1 patch TRANSDERM DAILY #14 patch Naproxen [Naprosyn] 250 mg PO BID PRN #60 tab PRN Reason: Pain Acetaminophen Tab [Tylenol] 650 mg PO Q6HR PRN tab PRN Reason: Mild Pain Or Fever > 100.5 Continue rOPINIRole HCL [Requip] 1 mg PO TID Citalopram Hydrobromide [CeleXA] 20 mg PO DAILY Atorvastatin [Lipitor] 80 mg PO HS Discharge Medication List rOPINIRole HCL [Requip] 1 mg PO TID 12/19/17 [History] Atorvastatin [Lipitor] 80 mg PO HS 08/07/21 [History] Citalopram Hydrobromide [CeleXA] 20 mg PO DAILY 08/07/21 [History] Acetaminophen Tab [Tylenol] 650 mg PO Q6HR PRN tab 08/11/21 [Rx] Aspirin 81 mg PO DAILY 08/11/21 [Rx] Naproxen [Naprosyn] 250 mg PO BID PRN #60 tab 08/11/21 [Rx] Nicotine 7Mg/24Hr Patch [Habitrol] 1 patch TRANSDERM DAILY #14 patch 08/11/21 [Rx] Follow up Appointment(s)/Referral(s): [facility],[place] [facility] [NON-STAFF] - As Needed (Please contact the [place] [facility] to see if they have a transport chair available and if they have any resources for ramp building. ) Suresh Mustafa DO [Doctor of Osteopathic Medicine] - 1 Week Emir Mcdowell MD [Primary Care Provider] - 1-2 days [facility] [NON-STAFF] - As Needed (Please contact the [facility] to see if they have a transport chair available and if they have any resources for ramp building. ) Tony Walker MD [STAFF PHYSICIAN] - 09/01/21 3:15 pm [facility], [NON-STAFF] - Patient Instructions/Handouts: Traumatic Pneumothorax (DC), Arm Fracture in Adults (DC) Activity/Diet/Wound Care/Special Instructions: Schedule outpatient PET scan. Discharge/Stand Alone Forms: Who Do I Call?, Community Resources, Help In The Home Discharge Disposition: HOME WITH HOME HEALTH SERVICES
== END 2021-08-11 11:23 | disposition home health service (06) | DRG 206 ==
LOC: EC 08:18 → 4SSUR 11:49
PROVIDERS: ADMIT Hospitalist; ATTEND Hospitalist
PROC: 2W38XYZ Immobilization of Right Upper Extremity using Other Device (ICD-10-PCS; 2021-08-07)
PROC: 2W38XYZ Immobilization of Right Upper Extremity using Other Device (ICD-10-PCS; principal; 2021-08-08)
DX: S27.321A Contusion of lung, unilateral, initial encounter (principal); I69.351 Hemiplegia and hemiparesis following cerebral infarction affecting right dominant side; S22.31XA Fracture of one rib, right side, initial encounter for closed fracture; S42.211A Unspecified displaced fracture of surgical neck of right humerus, initial encounter for closed fracture; S27.0XXA Traumatic pneumothorax, initial encounter; T79.7XXA Traumatic subcutaneous emphysema, initial encounter; E11.22 Type 2 diabetes mellitus with diabetic chronic kidney disease; F03.90 Unspecified dementia, unspecified severity, without behavioral disturbance, psychotic disturbance, mood disturbance, and anxiety; N18.31 Chronic kidney disease, stage 3a; J44.9 Chronic obstructive pulmonary disease, unspecified; Z20.822 Contact with and (suspected) exposure to COVID-19; I12.9 Hypertensive chronic kidney disease with stage 1 through stage 4 chronic kidney disease, or unspecified chronic kidney disease; I69.320 Aphasia following cerebral infarction; I69.322 Dysarthria following cerebral infarction; E78.5 Hyperlipidemia, unspecified; G25.81 Restless legs syndrome; F32.A Depression, unspecified; F41.9 Anxiety disorder, unspecified; K57.90 Diverticulosis of intestine, part unspecified, without perforation or abscess without bleeding; R91.8 Other nonspecific abnormal finding of lung field; R59.0 Localized enlarged lymph nodes; M25.551 Pain in right hip; M25.552 Pain in left hip; R29.6 Repeated falls; T39.315A Adverse effect of propionic acid derivatives, initial encounter; K59.00 Constipation, unspecified; G47.00 Insomnia, unspecified; R32 Unspecified urinary incontinence; E66.9 Obesity, unspecified; Z68.29 Body mass index [BMI] 29.0-29.9, adult; F17.210 Nicotine dependence, cigarettes, uncomplicated; Z71.6 Tobacco abuse counseling; Z79.899 Other long term (current) drug therapy; Z91.81 History of falling; Z90.49 Acquired absence of other specified parts of digestive tract; Z87.19 Personal history of other diseases of the digestive system; Z86.018 Personal history of other benign neoplasm; Z98.42 Cataract extraction status, left eye; Z98.41 Cataract extraction status, right eye; Z96.1 Presence of intraocular lens; Z98.890 Other specified postprocedural states; W18.30XA Fall on same level, unspecified, initial encounter; Y92.009 Unspecified place in unspecified non-institutional (private) residence as the place of occurrence of the external cause; Z83.3 Family history of diabetes mellitus; Z82.49 Family history of ischemic heart disease and other diseases of the circulatory system; Z82.5 Family history of asthma and other chronic lower respiratory diseases; Z84.1 Family history of disorders of kidney and ureter; Z80.52 Family history of malignant neoplasm of bladder; Z80.51 Family history of malignant neoplasm of kidney; Z83.2 Family history of diseases of the blood and blood-forming organs and certain disorders involving the immune mechanism
CPT/HCPCS: 36415; 70553; 71045; 71046; 71275; 80048; 80053; 81001; 83880; 84484; 85025; 85379; 85610; 85730; 87086; 87636; 93005; 93306; 93880; 94760; 96360; 99291

== ENCOUNTER → 2021-09-11 | Outpatient (CLI) | payer MEDICARE, OTHER ==
--- NOTE | 2021-09-14 06:36 | PE ---
EXAMINATION TYPE: PET CT fusion skull to thigh DATE OF EXAM: 09/11/2021 COMPARISON: CTA chest August 07, 2021 HISTORY: Solitary pulmonary nodule, abnormal CT. TECHNIQUE: Following the intravenous administration of 12.11 mCi of F-18 FDG, whole body images are performed from the skull base to the midthigh. Images are reviewed on the computer in the coronal, a xial, and sagittal planes. Reconstructed rotating images are created on independent workstation and reviewed on the computer. A localization and attenuation correction CT is performed in conjunction with the PET scan. Blood glucose level is 95. SCAN: Subsequent Scan FINDINGS: SKULL BASE AND NECK: Symmetric uptake at level of the anterior tongue presumed physiologic. No suspi cious hypermetabolic adenopathy. CHEST, MEDIASTINUM, AND HILAR REGION: Background moderate underlying emphysematous change is redemons trated. Persistent lobulated right hilar mass measuring 5.0 x 4.0 cm axial image 77, Max SUV is 16.46 . There are abnormal adjacent enlarged right hilar masses or hypermetabolic lymph nodes for reference infrahilar level there is 2.8 x 1.8 cm lymph node axial image 86, max SUV is 9.59. No abnormal hypermetabolic masses or nodules left lung. No abnormal thoracic adenopathy outside the r ight hilar region. ABDOMEN AND PELVIS: No adrenal masses. Normal excretion. No abnormal hypermetabolic uptake. OSSEOUS STRUCTURES: Mild hypermetabolic uptake corresponding to healing 2 adjacent right lateral rib fractures involving seventh and eighth ribs images 93 and 99. Mild uptake in level of both shoulders presumed inflammatory. No suspicious hypermetabolic uptake to suggest osseous malignancy involvement. OTHER CT: Mild/moderate calcified plaque bilateral carotid bulb level. Moderate three-vessel coronary artery calcification. Calcification at the level of the mitral valve. Cholecystectomy clips. Simple appearing 3.6 cm thin-walled cyst anteriorly left kidney axial image 13 0. Mild/moderate calcified plaque of the ectatic abdominal aorta. Moderate to severe disc space narro wing L4-L5 level. 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 No metastatic disease is evide nt.
== END | disposition home or self-care (01) ==
LOC: RADPETMAIN 16:59
PROVIDERS: ATTEND Internal Medicine Hematology & Oncology
DX: C34.91 Malignant neoplasm of unspecified part of right bronchus or lung (principal); R59.0 Localized enlarged lymph nodes
CPT/HCPCS: 78815; A9552

== ENCOUNTER 2021-12-31 12:32 | Day surgery (SDC) | payer MEDICARE, OTHER ==
[~2021-12-31 12:32] MED LIST changes: +ALBUTEROL NEB (CONC) 2.5 MG/0.5 ML INHALATION ONE; -LACTATED RINGERS 1,000 ML IV SCH; -LIDOCAINE 1% 20 ML VIAL (10MG/ML) FOR IV START INTRADERMA PRN; +LIDOCAINE 2% (PF) 20 MG/ML 5 ML VIAL INHALATION ONE; +LIDOCAINE VISCOUS 300 MG/15 ML CUP MUCOUS MEM ONE; +SODIUM CHLORIDE 0.9% 1,000 ML IV SCH
[2021-12-31] MEDS ORDERED: LACTATED RINGERS 1,000 ML IV ONE ×2 (13:01)
[2021-12-31] MEDS ORDERED: PROPOFOL 10 MG/ML 20 ML VIAL IV ONE (13:59)
[2021-12-31] MEDS ORDERED: LIDOCAINE 2% INJ 20 MG/ML (2 ML VIAL) ONE (13:59)
[2021-12-31] MEDS ORDERED: ONDANSETRON 4 MG/2 ML VIAL ONE (13:59)
[2021-12-31] MEDS ORDERED: SUCCINYLCHOLINE CHLORIDE 200 MG/10 ML VIAL IV ONE (13:59)
[2021-12-31] MEDS ORDERED: fentaNYL (PF) 50 MCG/ML 2 ML AMP ONE (13:59)
--- NOTE | 2021-12-31 14:05 | CT ---
EXAMINATION TYPE: CT Chest arjun Guerrero Protocol DATE OF EXAM: 12/31/2021 COMPARISON: PET CT September 11, 2021 HISTORY: pre-op bronch CT DLP: 589 mGycm Automated exposure control for dose reduction was used. CT thorax without contrast. FINDINGS: Exam is for bronchoscopy planning and not for diagnostic purposes. Background moderate underlying emp hysematous change with scattered mild to moderate parenchymal scarring is redemonstrated bilaterally. Persistent lobulated and spiculated mass right suprahilar level measuring approximately 6.9 x 4.4 cm corresponds to the hypermetabolic lesion on the recent PET/CT with additional prominent smaller mass or lymph node in the right hilum just inferior to this redemonstrated. There are healing lateral rig ht rib fractures again seen. IMPRESSION: As above.
--- NOTE | 2021-12-31 14:30 | P.PCN ---
Date of Procedure: 12/31/21 Preoperative Diagnosis: Right upper lobe mass Postoperative Diagnosis: Right upper lobe mass Procedure(s) Performed: Flexible bronchoscopy transbronchial needle aspirate of the right upper lobe mass, endobronchial biopsy of a right upper lobe mass, bronchial lavage of the right upper lobe Anesthesia: THOM Surgeon: Tony Walker [employer] Production Machine Operator #1: Julia Vazquez Estimated Blood Loss (ml): 5 Pathology: other Condition: stable Disposition: same day Operative Findings: This procedure was done under general anesthesia. Intubation process was done by anesthesia and the patient was placed on a mechanical ventilator. The patient was intubated by a #8 orotracheal tube. An adaptor was attached and orotracheal tube and the procedure was done as the patient was being adequately oxygenated and ventilated. The flexible bronchoscope was introduced through the orotracheal tube and was advanced in the lower trachea. The distal trachea was within normal limits. The abraham was sharp. Examination of the left side include the left mainstem bronchus, left upper lobe bronchus, left lower lobe bronchus and the various 8 segments of the left lung and all of these airways were patent and within normal limits. Bronchoscope was moved to the right side and the right mainstem bronchus was within normal limits. The origin of the right upper lobe bronchus however was completely occluded and there was endobronchial tumor fungating out of the airway orifice. . The surface of the tumor was quite friable irregular and had a cauliflower-like appearance. I tried to metabolic the bronchoscope around the tumor and I was unable to find an opening to access the right upper lobe. As such, the right upper lobe bronchus was totally occluded with endobronchial tumor. Bronchus intermedius was slightly narrowed by about 50%. I was able to push the bronchoscope to the bronchus intermedius and the right middle lobe and the right lower lobe bronchus and the various segments of the right lower lobe and the right middle lobe were visualized and they were within normal limits. The bronchoscope was brought back again to the right mainstem bronchus and under direct visualization, transbronchial needle aspirate of the endobronchial mass was done and the adequacy of the samples were confirmed by pathology at the bedside. We utilizing a 19-gauge needle to obtain flu passes of the endobronchial tumor in the right upper lobe. Following that, under direct visualization, and a bronchial biopsy of the right upper lobe mass was done. Several biopsies were obtained. After completing the procedure, I performed the bronchioloalveolar lavage of the right upper lobe. A total of 80 still fluid was infused in the right upper lobe endobronchial tumor and around 25 mL of bloody aspirate was obtained. No bedside complications. The procedure was completed without any complications per bronchoscope was removed and the patient was extubated and transferred to recovery in stable condition.
[2021-12-31 14:38] VITALS: TEMP 97.4
[2021-12-31 15:42] VITALS: RESP 16
[2021-12-31 15:54] VITALS: BP 112/59; PULSE 79
== END 2021-12-31 16:09 | disposition home or self-care (01) ==
LOC: ORWHC2ENDO 12:32
PROVIDERS: ATTEND Internal Medicine Critical Care Medicine
DX: R91.1 Solitary pulmonary nodule (principal); E78.5 Hyperlipidemia, unspecified; J44.9 Chronic obstructive pulmonary disease, unspecified; F41.9 Anxiety disorder, unspecified; F32.A Depression, unspecified; I69.351 Hemiplegia and hemiparesis following cerebral infarction affecting right dominant side; F03.90 Unspecified dementia, unspecified severity, without behavioral disturbance, psychotic disturbance, mood disturbance, and anxiety; K57.90 Diverticulosis of intestine, part unspecified, without perforation or abscess without bleeding; Z79.82 Long term (current) use of aspirin; Z79.899 Other long term (current) drug therapy; Z80.52 Family history of malignant neoplasm of bladder; Z83.3 Family history of diabetes mellitus; Z82.49 Family history of ischemic heart disease and other diseases of the circulatory system
CPT/HCPCS: 87798 ×3; 87496; 87498; 87529; 88108; 88305; 88173; 87252; 87502; 87634; 87070; 87205; 87116; 87102; 87206; 71250; 31629; 31625; 31624; J0330; J2405; J3010; J2704; J2001

== ENCOUNTER 2022-01-06 13:27 | Inpatient (IN) | payer MEDICARE, OTHER ==
[2022-01-06] MEDS ORDERED: SODIUM CHLORIDE 0.9% 500 ML 500 ML IV STA (13:43)
[2022-01-06 14:01] LABS: Basophils # (A) 0.1 k/uL (0-0.2); Basophils % (A) 1 %; Eosinophils # (A) 0.2 k/uL (0-0.7); Eosinophils % (A) 2 %; HGB 12.9 gm/dL (11.4-16.0); Lymphocytes # (A) 2.1 k/uL (1.0-4.8); Lymphocytes % (A) 21 %; MCH 31.1 pg (25.0-35.0); MCHC 32.3 g/dL (31.0-37.0); MCV 96.3 fL (80.0-100.0); Monocytes # (A) 0.5 k/uL (0-1.0); Monocytes % (A) 5 %; Neutrophils # (A) 6.6 k/uL (1.3-7.7); Neutrophils % (A) 69 %; Platelet Count 226 k/uL (150-450); RBC 4.15 m/uL (3.80-5.40); RDW 12.4 % (11.5-15.5); WBC 9.7 k/uL (3.8-10.6)
--- NOTE | 2022-01-06 14:02 | ED ---
General Adult HPI - General Chief complaint: Neuro Symptoms/Deficit Stated complaint: neuro defecit Time Seen by Provider: 01/06/22 13:45 Source: patient, RN notes reviewed, old records reviewed Limitations: no limitations - History of Present Illness Initial comments: This is a 71-year-old female who presents emergency Department with inability to speak. Patient has some dysarthria in the past but she is always at least able to try to form some words today she was just speaking gibberish. The symptoms began at 1:00. Patient denies any weakness or numbness she is able to move her left side completely she does have paralysis of the right side because she had an intercranial hemorrhage in April. Patient also has a lung mass on the left lung according to the family. Patient is unable to express if she is having other symptoms. Prior to this family states she was at her baseline at 7:15. No one is seen is 7:15 and family became aware of her symptoms at 1:00 - Related Data Home Medications Medication Instructions Recorded Confirmed rOPINIRole HCL [Requip] 1 mg PO TID 12/19/17 01/06/22 Atorvastatin [Lipitor] 80 mg PO HS 08/07/21 01/06/22 Citalopram Hydrobromide [CeleXA] 20 mg PO DAILY 08/07/21 01/06/22 Previous Rx's Medication Instructions Recorded Acetaminophen Tab [Tylenol] 650 mg PO Q6HR PRN tab 08/11/21 Aspirin 81 mg PO DAILY 08/11/21 Allergies Allergy/AdvReac Type Severity Reaction Status Date / Time No Known Allergies Allergy Verified 01/06/22 15:33 Review of Systems ROS Statement: Those systems with pertinent positive or pertinent negative responses have been documented in the HPI. ROS Other: All systems not noted in ROS Statement are negative. Past Medical History Past Medical History: COPD, CVA/TIA, Dementia, Hyperlipidemia Additional Past Medical History / Comment(s): Cholecystectomy with complication and was transferred to [facility], CVA with R arm paralysis/aphasia/dysarthria, renal failure d/t motrin, RLS, diverticular disease, benign colon polyps. History of Any Multi-Drug Resistant Organisms: None Reported Past Surgical History: Cholecystectomy Additional Past Surgical History / Comment(s): EGD/biliary stent since removed, ERCP, colonoscopies, benign cyst removed from neck, bilateral cataract removals/lens implants. Past Anesthesia/Blood Transfusion Reactions: No Reported Reaction Past Psychological History: Anxiety, Depression Smoking Status: Former smoker - Past Family History Father Family Medical History: Diabetes Mellitus, Myocardial Infarction (PR) Additional Family Medical History / Comment(s): KIDNEY FAILURE,EMPHYSEMA Mother Family Medical History: Cancer Additional Family Medical History / Comment(s): bladder/kidney Sister(s) Family Medical History: Diabetes Mellitus Son(s) Family Medical History: Deep Vein Thrombosis (DVT) General Exam - General Exam Comments Initial Comments: GENERAL: Patient is well-developed and well-nourished. Patient is nontoxic and well- hydrated and is in no acute distress. ENT: Neck is soft and supple. No significant lymphadenopathy is noted. Oropharynx is clear. Moist mucous membranes. Neck has full range of motion without eliciting any pain. EYES: The sclera were anicteric and conjunctiva were pink and moist. Extraocular movements were intact and pupils were equal round and reactive to light. Eyelids were unremarkable. PULMONARY: Unlabored respirations. Good breath sounds bilaterally. No audible rales rhonchi or wheezing was noted. CARDIOVASCULAR: There is a regular rate and rhythm without any murmurs gallops or rubs. ABDOMEN: Soft and nontender with normal bowel sounds. SKIN: Skin is clear with no lesions or rashes and otherwise unremarkable. NEUROLOGIC: Patient is alert and orientation cannot be evaluated since patient cannot communicate with us. Cranial nerves II through XII are grossly intact. Patient has normal strength of the arm and leg. Patient is able to make sounds verbally but she makes absolutely no sense when asked any question. MUSCULOSKELETAL: Patient has complete paralysis of the right side. Patient is able to move her left side with normal strength. LYMPHATICS: No significant lymphadenopathy is noted PSYCHIATRIC: Normal psychiatric evaluation. Limitations: no limitations Course Vital Signs 01/06/22 01/06/22 01/06/22 13:30 13:45 14:00 Temperature 98.6 F Pulse Rate 82 110 H 75 Respiratory 22 18 18 Rate Blood Pressure 130/80 128/77 125/78 O2 Sat by Pulse 97 98 97 Oximetry 01/06/22 01/06/22 01/06/22 14:15 14:30 15:00 Temperature Pulse Rate 73 74 66 Respiratory 18 18 18 Rate Blood Pressure 133/72 131/75 131/75 O2 Sat by Pulse 98 98 96 Oximetry 01/06/22 01/06/22 01/06/22 15:30 16:00 16:30 Temperature Pulse Rate 65 64 66 Respiratory 18 18 18 Rate Blood Pressure 125/78 133/78 138/75 O2 Sat by Pulse 97 98 97 Oximetry Medical Decision Making - Medical Decision Making Patient was called a code stroke Dr. Sibley callback and agreed that patient was not a TPA candidate secondary to the fact that the patient was last seen normal at 7:15 this morning EKG shows sinus rhythm at 73 bpm IN interval is 171 QRSs 81 QT interval 392 QTC is 417. Patient's EKG shows no ST segment elevation or depression. CT of the brain shows an old MCA infarct. CT angiogram of the head and neck shows a occluded right internal carotid artery and diminutive flow in the left MCA I tried to again speak with Dr. Sibley but he was in the procedure so the patient will be admitted to [facility] physician's and neurology will be consulted - Lab Data Result diagrams: 01/06/22 13:45 01/06/22 13:45 Lab Results 01/06/22 01/06/22 01/06/22 Range/Units 13:45 13:45 13:45 WBC 9.7 (3.8-10.6) k/uL RBC 4.15 (3.80-5.40) m/uL Hgb 12.9 (11.4-16.0) gm/dL Hct 40.0 (34.0-46.0) % MCV 96.3 (80.0-100.0) fL MCH 31.1 (25.0-35.0) pg MCHC 32.3 (31.0-37.0) g/dL RDW 12.4 (11.5-15.5) % Plt Count 226 (150-450) k/uL MPV 7.0 Neutrophils % 69 % Lymphocytes % 21 % Monocytes % 5 % Eosinophils % 2 % Basophils % 1 % Neutrophils # 6.6 (1.3-7.7) k/uL Lymphocytes # 2.1 (1.0-4.8) k/uL Monocytes # 0.5 (0-1.0) k/uL Eosinophils # 0.2 (0-0.7) k/uL Basophils # 0.1 (0-0.2) k/uL PT 9.8 (9.0-12.0) sec INR 0.9 (<1.2) APTT 18.8 L (22.0-30.0) sec Sodium 133 L (137-145) mmol/L Potassium 5.0 (3.5-5.1) mmol/L Chloride 101 (98-107) mmol/L Carbon Dioxide 20 L (22-30) mmol/L Anion Gap 12 mmol/L BUN 24 H (7-17) mg/dL Creatinine 1.04 (0.52-1.04) mg/dL Est GFR (CKD-EPI)AfAm 63 (>60 ml/min/1.73 sqM) Est GFR (CKD-EPI)NonAf 54 (>60 ml/min/1.73 sqM) Glucose 91 (74-99) mg/dL Calcium 8.9 (8.4-10.2) mg/dL Total Bilirubin 0.7 (0.2-1.3) mg/dL AST 37 H (14-36) U/L ALT 14 (4-34) U/L Alkaline Phosphatase 126 (38-126) U/L Troponin I (0.000-0.034) ng/mL Total Protein 7.7 (6.3-8.2) g/dL Albumin 3.9 (3.5-5.0) g/dL 01/06/22 Range/Units 13:45 WBC (3.8-10.6) k/uL RBC (3.80-5.40) m/uL Hgb (11.4-16.0) gm/dL Hct (34.0-46.0) % MCV (80.0-100.0) fL MCH (25.0-35.0) pg MCHC (31.0-37.0) g/dL RDW (11.5-15.5) % Plt Count (150-450) k/uL MPV Neutrophils % % Lymphocytes % % Monocytes % % Eosinophils % % Basophils % % Neutrophils # (1.3-7.7) k/uL Lymphocytes # (1.0-4.8) k/uL Monocytes # (0-1.0) k/uL Eosinophils # (0-0.7) k/uL Basophils # (0-0.2) k/uL PT (9.0-12.0) sec INR (<1.2) APTT (22.0-30.0) sec Sodium (137-145) mmol/L Potassium (3.5-5.1) mmol/L Chloride (98-107) mmol/L Carbon Dioxide (22-30) mmol/L Anion Gap mmol/L BUN (7-17) mg/dL Creatinine (0.52-1.04) mg/dL Est GFR (CKD-EPI)AfAm (>60 ml/min/1.73 sqM) Est GFR (CKD-EPI)NonAf (>60 ml/min/1.73 sqM) Glucose (74-99) mg/dL Calcium (8.4-10.2) mg/dL Total Bilirubin (0.2-1.3) mg/dL AST (14-36) U/L ALT (4-34) U/L Alkaline Phosphatase (38-126) U/L Troponin I <0.012 (0.000-0.034) ng/mL Total Protein (6.3-8.2) g/dL Albumin (3.5-5.0) g/dL Critical Care Time Critical Care Time: Yes Total Critical Care Time: 35 Disposition Clinical Impression: Cerebrovascular accident (CVA) Disposition: ADMITTED IP TO THIS [facility] Referrals: Gilberto Zamorano NPC [Primary Care Provider] - 1-2 days Time of Disposition: 18:00
[2022-01-06 14:29] LABS: INR 0.9 (<1.2); Prothrombin Time 9.8 sec (9.0-12.0)
[2022-01-06 14:33] LABS: Calcium 8.9 mg/dL (8.4-10.2); Total Bilirubin 0.7 mg/dL (0.2-1.3)
[2022-01-06 14:35] LABS: Partial Thromboplastin Time 18.8 sec (22.0-30.0)
[2022-01-06 14:42] LABS: Albumin 3.9 g/dL (3.5-5.0); Total Protein 7.7 g/dL (6.3-8.2)
--- NOTE | 2022-01-06 18:19 | P.HPIM ---
History of Present Illness H&P Date: 01/06/22 Chief Complaint: Aphasia 71-year-old woman with medical history of CVA, restless leg syndrome, depression, hyperlipidemia presented for evaluation of aphasia. History is take n from patient's children since patient cannot provide more information. From my understanding, patient was in her usual state of health this morning then around noon, patient started to "speak gibberish". This is not normal for her by any means, and family became concerned that she was having another stroke. Therefore, they brought patient in for further evaluation. Patient's aphasia precludes a competence of review of systems. In the emergency room, patient was afebrile, 133/78, heart rate 64, 98% on room air. CBC is unremarkable. Chemistries show a sodium 133, bicarb of 20, BUN of 24, creatinine of 1.04. LFTs are unremarkable. Troponin was negative. Coags are unremarkable. CT of the head demonstrated remote MCA infarct on the left, no acute pathology. CT angiography of the head and neck demonstrated JIGGER ARTISAN of the right ICA. EKG demonstrated normal sinus rhythm. See HPI regarding review of systems Gen: in no apparent distress, resting comfortably in bed Eyes: PERRL, no scleral injection or icterus HENT: normocephalic, atraumatic, good hearing acuity, moist mucous membranes Neck: no tracheal deviation, full range of motion Resp: good air exchange, breathing comfortably with no accessory muscle use, no tactile fremitus CVS: good distal perfusion x 4, no pitting edema GI: soft, NTTP, ND, no hepatosplenomegaly : no suprapubic tenderness, no CVAT, horn catheter not present MSK: no clubbing, no cyanosis, no noted contractures of extremities Skin: no noted rashes, petechiae; temperature of skin is appropriate Neuro: moving all extremities without signs of weakness, CN II-XII intact Psych: cooperative, euthymic mood, insight and judgment intact Labs and imaging as above Assessment/plan: Aphasia History of CVA -Admit to inpatient, telemetry -Neurology consult -Neurochecks -Aspirin, statin -Echo -MRI of the brain -A1c, TSH, lipid panel -PT/OT Hypertension Restless leg syndrome Depression -Home medications reviewed and reconciled Patient is full code DVT prophylaxis with heparin 3 times a day Past Medical History Past Medical History: COPD, CVA/TIA, Dementia, Hyperlipidemia Additional Past Medical History / Comment(s): Cholecystectomy with complication and was transferred to [facility], CVA with R arm paralysis/aphasia/dysarthria, renal failure d/t motrin, RLS, diverticular disease, benign colon polyps. History of Any Multi-Drug Resistant Organisms: None Reported Past Surgical History: Cholecystectomy Additional Past Surgical History / Comment(s): EGD/biliary stent since removed, ERCP, colonoscopies, benign cyst removed from neck, bilateral cataract removals/lens implants. Past Anesthesia/Blood Transfusion Reactions: No Reported Reaction Past Psychological History: Anxiety, Depression Smoking Status: Former smoker - Past Family History Father Family Medical History: Diabetes Mellitus, Myocardial Infarction ([place]) Additional Family Medical History / Comment(s): KIDNEY FAILURE,EMPHYSEMA Mother Family Medical History: Cancer Additional Family Medical History / Comment(s): bladder/kidney Sister(s) Family Medical History: Diabetes Mellitus Son(s) Family Medical History: Deep Vein Thrombosis (DVT) Medications and Allergies Home Medications Medication Instructions Recorded Confirmed Type rOPINIRole HCL [Requip] 1 mg PO TID 12/19/17 01/06/22 History Atorvastatin [Lipitor] 80 mg PO HS 08/07/21 01/06/22 History Citalopram Hydrobromide [CeleXA] 20 mg PO DAILY 08/07/21 01/06/22 History Acetaminophen Tab [Tylenol] 650 mg PO Q6HR PRN tab 08/11/21 01/06/22 Rx Aspirin 81 mg PO DAILY 08/11/21 01/06/22 Rx Allergies Allergy/AdvReac Type Severity Reaction Status Date / Time No Known Allergies Allergy Verified 01/06/22 15:33 Physical Exam Osteopathic Statement: *. No significant issues noted on an osteopathic structural exam other than those noted in the History and Physical/Consult. Vitals: Vital Signs Temp Pulse Resp BP Pulse Ox 01/06/22 16:30 66 18 138/75 97 01/06/22 16:00 64 18 133/78 98 01/06/22 15:30 65 18 125/78 97 01/06/22 15:00 66 18 131/75 96 01/06/22 14:30 74 18 131/75 98 01/06/22 14:15 73 18 133/72 98 01/06/22 14:00 75 18 125/78 97 01/06/22 13:45 110 H 18 128/77 98 01/06/22 13:30 98.6 F 82 22 130/80 97 Intake and Output 01/06/22 01/06/22 01/06/22 06:59 14:59 22:59 Other: Weight 77.111 kg Results CBC & Chem 7: 01/06/22 13:45 01/06/22 13:45 Labs: Abnormal Lab Results - Last 24 Hours (Table) 01/06/22 01/06/22 Range/Units 13:45 13:45 APTT 18.8 L (22.0-30.0) sec Sodium 133 L (137-145) mmol/L Carbon Dioxide 20 L (22-30) mmol/L BUN 24 H (7-17) mg/dL AST 37 H (14-36) U/L
[2022-01-06] MEDS ORDERED: ASPIRIN 81 MG PO STA (18:20)
[2022-01-06] MEDS: ATORVASTATIN 80 MG TAB PO SCH (19:25)
--- NOTE | 2022-01-06 20:25 | XR ---
EXAM: XR Chest, 2 Views CLINICAL HISTORY: ITS.REASON XR Reason: altered mental status TECHNIQUE: Frontal and lateral views of the chest. COMPARISON: No relevant prior studies available. FINDINGS: Lungs: Right upper lung opacity. Pleural space: No significant abnormality. No pneumothorax. Heart: No significant abnormality. No cardiomegaly. Mediastinum: No significant abnormality. Bones/joints: No acute abnormality. Vasculature: Tortuosity and/or ectasia of the thoracic aorta. Tubes, lines and devices: Loop recorder device. IMPRESSION: Right upper lung opacity is concerning for an infectious or inflammatory process.
[2022-01-06] MEDS: HEPARIN SODIUM,PORCINE/PF 5,000 UNIT/0.5 ML SYRINGE SQ SCH (23:43)
[2022-01-07 07:29] LABS: Basophils % (A) 0 %; Eosinophils # (A) 0.2 k/uL (0-0.7); Eosinophils % (A) 2 %; HCT 37.2 % (34.0-46.0); HGB 12.4 gm/dL (11.4-16.0); Lymphocytes # (A) 1.4 k/uL (1.0-4.8); Lymphocytes % (A) 21 %; MCH 32.9 pg (25.0-35.0); MCHC 33.3 g/dL (31.0-37.0); MCV 98.7 fL (80.0-100.0); Mean Platelet Volume 7.3; Monocytes # (A) 0.4 k/uL (0-1.0); Monocytes % (A) 6 %; Neutrophils # (A) 4.9 k/uL (1.3-7.7); Neutrophils % (A) 70 %; Platelet Count 190 k/uL (150-450); RBC 3.77 m/uL (3.80-5.40)
[2022-01-07 07:47] LABS: African American GFR (CKD) 67 (>60 ml/min/1.73 sqM); Anion Gap 7 mmol/L; Blood Urea Nitrogen 19 mg/dL (7-17); Calcium 8.2 mg/dL (8.4-10.2); Carbon Dioxide 22 mmol/L (22-30); Chloride 103 mmol/L (98-107); Glucose 94 mg/dL (74-99); Magnesium 1.7 mg/dL (1.6-2.3); Non-African American GFR(CKD) 58 (>60 ml/min/1.73 sqM); Sodium 132 mmol/L (137-145)
[2022-01-07 08:15] LABS: Potassium 4.4 mmol/L (3.5-5.1)
[2022-01-07] MEDS: ASPIRIN 81 MG PO SCH (08:34)
[2022-01-07] MEDS: HEPARIN SODIUM,PORCINE/PF 5,000 UNIT/0.5 ML SYRINGE SQ SCH ×2 (08:34→16:36)
[2022-01-07] MEDS: CITALOPRAM HYDROBROMIDE 20 MG TAB PO SCH (08:34)
--- NOTE | 2022-01-07 10:48 | CA ---
Transthoracic Echo Report Name: Bianka Saleem Age: 71 Gender: F : 1950 Exam Date: 01/07/2022 07:53 Exam Location: [facility] Ht (in): 62 Wt (lb): 170 Ordering Physician: Colton Villanueva MD Attending/Referring Phys: [employer] Lisandra Juarez RDCS Procedure CPT: Indications: stroke r/o Cardiac Hx: Technical Quality: Fair Contrast 1: Total Dose (mL): Contrast 2: Total Dose (mL): MEASUREMENTS (Male / Female) Normal Values 2D ECHO LV Diastolic Diameter PLAX 3.3 cm 4.2 - 5.9 / 3.9 - 5.3 cm LV Systolic Diameter PLAX 2.1 cm IVS Diastolic Thickness 1.2 cm 0.6 - 1.0 / 0.6 - 0.9 cm LVPW Diastolic Thickness 1.2 cm 0.6 - 1.0 / 0.6 - 0.9 cm LV Relative Wall Thickness 0.7 RV Internal Dim ED PLAX 4.6 cm FINDINGS Left Ventricle Limited stdy. Normal left ventricular systolic function with no obvious regional wall motion abnormalities. Left ventricular ejection fraction is estimated at 55-60 %. Mildly increased left ventricular wall thickness. Right Ventricle Right Atrium Left Atrium Mitral Valve Mild mitral annular calcification. Mild mitral regurgitation. Aortic Valve Tricuspid Valve Pulmonic Valve Pericardium Aorta CONCLUSIONS Normal LV size and systolic function mild mitral annular calcification mild mitral regurgitation Previewed by: Dr. Judah Delgado MD (Electronically Signed) Final Date: 07 January 2022 10:48
[2022-01-07 11:41] LABS: Chol/HDL Ratio 2.33 Ratio; LDL Cholesterol,Calculated 58.4 mg/dL (0.0-131.0); VLDL Calculation 13.98 mg/dL (5.00-40.00)
--- NOTE | 2022-01-07 12:52 | P.CNNES ---
History of Present Illness Consult date: 01/07/22 Requesting physician: Marty Wing Reason for Consult: CVA History of Present Illness: Patient is a 71-year-old right-handed female with history of hypertension, X tobacco use, came to the hospital yesterday at 1:30 PM for acute stroke symptoms. Patient not able to provide any history. I spoke to patient's daughter who provided with a history. Patient's daughter states that patient suffered from a brain hemorrhage on 04/08/2019 for which she was transferred to [place] and stayed there until first week of June 2019. As a residual deficits from stroke, patient has no use of her right arm, some use of her right leg and has significant expressive aphasia. Patient lives with her son, who is the caregiver. Patient can take a few steps on her own using her one hand walker with her right hand, get out of chair and take a few steps at baseline to the bathroom. She is able to get dressed by herself. Her speech is significantly affected, although patient still could talk and family can understand, although sometimes her words gets mixed up. Yesterday patient's son talked to her and give her medications at 7:30 AM she was fine. He had apparently called her sister at around 1 PM and she was not m aking sense at all. Patient's daughter came over and noticed that she cannot even talk to her, not making sense at all. Her language was changed. Her speech was just completely jumbled up. Therefore patient was brought to the hospital. Vital signs on arrival blood pressure 1:30/80, pulse rate 82 temperature 98.6. Blood test shows normal CBC, PT/PTT, sodium 133 potassium 5.0, BUN 24, creatini ne 1.04, hepatic panel with borderline AST 37, normal ALT 14. Troponin negative TSH normal 3.60. CT of the brain revealed chronic encephalomalacia involving the left external capsule/insular region, and left posterior temporal parietal region with no acute process. Official radiology report pending, due to problems with [employer]. CTA of head and neck report also pending. As per documentation from ED report, the CTA showed occluded right ICA and diminutive flow in the left MCA. ED physician discussed case with neuro intervention Dr. Durán, and patient was considered not a candidate for TPA as patient arrived > 4.5 hours after stroke onset, and also due to her previous history of intra cranial hemorrhage. Patient had an MRI of the brain performed with and without contrast on 08/07/2021 which revealed small acute infarct left internal capsule. Old left temporal lobe infarct with encephalomalacia in the ortiz and white matter. Multiple old infarcts in the internal capsule on the left side. On my review, this clinic stroke involved somewhat in the periventricular region of the left parietal region. Patient had a carotid Doppler performed on 08/08/2021, which revealed antegrade flow in the vertebral arteries. Images suggest less than 50% stenosis of both ICA. Patient had a 2-D echo on 08/10/2021 which revealed normal left ventricle size. Borderline concentric LVH. EF is between 60-65%. Aortic valve is trileaflet and is mildly thickened. Mild mitral annular calcification. Patient's hemoglobin A1c 5.2 on 01/22/2020 and LDL 54 on 09/04/2020. B12 and folate were normal. Last known well was reported at 7:15 AM when she was fine. No one saw her until 1 PM when she was brought to the hospital. Patient takes aspirin 81 mg, Lipitor 80 mg, Celexa 20 mg and Requip 1 mg 3 times a day. He patient has history of smoking 2 packs per day for 40 years, quit after her stroke. No history of seizures. No diabetes. Patient does have hypertension. I spoke to patient's son, who concurred that patient has been taking aspirin 81 mg daily, as he gives her medication. Patient also has been found to have mass in the lung. She has been coughing up. Biopsy was done last week. Review of Systems Constitutional: Denies chills, Denies fever Eyes: denies blurred vision, denies pain Ears, nose, mouth and throat: Denies headache, Denies sore throat Cardiovascular: Denies chest pain, Denies shortness of breath Respiratory: Denies cough Gastrointestinal: Denies abdominal pain, Denies diarrhea, Denies nausea, Denies vomiting Genitourinary: Denies dysuria, Denies hematuria Musculoskeletal: Denies myalgias Integumentary: Denies pruritus, Denies rash Neurological: Reports as per HPI Psychiatric: Denies anxiety, Denies depression Endocrine: Denies fatigue, Denies weight change Past Medical History Past Medical History: COPD, CVA/TIA, Dementia, Hyperlipidemia Additional Past Medical History / Comment(s): Cholecystectomy with complication and was transferred to [facility]/vented, CVA with R arm paralysis/aphasia/dysarthria, renal failure d/t motrin, RLS, diverticular disease, benign colon polyps. History of Any Multi-Drug Resistant Organisms: None Reported Past Surgical History: Cholecystectomy Additional Past Surgical History / Comment(s): EGD/biliary stent since removed, ERCP, colonoscopies, benign cyst removed from neck, bilateral cataract removals/lens implants. Past Anesthesia/Blood Transfusion Reactions: No Reported Reaction Past Psychological History: Anxiety, Depression Additional Psychological History / Comment(s): Pt resides with her son who is very helpful. She transfers into a wheelchair. She states her son manages her medications and drives her to [employer]. She states she can feed herself, wash self up and dress self. She has a bsc. Smoking Status: Former smoker Past Alcohol Use History: None Reported Additional Past Alcohol Use History / Comment(s): Pt started smoking in 1975 and quit in 2019 Past Drug Use History: None Reported - Past Family History Father Family Medical History: Diabetes Mellitus, Myocardial Infarction ([place]) Additional Family Medical History / Comment(s): KIDNEY FAILURE,EMPHYSEMA Mother Family Medical History: Cancer Additional Family Medical History / Comment(s): bladder/kidney Sister(s) Family Medical History: Diabetes Mellitus Son(s) Family Medical History: Deep Vein Thrombosis (DVT) Medications and Allergies Home Medications Medication Instructions Recorded Confirmed Type rOPINIRole HCL [Requip] 1 mg PO TID 12/19/17 01/06/22 History Atorvastatin [Lipitor] 80 mg PO HS 08/07/21 01/06/22 History Citalopram Hydrobromide [CeleXA] 20 mg PO DAILY 08/07/21 01/06/22 History Acetaminophen Tab [Tylenol] 650 mg PO Q6HR PRN tab 08/11/21 01/06/22 Rx Aspirin 81 mg PO DAILY 08/11/21 01/06/22 Rx Allergies Allergy/AdvReac Type Severity Reaction Status Date / Time No Known Allergies Allergy Verified 01/06/22 15:33 Physical Examination - Vital Signs Vital Signs: Vital Signs Temp Pulse Pulse Resp BP BP Pulse Ox 01/07/22 08:00 98.3 F 56 L 16 117/78 97 01/07/22 03:19 98.0 F 62 16 100/67 99 01/07/22 00:00 98.4 F 76 16 104/69 96 01/06/22 22:00 98.5 F 66 16 108/67 97 01/06/22 21:00 75 18 109/54 96 01/06/22 20:00 75 18 128/77 97 01/06/22 19:00 78 18 106/93 97 01/06/22 18:00 68 18 140/78 98 01/06/22 17:30 68 18 128/78 97 01/06/22 17:00 70 18 132/75 97 01/06/22 16:30 66 18 138/75 97 01/06/22 16:00 64 18 133/78 98 01/06/22 15:30 65 18 125/78 97 01/06/22 15:00 66 18 131/75 96 01/06/22 14:30 74 18 131/75 98 01/06/22 14:15 73 18 133/72 98 01/06/22 14:00 75 18 125/78 97 01/06/22 13:45 110 H 18 128/77 98 01/06/22 13:30 98.6 F 82 22 130/80 97 Intake and Output 01/06/22 01/07/22 01/07/22 22:59 06:59 14:59 Intake Total 10 Output Total 500 Balance 10 -500 Intake: IV 10 Invasive Line 1 10 Output: Urine 500 Other: Voiding Method External Catheter External Catheter External Catheter Weight 77.111 kg Patient is an elderly female, in no acute distress. Patient is alert awake. Patient not able to tell the month or the year, city or state, due to expressive aphasia. Patient has significant expressive aphasia. Patient could speak some sentences, but we significant paraphasic errors. Patient cannot name any objects. Patient can repeat with some paraphasic errors. Her comprehension is intact. Patient not able to tell me her sister's name, or her own name, or her daughter's name which is new for her. She was previously able to name her family members without any problem even after she had the stroke in 2019. No definite dysarthria. Attention, concentration and fund of knowledge is limited. On cranial nerve examination, pupils are equal, round and reacting to light, visual juan are full on confrontation, with no neglect on double simultaneous stimulation. Extraocular muscles are intact with no nystagmus. Patient has right facial weakness, which is more prominent as compared to baseline (per her sister). She has apraxia, difficulty protruding her tongue. Palatal elevation and sensation normal, hearing is normal, shoulder shrug cannot perform on the right, normal left. On muscle strength testing, patient has spastic plegic right upper extremity with no movement which is baseline. The strength is normal in the left upper limb and the left lower limb. The strength on the right leg with hip flexion 3+, ankle dorsiflexion 5-with significant spasticity. Deep tendon reflexes are (right/left) biceps 2+/1+, brachioradialis 2+/1+, knee 3/3, plantar is up on the right, down left. Sensory to touch is equal with no neglect on double simultaneous stimulation. Cerebellar function showed no ataxia for [id number]-[id number] testing. No dysdiadochokinesia. No ataxia for [id number]-nz-ansc testing on either side. Tone and bulk of muscles normal. Gait deferred.. On general examination, there is no carotid bruit or murmur, S1-S2 audible. Chest is clear on consultation. Abdomen is soft nontender. No organomegaly, bowel sounds present. Peripheral pulses are present. No edema. Results - Laboratory Findings CBC and BMP: 01/07/22 06:36 01/07/22 06:36 Abnormal Lab Findings: Abnormal Labs 01/06/22 01/06/22 01/07/22 13:45 13:45 06:36 RBC APTT 18.8 L Sodium 133 L 132 L Carbon Dioxide 20 L BUN 24 H 19 H Calcium 8.2 L AST 37 H 01/07/22 06:36 RBC 3.77 L APTT Sodium Carbon Dioxide BUN Calcium AST Assessment and Plan Assessment: * Probable acute ischemic stroke, manifesting with worsening of expressive aphasia, anomia, worsening of ambulation status and slightly worsening of right facial droop. * History of hypertensive hemorrhage involving left hemispheric region 04/07/2019, with subsequent some expressive aphasia, and spastic right hemiparetic, arm worse than leg. * Newly diagnosed lung cancer. * Hypertension * X tobacco use Plan: * MRI of the brain with and without contrast, evaluate for acute CVA, rule out metastases * 2-D echo revealed normal left-ventricular size and systolic function with EF 55-60%. Mild mitral annular calcification. Patient will need echo with bubble study to rule out PFO. * CTA head and neck reported as occluded right ICA and diminutive flow in the left MCA (by ED report). I could not visualize CTA because of technical issues with [employer]. * Patient was taking aspirin 81 mg daily at home. We will add Plavix 75 mg daily if no medical contraindication. After 21 days, may stop aspirin and continue Plavix indefinitely. * Fasting a.m. lipid panel * Hemoglobin A1c * Permissive hypertension for next 24-48 hours * Close neuro checks as per protocol. * Telemetry monitoring rule out any arrhythmia * DVT prophylaxis: Lovenox 40 mg subcu daily * PT OT speech therapy * Discussed with patient's family in detail. * Neurology will continue ot follow. Thank you for the consult. Time with Patient: Greater than 30
--- NOTE | 2022-01-07 14:43 | MR ---
"EXAMINATION TYPE: MR brain wo/w con DATE OF EXAM: 01/07/2022 COMPARISON: Prior MRI brain August 07, 2021 HISTORY: CVA. Newly diagnosed lung cancer. TECHNIQUE: Multiplanar, multisequence images of the brain and brainstem is performed without and with IV contras t, utilizing 7 mL intravenous Gadavist . FINDINGS: Diffusion weighted images demonstrate no areas of increased signal on diffusion weighted im ages with diminished signal on ADC mapping involving the left head of caudate nucleus and portions of the left middle cerebral artery distribution including frontal and temporal lobes at site of an old infarct. Old infarct extension to the left basal ganglia is noted. Area of acute infarct extends infe riorly to involve superior medial aspect of the left temporal lobe FLAIR axial image 11. Background mild ventricular and sulcal prominence redemonstrated. Background multifocal and confluent areas of T2 hyperintensity throughout the white matter are again seen greatest at periventricular le vels. Midline structures redemonstrate normal morphology. The craniocervical junction remains within eran l limits. Post contrast images demonstrate no definite new enhancing intraparenchymal masses to sugg est metastatic disease. No suspicious enhancement is identified The dural venous sinuses remaining pa tent. The visualized sinuses are clear and the globes are intact bilaterally. IMPRESSION: 1. Evolving lacunar infarct in the left middle cerebral artery distribution on background of old infa rct as detailed above. 2. Background mild diffuse cerebral atrophy and moderate chronic small vessel ischemic changes redemo nstrated. No new enhancing masses to suggest new metastatic disease to the brain. A Yellow level critical message alert has been initiated for Nithin Jose MD via the [employer] 36 0 | Critical Results System on 01/07/2022 11:40 AM. This message alert has been sent to Nithin Jose MD via the preferences provided by the clinician for the receipt of Radiology Critical Findings. [facility] ID [id number]."
--- NOTE | 2022-01-07 16:27 | CT ---
EXAMINATION TYPE: CT brain wo con for TPA DATE OF EXAM: 01/06/2022 HISTORY: Acute onset neuro deficit CT DLP: An 78 mGycm. Automated Exposure Control for Dose Reduction was Utilized. TECHNIQUE: CT scan of the head is performed without contrast. COMPARISON: Prior CT brain report 2018. Prior MRI brain August 07, 2021 FINDINGS: There is no acute intracranial hemorrhage or midline shift identified. There is mild diff use ventricular and sulcal prominence consistent with diffuse cerebral atrophy greatest over the bila teral frontal lobes. Old infarct in the left middle cerebral artery distribution with ex vacuo dilata tion of the left-sided ventricular system is redemonstrated. Mild to moderate Low attenuation in the periventricular white matter is noted. Prominent soft tissue density in left external auditory canal axial image 11 favors cerumen. Correlate with direct visualization advised. Moderate calcified plaque distal internal carotid arteries bilaterally. The globes are intact and the visualized sinuses are c lear. Hyperdense left middle cerebral artery axial image 19 IMPRESSION: No acute intracranial hemorrhage or midline shift. There is mild diffuse cerebral atrop hy greatest over the bilateral frontal lobes and mild to moderate chronic small vessel ischemic braswell e along with old infarct in the left middle cerebral artery distribution. Hyperdense left middle cerebral artery consistent with acute clot or occlusion is noted.
--- NOTE | 2022-01-07 18:01 | P.PN ---
Progress Note - Text Progress Note Date: 01/07/22 Presenting complaint: Difficult speaking Hospital course 71-year-old woman with medical history of CVA, restless leg syndrome, depression, hyperlipidemia presented for evaluation of aphasia. History is taken from patient's children since patient cannot provide more information. From my understanding, patient was in her usual state of health this morning then around noon, patient started to "speak gibberish". This is not normal for her by any means, and family became concerned that she was having another stroke. Therefore, they brought patient in for further evaluation. Patient's aphasia precludes a competence of review of systems. In the emergency room, patient was afebrile, 133/78, heart rate 64, 98% on room air. CBC is unremarkable. Chemistries show a sodium 133, bicarb of 20, BUN of 24, creatinine of 1.04. LFTs are unremarkable. Troponin was negative. Coags are unremarkable. CT of the head demonstrated remote MCA infarct on the left, no acute pathology. CT angiography of the head and neck demonstrated MACHINE ADJUSTER of the right ICA. EKG demonstrated normal sinus rhythm. January 07: I assumed care of this patient today. Patient's able to speak some words. Weak in the right arm. Weak in the right leg. Showing some neglect and visual field on the right side. Patient's daughter at the bedside. Computed tomography scan today showed old infarct in the left MCA territory. Consistent with acute clot occlusion noted. Patient was seen by Dr. Chamorro from neurology. Discussed with him. Consultation made to cardiology for VERONIKA. Care was discussed with daughter the bedside. Plavix added. to. Aspirin. Active Medications Aspirin (Aspirin 81 Mg) 81 mg PO DAILY [facility] Last Admin: 01/07/22 08:34 Dose: 81 mg Atorvastatin Calcium (Atorvastatin 80 Mg Tab) 80 mg PO HS [facility] Last Admin: 01/06/22 19:25 Dose: 80 mg Citalopram Hydrobromide (Citalopram Hydrobromide 20 Mg Tab) 20 mg PO DAILY [facility] Last Admin: 01/07/22 08:34 Dose: 20 mg Heparin Sodium (Porcine) (Heparin Sodium,Porcine/Pf 5,000 Unit/0.5 Ml Syringe) 5,000 unit SQ Q8HR [facility] Last Admin: 01/07/22 16:36 Dose: 5,000 unit Ropinirole HCl (Ropinirole Hcl 1 Mg Tab) 1 mg PO TID [facility] Last Admin: 01/07/22 16:36 Dose: 1 mg On examination: VITAL SIGNS: [98.4, 91, 16, 119/60, 98% room air] GENERAL APPEARANCE: BMI 31.1, laying in bed, but anxious appearing HEENT: Normal external appearance of nose and ear. Oral cavity normal EYES: Pupils equal. Conjunctiva normal. NECK: JVD not raised. Mass not palpable. RESPIRATORY: Respiratory effort normal. Lungs clear to auscultation. CARDIOVASCULAR: First and second sounds normal. No edema. ABDOMEN: Soft. Liver and spleen not palpable. No tenderness. No mass palpable. NEUROLOGICAL: Some facial asymmetry. Able to speak some words. Right arm, power, 1/5. Right leg power 3/5. PSYCHIATRY: Unable to assess because of dysarthria. INVESTIGATIONS, reviewed in the clinical context: Brain MRI: Evolving lacunar infarct in the left middle cerebral artery distribution, on background of old infarct. Background of mild diffuse cerebral atrophy and moderate chronic small vessel ischemic changes. 2-D echocardiogram: Normal LV function. EKG: Normal sinus rhythm Labs and imaging as above Assessment/plan: -Acute stroke in the left middle cerebral artery area, possible embolic.: Not improving VERONIKA to rule out thrombus. Consult cardiology. Aspirin. Plavix. Lipitor. Follow with neurology. Neuro checks -Acute dysarthria, initially as indicated mumbling. Can speak a few words now.: Slow to respond Speech therapist. -Right hemiparesis from acute stroke. Right arm weak in the right leg. PT OT. -Hyperlipidemia Lipitor -Restless leg syndrome Requip -Depression. Celexa Aspirin. Plavix. Subcu Lovenox. PTOT. Computed tomography scan, MRA results. Discussed with Dr. Chamorro. VERONIKA ordered with cardiology. Discussed with daughter the bedside. Total time spent today about 45 minutes with over 30 minutes of discussion.
[2022-01-07] MEDS: CLOPIDOGREL 75 MG TAB PO SCH (19:04)
[2022-01-07] MEDS: ENOXAPARIN 40 MG/0.4 ML SYRINGE SQ SCH (19:04)
[2022-01-07] MEDS: ATORVASTATIN 80 MG TAB PO SCH (20:23)
--- NOTE | 2022-01-07 22:54 | CT ---
EXAMINATION TYPE: CT angio head neck DATE OF EXAM: 01/06/2022 HISTORY: Acute onset neuro deficit COMPARISON: Carotid ultrasound August 08, 2021. MRI brain August 07, 2021 CT DLP: 600 mGycm. Automated Exposure Control for Dose Reduction was Utilized. TECHNIQUE: CTA scan of the head and neck is performed with IV Contrast, patient injected with 65 mL of Isovue 370, axial images are obtained, coronal and sagittal reformatted images are reviewed. 3D re constructed images are created on an independent workstation and reviewed. FINDINGS: Carotid/Vascular Structures: Focal prominence or slight aneurysm in the aortic arch just past three-v essel takeoff axial image 112. Mild peripheral plaque. No significant stenosis in the great vessels. No significant plaque or stenosis in the common or internal carotid arteries bilaterally . Right deleon tid bulb shows moderate peripheral predominantly calcified plaque without significant stenosis. Artif act in relation and origin of right external carotid artery without significant stenosis. There is no nvisualized left internal carotid artery shortly after its origin consistent with complete occlusion. Patent external carotid artery on the left without significant stenosis. Right vertebral artery is larger caliber or dominant. Vertebral arteries are patent to basilar juncti on. Hypoplastic bilateral posterior communicating arteries are noted. No significant focal stenosis o r aneurysm in posterior circulation. Anterior circulation shows small caliber but patent right A1 seg ment with patent anterior communicating artery. There is some filling of the left anterior middle cer ebral artery with nonvisualized 8 mm segment of the left M1 noted images 27 and 28 series 406 consist ent with complete or near complete thrombosis at this level. Other: Background chronic emphysematous change with known right hilar mass or neoplasm redemonstrated . Small mucous retention cyst or polyp in the posterior inferior left maxillary sinus. IMPRESSION: 1. New nonvisualized flow consistent with complete occlusion of significant portion of the left inter nal carotid artery including approximate 8 mm segment of the left M1 segment. NASCET criteria was used in interpretation of this exam? Preliminary result provided by radiologist on site.
[2022-01-08] MEDS: ENOXAPARIN 40 MG/0.4 ML SYRINGE SQ SCH (09:53)
[2022-01-08] MEDS: CLOPIDOGREL 75 MG TAB PO SCH (09:53)
[2022-01-08] MEDS: ASPIRIN 81 MG PO SCH (09:53)
[2022-01-08] MEDS: CITALOPRAM HYDROBROMIDE 20 MG TAB PO SCH (09:53)
--- NOTE | 2022-01-08 10:58 | P.CRDCN ---
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 We have been asked to see the patient in consultation for CVA. Patient examined at the bedside. Patient presented to the hospital secondary to worsening expressive aphasia. Patient underwent MRI of the brain revealing evolving lacunar infarct of the left middle cerebral artery distribution on a background of old infarct. Background mild diffuse cerebral atrophy and moderate chronic small vessel ischemic changes redemonstrated. No new enhancing masses to suggest new metastatic disease to the brain. Patient denies any chest pain or pressure. She denies shortness of breath. Denies dizziness or lightheadedness. She does have right-sided weakness secondary to an old CVA. Telemetry revealed sinus mechanism with no evidence of atrial fibrillation. * EKG reveals sinus mechanism with no signs of acute ischemia * Chest xray right upper lobe opacity concerning for infectious or inflammatory process * Laboratory data: WBC 7.0. Hemoglobin 12.4. Platelet count 190. Sodium 132. Potassium 4.4. BUN 19. Creatinine 0.98. Troponin negative 1 * Current home cardiac medications include aspirin 81 mg daily and Lipitor 80 mg at night * Echocardiogram completed revealing ejection fraction 55-60% with mild mitral regurgitation REVIEW OF SYSTEMS: At the time of my exam: CONSTITUTIONAL: Denies fever or chills. HEENT: Denies blurred vision, vision changes, or eye pain. Denies hemoptysis CARDIOVASCULAR: Denies chest pain. Denies orthopnea. Denies PND. Denies palpitations RESPIRATORY: Denies shortness of breath. GASTROINTESTINAL: Denies abdominal pain. Denies nausea or vomiting. HEMATOLOGIC: Denies bleeding disorders. GENITOURINARY: Denies any blood in urine. SKIN: Denies pruitis. Denies rash. PHYSICAL EXAM: VITAL SIGNS: Reviewed. GENERAL: Well-developed in no acute distress. HEENT: Head is normocephalic. Pupils are equal, round. Sclerae anicteric. Mucous membranes of the mouth are moist. Neck supple. No JVD or thyromegaly LUNGS: Respirations even and unlabored. Lungs essentially clear to auscultation bilaterally. HEART: Regular rate and rhythm. S1 and S2 heard. ABDOMEN: Soft. Nondistended. Nontender. EXTREMITIES: Right-sided weakness noted. No clubbing or cyanosis. Peripheral pulses intact. No lower extremity edema NEUROLOGIC: Awake and alert. Oriented x 3. ASSESSMENT: Acute CVA History of hemorrhagic CVA with residual right-sided weakness Recently diagnosed lung CA Hypertension Former nicotine dependence PLAN: 2D echo obtained and reviewed Continue current cardiac medications Obtain bubble study. No plans for VERONIKA at this time. Further recommendations pending patient course. Nurse practitioner note has been reviewed by physician. Signing provider agrees with the documented findings, assessment, and plan of care. Past Medical History Past Medical History: COPD, CVA/TIA, Dementia, Hyperlipidemia Additional Past Medical History / Comment(s): Cholecystectomy with complication and was transferred to [facility], CVA with R arm paralysis/aphasia/dysarthria, renal failure d/t motrin, RLS, diverticular disease, benign colon polyps. History of Any Multi-Drug Resistant Organisms: None Reported Past Surgical History: Cholecystectomy Additional Past Surgical History / Comment(s): EGD/biliary stent since removed, ERCP, colonoscopies, benign cyst removed from neck, bilateral cataract removals/lens implants. Past Anesthesia/Blood Transfusion Reactions: No Reported Reaction Past Psychological History: Anxiety, Depression Additional Psychological History / Comment(s): Pt resides with her son who is very helpful. She transfers into a wheelchair. She states her son manages her medications and drives her to appts. She states she can feed herself, wash self up and dress self. She has a bsc. Smoking Status: Former smoker Past Alcohol Use History: None Reported Additional Past Alcohol Use History / Comment(s): Pt started smoking in 1975 and quit in 2019 Past Drug Use History: None Reported - Past Family History Father Family Medical History: Diabetes Mellitus, Myocardial Infarction ([place]) Additional Family Medical History / Comment(s): KIDNEY FAILURE,EMPHYSEMA Mother Family Medical History: Cancer Additional Family Medical History / Comment(s): bladder/kidney Sister(s) Family Medical History: Diabetes Mellitus Son(s) Family Medical History: Deep Vein Thrombosis (DVT) Medications and Allergies Home Medications Medication Instructions Recorded Confirmed Type rOPINIRole HCL [Requip] 1 mg PO TID 12/19/17 01/06/22 History Atorvastatin [Lipitor] 80 mg PO HS 08/07/21 01/06/22 History Citalopram Hydrobromide [CeleXA] 20 mg PO DAILY 08/07/21 01/06/22 History Acetaminophen Tab [Tylenol] 650 mg PO Q6HR PRN tab 08/11/21 01/06/22 Rx Aspirin 81 mg PO DAILY 08/11/21 01/06/22 Rx Allergies Allergy/AdvReac Type Severity Reaction Status Date / Time No Known Allergies Allergy Verified 01/06/22 15:33 Physical Exam Vitals: Vital Signs Temp Pulse Resp BP Pulse Ox 01/08/22 08:03 97.6 F 81 20 95/56 97 01/08/22 04:00 97.7 F 78 18 110/68 97 01/08/22 02:00 80 18 01/08/22 00:00 97.8 F 80 18 107/70 96 01/07/22 20:00 99.1 F 61 18 115/68 95 01/07/22 16:00 98.4 F 91 16 119/68 98 01/07/22 14:00 55 L 16 01/07/22 11:35 98.4 F 55 L 16 113/63 96 Intake and Output 01/07/22 01/08/22 01/08/22 22:59 06:59 14:59 Intake Total 120 Output Total 400 Balance 120 -400 Intake: Oral 120 Output: Urine 400 Other: Voiding Method External Catheter External Catheter # Bowel Movements 1 Results 01/07/22 06:36 01/07/22 06:36 Lipids 01/07/22 Range/Units 06:36 Triglycerides 69.90 (0.00-149.00) mg/dL Cholesterol 127.00 (0.00-200.00) mg/dL HDL Cholesterol 54.60 (40.00-60.00) mg/dL Cholesterol/HDL Ratio 2.33 Ratio Current Medications Generic Name Dose Route Start Last Admin Trade Name Freq PRN Reason Stop Dose Admin Aspirin 81 mg 01/07/22 09:00 01/07/22 08:34 Aspirin 81 Mg PO 81 mg DAILY [facility] Administration Atorvastatin Calcium 80 mg 01/06/22 21:00 01/07/22 20:23 Atorvastatin 80 Mg Tab PO 80 mg HS [facility] Administration Citalopram Hydrobromide 20 mg 01/07/22 09:00 09/08/22 08:34 Citalopram Hydrobromide 20 Mg Tab PO 20 mg DAILY [facility] Administration Clopidogrel Bisulfate 75 mg 01/07/22 18:00 01/07/22 19:04 Clopidogrel 75 Mg Tab PO 75 mg DAILY [facility] Administration Enoxaparin Sodium 40 mg 01/07/22 18:00 01/07/22 19:04 Enoxaparin 40 Mg/0.4 Ml Syringe SQ Not Given DAILY [facility] Ropinirole HCl 1 mg 01/06/22 22:00 01/07/22 20:23 Ropinirole Hcl 1 Mg Tab PO 1 mg TID [facility] Administration Intake and Output 01/07/22 01/08/22 01/08/22 22:59 06:59 14:59 Intake Total 120 Output Total 400 Balance 120 -400 Intake: Oral 120 Output: Urine 400 Other: Voiding Method External Catheter External Catheter # Bowel Movements 1 01/07/22 06:36 01/07/22 06:36
--- NOTE | 2022-01-08 12:40 | P.PN ---
Progress Note - Text Progress Note Date: 01/08/22 Presenting complaint: Difficult speaking Hospital course 71-year-old woman with medical history of CVA, restless leg syndrome, depression, hyperlipidemia presented for evaluation of aphasia. History is taken from patient's children since patient cannot provide more information. From my understanding, patient was in her usual state of health this morning then around noon, patient started to "speak gibberish". This is not normal for her by any means, and family became concerned that she was having another stroke. Therefore, they brought patient in for further evaluation. Patient's aphasia precludes a competence of review of systems. In the emergency room, patient was afebrile, 133/78, heart rate 64, 98% on room air. CBC is unremarkable. Chemistries show a sodium 133, bicarb of 20, BUN of 24, creatinine of 1.04. LFTs are unremarkable. Troponin was negative. Coags are unremarkable. CT of the head demonstrated remote MCA infarct on the left, no acute pathology. 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 EKG demonstrated normal sinus rhythm. January 07: I assumed care of this patient today. Patient's able to speak some words. Weak in the right arm. Weak in the right leg. Showing some neglect and visual field on the right side. Patient's daughter at the bedside. Computed tomography scan today showed old infarct in the left MCA territory. Consistent with acute clot occlusion noted. Patient was seen by Dr. Chamorro from neurology. Discussed with him. Consultation made to cardiology for VERONIKA. Care was discussed with daughter the bedside. Plavix added. to. Aspirin. January 08: Patient able to speak short sentences. Today she tells me that her weakness in the right arm and right leg is chronic. Seen by speech therapist. No aspiration. global account manager spoke to the son. Looking into rehab. Per cardiology, 2-D echo with bubble study. They do not plan to do VERONIKA at this time. Active Medications Aspirin (Aspirin 81 Mg) 81 mg PO DAILY [facility] Last Admin: 01/08/22 09:53 Dose: 81 mg Atorvastatin Calcium (Atorvastatin 80 Mg Tab) 80 mg PO HS [facility] Last Admin: 01/07/22 20:23 Dose: 80 mg Citalopram Hydrobromide (Citalopram Hydrobromide 20 Mg Tab) 20 mg PO DAILY [facility] Last Admin: 01/08/22 09:53 Dose: 20 mg Clopidogrel Bisulfate (Clopidogrel 75 Mg Tab) 75 mg PO DAILY [facility] Last Admin: 01/08/22 09:53 Dose: 75 mg Enoxaparin Sodium (Enoxaparin 40 Mg/0.4 Ml Syringe) 40 mg SQ DAILY [facility] Last Admin: 01/08/22 09:53 Dose: 40 mg Ropinirole HCl (Ropinirole Hcl 1 Mg Tab) 1 mg PO TID [facility] Last Admin: 01/08/22 09:53 Dose: 1 mg On examination: VITAL SIGNS: 97.6, 65, 20, 108/71, 96% room air GENERAL APPEARANCE: Laying in bed, appears more comfortable HEENT: Normal external appearance of nose and ear. Oral cavity normal EYES: Pupils equal. Conjunctiva normal. NECK: JVD not raised. Mass not palpable. RESPIRATORY: Respiratory effort normal. Lungs clear to auscultation. CARDIOVASCULAR: First and second sounds normal. No edema. ABDOMEN: Soft. Liver and spleen not palpable. No tenderness. No mass palpable. NEUROLOGICAL: Multiple to the left.. Speaking sentences better. Right arm power 0-1/5 Right leg power 3/5. PSYCHIATRYable to answer simple questions INVESTIGATIONS, reviewed in the clinical context:. January 07: Sodium 132, potassium 4.4, LDL 58, TSH 3.6 Brain MRI: Evolving lacunar infarct in the left middle cerebral artery distribution, on background of old infarct. Background of mild diffuse cerebral atrophy and moderate chronic small vessel ischemic changes. 2-D echocardiogram: Normal LV function. EKG: Normal sinus rhythm Labs and imaging as above Assessment/plan: -Acute stroke in the left middle cerebral artery area, possible embolic.: Not improving VERONIKA to rule out thrombus.Straight Pin Making Machine Operator does not plan to do VERONIKA. Aspirin, Plavix. Lipitor. Follow with neurology. Neuro checks -Acute dysarthria, initially as mumbling. some improvement. Speech Therapy - chronic Right hemiparesis from Previous stroke. At baseline, right arm and right leg weakness with the former being more weak. At baseline patient uses a wheelchair. PTOT -Chronic medical debility, at a baseline patient is a wheelchair -Hyperlipidemia Lipitor -Restless leg syndrome Requip -Depression. Celexa No VERONIKA per cardiology. 2-D echo with bubble study. Continue current medications. Looking at rehab placement. Follow-up with neuro.
--- NOTE | 2022-01-08 20:08 | CA ---
Transthoracic Echo Report Name: Bianka Saleem Age: 71 Gender: F : 1950 Exam Date: 01/08/2022 10:09 Exam Location: [facility] Ht (in): 62 Wt (lb): 170 Ordering Physician: Pat Storm Attending/Referring Phys: [id number], [employer]Th Grade Teacher Shirley Byrd RDCS Procedure CPT: Indications: CVA Cardiac Hx: Technical Quality: Fair Contrast 1: Total Dose (mL): Contrast 2: Total Dose (mL): MEASUREMENTS (Male / Female) Normal Values FINDINGS Left Ventricle Left ventricular ejection fraction is estimated at 55-60 %. Right Ventricle Right Atrium Negative agitated saline bubble study for right to left shunt. Left Atrium Mitral Valve Aortic Valve Tricuspid Valve Pulmonic Valve Pericardium Aorta CONCLUSIONS Normal LV systolic function. Bubble study is negative for a [id number] shunt Previewed by: Dr. Judah Delgado MD (Electronically Signed) Final Date: 08 January 2022 20:07
[2022-01-08] MEDS: ATORVASTATIN 80 MG TAB PO SCH (20:33)
[2022-01-09] MEDS: ENOXAPARIN 40 MG/0.4 ML SYRINGE SQ SCH (09:30)
[2022-01-09] MEDS: ASPIRIN 81 MG PO SCH (09:30)
[2022-01-09] MEDS: CITALOPRAM HYDROBROMIDE 20 MG TAB PO SCH (09:30)
[2022-01-09] MEDS: CLOPIDOGREL 75 MG TAB PO SCH (09:30)
--- NOTE | 2022-01-09 10:04 | P.PN ---
Subjective Progress Note Date: 01/08/22 Patient was seen for a follow-up. Patient's family members were also present. Patient is doing much better. Her speech has improved. Patient still has significant deficits regarding her ambulation. Patient worked with physical therapist, and stood up for about 3 minutes with a walker. She was minimal assist with her walker. No new concerns. Objective - Vital Signs Vital signs: Vital Signs Temp 97.6 F 01/08/22 12:00 Pulse 65 01/08/22 13:25 Resp 20 01/08/22 13:25 BP 108/71 01/08/22 12:00 Pulse Ox 96 01/08/22 12:00 FiO2 Intake & Output 01/07/22 01/08/22 01/08/22 18:59 06:59 18:59 Intake Total 120 Output Total 600 400 390 Balance -600 -280 -390 Intake: Oral 120 Output: Urine 600 400 390 Other: Voiding Method External Catheter External Catheter External Catheter # Bowel Movements 1 - Exam Patient is alert and awake. Patient's speech expression has improved. Still with paraphasic errors. Patient has right facial droop, which appears slightly better. Patient is flaccid in the right arm which is chronic. Patient has mild weakness in the right leg, hip flexion 3+, ankle dorsiflexion 5-with significant sp asticity. - Labs CBC & Chem 7: 01/07/22 06:36 01/07/22 06:36 Assessment and Plan Assessment: * Acute ischemic stroke, manifesting with worsening of expressive aphasia, anomia and slightly worsening of right facial droop, and ambulation. * History of hypertensive hemorrhage involving left hemispheric region 9, with subsequent some expressive aphasia, and spastic right hemiparetic, arm worse than leg. 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 * Hypertension * X tobacco use Plan: * MRI of the brain with and without contrast revealed evolving lacunar infarct in the left middle cerebral artery distribution on the background of old infarct. Background mild diffuse cerebral atrophy and moderate chronic small vessel ischemic changes redemonstrated. No new enhancing masses to suggest new metastatic disease to the brain. On my personal review, there is involvement of the left caudate, part of the putamen, some insular cortex and very slight involvement of the left temporal cortex and left periventricular white matter. It highly appears embolic from left ICA occlusion. * 2-D echo 01/07/2022 revealed normal left-ventricular size and systolic function with EF 55-60%. Mild mitral annular calcification. Another limited study performed today 01/08/2022 showed bubble study negative for [id number] shunt. Cardiology on board. * CTA head and neck report arrived late last night (severe technical problems with [employer] and PACS), which revealed new nonvisualized flow consistent with complete occlusion of significant portion of the left internal carotid artery, including approximate 8 mm segment of the left M1 segment. * Patient was taking aspirin 81 mg daily at home. We will add Plavix 75 mg daily. Suggest continue dual antiplatelet medications due to significant vascular disease. * Fasting a.m. lipid panel with cholesterol 127, LDL 58, HDL 54 and triglycerides 69 * Hemoglobin A1c 8.9 * Permissive hypertension for next 24-48 hours * Close neuro checks as per protocol. * Telemetry monitoring rule out any arrhythmia * DVT prophylaxis: Heparin 5000 units subcu every 8 hours * Oncology consultation for newly diagnosed lung cancer. Discussed with primary physician.
--- NOTE | 2022-01-09 14:19 | P.CNPUL ---
History of Present Illness Consult date: 01/09/22 Requesting physician: Nithin Jose Reason for consult: other (Squamous cell lung cancer) Chief complaint: Stroke symptoms History of present illness: This is a 71-year-old female known history of hypertension, ex-smoker, recently diagnosed squamous cell lung cancer involving the right upper lobe. Patient had a recent bronchoscopy by Dr. Walker and diagnosis has been confirmed as squamous cell lung cancer. Patient has not been made aware of her tissue diagnosis until this morning. Apparently the patient was admitted on 01/06/2022, patient had previous cerebral hemorrhage back in 2019, at that time she was transferred to [place] she continued to have residual deficits from her previous stroke and unable to use her right upper extremity she also had significant expressive aphasia. This time the patient had a sudden change in her speech, her speech was very garbled and her daughter could not make any sense of it at all. Language has changed, hence patient was brought into the hospital, and she was found to have occluded right internal carotid artery and diminution of flow in the left middle cerebral artery. Patient is not a candidate for TPA. Patient was seen by neurology on consultation. And the patient was felt to have acute ischemic stroke manifesting with worsening expressive aphasia, and worsening ambulation status with worsening right facial droop. Patient has been seen by many consultants since admission apparently when the admitting physician realized that the patient had recent bronchoscopy and positive tissue diagnosis for squamous cell lung cancer, this consult was initiated. Pulmonary-lorenzo the patient is doing well, and based on the overall clinical scenario I'll see the patient is not a surgical candidate for her lung cancer, and I am recommending oncology evaluation. Review of Systems CONSTITUTIONAL: Negative HEENT: Negative CARDIOVASCULAR: Negative RESPIRATORY: Negative GASTROINTESTINAL: Negative. HEMATOLOGIC: Negative GENITOURINARY: Negative SKIN: Negative Neurologic: As noted in HPI Psychiatric: No symptoms of active depression Endocrine: Negative Past Medical History Past Medical History: COPD, CVA/TIA, Dementia, Hyperlipidemia Additional Past Medical History / Comment(s): Cholecystectomy with complication and was transferred to [facility], CVA with R arm paralysis/aphasia/dysarthria, renal failure d/t motrin, RLS, diverticular disease, benign colon polyps. History of Any Multi-Drug Resistant Organisms: None Reported Past Surgical History: Cholecystectomy Additional Past Surgical History / Comment(s): EGD/biliary stent since removed, ERCP, colonoscopies, benign cyst removed from neck, bilateral cataract removals/lens implants. Past Anesthesia/Blood Transfusion Reactions: No Reported Reaction Past Psychological History: Anxiety, Depression Additional Psychological History / Comment(s): Pt resides with her son who is very helpful. She transfers into a wheelchair. She states her son manages her medications and drives her to [employer]. She states she can feed herself, wash self up and dress self. She has a bsc. Smoking Status: Former smoker Past Alcohol Use History: None Reported Additional Past Alcohol Use History / Comment(s): Pt started smoking in 1975 and quit in 2019 Past Drug Use History: None Reported - Past Family History Father Family Medical History: Diabetes Mellitus, Myocardial Infarction ([place]) Additional Family Medical History / Comment(s): KIDNEY FAILURE,EMPHYSEMA Mother Family Medical History: Cancer Additional Family Medical History / Comment(s): bladder/kidney Sister(s) Family Medical History: Diabetes Mellitus Son(s) Family Medical History: Deep Vein Thrombosis (DVT) Medications and Allergies Home Medications Medication Instructions Recorded Confirmed Type rOPINIRole HCL [Requip] 1 mg PO TID 12/19/17 01/06/22 History Atorvastatin [Lipitor] 80 mg PO HS 08/07/21 01/06/22 History Citalopram Hydrobromide [CeleXA] 20 mg PO DAILY 08/07/21 01/06/22 History Acetaminophen Tab [Tylenol] 650 mg PO Q6HR PRN tab 08/11/21 01/06/22 Rx Aspirin 81 mg PO DAILY 08/11/21 01/06/22 Rx Allergies Allergy/AdvReac Type Severity Reaction Status Date / Time No Known Allergies Allergy Verified 01/06/22 15:33 Physical Exam Vitals: Vital Signs Temp Pulse Resp BP Pulse Ox 01/09/22 12:00 98.5 F 63 16 121/82 96 01/09/22 08:00 98.1 F 88 20 104/71 95 01/09/22 04:25 98.6 F 71 15 100/68 96 01/08/22 23:45 98.8 F 62 18 103/65 96 01/08/22 20:00 97.6 F 65 18 110/65 97 01/08/22 17:52 98.7 F 66 18 104/57 96 Intake and Output 01/08/22 01/09/22 01/09/22 22:59 06:59 14:59 Intake Total 240 120 Output Total 200 Balance 240 120 -200 Intake: Oral 240 120 Output: Urine 200 Other: Voiding Method External Catheter External Catheter External Catheter # Voids 0 Physical Exam: Revealed 71-year-old female in no distress. Head: Atraumatic, normocephalic. HEENT:[Neck is supple.] [No neck masses.] [No thyromegaly.] [No JVD.] Chest: [Symmetrical chest expansion, diminished breath sounds at the bases no rhonchi no wheezes Cardiac Exam: [Normal S1 and S2, no S3 gallop, no murmur.] Abdomen: [Soft, nontender, no megaly, no rebound, no guarding, normal bowel sounds.] Extremities: [No clubbing, no edema, no cyanosis.] Neurological Exam: Patient is alert, awake, does have a slight expressive aphagia, having difficulty naming objects, her comprehension seems to be intact. Patient has slight right facial weakness, she has no difficulty with her left side, but seems to be spastic plegic on the right side specially the right upper extremity. Psychiatric: Normal mood, flat affect, normal mental status. Results - Laboratory Findings CBC and BMP: 01/07/22 06:36 01/07/22 06:36 PT/INR, D-dimer PT 9.8 sec (9.0-12.0) 01/06/22 13:45 INR 0.9 (<1.2) 01/06/22 13:45 Abnormal lab findings: Abnormal Labs 01/06/22 01/06/22 01/07/22 13:45 13:45 06:36 RBC APTT 18.8 L Sodium 133 L 132 L Carbon Dioxide 20 L BUN 24 H 19 H Calcium 8.2 L AST 37 H 01/07/22 06:36 RBC 3.77 L APTT Sodium Carbon Dioxide BUN Calcium AST - Diagnostic Findings Chest x-ray: image reviewed (Chest x-ray showed right upper lung opacity, recently diagnosed as malignant) Assessment and Plan Assessment: Impression: Acute CVA involving the left middle cerebral artery area, likely embolic. 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 Hence I'm recommending oncology evaluation. Dyslipidemia Chronic medical debility History of restless leg syndrome History of depression, on Celexa. Recommendation: Continue present treatment plan as per neurology Patient is supposed to have 2-D echocardiogram with bubble study Patient will eventually need rehab placement Overall long-term prognosis is extremely poor and guarded. Will follow as needed. Time with Patient: Greater than 30
--- NOTE | 2022-01-09 15:15 | P.PN ---
Subjective HISTORY OF PRESENT ILLNESS: This is a 71-year-old female with a past medical history significant for hypertension, former nicotine dependence, and hemorrhagic CVA in 2019 with right-sided weakness, and apparent newly diagnosed lung cancer. Patient does not follow with a power lineworker. We have been asked to see the patient in consultation for CVA. Patient examined at the bedside. Patient presented to the hospital secondary to worsening expressive aphasia. Patient underwent MRI of the brain revealing evolving lacunar infarct of the left middle cerebral artery distribution on a background of old infarct. Background mild diffuse cerebral a trophy and moderate chronic small vessel ischemic changes redemonstrated. No new enhancing masses to suggest new metastatic disease to the brain. Patient denies any chest pain or pressure. She denies shortness of breath. Denies dizziness or lightheadedness. She does have right-sided weakness secondary to an old CVA. Telemetry revealed sinus mechanism with no evidence of atrial fibrillation. * EKG reveals sinus mechanism with no signs of acute ischemia * Chest xray right upper lobe opacity concerning for infectious or inflammatory process * Laboratory data: WBC 7.0. Hemoglobin 12.4. Platelet count 190. Sodium 132. Potassium 4.4. BUN 19. Creatinine 0.98. Troponin negative 1 * Current home cardiac medications include aspirin 81 mg daily and Lipitor 80 mg at night * Echocardiogram completed revealing ejection fraction 55-60% with mild mitral regurgitation 9/10 Patient seen and examined. Patient still having some expressive aphasia. Denies any chest pain or pressure. No shortness breath. Echocardiogram shows preserved EF with negative bubble study. PHYSICAL EXAM: VITAL SIGNS: Reviewed. GENERAL: Well-developed in no acute distress. HEENT: Head is normocephalic. Pupils are equal, round. Sclerae anicteric. Mucous membranes of the mouth are moist. Neck supple. No JVD or thyromegaly LUNGS: Respirations even and unlabored. Lungs essentially clear to auscultation bilaterally. HEART: Regular rate and rhythm. S1 and S2 heard. ABDOMEN: Soft. Nondistended. Nontender. EXTREMITIES: Right-sided weakness noted. No clubbing or cyanosis. Peripheral pulses intact. No lower extremity edema NEUROLOGIC: Awake and alert. Oriented x 3. ASSESSMENT: Acute CVA History of hemorrhagic CVA with residual right-sided weakness Recently diagnosed lung CA Hypertension Former nicotine dependence No PFO by bubble study PLAN: 2-D echo shows no PFO and negative bubble study without any other significant source of stroke. No current indication for VERONIKA. Recommend 30 day event monit or going home to evaluate for any underlying A. fib. No further recommendations from a cardiac standpoint, please call with any questions.. Objective - Vital Signs Vital signs: Vital Signs Temp 98.5 F 01/09/22 12:00 Pulse 63 01/09/22 12:00 Resp 16 01/09/22 12:00 BP 121/82 01/09/22 12:00 Pulse Ox 96 01/09/22 12:00 FiO2 Intake & Output 01/08/22 01/09/22 01/09/22 18:59 06:59 18:59 Intake Total 360 Output Total 390 200 Balance -390 360 -200 Intake: Oral 360 Output: Urine 390 200 Other: Voiding Method External Catheter External Catheter External Catheter # Voids 0 - Labs CBC & Chem 7: 01/07/22 06:36 01/07/22 06:36
--- NOTE | 2022-01-09 15:36 | P.CONS ---
History of Present Illness - Reason for Consult Consult date: 01/09/22 Lung cancer Requesting physician: Nithin Jose - Chief Complaint aphasia - History of Present Illness is a very pleasant 71 yo female with multiple comorbidities including smoking, prior CVA, and newly found right lung cancer, as well as other comorbidities, who is here for aphasia, found to have acute CVA. Being managed medically and improving. Work up with CTA reveals known RUL mass and right hilar LAD, as well as new occlusion of her left internal carotid artery. For her lung cancer, she was admitted in 07/2021 for fall and was found to have a RUL mass. Seen during that time by our team and work up recommended. She had PET scan in 08/2021 which was negative for metastatic disease, and consistent wiht uptake in RUL and right hilar masses. She subsequently had bronchoscopy with biopsy on 12/31/21, pathology positive for squamous cell carcinoma, moderately differentiated. We were consulted for further rec's on her newly found lung cancer. During this stay, she also had MRI brain which revealed the acute stroke, however was negative for met's. Past Medical History Past Medical History: COPD, CVA/TIA, Dementia, Hyperlipidemia Additional Past Medical History / Comment(s): Cholecystectomy with complication and was transferred to [facility], CVA with R arm paralysis/aphasia/dysarthria, renal failure d/t motrin, RLS, diverticular disease, benign colon polyps. History of Any Multi-Drug Resistant Organisms: None Reported Past Surgical History: Cholecystectomy Additional Past Surgical History / Comment(s): EGD/biliary stent since removed, ERCP, colonoscopies, benign cyst removed from neck, bilateral cataract removals/lens implants. Past Anesthesia/Blood Transfusion Reactions: No Reported Reaction Past Psychological History: Anxiety, Depression Additional Psychological History / Comment(s): Pt resides with her son who is very helpful. She transfers into a wheelchair. She states her son manages her medications and drives her to [employer]. She states she can feed herself, wash self up and dress self. She has a bsc. Smoking Status: Former smoker Past Alcohol Use History: None Reported Additional Past Alcohol Use History / Comment(s): Pt started smoking in 1975 and quit in 2019 Past Drug Use History: None Reported - Past Family History Father Family Medical History: Diabetes Mellitus, Myocardial Infarction ([place]) Additional Family Medical History / Comment(s): KIDNEY FAILURE,EMPHYSEMA Mother Family Medical History: Cancer Additional Family Medical History / Comment(s): bladder/kidney Sister(s) Family Medical History: Diabetes Mellitus Son(s) Family Medical History: Deep Vein Thrombosis (DVT) Medications and Allergies Home Medications Medication Instructions Recorded Confirmed Type rOPINIRole HCL [Requip] 1 mg PO TID 12/19/17 01/06/22 History Atorvastatin [Lipitor] 80 mg PO HS 08/07/21 01/06/22 History Citalopram Hydrobromide [CeleXA] 20 mg PO DAILY 08/07/21 01/06/22 History Acetaminophen Tab [Tylenol] 650 mg PO Q6HR PRN tab 08/11/21 01/06/22 Rx Aspirin 81 mg PO DAILY 08/11/21 01/06/22 Rx Allergies Allergy/AdvReac Type Severity Reaction Status Date / Time No Known Allergies Allergy Verified 01/06/22 15:33 Physical Exam Vitals: Vital Signs Temp Pulse Resp BP Pulse Ox 01/09/22 12:00 98.5 F 63 16 121/82 96 01/09/22 08:00 98.1 F 88 20 104/71 95 01/09/22 04:25 98.6 F 71 15 100/68 96 01/08/22 23:45 98.8 F 62 18 103/65 96 01/08/22 20:00 97.6 F 65 18 110/65 97 01/08/22 17:52 98.7 F 66 18 104/57 96 01/08/22 13:25 65 20 Intake and Output 01/08/22 01/09/22 01/09/22 22:59 06:59 14:59 Intake Total 240 120 Output Total 200 Balance 240 120 -200 Intake: Oral 240 120 Output: Urine 200 Other: Voiding Method External Catheter External Catheter External Catheter # Voids 0 Gen.: NAD HEENT: Mucosa moist Neck: Supple Lungs: No respiratory distress Heart: Regular rate Abdomen: Soft Skin: No jaundice Results CBC & Chem 7: 01/07/22 06:36 01/07/22 06:36 Comments: PET from 08/2021 with uptake in known right lung mass and right hilum, but no uptake elsewhere CT scan - chest: report reviewed CT Scan - head: report reviewed MRI - head: report reviewed Assessment and Plan Assessment: 1. CVA 2. Lung cancer 3. Carotid occlusion 4. Hyponatremia Plan: Ms. Saleem is a very pleasant 71 yo female with multiple comorbidities who was found to have a RUL mass and hilar LAD in 07/2021, PET from 08/2021 negative for met's, and bronchoscopy from 12/31/21 with biopsy positive for moderately differentiated squamous cell carcinoma. Here for aphasia due to acute CVA. Work up with MRI brain negative for met's, and CTA with persistent RUL mass and right hilar LAD, as well as occlusion of the left carotid artery. Discussed diagnosis of new lung cancer. Since her staging PET was from 4 months ago, she would benefit from repeat OP PET scan to rule out new met's. She does have poor PS and multiple comorbidities. If no metastatic disease seen, would consider RT vs sequential RT/chemotherapy based on PS after discharge.
[2022-01-09] MEDS: ATORVASTATIN 80 MG TAB PO SCH (22:23)
[2022-01-10] MEDS: CITALOPRAM HYDROBROMIDE 20 MG TAB PO SCH (09:08)
[2022-01-10] MEDS: ASPIRIN 81 MG PO SCH (09:08)
[2022-01-10] MEDS: CLOPIDOGREL 75 MG TAB PO SCH (09:08)
[2022-01-10] MEDS: ENOXAPARIN 40 MG/0.4 ML SYRINGE SQ SCH (09:09)
--- NOTE | 2022-01-10 10:48 | P.PN ---
Subjective Progress Note Date: 01/09/22 Patient was seen for a follow-up. Patient's family members were not present. Patient is doing much better. Her speech has improved. Denies headache. No dizziness. Objective - Vital Signs Vital signs: Vital Signs Temp 97.9 F 01/09/22 16:00 Pulse 80 01/09/22 16:00 Resp 15 01/09/22 16:00 BP 95/69 01/09/22 16:00 Pulse Ox 95 01/09/22 16:00 FiO2 Intake & Output 01/08/22 01/09/22 01/09/22 18:59 06:59 18:59 Intake Total 360 Output Total 390 200 Balance -390 360 -200 Intake: Oral 360 Output: Urine 390 200 Other: Voiding Method External Catheter External Catheter External Catheter # Voids 0 - Exam Patient is alert and awake. Patient's speech expression has improved. Still with paraphasic errors. Patient able to name some objects like pen, hand, but not the thumb. Could not name eyeglasses or the ear. Patient can repeat very well. Patient has right facial droop, which appears slightly better. Patient's visual juan are full. Patient is flaccid in the right arm which is chronic. Patient has mild weakness in the right leg, hip flexion 4+, ankle dorsiflexion 4+ with significant spasticity. Sensations are equal. - Labs CBC & Chem 7: 01/07/22 06:36 01/07/22 06:36 Assessment and Plan Assessment: * Probable acute ischemic stroke, manifesting with worsening of expressive aphasia, anomia, worsening of ambulation status and slightly worsening of right facial droop. 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 * Newly diagnosed lung cancer. * Hypertension * X tobacco use Plan: * Patient is clinically better. * MRI of the brain with and without contrast revealed evolving lacunar infarct in the left middle cerebral artery distribution on the background of old infarct. Background mild diffuse cerebral atrophy and moderate chronic small vessel ischemic changes redemonstrated. No new enhancing masses to suggest new metastatic disease to the brain. On my personal review, there is involvement of the left caudate, part of the putamen, some insular cortex and very slight involvement of the left temporal cortex and left periventricular white matter. It highly appears embolic from left ICA occlusion. * 2-D echo 01/07/2022 revealed normal left-ventricular size and systolic function with EF 55-60%. Mild mitral annular calcification. Another limited study performed today 01/08/2022 showed bubble study negative for [id number] shunt. Cardiology on board. * CTA head and neck report arrived late last night (severe technical problems with [facility] and PACS), which revealed new nonvisualized flow consistent with complete occlusion of significant portion of the left internal carotid artery, including approximate 8 mm segment of the left M1 segment. * Patient was taking aspirin 81 mg daily at home. We will add Plavix 75 mg daily. Suggest continue dual antiplatelet medications due to significant vascular disease. * Fasting a.m. lipid panel with cholesterol 127, LDL 58, HDL 54 and triglycerides 69. Continue intensity statins Lipitor 80 mg daily that she was on at home.. * Hemoglobin A1c 8.9. Optimize control of diabetes to target A1c <7.0 * May improve blood pressure gradually to target <140/80. Avoid hypotension. * Cardiology recommending no indication for VERONIKA. Echo with bubble study negative. Recommending 30 day event monitor after discharge. * DVT prophylaxis: Heparin 5000 units subcu every 8 hours * Oncology following for lung cancer. Appreciate input. * Neurologically clear for transfer to rehab.
--- NOTE | 2022-01-10 13:27 | P.PN ---
Subjective Progress Note Date: 01/10/22 Principal diagnosis: Acute CVA This is a 71-year-old female known history of hypertension, ex-smoker, recently diagnosed squamous cell lung cancer involving the right upper lobe. Patient had a recent bronchoscopy by Dr. Walker and diagnosis has been confirmed as squamous cell lung cancer. Patient has not been made aware of her tissue diagnosis until this morning. Apparently the patient was admitted on 01/06/2022, patient had previous cerebral hemorrhage back in 2019, at that time she was transferred to [place] she continued to have residual deficits from her previous stroke and unable to use her right upper extremity she also had significant expressive aphasia. This time the patient had a sudden change in her speech, her speech was very garbled and her daughter could not make any sense of it at all. Language has changed, hence patient was brought into the hospital, and she was found to have occluded right internal carotid artery and diminution of flow in the left middle cerebral artery. Patient is not a candidate for TPA. Patient was seen by neurology on consultation. And the patient was felt to have acute ischemic stroke manifesting with worsening expressive aphasia, and worsening ambulation status with worsening right facial droop. Patient has been seen by many consultants since admission apparently when the admitting physician realized that the patient had recent bronchoscopy and positive tissue diagnosis for squamous cell lung cancer, this consult was initiated. Pulmonary-lorenzo the patient is doing well, and based on the overall clinical scenario I'll see the patient is not a surgical candidate for her lung cancer, and I am recommending o ncology evaluation. Patient was reevaluated today on 01/10/22, basically she is about the same, not much of a change in her overall neurological status, she denies any pulmonary symptoms. Continues to have right-sided hemiplegia her speech is about the same, and she is unable to name anything. Patient is hemodynamically stable, she is on room air and O2 sats is 96%. Yesterday I made aware that she does have squamous cell lung cancer, and she is aware that she is not a surgical candidate, and she needs to be seen by oncology. Objective - Vital Signs Vital signs: Vital Signs Temp 97.8 F 01/10/22 12:00 Pulse 84 01/10/22 12:00 Resp 16 01/10/22 12:00 BP 113/67 01/10/22 12:00 Pulse Ox 96 01/10/22 12:00 FiO2 Intake & Output 01/09/22 01/10/22 01/10/22 18:59 06:59 18:59 Intake Total 118 240 820 Output Total 200 650 Balance -82 -410 820 Intake: Oral 118 240 820 Output: Urine 200 650 Other: Voiding Method External Catheter External Catheter External Catheter - Exam Physical Exam: Revealed 71-year-old female in no distress. On room air. Head: Atraumatic, normocephalic. HEENT:[Neck is supple.] [No neck masses.] [No thyromegaly.] [No JVD.] Chest: [Symmetrical chest expansion, diminished breath sounds at the bases no rhonchi no wheezes Cardiac Exam: [Normal S1 and S2, no S3 gallop, no murmur.] Abdomen: [Soft, nontender, no megaly, no rebound, no guarding, normal bowel sounds.] Extremities: [No clubbing, no edema, no cyanosis.] Neurological Exam: Patient is alert, awake, does have a slight expressive aphasia having difficulty naming objects, her comprehension seems to be intact. Patient has slight right facial weakness, she has no difficulty with her left side, but seems to be spastic plegic on the right side specially the right upper extremity. Psychiatric: Normal mood, flat affect, normal mental status. - Labs CBC & Chem 7: 01/07/22 06:36 01/07/22 06:36 Assessment and Plan Assessment: Impression: Acute CVA involving the left middle cerebral artery area, likely embolic. 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 Hence I'm recommending oncology evaluation. Dyslipidemia Chronic medical debility History of restless leg syndrome History of depression, on Celexa. Recommendation: Continue present treatment plan as per neurology Patient will eventually need rehab placement Overall long-term prognosis is extremely poor and guarded. Patient to be seen by oncology for her recently diagnosed bronchogenic carcinoma. Will follow as needed. Time with Patient: Less than 30
[2022-01-10] MEDS: ATORVASTATIN 80 MG TAB PO SCH (20:30)
--- NOTE | 2022-01-11 00:23 | P.PN ---
Subjective Progress Note Date: 01/10/22 Patient was seen for a follow-up. Patient's family members were not present. Patient is doing much better. Her speech has improved. Denies headache. No dizziness. Patient is laying comfortably in the bed. Patient wants to go home. Patient states her vision is well. Feels her right leg is getting better. Objective - Vital Signs Vital signs: Vital Signs Temp 98.2 F 01/10/22 19:15 Pulse 78 01/10/22 19:15 Resp 14 01/10/22 19:15 BP 102/69 01/10/22 19:15 Pulse Ox 97 01/10/22 19:15 FiO2 Intake & Output 01/10/22 01/10/22 01/11/22 06:59 18:59 06:59 Intake Total 240 1400 240 Output Total 650 250 Balance -410 1150 240 Intake: Oral 240 1400 240 Output: Urine 650 250 Other: Voiding Method External Catheter External Catheter External Catheter - Exam Patient is alert and awake. Patient's speech expression has improved. Still with paraphasic errors. Patient able to name some objects like pen, hand, but not the thumb. Could not name eyeglasses or the ear. Patient can repeat very well. Patient has right facial droop, which appears slightly better. Patient's visual juan are full. Patient is flaccid in the right arm which is chronic. Patient has mild weakness in the right leg, hip flexion 4+, ankle dorsiflexion 4+ with significant spasticity. Sensations are equal. - Labs CBC & Chem 7: 01/07/22 06:36 01/07/22 06:36 Assessment and Plan Assessment: * Acute ischemic stroke, manifesting with worsening of expressive aphasia, anom ia, worsening of ambulation status and slightly worsening of right facial droop. 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 * Newly diagnosed lung cancer. * Hypertension * X tobacco use Plan: * Patient is clinically better. * MRI of the brain with and without contrast revealed evolving lacunar infarct in the left middle cerebral artery distribution on the background of old infarct. Background mild diffuse cerebral atrophy and moderate chronic small vessel ischemic changes redemonstrated. No new enhancing masses to suggest new metastatic disease to the brain. On my personal review, there is involvement of the left caudate, part of the putamen, some insular cortex and very slight involvement of the left temporal cortex and left periventricular white matter. It highly appears embolic from left ICA occlusion. * 2-D echo 01/07/2022 revealed normal left-ventricular size and systolic function with EF 55-60%. Mild mitral annular calcification. Another limited study performed today 01/08/2022 showed bubble study negative for [id number] shunt. Cardiology on board. * CTA head and neck report arrived late last night (severe technical problems with Commissioner and PACS), which revealed new nonvisualized flow consistent with complete occlusion of significant portion of the left internal carotid artery, including approximate 8 mm segment of the left M1 segment. Patient not a candidate for thrombectomy, as she is feeling much better. * Patient was taking aspirin 81 mg daily at home. We will add Plavix 75 mg daily. Suggest continue dual antiplatelet medications long-term due to significant vascular disease. * Fasting a.m. lipid panel with cholesterol 127, LDL 58, HDL 54 and triglycerides 69. Continue high intensity statins Lipitor 80 mg daily that she was on at home.. * Hemoglobin A1c 8.9. Optimize control of diabetes to target A1c <7.0 * May improve blood pressure gradually to target <140/80. Avoid hypotension. * Cardiology recommending no indication for VERONIKA. Echo with bubble study negative. Recommending 30 day event monitor after discharge. * DVT prophylaxis: Heparin 5000 units subcu every 8 hours * Oncology following for lung cancer. Appreciate input. * Neurologically clear for transfer to rehab. Dr. Elias Brito will be available for neurologic concerns starting from Tuesday.
--- NOTE | 2022-01-11 01:10 | P.PN ---
Subjective Progress Note Date: 01/09/22 71-year-old woman with medical history of CVA, restless leg syndrome, depression, hyperlipidemia presented for evaluation of aphasia. History is taken from patient's children since patient cannot provide more information. From my understanding, patient was in her usual state of health this morning then around noon, patient started to "speak gibberish". This is not normal for her by any means, and family became concerned that she was having another stroke. Therefore, they brought patient in for further evaluation. Patient's aphasia precludes a competence of review of systems. In the emergency room, patient was afebrile, 133/78, heart rate 64, 98% on room air. CBC is unremarkable. Chemistries show a sodium 133, bicarb of 20, BUN of 24, creatinine of 1.04. LFTs are unremarkable. Troponin was negative. Coags are unremarkable. CT of the head demonstrated remote MCA infarct on the left, no acute pathology. CT angiography of the head and neck demonstrated [employer] of the right ICA. EKG demonstrated normal sinus rhythm. January 07: I assumed care of this patient today. Patient's able to speak some words. Weak in the right arm. Weak in the right leg. Showing some neglect and visual field on the right side. Patient's daughter at the bedside. Computed tomography scan today showed old infarct in the left MCA territory. Consistent with acute clot occlusion noted. Patient was seen by Dr. Chamorro from neurology. Discussed with him. Consultation made to cardiology for VERONIKA. Care was discussed with daughter the bedside. Plavix added. to. Aspirin. January 08: Patient able to speak short sentences. Today she tells me that her weakness in the right arm and right leg is chronic. Seen by speech therapist. No aspiration. golf club manager spoke to the son. Looking into rehab. Per cardiology, 2-D echo with bubble study. They do not plan to do VERONIKA at this time. 01/09/2022 Patient is currently lying in the bed. Awake alert and oriented still having expressive aphasia but improved no complaints of headache or dizziness.. No complaints of chest pain or shortness of breath. Patient had 2D echocardiogram showed ejection fraction was 55 to 60% and negative for PFO. Cardiology recommends no further intervention. Patient is being continued on aspirin and Plavix was added. CTA head and neck showed complete occlusion of significant portion of the left ICA. Current medications reviewed. Objective - Vital Signs Vital signs: Vital Signs Temp 97.9 F 01/09/22 16:00 Pulse 80 01/09/22 16:00 Resp 15 01/09/22 16:00 BP 95/69 01/09/22 16:00 Pulse Ox 95 01/09/22 16:00 FiO2 Intake & Output 01/09/22 01/09/22 01/10/22 06:59 18:59 06:59 Intake Total 360 118 Output Total 200 Balance 360 -82 Intake: Oral 360 118 Output: Urine 200 Other: Voiding Method External Catheter External Catheter # Voids 0 - Exam On examination: GENERAL APPEARANCE: Laying in bed, appears more comfortable HEENT: Normal external appearance of nose and ear. Oral cavity normal EYES: Pupils equal. Conjunctiva normal. NECK: JVD not raised. Mass not palpable. RESPIRATORY: Respiratory effort normal. Lungs clear to auscultation. CARDIOVASCULAR: First and second sounds normal. No edema. ABDOMEN: Soft. Liver and spleen not palpable. No tenderness. No mass palpable. NEUROLOGICAL: Multiple to the left.. Speaking sentences better. Right arm power 0-1/5 Right leg power 3/5. PSYCHIATRYable to answer simple questions - Labs CBC & Chem 7: 01/07/22 06:36 01/07/22 06:36 Assessment and Plan Assessment: INVESTIGATIONS, reviewed in the clinical context:. January 07: Sodium 132, potassium 4.4, LDL 58, TSH 3.6 Brain MRI: Evolving lacunar infarct in the left middle cerebral artery distribution, on background of old infarct. Background of mild diffuse cerebral atrophy and moderate chronic small vessel ischemic changes. 2-D echocardiogram: Normal LV function. EKG: Normal sinus rhythm Labs and imaging as above Assessment/plan: -Acute stroke in the left middle cerebral artery area, possible embolic.: Not improving VERONIKA to rule out thrombus.Policy Checker does not plan to do VERONIKA. Aspirin, Plavix. Lipitor. Follow with neurology. Neuro checks -Acute dysarthria, initially as mumbling. some improvement. Speech Therapy - chronic Right hemiparesis from Previous stroke. At baseline, right arm and right leg weakness with the former being more weak. At baseline patient uses a wheelchair. PTOT -Chronic medical debility, at a baseline patient is a wheelchair -Hyperlipidemia Lipitor -Restless leg syndrome Requip -Depression. Celexa No VERONIKA per cardiology. 2-D echo with bubble study. Continue current medications. Looking at rehab placement. Follow-up with neuro. Time with Patient: Greater than 30
--- NOTE | 2022-01-11 01:17 | P.PN ---
Subjective Progress Note Date: 01/10/22 71-year-old woman with medical history of CVA, restless leg syndrome, depression, hyperlipidemia presented for evaluation of aphasia. History is taken from patient's children since patient cannot provide more information. From my understanding, patient was in her usual state of health this morning then around noon, patient started to "speak gibberish". This is not normal for her by any means, and family became concerned that she was having another stroke. Therefore, they brought patient in for further evaluation. Patient's aphasia precludes a competence of review of systems. In the emergency room, patient was afebrile, 133/78, heart rate 64, 98% on room air. CBC is unremarkable. Chemistries show a sodium 133, bicarb of 20, BUN of 24, creatinine of 1.04. LFTs are unremarkable. Troponin was negative. Coags are unremarkable. CT of the head demonstrated remote MCA infarct on the left, no acute pathology. CT angiography of the head and neck demonstrated [employer] of the right ICA. EKG demonstrated normal sinus rhythm. January 07: I assumed care of this patient today. Patient's able to speak some words. Weak in the right arm. Weak in the right leg. Showing some neglect and visual field on the right side. Patient's daughter at the bedside. Computed tomography scan today showed old infarct in the left MCA territory. Consistent with acute clot occlusion noted. Patient was seen by Dr. Chamorro from neurology. Discussed with him. Consultation made to cardiology for VERONIKA. Care was discussed with daughter the bedside. Plavix added. to. Aspirin. January 08: Patient able to speak short sentences. Today she tells me that her weakness in the right arm and right leg is chronic. Seen by speech therapist. No aspiration. manager of distribution spoke to the son. Looking into rehab. Per cardiology, 2-D echo with bubble study. They do not plan to do VERONIKA at this time. 01/09/2022 Patient is currently lying in the bed. Awake alert and oriented still having expressive aphasia but improved no complaints of headache or dizziness.. No complaints of chest pain or shortness of breath. Patient had 2D echocardiogram showed ejection fraction was 55 to 60% and negative for PFO. Cardiology recommends no further intervention. Patient is being continued on aspirin and Plavix was added. CTA head and neck showed complete occlusion of significant portion of the left ICA. 01/10/2022 Patient is clinically improving. Speech is also much improved. No complaints of chest pain or shortness of breath. No nausea vomiting abdominal pain or diarrhea. Afebrile. No cough or sputum production. PT OT tomorrow and possible rehab transfer. Laboratory test reviewed. Current medications reviewed. Objective - Vital Signs Vital signs: Vital Signs Temp 98.0 F 01/10/22 16:00 Pulse 80 01/10/22 16:00 Resp 14 01/10/22 16:00 BP 112/65 01/10/22 16:00 Pulse Ox 95 01/10/22 16:00 FiO2 Intake & Output 01/10/22 01/10/22 01/11/22 06:59 18:59 06:59 Intake Total 240 1400 Output Total 650 250 Balance -410 1150 Intake: Oral 240 1400 Output: Urine 650 250 Other: Voiding Method External Catheter External Catheter - Exam On examination: GENERAL APPEARANCE: Laying in bed, appears more comfortable HEENT: Normal external appearance of nose and ear. Oral cavity normal EYES: Pupils equal. Conjunctiva normal. NECK: JVD not raised. Mass not palpable. RESPIRATORY: Respiratory effort normal. Lungs clear to auscultation. CARDIOVASCULAR: First and second sounds normal. No edema. ABDOMEN: Soft. Liver and spleen not palpable. No tenderness. No mass palpable. NEUROLOGICAL: Multiple to the left.. Speaking sentences better. Right arm power 0-1/5 Right leg power 3/5. PSYCHIATRYable to answer simple questions - Labs CBC & Chem 7: 01/07/22 06:36 01/07/22 06:36 Assessment and Plan Assessment: INVESTIGATIONS, reviewed in the clinical context:. January 07: Sodium 132, potassium 4.4, LDL 58, TSH 3.6 Brain MRI: Evolving lacunar infarct in the left middle cerebral artery distribution, on background of old infarct. Background of mild diffuse cerebral atrophy and moderate chronic small vessel ischemic changes. 2-D echocardiogram: Normal LV function. EKG: Normal sinus rhythm Labs and imaging as above Assessment/plan: -Acute ischemic stroke in the left middle cerebral artery area.: no PFO Aspirin, Plavix. Lipitor. Follow with neurology. 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 some improvement. Speech Therapy - chronic Right hemiparesis from Previous stroke. At baseline, right arm and right leg weakness with the former being more weak. At baseline patient uses a wheelchair. PTOT -Chronic medical debility, at a baseline patient is a wheelchair -Hyperlipidemia Lipitor -Restless leg syndrome Requip -Depression. Celexa Continue current medications. Looking at rehab placement. Follow-up with neuro. Time with Patient: Greater than 30
[2022-01-11 06:50] LABS: Basophils % (A) 0 %; Eosinophils # (A) 0.2 k/uL (0-0.7); Eosinophils % (A) 3 %; HCT 37.7 % (34.0-46.0); HGB 12.5 gm/dL (11.4-16.0); Lymphocytes # (A) 1.5 k/uL (1.0-4.8); Lymphocytes % (A) 16 %; MCH 32.4 pg (25.0-35.0); MCHC 33.1 g/dL (31.0-37.0); Mean Platelet Volume 6.9; Monocytes # (A) 0.4 k/uL (0-1.0); Monocytes % (A) 5 %; Neutrophils # (A) 6.7 k/uL (1.3-7.7); Neutrophils % (A) 75 %; Platelet Count 215 k/uL (150-450); RBC 3.85 m/uL (3.80-5.40); WBC 8.9 k/uL (3.8-10.6)
[2022-01-11 07:08] LABS: Calcium 8.3 mg/dL (8.4-10.2); Potassium 3.9 mmol/L (3.5-5.1)
[2022-01-11] MEDS: CITALOPRAM HYDROBROMIDE 20 MG TAB PO SCH (09:41)
[2022-01-11] MEDS: CLOPIDOGREL 75 MG TAB PO SCH (09:41)
[2022-01-11] MEDS: ENOXAPARIN 40 MG/0.4 ML SYRINGE SQ SCH (09:41)
[2022-01-11] MEDS: ASPIRIN 81 MG PO SCH (09:41)
[2022-01-11 12:07] VITALS: BMI 31.1
--- NOTE | 2022-01-11 16:10 | P.PN ---
Progress Note - Text Progress Note Date: 01/11/22 Presenting complaint: Difficult speaking Hospital course 71-year-old woman with medical history of CVA, restless leg syndrome, depression, hyperlipidemia presented for evaluation of aphasia. History is taken from patient's children since patient cannot provide more information. From my understanding, patient was in her usual state of health this morning then around noon, patient started to "speak gibberish". This is not normal for her by any means, and family became concerned that she was having another stroke. Therefore, they brought patient in for further evaluation. Patient's aphasia precludes a competence of review of systems. In the emergency room, patient was afebrile, 133/78, heart rate 64, 98% on room air. CBC is unremarkable. Chemistries show a sodium 133, bicarb of 20, BUN of 24, creatinine of 1.04. LFTs are unremarkable. Troponin was negative. Coags are unremarkable. CT of the head demonstrated remote MCA infarct on the left, no acute pathology. CT angiography of the head and neck demonstrated K [employer] of the right ICA. EKG demonstrated normal sinus rhythm. January 07: I assumed care of this patient today. Patient's able to speak some words. Weak in the right arm. Weak in the right leg. Showing some neglect and visual field on the right side. Patient's daughter at the bedside. Computed tomography scan today showed old infarct in the left MCA territory. Consistent with acute clot occlusion noted. Patient was seen by Dr. Chamorro from neurology. Discussed with him. Consultation made to cardiology for VERONIKA. Care was discussed with daughter the bedside. Plavix added. to. Aspirin. January 08: Patient able to speak short sentences. Today she tells me that her weakness in the right arm and right leg is chronic. Seen by speech therapist. No aspiration. security operations manager spoke to the son. Looking into rehab. Per cardiology, 2-D echo with bubble study. They do not plan to do VERONIKA at this time. 01/09/2022 Patient is currently lying in the bed. Awake alert and oriented still having expressive aphasia but improved no complaints of headache or dizziness.. No complaints of chest pain or shortness of breath. Patient had 2D echocardiogram showed ejection fraction was 55 to 60% and negative for PFO. Cardiology recommends no further intervention. Patient is being continued on aspirin and Plavix was added. CTA head and neck showed complete occlusion of significant portion of the left ICA. 01/10/2022 Patient is clinically improving. Speech is also much improved. No complaints of chest pain or shortness of breath. No nausea vomiting abdominal pain or diarrhea. Afebrile. No cough or sputum production. PT OT tomorrow and possible rehab transfer. Laboratory test reviewed. January 11: I assumed care of the patient today. Spoke to the patient. Oral intake fair. Bubble study 2-D echocardiogram unremarkable. Spoke to the showcase maker. Rehab declined by [facility]. Looking at other options. Active Medications Aspirin (Aspirin 81 Mg) 81 mg PO DAILY [facility] Last Admin: 01/11/22 09:41 Dose: 81 mg Atorvastatin Calcium (Atorvastatin 80 Mg Tab) 80 mg PO HS [facility] Last Admin: 01/10/22 20:30 Dose: 80 mg Citalopram Hydrobromide (Citalopram Hydrobromide 20 Mg Tab) 20 mg PO DAILY [facility] Last Admin: 01/11/22 09:41 Dose: 20 mg Clopidogrel Bisulfate (Clopidogrel 75 Mg Tab) 75 mg PO DAILY [facility] Last Admin: 01/11/22 09:41 Dose: 75 mg Enoxaparin Sodium (Enoxaparin 40 Mg/0.4 Ml Syringe) 40 mg SQ DAILY [facility] Last Admin: 01/11/22 09:41 Dose: 40 mg Ropinirole HCl (Ropinirole Hcl 1 Mg Tab) 1 mg PO TID [facility] Last Admin: 01/11/22 09:41 Dose: 1 mg On examination: VITAL SIGNS: 97.8, 76, 16, 100/55, 96% room air GENERAL APPEARANCE: Laying in bed, comfortable HEENT: Normal external appearance of nose and ear. Oral cavity normal EYES: Pupils equal. Conjunctiva normal. NECK: JVD not raised. Mass not palpable. RESPIRATORY: Respiratory effort normal. Lungs clear to auscultation. CARDIOVASCULAR: First and second sounds normal. No edema. ABDOMEN: Soft. Liver and spleen not palpable. No tenderness. No mass palpable. NEUROLOGICAL: Multiple to the left.. Speaking sentences better. Right arm power 0-1/5 Right leg power 3/5. PSYCHIATRYable to answer simple questions INVESTIGATIONS, reviewed in the clinical context:. 2-D echocardiogram with bubble study: Unremarkable January 07: Sodium 132, potassium 4.4, LDL 58, TSH 3.6 Brain MRI: Evolving lacunar infarct in the left middle cerebral artery distribution, on background of old infarct. Background of mild diffuse cerebral atrophy and moderate chronic small vessel ischemic changes. 2-D echocardiogram: Normal LV function. EKG: Normal sinus rhythm Labs and imaging as above Assessment/plan: -Acute stroke in the left middle cerebral artery area, possible embolic.: Not improving VERONIKA to rule out thrombus.Hydrographic Engineer does not plan to do VERONIKA. Aspirin, Plavix. Lipitor. Follow with neurology. Neuro checks -Acute dysarthria, initially as mumbling. some improvement. Speech Therapy - chronic Right hemiparesis from Previous stroke. At baseline, right arm and right leg weakness with the former being more weak. At baseline patient uses a wheelchair. PTOT -Chronic medical debility, at a baseline patient is a wheelchair -Hyperlipidemia Lipitor -Restless leg syndrome Requip -Depression. Celexa Continue current medication treatment plan. [facility] declined rehab. security operations manager looking into other options. Discussed with the patient and showcase maker.
[2022-01-11 19:56] VITALS: RESP 16
[2022-01-11] MEDS: ATORVASTATIN 80 MG TAB PO SCH (21:22)
[2022-01-12] MEDS: CLOPIDOGREL 75 MG TAB PO SCH (09:23)
[2022-01-12] MEDS: CITALOPRAM HYDROBROMIDE 20 MG TAB PO SCH (09:23)
[2022-01-12] MEDS: ASPIRIN 81 MG PO SCH (09:24)
[2022-01-12] MEDS: ENOXAPARIN 40 MG/0.4 ML SYRINGE SQ SCH (09:24)
[2022-01-12 10:42] VITALS: TEMP 98.3
[2022-01-12 12:03] VITALS: BP 86/57; PULSE 83
--- NOTE | 2022-01-12 12:58 | P.DS ---
Providers Date of admission: 01/06/22 18:00 Expected date of discharge: 01/12/22 Attending physician: Nithin Jose Consults: 01/06/22 18:02 Consult Physician Routine Consulting Provider: Lucia Telles Consult Reason/Comments: CVA Do you want consulting provider notified?: Yes 01/08/22 17:56 Consult Physician Routine Consulting Provider: Beulah Spear Consult Reason/Comments: lung cancer Do you want consulting provider notified?: Yes 01/08/22 17:57 Consult Physician Routine Consulting Provider: Boo Frias Consult Reason/Comments: lung ca Do you want consulting provider notified?: Yes Primary care physician: GEMINI Ham Hospital Course: Presenting complaint: Difficult speaking Hospital course 71-year-old woman with medical history of CVA, restless leg syndrome, depression, hyperlipidemia presented for evaluation of aphasia. History is taken from patient's children since patient cannot provide more information. From my understanding, patient was in her usual state of health this morning then around noon, patient started to "speak gibberish". This is not normal for her by any means, and family became concerned that she was having another stroke. Therefore, they brought patient in for further evaluation. Patient's aphasia precludes a competence of review of systems. In the emergency room, patient was afebrile, 133/78, heart rate 64, 98% on room air. CBC is unremarkable. Chemistries show a sodium 133, bicarb of 20, BUN of 24, creatinine of 1.04. LFTs are unremarkable. Troponin was negative. Coags are unremarkable. CT of the head demonstrated remote MCA infarct on the left, no acute pathology. CT angiography of the head and neck demonstrated CALENDER SUPERVISOR of the right ICA. EKG demonstrated normal sinus rhythm. January 07: I assumed care of this patient today. Patient's able to speak some words. Weak in the right arm. Weak in the right leg. Showing some neglect and visual field on the right side. Patient's daughter at the bedside. Computed tomography scan today showed old infarct in the left MCA territory. Consistent with acute clot occlusion noted. Patient was seen by Dr. Chamorro from neurology. Discussed with him. Consultation made to cardiology for VERONIKA. Care was discussed with daughter the bedside. Plavix added. to. Aspirin. January 08: Patient able to speak short sentences. Today she tells me that her weakness in the right arm and right leg is chronic. Seen by speech therapist. No aspiration. real estate operations manager spoke to the son. Looking into rehab. Per cardiology, 2-D echo with bubble study. They do not plan to do VERONIKA at this time. 01/09/2022 Patient is currently lying in the bed. Awake alert and oriented still having expressive aphasia but improved no complaints of headache or dizziness.. No complaints of chest pain or shortness of breath. Patient had 2D echocardiogram showed ejection fraction was 55 to 60% and negative for PFO. Cardiology recommends no further intervention. Patient is being continued on aspirin and Plavix was added. CTA head and neck showed complete occlusion of significant portion of the left ICA. 01/10/2022 Patient is clinically improving. Speech is also much improved. No complaints of chest pain or shortness of breath. No nausea vomiting abdominal pain or diarrhea. Afebrile. No cough or sputum production. PT OT tomorrow and possible rehab transfer. Laboratory test reviewed. January 11: I assumed care of the patient today. Spoke to the patient. Oral intake fair. Bubble study 2-D echocardiogram unremarkable. Spoke to the case picker. Rehab declined by Anthony. Looking at other options. January 12: Spoke to case picker. Patient accepted at [facility]. Patient will not be getting any specific treatment plan for underlying malignancy during rehab. Discussed with patient. Patient to have repeat outpatient PET scan to rule out new meds. Will follow up with oncology. Discussion and discharge planning more than 35 minutes On examination: VITAL SIGNS: 98.3, 84, 16, 96/54, 96% room air GENERAL APPEARANCE: Up in a chair comfortable HEENT: Normal external appearance of nose and ear. Oral cavity normal EYES: Pupils equal. Conjunctiva normal. NECK: JVD not raised. Mass not palpable. RESPIRATORY: Respiratory effort normal. Lungs clear to auscultation. CARDIOVASCULAR: First and second sounds normal. No edema. ABDOMEN: Soft. Liver and spleen not palpable. No tenderness. No mass palpable. NEUROLOGICAL: Multiple to the left.. Speaking sentences better. Right arm power 0-1/5 Right leg power 3/5. Psychiatry: AO 3. Answering questions appropriately INVESTIGATIONS, reviewed in the clinical context:. 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 2-D echocardiogram with bubble study: Unremarkable January 07: Sodium 132, potassium 4.4, LDL 58, TSH 3.6 Brain MRI: Evolving lacunar infarct in the left middle cerebral artery di stribution, on background of old infarct. Background of mild diffuse cerebral atrophy and moderate chronic small vessel ischemic changes. 2-D echocardiogram: Normal LV function. 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 Aspirin, Plavix. Lipitor. Follow with neurology. Neuro checks -Acute dysarthria, initially as mumbling. 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 At baseline, right arm and right leg weakness with the former being more weak. At baseline patient uses a wheelchair. PTOT -Chronic medical debility, at a baseline patient is a wheelchair -Hyperlipidemia Lipitor -Restless leg syndrome Requip -Depression. 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 Here for aphasia due to acute CVA. Work up with MRI brain negative for met's, and CTA with persistent RUL mass and right hilar LAD, outpatient follow-up with oncology. Disposition: [facility] Plan - Discharge Summary Discharge Rx Participant: No New Discharge Prescriptions: New Clopidogrel [Plavix] 75 mg PO DAILY tab Continue rOPINIRole HCL [Requip] 1 mg PO TID Citalopram Hydrobromide [CeleXA] 20 mg PO DAILY Atorvastatin [Lipitor] 80 mg PO HS Aspirin 81 mg PO DAILY Acetaminophen Tab [Tylenol] 650 mg PO Q6HR PRN tab PRN Reason: Mild Pain Or Fever > 100.5 Discharge Medication List rOPINIRole HCL [Requip] 1 mg PO TID 12/19/17 [History] Atorvastatin [Lipitor] 80 mg PO HS 08/07/21 [History] Citalopram Hydrobromide [CeleXA] 20 mg PO DAILY 08/07/21 [History] Acetaminophen Tab [Tylenol] 650 mg PO Q6HR PRN tab 08/11/21 [Rx] Aspirin 81 mg PO DAILY 08/11/21 [Rx] Clopidogrel [Plavix] 75 mg PO DAILY tab 01/11/22 [Rx] Follow up Appointment(s)/Referral(s): Boo Frias MD [STAFF PHYSICIAN] - 2 Weeks Gliberto Zamorano NPC [Primary Care Provider] - 1-2 days
--- NOTE | 2022-01-12 18:38 | P.PN ---
Subjective Progress Note Date: 01/12/22 Principal diagnosis: CVA, squamous cell lung cancer diagnosed at least 4 months ago. In follow-up today patient is being discharged to rehabilitation. She plans on going home after rehabilitation. Denies acute physical complaints or pain at this time Objective - Vital Signs Vital signs: Vital Signs Temp 98.3 F 01/12/22 08:00 Pulse 83 01/12/22 12:02 Resp 16 01/12/22 08:00 BP 86/57 01/12/22 12:02 Pulse Ox 96 01/12/22 12:02 FiO2 Intake & Output 01/11/22 01/12/22 01/12/22 18:59 06:59 18:59 Intake Total 556 200 360 Output Total 600 725 Balance -44 -525 360 Weight 77.111 kg Intake: Oral 556 200 360 Output: Urine 600 725 Other: Voiding Method External Catheter External Catheter External Catheter - Constitutional General appearance: Present: average body habitus, cooperative, no acute distress - EENT Eyes: Present: anicteric sclerae, EOMI ENT: Present: hearing grossly normal - Respiratory Details: respirations even and unlabored at rest - Cardiovascular Details: skin warm and dry to the touch, no visible swelling in the lower extremities - Neurologic Neurologic: Present: CNII-XII intact (grossly) - Musculoskeletal Musculoskeletal: Present: generalized weakness - Psychiatric Psychiatric: Present: A&O x's 3, appropriate affect, intact judgment & insight - Labs CBC & Chem 7: 01/11/22 06:31 01/11/22 06:31 Assessment and Plan (1) Squamous cell lung cancer Status: Acute Priority: High Code(s): C34.90 - MALIGNANT NEOPLASM OF UNSP PART OF UNSP BRONCHUS OR LUNG SNOMED Code(s): 609109453 (2) Cerebrovascular accident (CVA) Status: Acute Priority: High Code(s): I63.9 - CEREBRAL INFARCTION, UNSPECIFIED SNOMED Code(s): 763880230 Plan: patient has been seen by Neurology for CVA. She is on treatment for the same. New diagnosis of squamous cell lung cancer. Patient staging PET scan was over 4 months ago, and she has not had any treatment. Plan is to restage and then meet for discussion about treatment options after patient has been discharged from rehabilitation. Patient verbalizes understanding the plan. We will await discharge from rehabilitation to schedule imaging and follow-up.
== END 2022-01-12 15:33 | disposition home health service (06) | DRG 65 ==
LOC: EC 13:27 → 3SCARD 18:00
PROVIDERS: ADMIT Hospitalist; ATTEND Hospitalist
DX: I63.412 Cerebral infarction due to embolism of left middle cerebral artery (principal); C34.11 Malignant neoplasm of upper lobe, right bronchus or lung; E87.1 Hypo-osmolality and hyponatremia; I69.251 Hemiplegia and hemiparesis following other nontraumatic intracranial hemorrhage affecting right dominant side; R41.4 Neurologic neglect syndrome; R48.8 Other symbolic dysfunctions; I69.320 Aphasia following cerebral infarction; E78.5 Hyperlipidemia, unspecified; R29.710 NIHSS score 10; J44.9 Chronic obstructive pulmonary disease, unspecified; I65.21 Occlusion and stenosis of right carotid artery; R53.81 Other malaise; H53.9 Unspecified visual disturbance; R29.810 Facial weakness; F03.90 Unspecified dementia, unspecified severity, without behavioral disturbance, psychotic disturbance, mood disturbance, and anxiety; G25.81 Restless legs syndrome; F32.A Depression, unspecified; F41.9 Anxiety disorder, unspecified; I10 Essential (primary) hypertension; Z96.1 Presence of intraocular lens; Z87.891 Personal history of nicotine dependence; Z79.82 Long term (current) use of aspirin; Z79.899 Other long term (current) drug therapy
CPT/HCPCS: 36415; 70450; 70496; 70498; 70553; 71046; 80048; 80053; 80061; 83036; 83735; 84443; 84484; 85025; 85610; 85730; 93005; 93308; 99291

== ENCOUNTER 2022-03-13 03:51 | Inpatient (IN) | payer MEDICARE, OTHER ==
--- NOTE | 2022-03-13 04:43 | ED ---
SOB HPI - General Source: patient, EMS Mode of arrival: EMS Limitations: no limitations - History of Present Illness MD Complaint: shortness of breath <Thomas Erivn - Last Filed: 03/13/22 04:41> <Ashwin Amado - Last Filed: 03/13/22 09:56> - General Chief Complaint: Shortness of Breath Stated Complaint: Difficulty Breathing Time Seen by Provider: 03/13/22 04:23 - History of Present Illness Initial Comments: This patient is a 71 year old woman who arrives here as a transfer from the [facility]. Patient is reported to have some underlying dementia. She had a positive [place] would test about a week ago. She is sent here to have evaluation of dyspnea. When I interview the patient, she states she is feeling well. She denies chest pain. She denies pain anywhere else. She denies dyspnea. She states she does not know why she is here. (Thomas Ervin) - Related Data Home Medications Medication Instructions Recorded Confirmed rOPINIRole HCL [Requip] 1 mg PO TID 12/19/17 01/06/22 Atorvastatin [Lipitor] 80 mg PO HS 08/07/21 01/06/22 Citalopram Hydrobromide [CeleXA] 20 mg PO DAILY 08/07/21 01/06/22 Previous Rx's Medication Instructions Recorded Acetaminophen Tab [Tylenol] 650 mg PO Q6HR PRN tab 08/11/21 Aspirin 81 mg PO DAILY 08/11/21 Clopidogrel [Plavix] 75 mg PO DAILY tab 01/11/22 Allergies Allergy/AdvReac Type Severity Reaction Status Date / Time No Known Allergies Allergy Verified 01/06/22 15:33 Review of Systems ROS Other: All systems not noted in ROS Statement are negative. Limitations: ROS unobtainable due to patients medical condition (Underlying dementia) Respiratory: Denies: dyspnea Cardiovascular: Denies: chest pain Gastrointestinal: Denies: abdominal pain, vomiting Musculoskeletal: Denies: back pain Neurological: Denies: headache <Thomas Ervin - Last Filed: 03/13/22 04:41> ROS Other: All systems not noted in ROS Statement are negative. <Ashwin Amado - Last Filed: 03/13/22 09:56> ROS Statement: Those systems with pertinent positive or pertinent negative responses have been documented in the HPI. Past Medical History Past Medical History: COPD, CVA/TIA, Dementia, Hyperlipidemia Additional Past Medical History / Comment(s): Cholecystectomy with complication and [facility] CVA with R arm paralysis/aphasia/dysarthria, renal failure d/t motrin, RLS, diverticular disease, benign colon polyps. History of Any Multi-Drug Resistant Organisms: None Reported Past Surgical History: Cholecystectomy Additional Past Surgical History / Comment(s): EGD/biliary stent since removed, ERCP, colonoscopies, benign cyst removed from neck, bilateral cataract removals/lens implants. Past Anesthesia/Blood Transfusion Reactions: No Reported Reaction Past Psychological History: Anxiety, Depression Additional Psychological History / Comment(s): Pt resides with her son who is very helpful. She transfers into a wheelchair. She states her [facility] manages her medications [facility] She states she can feed herself, wash self up and dress self. She has a bsc. Smoking Status: Former smoker Past Alcohol Use History: None Reported Additional Past Alcohol Use History / Comment(s): Pt started smoking in 1975 and quit in 2019 Past Drug Use History: None Reported - Past Family History Father Family Medical History: Diabetes Mellitus, Myocardial Infarction ([place]) Additional Family Medical History / Comment(s): KIDNEY FAILURE,EMPHYSEMA Mother Family Medical History: Cancer Additional Family Medical History / Comment(s): bladder/kidney Sister(s) Family Medical History: Diabetes Mellitus Son(s) Family Medical History: Deep Vein Thrombosis (DVT) <Thomas Ervin - Last Filed: 03/13/22 04:41> General Exam Limitations: no limitations General appearance: alert, in no apparent distress Head exam: Present: atraumatic, normocephalic Eye exam: Present: normal appearance Neck exam: Present: normal inspection Respiratory exam: Present: rhonchi. Absent: respiratory distress, wheezes, rales, stridor, accessory muscle use, decreased breath sounds Cardiovascular Exam: Present: regular rate, normal rhythm, normal heart sounds. Absent: systolic murmur, diastolic murmur, rubs, gallop GI/Abdominal exam: Present: soft. Absent: distended, tenderness, guarding, rebound, rigid, mass Extremities exam: Present: normal inspection, normal capillary refill. Absent: pedal edema, calf tenderness Back exam: Present: normal inspection. Absent: CVA tenderness (R), CVA tenderness (L) Neurological exam: Present: alert Skin exam: Present: warm, dry, intact, normal color. Absent: rash <Thomas Ervin - Last Filed: 03/13/22 04:41> Course Vital Signs 03/13/22 03/13/22 03/13/22 03:59 05:04 06:21 Temperature 98.7 F Pulse Rate 112 H 102 H Respiratory 20 20 18 Rate Blood Pressure 112/65 O2 Sat by Pulse 99 94 L Oximetry 03/13/22 07:03 Temperature Pulse Rate Respiratory Rate Blood Pressure 105/70 O2 Sat by Pulse Oximetry Medical Decision Making - Lab Data Result diagrams: 03/13/22 04:15 03/13/22 07:00 - Radiology Data Radiology results: report reviewed (Computed tomography scan shows right lower lobe first branch pulmonary embolism. Right hilar mass.), image reviewed (Chest x-ray read by myself shows right hilar/lower mass similar to previous.) <Ashwin Amado - Last Filed: 03/13/22 09:56> - Medical Decision Making Patient reevaluated by myself, Dr. Amado. Patient was comfortably in bed. Patient updated on results and plan. Case was discussed with Dr. Patterson, who will admit covering Dr. Maddox. (Ashwin Amado) - Lab Data Lab Results 03/13/22 03/13/22 03/13/22 Range/Units 04:15 04:15 04:15 WBC 12.2 H (3.8-10.6) k/uL RBC 4.08 (3.80-5.40) m/uL Hgb 13.5 (11.4-16.0) gm/dL Hct 38.7 (34.0-46.0) % MCV 94.8 (80.0-100.0) fL MCH 33.1 (25.0-35.0) pg MCHC 34.9 (31.0-37.0) g/dL RDW 13.2 (11.5-15.5) % Plt Count 176 (150-450) k/uL MPV 8.4 Neutrophils % 70 % Lymphocytes % 21 % Monocytes % 5 % Eosinophils % 2 % Basophils % 0 % Neutrophils # 8.5 H (1.3-7.7) k/uL Lymphocytes # 2.6 (1.0-4.8) k/uL Monocytes # 0.6 (0-1.0) k/uL Eosinophils # 0.2 (0-0.7) k/uL Basophils # 0.0 (0-0.2) k/uL PT 9.9 (9.0-12.0) sec INR 0.9 (<1.2) APTT 22.4 (22.0-30.0) sec D-Dimer 6.10 H (<0.60) mg/L FEU Sodium (137-145) mmol/L Potassium (3.5-5.1) mmol/L Chloride (98-107) mmol/L Carbon Dioxide (22-30) mmol/L Anion Gap mmol/L BUN (7-17) mg/dL Creatinine (0.52-1.04) mg/dL Est GFR (CKD-EPI)AfAm (>60 ml/min/1.73 sqM) Est GFR (CKD-EPI)NonAf (>60 ml/min/1.73 sqM) Glucose (74-99) mg/dL Plasma Lactic Acid Nico (0.7-2.0) mmol/L Calcium (8.4-10.2) mg/dL Total Bilirubin (0.2-1.3) mg/dL AST (14-36) U/L ALT (4-34) U/L Alkaline Phosphatase (38-126) U/L Troponin I <0.012 (0.000-0.034) ng/mL NT-Pro-B Natriuret Pep pg/mL Total Protein (6.3-8.2) g/dL Albumin (3.5-5.0) g/dL 03/13/22 03/13/22 03/13/22 Range/Units 04:15 07:00 07:00 WBC (3.8-10.6) k/uL RBC (3.80-5.40) m/uL Hgb (11.4-16.0) gm/dL Hct (34.0-46.0) % MCV (80.0-100.0) fL MCH (25.0-35.0) pg MCHC (31.0-37.0) g/dL RDW (11.5-15.5) % Plt Count (150-450) k/uL MPV Neutrophils % % Lymphocytes % % Monocytes % % Eosinophils % % Basophils % % Neutrophils # (1.3-7.7) k/uL Lymphocytes # (1.0-4.8) k/uL Monocytes # (0-1.0) k/uL Eosinophils # (0-0.7) k/uL Basophils # (0-0.2) k/uL PT (9.0-12.0) sec INR (<1.2) APTT (22.0-30.0) sec D-Dimer (<0.60) mg/L FEU Sodium 137 (137-145) mmol/L Potassium 4.6 (3.5-5.1) mmol/L Chloride 106 (98-107) mmol/L Carbon Dioxide 25 (22-30) mmol/L Anion Gap 6 mmol/L BUN 30 H (7-17) mg/dL Creatinine 0.88 (0.52-1.04) mg/dL Est GFR (CKD-EPI)AfAm 77 (>60 ml/min/1.73 sqM) Est GFR (CKD-EPI)NonAf 67 (>60 ml/min/1.73 sqM) Glucose 115 H (74-99) mg/dL Plasma Lactic Acid Nico 2.0 (0.7-2.0) mmol/L Calcium 8.7 (8.4-10.2) mg/dL Total Bilirubin 0.5 (0.2-1.3) mg/dL AST 33 (14-36) U/L ALT 20 (4-34) U/L Alkaline Phosphatase 97 (38-126) U/L Troponin I (0.000-0.034) ng/mL NT-Pro-B Natriuret Pep 207 pg/mL Total Protein 6.9 (6.3-8.2) g/dL Albumin 3.4 L (3.5-5.0) g/dL Disposition <Thomas Ervin - Last Filed: 03/13/22 04:41> Is patient prescribed a controlled substance at d/c from ED?: No Time of Disposition: 09:56 <Ashwin Amado - Last Filed: 03/13/22 09:56> Clinical Impression: Pulmonary embolism, Lung mass, COVID-19 Disposition: ADMITTED IP TO THIS HOSP Referrals: Jd Maddox MD [Primary Care Provider] - 1-2 days
--- NOTE | 2022-03-13 05:16 | XR ---
EXAMINATION TYPE: XR chest 2V DATE OF EXAM: 03/13/2022 COMPARISON: 01/06/2022 HISTORY: Difficulty breathing TECHNIQUE: 2 view FINDINGS: There is 7 cm masslike area of consolidation in the right posterior lung field in the super ior segment right lower lobe. There is some coarsening of interstitial markings. No heart failure. He art size is normal. There is some airspace infiltrate and consolidation left lateral lung base. No h eart failure. IMPRESSION: Masslike infiltrate in the right lower lobe without change. There is a new infiltrate in the left lower lobe at the lung base compared to old exam.
[2022-03-13 05:18] LABS: Basophils % (A) 0 %; Eosinophils # (A) 0.2 k/uL (0-0.7); Eosinophils % (A) 2 %; HCT 38.7 % (34.0-46.0); HGB 13.5 gm/dL (11.4-16.0); Lymphocytes # (A) 2.6 k/uL (1.0-4.8); Lymphocytes % (A) 21 %; MCH 33.1 pg (25.0-35.0); MCHC 34.9 g/dL (31.0-37.0); MCV 94.8 fL (80.0-100.0); Mean Platelet Volume 8.4; Monocytes # (A) 0.6 k/uL (0-1.0); Monocytes % (A) 5 %; Neutrophils # (A) 8.5 k/uL (1.3-7.7); Neutrophils % (A) 70 %; Platelet Count 176 k/uL (150-450); RBC 4.08 m/uL (3.80-5.40); RDW 13.2 % (11.5-15.5); WBC 12.2 k/uL (3.8-10.6)
[2022-03-13 06:16] LABS: INR 0.9 (<1.2); Partial Thromboplastin Time 22.4 sec (22.0-30.0); Prothrombin Time 9.9 sec (9.0-12.0)
[2022-03-13 07:27] LABS: Albumin 3.4 g/dL (3.5-5.0); Calcium 8.7 mg/dL (8.4-10.2); Total Bilirubin 0.5 mg/dL (0.2-1.3); Total Protein 6.9 g/dL (6.3-8.2)
[2022-03-13 07:34] LABS: Potassium 4.6 mmol/L (3.5-5.1)
--- NOTE | 2022-03-13 09:12 | CT ---
EXAMINATION TYPE: CT chest angio for PE DATE OF EXAM: 03/13/2022 COMPARISON: 08/07/2021 HISTORY: SOB. covid + x1 week ago CT DLP: 515.4 mGycm CONTRAST: CT chest with contrast and 3D reconstruction with MIP imaging is performed with IV Contrast, patient injected with 74 mL of Isovue 370. Contrast-enhanced CT of the chest was performed through the course of the pulmonary arteries with walter g and mediastinal window settings submitted. 3D reconstruction with MIP imaging was also performed. PULMONARY ARTERIES: Right hilar mass and right hilar adenopathy as well as streak artifact from dense opacification of the inferior vena cava therefore evaluation of the right main pulmonary artery is l imited. There is a filling defect within a first order right lower lobe pulmonary arterial branch com patible pulmonary embolism seen on image 74 of 160. LUNGS: Progressive right hilar mass which is difficult to measure given post obstructive volume loss. There area of abnormal density measures 7.7 x 5.0 x 5.3 cm. A couple of satellite nodules are demons trated. Interstitial prominence is seen within the upper lobes may reflect a degree of subpleural fib rosis or interstitial spread of neoplasm. [id number]-[id number] emphysematous changes demonstrated. MEDIASTINUM: Thoracic aorta is of normal caliber,however, evaluation is limited given timing of the contrast bolus. If there is concern for thoracic aortic pathology consider VERONIKA. Correlate clinicall y . The heart is not enlarged. No evidence for mediastinal mass. No mediastinal lymph nodes greater than 1cm. HILAR STRUCTURES: No evidence for mass. No hilar lymph nodes greater than 1 cm. UPPER ABDOMEN: No significant abnormality is seen. IMPRESSION: 1. Portions of the study are limited as discussed above however there is a filling defect within a f irst order right lower lobe pulmonary arterial branches compatible PE. 2. Enlarging right hilar/right upper lobe pulmonary mass with postobstructive volume loss, scattered satellite nodules as well as interstitial prominence. The findings are highly suspicious for neoplasm . Correlate with PET/CT.
[2022-03-13] MEDS ORDERED: NALOXONE 0.4 MG/ML 1 ML VIAL IV PRN (09:57)
[2022-03-13] MEDS ORDERED: HEPARIN SODIUM 1,000 UN/ML (10ML VL) IV ONE (09:58)
[2022-03-13] MEDS ORDERED: HEPARIN SODIUM 1,000 UN/ML (10ML VL) IV PRN (09:58)
[2022-03-13] MEDS: HEPARIN SOD,PORK IN 0.45% NACL 25,000 UNIT in 0.45% NACL 1 250ML.BAG IV SCH (10:17)
[2022-03-13 11:33] LABS: Glucose,Whole Blood 109 mg/dL (70-110)
--- NOTE | 2022-03-13 12:41 | P.CNPUL ---
History of Present Illness Consult date: 03/13/22 Requesting physician: Leonidas Patterson Reason for consult: abnormal CXR/CT Chief complaint: Shortness of breath History of present illness: This is a pleasant 71-year-old female patient with a known history of hyperlipidemia, COPD, former smoker, anxiety/depression, dementia, previous CVA with right arm paralysis, aphasia, her. She had also been diagnosed withlung cancer/squamous cell carcinoma on 12/31/2021. Since that time she had been admitted for [place] [facility] [place] She was brought here to the emergency room early this morning with shortness of breath according to the staff.She was diagnosed with COVID-19 1 week ago. Chest x-ray continues to show masslike infiltrate in the right lower lobe. New infiltrate in the left lower lobe compared to previous 01/06/2022. CT angiogram reveals a limited study however there is a filling defect within the right lower lobe pulmonary artery compatible with PE. There is enlarging right hilar/right upper lobe pulmonary mass with postobstructive volume loss, scattered satellite nodules as well as interstitial prominence. It is unclear if she is been started on any treatments for her lung cancer. She is not a surgical candidate. The patient is seen today in consultation in the emergency department. She is sitting up on the stretcher. Awake and alert in no acute distress. She is a poor historian. Unable to confirm any answers to our questions. She does deny any shortness of breath. She is unclear as to why she is here. She has been initiated on a heparin drip. Review of Systems ROS unobtainable: due to mental status Past Medical History Past Medical History: COPD, CVA/TIA, Dementia, Hyperlipidemia Additional Past Medical History / Comment(s): Cholecystectomy with complication and was transferred to [facility]/community health, CVA with R arm paralysis/aphasia/dysarthria, renal failure d/t motrin, RLS, diverticular disease, benign colon polyps. History of Any Multi-Drug Resistant Organisms: None Reported Past Surgical History: Cholecystectomy Additional Past Surgical History / Comment(s): EGD/biliary stent since removed, ERCP, colonoscopies, benign cyst removed from neck, bilateral cataract removals/lens implants. Past Anesthesia/Blood Transfusion Reactions: No Reported Reaction Past Psychological History: Anxiety, Depression Additional Psychological History / Comment(s): Pt resides with her son who is very helpful. She transfers into a wheelchair. She states her son manages her medications and drives her to [employer]. She states she can feed herself, wash self up and dress self. She has a bsc. Smoking Status: Former smoker Past Alcohol Use History: None Reported Additional Past Alcohol Use History / Comment(s): Pt started smoking in 1975 and quit in 2019 Past Drug Use History: None Reported - Past Family History Father Family Medical History: Diabetes Mellitus, Myocardial Infarction ([place]) Additional Family Medical History / Comment(s): KIDNEY FAILURE,EMPHYSEMA Mother Family Medical History: Cancer Additional Family Medical History / Comment(s): bladder/kidney Sister(s) Family Medical History: Diabetes Mellitus Son(s) Family Medical History: Deep Vein Thrombosis (DVT) Medications and Allergies Home Medications Medication Instructions Recorded Confirmed Type rOPINIRole HCL [Requip] 1 mg PO TID 12/19/17 01/06/22 History Atorvastatin [Lipitor] 80 mg PO HS 08/07/21 01/06/22 History Citalopram Hydrobromide [CeleXA] 20 mg PO DAILY 08/07/21 01/06/22 History Acetaminophen Tab [Tylenol] 650 mg PO Q6HR PRN tab 08/11/21 01/06/22 Rx Aspirin 81 mg PO DAILY 08/11/21 01/06/22 Rx Clopidogrel [Plavix] 75 mg PO DAILY tab 01/11/22 Rx Allergies Allergy/AdvReac Type Severity Reaction Status Date / Time No Known Allergies Allergy Verified 01/06/22 15:33 Physical Exam Vitals: Vital Signs Temp Pulse Resp BP Pulse Ox 03/13/22 11:13 82 18 105/63 95 03/13/22 09:58 85 18 99/64 97 03/13/22 07:03 105/70 03/13/22 06:21 102 H 18 94 L 03/13/22 05:04 20 03/13/22 03:59 98.7 F 112 H 20 112/65 99 Intake and Output 03/12/22 03/13/22 03/13/22 22:59 06:59 14:59 Other: Weight 83.915 kg GENERAL EXAM: Alert, pleasant, poor historian, 71-year-old female, on 4 L nasal cannula, comfortable in no apparent distress. HEAD: Normocephalic. EYES: Normal reaction of pupils, equal size. NOSE: Clear with pink turbinates. THROAT: No erythema or exudates. NECK: No masses, no JVD. CHEST: No chest wall deformity. LUNGS: Equal air entry with bilateral scattered rhonchi more so on the right lung. CVS: S1 and S2 normal with no audible murmur, regular rhythm. ABDOMEN: No hepatosplenomegaly, normal bowel sounds, no guarding or rigidity. SPINE: No scoliosis or deformity SKIN: No rashes CENTRAL NERVOUS SYSTEM: Expressive aphasia, residual right-sided weakness, tone is normal in all 4 extremities. EXTREMITIES: There is no peripheral edema. No clubbing, no cyanosis. Peripheral pulses are intact. Results - Laboratory Findings CBC and BMP: 03/13/22 04:15 03/13/22 07:00 PT/INR, D-dimer PT 9.9 sec (9.0-12.0) 03/13/22 04:15 INR 0.9 (<1.2) 03/13/22 04:15 D-Dimer 6.10 mg/L FEU (<0.60) H 03/13/22 04:15 Abnormal lab findings: Abnormal Labs 03/13/22 03/13/22 03/13/22 04:15 04:15 07:00 WBC 12.2 H Neutrophils # 8.5 H D-Dimer 6.10 H BUN 30 H Glucose 115 H Albumin 3.4 L Coronavirus (PCR) 03/13/22 10:23 WBC Neutrophils # D-Dimer BUN Glucose Albumin Coronavirus (PCR) Detected A - Diagnostic Findings Chest x-ray: image reviewed CT scan - chest: image reviewed Assessment and Plan Assessment: Acute hypoxemic respiratory failure secondary to right lower lobe pulmonary embolism. 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 Currently on Plavix and aspirin Chronic right-sided hemiparesis from previous stroke Expressive aphasia secondary to above Squamous cell lung cancer, recently diagnosed in December 2021 however the patient is not a surgical candidate Dyslipidemia Chronic medical debility History of restless leg syndrome History of depression, on Celexa Currently resides in an ECF Plan: The patient was seen and evaluated CT scan, chest x-ray, labs and medications reviewed Titrate the FiO2 as tolerated Continue heparin drip Consult oncology for further recommendations She is not a surgical candidate May need to consider hospice due to her multiple comorbidities We will continue to follow and make further recommendations based on her clinical status I have personally seen and examined the patient, performed the documentation and the assessment and plan as written. Number of minutes spent on the visit: 20.
[2022-03-13] MEDS ORDERED: ACETAMINOPHEN TAB 325 MG TAB PO PRN (14:10)
--- NOTE | 2022-03-13 16:50 | P.CONS ---
History of Present Illness - Reason for Consult Consult date: 03/13/22 History of squamous cell carcinoma of the right upper lobe - Chief Complaint Increased shortness of breath - History of Present Illness Ms. Saleem is a 71-year-old woman with a past medical history significant for CVA 2 (most recently in December 2021), COPD, and known squamous cell carcinoma of the right upper lobe who presented with increased shortness of breath. She is noted to be diagnosed with COVID-19 approximately 1 week ago. She had tachycardia on presentation with heart rate of 112. She was also documented is being hypoxic requiring 4 L of supplemental oxygen. CT PE was sign ificant for pulmonary embolism in the artery of the right lower lobe. She is also noted to have a progressive right hilar mass measuring 7.7 x 5 x 5.3 cm along with satellite nodules. She was started on heparin drip and admitted to internal medicine for additional management and monitoring. Currently, Ms. Saleem is feeling well. She is on 2 L nasal cannula of supplemental oxygen. She notes feeling less short of breath. She was seen by Dr. Frias in clinic on 02/19/2022, who noted an ECOG performance status of 4. It was his recommendation at the time that if Ms. Saleem and her family were interested in pursuing any treatment, it would likely have to be along the lines of immunotherapy as she would not tolerate systemic IV chemotherapy. It was noted that the family would discuss whether they would want to pursue additional workup with a repeat PET scan, which was recommended if further treatment was pursued. When this was discussed with Ms. Saleem, she does not appear to full y remember the extent of this conversation in clinic. She cannot recall if she's had additional discussions at home following this visit. Review of Systems 14 point review of systems conducted with pertinent positives and negatives as noted per HPI Past Medical History Past Medical History: COPD, CVA/TIA, Dementia, Hyperlipidemia Additional Past Medical History / Comment(s): Cholecystectomy with complication and was transferred to [facility], CVA with R arm paralysis/aphasia/dysarthria, renal failure d/t motrin, RLS, diverticular disease, benign colon polyps. History of Any Multi-Drug Resistant Organisms: None Reported Past Surgical History: Cholecystectomy Additional Past Surgical History / Comment(s): EGD/biliary stent since removed, ERCP, colonoscopies, benign cyst removed from neck, bilateral cataract removals/lens implants. Past Anesthesia/Blood Transfusion Reactions: No Reported Reaction Past Psychological History: Anxiety, Depression Additional Psychological History / Comment(s): Pt resides with her son who is very helpful. She transfers into a wheelchair. She states her son manages her medications and drives her to appts. She states she can feed herself, wash self up and dress self. She has a bsc. Smoking Status: Former smoker Past Alcohol Use History: None Reported Additional Past Alcohol Use History / Comment(s): Pt started smoking in 1975 and quit in 2019 Past Drug Use History: None Reported - Past Family History Father Family Medical History: Diabetes Mellitus, Myocardial Infarction ([place]) Additional Family Medical History / Comment(s): KIDNEY FAILURE,EMPHYSEMA Mother Family Medical History: Cancer Additional Family Medical History / Comment(s): bladder/kidney Sister(s) Family Medical History: Diabetes Mellitus Son(s) Family Medical History: Deep Vein Thrombosis (DVT) Medications and Allergies Home Medications Medication Instructions Recorded Confirmed Type rOPINIRole HCL [Requip] 1 mg PO TID@0900,1400,2200 12/19/17 03/13/22 History Atorvastatin [Lipitor] 80 mg PO HS@2100 08/07/21 03/13/22 History Citalopram Hydrobromide [CeleXA] 20 mg PO DAILY@0900 08/07/21 03/13/22 History Acetaminophen Tab [Tylenol] 650 mg PO Q6HR PRN tab 08/11/21 03/13/22 Rx Ascorbic Acid [Vitamin C] 500 mg PO DAILY@0900 03/13/22 03/13/22 History Aspirin 81 mg PO DAILY@0900 03/13/22 03/13/22 History Clopidogrel [Plavix] 75 mg PO DAILY@0900 03/13/22 03/13/22 History Clotrimazole/Betameth Cream 1 applic TOPICAL Q12H 03/13/22 03/13/22 History [Lotrisone] Lactose-Reduced Food [Ensure Plus] 237 ml PO TID-W/MEALS 03/13/22 03/13/22 History Vitamin D Tablet (Unknown Strength) 1 dose PO DAILY@0900 03/13/22 03/13/22 History Zinc (Unknown Strength) 1 dose PO DAILY@0900 03/13/22 03/13/22 History Allergies Allergy/AdvReac Type Severity Reaction Status Date / Time No Known Allergies Allergy Verified 03/13/22 13:31 Physical Exam Vitals: Vital Signs Temp Pulse Pulse Resp BP BP Pulse Ox 03/13/22 11:30 98.2 F 78 20 117/61 98 03/13/22 11:13 82 18 105/63 95 03/13/22 09:58 85 18 99/64 97 03/13/22 07:03 105/70 03/13/22 06:21 102 H 18 94 L 03/13/22 05:04 20 03/13/22 03:59 98.7 F 112 H 20 112/65 99 Intake and Output 03/13/22 03/13/22 03/13/22 06:59 14:59 22:59 Intake Total 120 Balance 120 Intake: Oral 120 Other: Weight 83.915 kg 83.915 kg Appears fatigued, lying in bed. She is unable to move her right arm - Constitutional General appearance: cooperative, no acute distress - EENT Eyes: EOMI - Respiratory Respiratory: bilateral: wheezing - Cardiovascular Rhythm: regular - Gastrointestinal General gastrointestinal: normal bowel sounds, soft, no tenderness - Integumentary Integumentary: no rash - Neurologic Neurologic: CNII-XII intact - Psychiatric She is not able to recall the year or the current president. Psychiatric: appropriate affect Results CBC & Chem 7: 03/13/22 04:15 03/13/22 07:00 Labs: Abnormal Lab Results - Last 24 Hours (Table) 03/13/22 03/13/22 03/13/22 Range/Units 04:15 04:15 07:00 WBC 12.2 H (3.8-10.6) k/uL Neutrophils # 8.5 H (1.3-7.7) k/uL D-Dimer 6.10 H (<0.60) mg/L FEU BUN 30 H (7-17) mg/dL Glucose 115 H (74-99) mg/dL Albumin 3.4 L (3.5-5.0) g/dL Coronavirus (PCR) (Not Detectd) 03/13/22 Range/Units 10:23 WBC (3.8-10.6) k/uL Neutrophils # (1.3-7.7) k/uL D-Dimer (<0.60) mg/L FEU BUN (7-17) mg/dL Glucose (74-99) mg/dL Albumin (3.5-5.0) g/dL Coronavirus (PCR) Detected A (Not Detectd) Assessment and Plan Assessment: Ms. Saleem is a 71-year-old woman with a past medical history significant for CVA 2 (most recently in December 2021), COPD, and known squamous cell carcinoma of the right upper lobe admitted for increased dyspnea and found to have pulmonary embolism in the arteries of the right lower lobe. 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, which increases her risk of the VTE -Agree with heparin drip -She can be transitioned to a DOAC such as Eliquis prior to discharge #Squamous cell carcinoma of the right lung -Was originally noted to have right lung mass in July 2021 -PET/CT in August 2021 noted locally advanced disease/unresectable at that time, which would've been at least stage III -She ultimately underwent bronchoscopy with biopsy of the right lung mass in December 2021, confirming histological squamous cell carcinoma -Due to declining performance status from her other medical comorbidities i ncluding recent stroke in December 2021, she's not had additional workup performed -She was last seen by Dr. Frias 02/19/2022, with the family discussing whether they wanted to pursue additional workup and potential treatment -Ms. Saleem was not able to recall whether this was discussed at home or not prior to her presentation currently -I will contact her next of kin Miguel Saleem as listed in the chart within the next 24 hours -She does appear to have a poor performance status as documented in the last clinic note. I do believe that hospice/palliative care would be appropriate
[2022-03-13] MEDS ORDERED: NON FORMULARY DRUG (Lactose-Reduced Food [Ensure Plus] 237 ML Ml) PO SCH (17:30)
[2022-03-13] MEDS: ATORVASTATIN 80 MG TAB PO SCH (20:34)
[2022-03-13] MEDS: FAMOTIDINE 20 MG TAB PO SCH (20:34)
[2022-03-13] MEDS ORDERED: VANCOMYCIN IV PER PHARMACY 1 EACH MISC MISCELLANE PRN (23:28)
--- NOTE | 2022-03-13 23:57 | P.HPIM ---
History of Present Illness H&P Date: 03/13/22 Chief Complaint: shortness of breath Patient is a 71-year-old female with a known history of CVA/TIA with right-sided paralysis and aphasia and recently diagnosed squamous cell carcinoma of the lung on 12/31/2021, currently staying at [facility] [place] all appropriately with complaints of worsening shortness of breath. Patient was diagnosed with COVID- 19 about a week ago. Patient has been afebrile. Hypoxic on admission requiring 3 L oxygen via nasal cannula. Patient is a poor historian due to underlying dementia. Chest x-ray showed masslike infiltrate in the right lower lobe without change. There is new infiltrate in the left lower lobe and the lung base compared to old exam. CT angiogram of the chest showed portion of the study are limited as discussed above however there is filling defect within 9 first order right lower lobe pulmonary arterial branches compatible for PE. Large right hilar/right upper lobe pulmonary mass with postobstructive volume loss., Cataracts satellite nodules as well as interstitial prominence. These findings are highly suspicious for neoplasm. Correlate with PET/CT. EKG showed sinus tachycardia Laboratory pressure WBC 12.2 hemoglobin 13.5 and platelets 176 D-dimer level is about 6.1 Sodium 137 potassium 4.3 chloride 106 bicarb is 25 BUN 13 creatinine 0.88 and blood sugar is 115 liver Not elevated proBNP is 207 troponin x1 negative and procalcitonin level is 0.06 Coronavirus PCR detected. Review of Systems Complete review of systems could not be obtained from the patient Past Medical History Past Medical History: COPD, CVA/TIA, Dementia, Hyperlipidemia Additional Past Medical History / Comment(s): Cholecystectomy with complication and was transferred to [facility], CVA with R arm paralysis/aphasia/dysarthria, renal failure d/t motrin, RLS, diverticular disease, benign colon polyps. History of Any Multi-Drug Resistant Organisms: None Reported Past Surgical History: Cholecystectomy Additional Past Surgical History / Comment(s): EGD/biliary stent since removed, ERCP, colonoscopies, benign cyst removed from neck, bilateral cataract removals/lens implants. Past Anesthesia/Blood Transfusion Reactions: No Reported Reaction Past Psychological History: Anxiety, Depression Additional Psychological History / Comment(s): Pt resides with her son who is ve ry helpful. She transfers into a wheelchair. She states her son manages her medications and drives her to [employer]. She states she can feed herself, wash self up and dress self. She has a bsc. Smoking Status: Former smoker Past Alcohol Use History: None Reported Additional Past Alcohol Use History / Comment(s): Pt started smoking in 1975 and quit in 2019 Past Drug Use History: None Reported - Past Family History Father Family Medical History: Diabetes Mellitus, Myocardial Infarction ([place]) Additional Family Medical History / Comment(s): KIDNEY FAILURE,EMPHYSEMA Mother Family Medical History: Cancer Additional Family Medical History / Comment(s): bladder/kidney Sister(s) Family Medical History: Diabetes Mellitus Son(s) Family Medical History: Deep Vein Thrombosis (DVT) Medications and Allergies Home Medications Medication Instructions Recorded Confirmed Type rOPINIRole HCL [Requip] 1 mg PO TID@0900,1400,2200 12/19/17 03/13/22 History Atorvastatin [Lipitor] 80 mg PO HS@2100 08/07/21 03/13/22 History Citalopram Hydrobromide [CeleXA] 20 mg PO DAILY@0900 08/07/21 03/13/22 History Acetaminophen Tab [Tylenol] 650 mg PO Q6HR PRN tab 08/11/21 03/13/22 Rx Ascorbic Acid [Vitamin C] 500 mg PO DAILY@0900 03/13/22 03/13/22 History Aspirin 81 mg PO DAILY@0900 03/13/22 03/13/22 History Clopidogrel [Plavix] 75 mg PO DAILY@0900 03/13/22 03/13/22 History Clotrimazole/Betameth Cream 1 applic TOPICAL Q12H 03/13/22 03/13/22 History [Lotrisone] Lactose-Reduced Food [Ensure Plus] 237 ml PO TID-W/MEALS 03/13/22 03/13/22 History Vitamin D Tablet (Unknown Strength) 1 dose PO DAILY@0900 03/13/22 03/13/22 History Zinc (Unknown Strength) 1 dose PO DAILY@0900 03/13/22 03/13/22 History Allergies Allergy/AdvReac Type Severity Reaction Status Date / Time No Known Allergies Allergy Verified 03/13/22 13:31 Physical Exam Vitals: Vital Signs Temp Pulse Resp BP Pulse Ox 03/13/22 11:13 82 18 105/63 95 03/13/22 09:58 85 18 99/64 97 03/13/22 07:03 105/70 03/13/22 06:21 102 H 18 94 L 03/13/22 05:04 20 03/13/22 03:59 98.7 F 112 H 20 112/65 99 Intake and Output 03/12/22 03/13/22 03/13/22 22:59 06:59 14:59 Other: Weight 83.915 kg PHYSICAL EXAMINATION: Patient is lying in the bed comfortably, no acute distress, awake alert and oriented x1.. HEENT: Normocephalic. Neck is supple. Pupils reactive. Nostrils clear. Oral cavity is moist. Neck reveals no JVD, carotid bruits, or thyromegaly. CHEST EXAMINATION: Trachea is central. Symmetrical expansion. Bibasilar diminished sounds.. CARDIAC: Normal S1, S2 with no gallops. No murmurs ABDOMEN: Soft. Bowel sounds present. Nontender. No organomegaly. No abdominal bruits. Extremities: reveal no edema. No clubbing or cyanosis Neurologically awake, alert, oriented x1. Right-sided weakness. Skin: No rash or skin lesions. Psychiatric: Coperative. Could not be assessed. Musculoskeletal: No joint swelling or deformity. Results CBC & Chem 7: 03/13/22 04:15 03/13/22 07:00 Labs: Abnormal Lab Results - Last 24 Hours (Table) 03/13/22 03/13/22 03/13/22 Range/Units 04:15 04:15 07:00 WBC 12.2 H (3.8-10.6) k/uL Neutrophils # 8.5 H (1.3-7.7) k/uL D-Dimer 6.10 H (<0.60) mg/L FEU BUN 30 H (7-17) mg/dL Glucose 115 H (74-99) mg/dL Albumin 3.4 L (3.5-5.0) g/dL Coronavirus (PCR) (Not Detectd) 03/13/22 Range/Units 10:23 WBC (3.8-10.6) k/uL Neutrophils # (1.3-7.7) k/uL D-Dimer (<0.60) mg/L FEU BUN (7-17) mg/dL Glucose (74-99) mg/dL Albumin (3.5-5.0) g/dL Coronavirus (PCR) Detected A (Not Detectd) Thrombosis Risk Factor Assmnt - DVT/VTE Prophylaxis DVT/VTE Prophylaxis: Pharmacologic Prophylaxis ordered Assessment and Plan Assessment: Acute right lower lobe pulmonary embolism likely due to underlying neoplasm. Acute hypoxic respiratory failure Recently diagnosed with squamous cell carcinoma of the lung in December 2021 Status post bronchoscopy and biopsy Acute COVID-19 infection diagnosed 1 week ago History of CVA with right-sided weakness, expressive aphasia Hyperlipidemia Restless leg syndrome Anxiety/depression Medical debility Dementia COPD Prior history of smoking Plan: Patient will be continued on heparin drip and continue with the duo nebs. Continue with oxygen supplementation. Continue with symptomatic management. Oncology was consulted due to squamous cell carcinoma of the right lung. Due to poor functional status and other multiple medical problems including newly diagnosed lung cancer, patient has very poor prognosis and hospice was recommended. Oncology and pulmonary is on board. Time with Patient: Greater than 30
[2022-03-14] MEDS ORDERED: VANCOMYCIN 1,750 MG in SODIUM CHLORIDE 0.9% 500 ML 500 ML IVPB ONE ×2
[2022-03-14 00:01] LABS: Appearance,Urine Cloudy (Clear); Bacteria,Urine Rare /hpf; Bilirubin,Urine Negative (Negative); Blood,Urine Negative (Negative); Color,Urine Yellow; Glucose,Urine (UA) Negative (Negative); Hyaline Casts,Urine 1 /lpf (0-2); Ketones,Urine Negative (Negative); Leukocyte Esterase,Urine Large (Negative); Mucus,Urine Rare /hpf; Nitrite,Urine Negative (Negative); Protein,Urine Trace (Negative); RBC,Urine 1 /hpf (0-5); Specific Gravity,Urine 1.033 (1.001-1.035); Squamous Epithelial Cell,Urine 13 /hpf (0-4); Urobilinogen,Urine <2.0 mg/dL (<2.0); WBC,Urine 73 /hpf (0-5)
[2022-03-14 02:56] LABS: Basophils % (A) 0 %; Eosinophils # (A) 0.3 k/uL (0-0.7); Eosinophils % (A) 2 %; HCT 34.2 % (34.0-46.0); HGB 11.6 gm/dL (11.4-16.0); Lymphocytes # (A) 1.9 k/uL (1.0-4.8); Lymphocytes % (A) 17 %; Mean Platelet Volume 7.7; Monocytes # (A) 0.6 k/uL (0-1.0); Monocytes % (A) 6 %; Neutrophils # (A) 8.3 k/uL (1.3-7.7); Neutrophils % (A) 74 %; Platelet Count 174 k/uL (150-450); RBC 3.52 m/uL (3.80-5.40); RDW 12.9 % (11.5-15.5); WBC 11.3 k/uL (3.8-10.6)
[2022-03-14 03:08] LABS: Calcium 8.3 mg/dL (8.4-10.2); Potassium 4.7 mmol/L (3.5-5.1)
[2022-03-14] MEDS: HEPARIN SOD,PORK IN 0.45% NACL 25,000 UNIT in 0.45% NACL 1 250ML.BAG IV SCH ×2 (03:22→09:38)
[2022-03-14] MEDS: CITALOPRAM HYDROBROMIDE 20 MG TAB PO SCH (09:25)
[2022-03-14] MEDS: CLOPIDOGREL 75 MG TAB PO SCH (09:25)
[2022-03-14] MEDS: FAMOTIDINE 20 MG TAB PO SCH ×2 (09:25→20:20)
--- NOTE | 2022-03-14 11:24 | P.PN ---
Subjective Progress Note Date: 03/14/22 Principal diagnosis: Acute hypoxic history failure secondary to acute pulmonary embolism This is a pleasant 71-year-old female patient with a known history of hyperlipidemia, COPD, former smoker, anxiety/depression, dementia, previous CVA with right arm paralysis, aphasia, her. She had also been diagnosed withlung cancer/squamous cell carcinoma on 12/31/2021. Since that time she had been admitted for [place] [facility] [place] She was brought here to the emergency room early this morning with shortness of breath according to the staff.She was diagnosed with COVID-19 1 week ago. Chest x-ray continues to show masslike infiltrate in the right lower lobe. New infiltrate in the left lower lobe compared to previous 01/06/2022. CT angiogram reveals a limited study however there is a filling defect within the right lower lobe pulmonary artery compatible with PE. There is enlarging right hilar/right upper lobe pulmonary mass with postobstructive volume loss, scattered satellite nodules as well as interstitial prominence. It is unclear if she is been started on any treatments for her lung cancer. She is not a surgical candidate. The patient is seen today in consultation in the emergency department. She is sitting up on the stretcher. Awake and alert in no acute distress. She is a poor historian. Unable to confirm any answers to our questions. She does deny any shortness of breath. She is unclear as to why she is here. She has been initiated on a heparin drip. Reevaluated today on 03/14/22, patient is doing much better today, breathing a lot easier, patient remains on heparin, I went ahead and recommended transi tioning the patient to [facility] as per protocol for acute pulmonary embolism. Labs today were reviewed, PTT was over 200 WBC count is 11.3 hemoglobin is 11.6. Electrolytes are normal. Objective - Vital Signs Vital signs: Vital Signs Temp 98.3 F 03/14/22 07:25 Pulse 90 03/14/22 10:15 Resp 18 03/14/22 10:15 BP 113/65 03/14/22 07:25 Pulse Ox 95 03/14/22 07:25 FiO2 Intake & Output 03/13/22 03/14/22 03/14/22 18:59 06:59 18:59 Intake Total 243.861 612.781 13.358 Balance 243.861 612.781 13.358 Weight 83.915 kg Intake: Intake, IV Titration 123.861 612.781 13.358 Amount Heparin Sod,Pork in 0.45% 123.861 112.781 13.358 NaCl 25,000 unit In 0.45 % NaCl 1 250ml.bag @ 18 UNITS/KG/HR 15.105 mls/hr IV .[id number] [facility] Rx#: [id number] Vancomycin 1,750 mg In 500 Sodium Chloride 0.9% 500 ml 500 ml @ 167 mls/hr IVPB ONCE ONE Rx#: [id number] Oral 120 Other: Voiding Method Diaper Diaper Diaper Incontinent Incontinent Incontinent # Voids 3 1 # Bowel Movements 1 - Exam GENERAL EXAM: Alert, pleasant, poor historian, 71-year-old female, on 2 L nasal cannula, comfortable in no apparent distress. HEAD: Normocephalic. EYES: Normal reaction of pupils, equal size. NOSE: Clear with pink turbinates. THROAT: No erythema or exudates. NECK: No masses, no JVD. CHEST: No chest wall deformity. LUNGS: Equal air entry with bilateral scattered rhonchi more so on the right lung. CVS: S1 and S2 normal with no audible murmur, regular rhythm. ABDOMEN: No hepatosplenomegaly, normal bowel sounds, no guarding or rigidity. SPINE: No scoliosis or deformity SKIN: No rashes CENTRAL NERVOUS SYSTEM: Expressive aphasia, residual right-sided weakness, tone is normal in all 4 extremities. EXTREMITIES: There is no peripheral edema. No clubbing, no cyanosis. Peripheral pulses are intact. - Labs CBC & Chem 7: 03/14/22 02:13 03/14/22 02:13 Labs: Abnormal Lab Results - Last 24 Hours (Table) 03/13/22 03/13/22 03/14/22 Range/Units 17:21 23:19 02:13 WBC (3.8-10.6) k/uL RBC (3.80-5.40) m/uL Neutrophils # (1.3-7.7) k/uL APTT >200.0 H* >200.0 H* (22.0-30.0) sec Sodium (137-145) mmol/L BUN (7-17) mg/dL Calcium (8.4-10.2) mg/dL Urine Appearance Cloudy H (Clear) Urine Protein Trace H (Negative) Ur Leukocyte Esterase Large H (Negative) Urine WBC 73 H (0-5) /hpf Ur Squamous Epith Cells 13 H (0-4) /hpf Urine Bacteria Rare H (None) /hpf Urine Mucus Rare H (None) /hpf 03/14/22 03/14/22 Range/Units 02:13 02:13 WBC 11.3 H (3.8-10.6) k/uL RBC 3.52 L (3.80-5.40) m/uL Neutrophils # 8.3 H (1.3-7.7) k/uL APTT (22.0-30.0) sec Sodium 133 L (137-145) mmol/L BUN 25 H (7-17) mg/dL Calcium 8.3 L (8.4-10.2) mg/dL Urine Appearance (Clear) Urine Protein (Negative) Ur Leukocyte Esterase (Negative) Urine WBC (0-5) /hpf Ur Squamous Epith Cells (0-4) /hpf Urine Bacteria (None) /hpf Urine Mucus (None) /hpf Microbiology - Last 24 Hours (Table) 03/13/22 04:15 Blood Culture - Final Blood 03/13/22 04:10 Blood Culture - Final Blood Assessment and Plan Assessment: Acute hypoxemic respiratory failure secondary to right lower lobe pulmonary embolism. 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 Currently on Plavix and aspirin Chronic right-sided hemiparesis from previous stroke Expressive aphasia secondary to above Squamous cell lung cancer, recently diagnosed in December 2021 however the patient is not a surgical candidate Dyslipidemia Chronic medical debility History of restless leg syndrome History of depression, on Celexa Currently resides in an ECF Recommendation: Discontinue heparin and start the patient on eliquis as per protocol. I strongly recommend hospice on this patient mostly because of her multiple comorbidities. Consider discharge planning back to ECF in the next 24 hours. Lower term prognosis is extremely poor and guarded. Time with Patient: Less than 30
[2022-03-14] MEDS: APIXABAN 5 MG TAB PO SCH ×2 (12:57→20:20)
[2022-03-14] MEDS: ATORVASTATIN 80 MG TAB PO SCH (20:20)
--- NOTE | 2022-03-14 23:09 | P.PN ---
Subjective Progress Note Date: 03/14/22 Patient is a 71-year-old female with a known history of CVA/TIA with right-sided paralysis and aphasia and recently diagnosed squamous cell carcinoma of the lung on 12/31/2021, currently staying at [facility] [place] all appropriately with complaints of worsening shortness of breath. Patient was diagnosed with COVID- 19 about a week ago. Patient has been afebrile. Hypoxic on admission requiring 3 L oxygen via nasal cannula. Patient is a poor historian due to underlying dementia. Chest x-ray showed masslike infiltrate in the right lower lobe without change. There is new infiltrate in the left lower lobe and the lung base compared to old exam. CT angiogram of the chest showed portion of the study are limited as discussed above however there is filling defect within 9 first order right lower lobe pulmonary arterial branches compatible for PE. Large right hilar/right upper lobe pulmonary mass with postobstructive volume loss., Cataracts satellite nodules as well as interstitial prominence. These findings are highly suspicious for neoplasm. Correlate with PET/CT. EKG showed sinus tachycardia Laboratory pressure WBC 12.2 hemoglobin 13.5 and platelets 176 D-dimer level is about 6.1 Sodium 137 potassium 4.3 chloride 106 bicarb is 25 BUN 13 creatinine 0.88 and blood sugar is 115 liver Not elevated proBNP is 207 troponin x1 negative and procalcitonin level is 0.06 Coronavirus PCR detected. 03/14/2022 Patient is currently resting in the bed. Awake alert and oriented x1. Underlying dementia. Requiring oxygen at 2 L via nasal cannula. Heparin drip has been discontinued and patient was started on Eliquis. Laboratory showed WC 11.3 hemoglobin 11.6 and platelets 174 Sodium 133 potassium 4.7 chloride 105 bicarb is 24 BUN 25 and creatinine 0.8 and calcium 8.3 Blood cultures have been negative. Current medications reviewed. Objective - Vital Signs Vital signs: Vital Signs Temp 98.3 F 03/14/22 07:25 Pulse 97 03/14/22 16:29 Resp 18 03/14/22 16:29 BP 113/68 03/14/22 16:29 Pulse Ox 94 L 03/14/22 16:29 FiO2 Intake & Output 03/13/22 03/14/22 03/14/22 18:59 06:59 18:59 Intake Total 243.861 612.781 13.358 Balance 243.861 612.781 13.358 Weight 83.915 kg Intake: Intake, IV Titration 123.861 612.781 13.358 Amount Heparin Sod,Pork in 0.45% 123.861 112.781 13.358 NaCl 25,000 unit In 0.45 % NaCl 1 250ml.bag @ 18 UNITS/KG/HR 15.105 mls/hr IV .[id number] [facility] Rx#: [id number] Vancomycin 1,750 mg In 500 Sodium Chloride 0.9% 500 ml 500 ml @ 167 mls/hr IVPB ONCE ONE Rx#: [id number] Oral 120 Other: Voiding Method Diaper Diaper Diaper Incontinent Incontinent Incontinent # Voids 3 1 # Bowel Movements 1 - Exam PHYSICAL EXAMINATION: Patient is lying in the bed comfortably, no acute distress, awake alert and oriented x1.. HEENT: Normocephalic. Neck is supple. Pupils reactive. Nostrils clear. Oral cavity is moist. Neck reveals no JVD, carotid bruits, or thyromegaly. CHEST EXAMINATION: Trachea is central. Symmetrical expansion. Bibasilar diminished sounds.. CARDIAC: Normal S1, S2 with no gallops. No murmurs ABDOMEN: Soft. Bowel sounds present. Nontender. No organomegaly. No abdominal bruits. Extremities: reveal no edema. No clubbing or cyanosis Neurologically awake, alert, oriented x1. Right-sided weakness. Skin: No rash or skin lesions. Psychiatric: Coperative. Could not be assessed. Musculoskeletal: No joint swelling or deformity. - Labs CBC & Chem 7: 03/14/22 02:13 03/14/22 02:13 Labs: Abnormal Lab Results - Last 24 Hours (Table) 03/13/22 03/13/22 03/14/22 Range/Units 17:21 23:19 02:13 WBC (3.8-10.6) k/uL RBC (3.80-5.40) m/uL Neutrophils # (1.3-7.7) k/uL APTT >200.0 H* >200.0 H* (22.0-30.0) sec Sodium (137-145) mmol/L BUN (7-17) mg/dL Calcium (8.4-10.2) mg/dL Urine Appearance Cloudy H (Clear) Urine Protein Trace H (Negative) Ur Leukocyte Esterase Large H (Negative) Urine WBC 73 H (0-5) /hpf Ur Squamous Epith Cells 13 H (0-4) /hpf Urine Bacteria Rare H (None) /hpf Urine Mucus Rare H (None) /hpf 03/14/22 03/14/22 Range/Units 02:13 02:13 WBC 11.3 H (3.8-10.6) k/uL RBC 3.52 L (3.80-5.40) m/uL Neutrophils # 8.3 H (1.3-7.7) k/uL APTT (22.0-30.0) sec Sodium 133 L (137-145) mmol/L BUN 25 H (7-17) mg/dL Calcium 8.3 L (8.4-10.2) mg/dL Urine Appearance (Clear) Urine Protein (Negative) Ur Leukocyte Esterase (Negative) Urine WBC (0-5) /hpf Ur Squamous Epith Cells (0-4) /hpf Urine Bacteria (None) /hpf Urine Mucus (None) /hpf Microbiology - Last 24 Hours (Table) 03/13/22 04:10 Blood Culture Gram Stain - Preliminary Blood Blood Culture - Preliminary Coagulase Negative Staph 03/13/22 04:15 Blood Culture Gram Stain - Preliminary Blood 03/13/22 04:15 Blood Culture - Final Blood 03/13/22 04:10 Blood Culture - Final Blood Assessment and Plan Assessment: Acute right lower lobe pulmonary embolism likely due to underlying neoplasm. Acute hypoxic respiratory failure Recently diagnosed with squamous cell carcinoma of the lung in December 2021 Status post bronchoscopy and biopsy Acute COVID-19 infection diagnosed 1 week ago History of CVA with right-sided weakness, expressive aphasia Hyperlipidemia Restless leg syndrome Anxiety/depression Medical debility Dementia COPD Prior history of smoking Plan: Patient was continued on heparin drip and Transitioned to Eliquis continue with the duo nebs. Continue with oxygen supplementation. Continue with symptomatic management. Oncology was consulted due to squamous cell carcinoma of the right lung. Due to poor functional status and other multiple medical problems including newly diagnosed lung cancer, patient has very poor prognosis and hospice was recommended. Oncology and pulmonary is on board. Time with Patient: Greater than 30
[2022-03-15] MEDS ORDERED: VANCOMYCIN 1,750 MG in SODIUM CHLORIDE 0.9% 500 ML 500 ML IVPB SCH ×2 (01:00→16:00)
[2022-03-15] MEDS: CLOPIDOGREL 75 MG TAB PO SCH (09:15)
[2022-03-15] MEDS: APIXABAN 5 MG TAB PO SCH ×2 (09:15→21:12)
[2022-03-15] MEDS: CITALOPRAM HYDROBROMIDE 20 MG TAB PO SCH (09:15)
[2022-03-15] MEDS: FAMOTIDINE 20 MG TAB PO SCH ×2 (09:15→21:12)
--- NOTE | 2022-03-15 10:54 | P.PN ---
Subjective Patient is a 71-year-old female with a known history of CVA/TIA with right-sided paralysis and aphasia and recently diagnosed squamous cell carcinoma of the lung on 12/31/2021, currently staying at [facility] [place] all appropriately with complaints of worsening shortness of breath. Patient was diagnosed with COVID- 19 about a week ago. Patient has been afebrile. Hypoxic on admission requiring 3 L oxygen via nasal cannula. Patient is a poor historian due to underlying dementia. Chest x-ray showed masslike infiltrate in the right lower lobe without change. There is new infiltrate in the left lower lobe and the lung base compared to old exam. CT angiogram of the chest showed portion of the study are limited as discussed above however there is filling defect within 9 first order right lower lobe pulmonary arterial branches compatible for PE. Large right hilar/right upper lobe pulmonary mass with postobstructive volume loss., Cataracts satellite nodules as well as interstitial prominence. These findings are highly suspicious for neoplasm. Correlate with PET/CT. EKG showed sinus tachycardia Laboratory pressure WBC 12.2 hemoglobin 13.5 and platelets 176 D-dimer level is about 6.1 Sodium 137 potassium 4.3 chloride 106 bicarb is 25 BUN 13 creatinine 0.88 and blood sugar is 115 liver Not elevated proBNP is 207 troponin x1 negative and procalcitonin level is 0.06 Coronavirus PCR detected. 03/14/2022 Patient is currently resting in the bed. Awake alert and oriented x1. Underlying dementia. Requiring oxygen at 2 L via nasal cannula. Heparin drip has been discontinued and patient was started on Eliquis. Laboratory showed WC 11.3 hemoglobin 11.6 and platelets 174 Sodium 133 potassium 4.7 chloride 105 bicarb is 24 BUN 25 and creatinine 0.8 and calcium 8.3 Blood cultures have been negative. 03/15/2020 patientis with mild tachypnea, she does not move around, she denies chest pain or significant coughing. Patient informed about her diagnosis of pulmonary embolism and worsening lung mass. She denies any specific complaints I discussed the plan of care with the patient and she wants to be no code, I called the daughter Cat AND SHE AGREES WITH HER MOTHER DECISION TO BE DO NOT RESUSCITATE Discussed findings and plan of care with the daughter and the patient, and recommendation of care professionals and oncologist for hospice care is noted and discussed with family. They: Discussed and decided. She's remains on 2 L oxygen She remains on Eliquis therapeutic dose antibiotic vancomycin for positive blood culture, possible contaminant positive blood cutlure possible contaminant, monitor creatinine Objective - Vital Signs Vital signs: Vital Signs Temp 98.1 F 03/15/22 09:12 Pulse 84 03/15/22 10:08 Resp 18 03/15/22 10:08 BP 107/61 03/15/22 09:12 Pulse Ox 96 03/15/22 09:12 FiO2 Intake & Output 03/14/22 03/15/22 03/15/22 18:59 06:59 18:59 Intake Total 253.358 Output Total 250 Balance 253.358 -250 Intake: Intake, IV Titration 13.358 Amount Heparin Sod,Pork in 0.45% 13.358 NaCl 25,000 unit In 0.45 % NaCl 1 250ml.bag @ 18 UNITS/KG/HR 15.105 mls/hr IV .[id number] [facility] Rx#: [id number] Oral 240 Output: Urine 250 Other: Voiding Method Diaper Diaper Diaper Incontinent Incontinent Incontinent External Catheter External Catheter # Voids 1 - Exam -GENERAL: The patient is alert and oriented x3, not in any acute distress. Well developed, well nourished. Tired looking HEENT: Pupils are round and equally reacting to light. EOMI. No scleral icterus. No conjunctival pallor. Normocephalic, atraumatic. No pharyngeal erythema. No thyromegaly. CARDIOVASCULAR: S1 and S2 present. No murmurs, rubs, or gallops. -PULMONARY: Chest is clear to auscultation, no wheezing or crackles. Decreased breath sounds especially on the right side ABDOMEN: Soft, nontender, nondistended, normoactive bowel sounds. No palpable organomegaly. MUSCULOSKELETAL: No joint swelling or deformity. EXTREMITIES: No cyanosis, clubbing, or pedal edema. NEUROLOGICAL: Gross neurological examination did not reveal any focal deficits. SKIN: No rashes. no petechiae. - Labs CBC & Chem 7: 03/14/22 02:13 03/14/22 02:13 Labs: Microbiology - Last 24 Hours (Table) 03/13/22 04:10 Blood Culture Gram Stain - Final Blood Blood Culture - Final Coagulase Negative Staph 03/13/22 04:15 Blood Culture Gram Stain - Final Blood Blood Culture - Final Coagulase Negative Staph 03/13/22 04:15 Blood Culture - Final Blood Assessment and Plan Assessment: Acute right lower lobe pulmonary embolism likely due to underlying neoplasm. Acute hypoxic respiratory failure Recently diagnosed with squamous cell carcinoma of the lung in December 2021 Status post bronchoscopy and biopsy Acute COVID-19 infection diagnosed 1 week ago History of CVA with right-sided weakness, expressive aphasia Hyperlipidemia Restless leg syndrome Anxiety/depression Medical debility Dementia COPD Prior history of smoking Plan: Patient was continued onliquis continue with the duo nebs. Continue with oxygen supplementation. Continue with symptomatic management. Oncology was consulted due to squamous cell carcinoma of the right lung. Due to poor functional status and other multiple medical problems including newly diagnosed lung cancer, patient has very poor prognosis and hospice was recommended by Oncology and pulmonary is on board. No code
[2022-03-15] MEDS ORDERED: VANCOMYCIN IV PER PHARMACY 1 EACH MISC MISCELLANE PRN (10:55)
[2022-03-15 11:38] LABS: Basophils % (A) 0 %; Eosinophils # (A) 0.2 k/uL (0-0.7); Eosinophils % (A) 2 %; Lymphocytes # (A) 1.1 k/uL (1.0-4.8); Lymphocytes % (A) 12 %; MCH 33.1 pg (25.0-35.0); MCHC 34.3 g/dL (31.0-37.0); MCV 96.7 fL (80.0-100.0); Mean Platelet Volume 7.8; Monocytes # (A) 0.5 k/uL (0-1.0); Monocytes % (A) 6 %; Neutrophils # (A) 7.3 k/uL (1.3-7.7); Neutrophils % (A) 78 %; Platelet Count 191 k/uL (150-450); RBC 3.31 m/uL (3.80-5.40); WBC 9.3 k/uL (3.8-10.6)
[2022-03-15 11:48] LABS: Calcium 8.2 mg/dL (8.4-10.2); Potassium 4.5 mmol/L (3.5-5.1)
--- NOTE | 2022-03-15 15:03 | P.PN ---
Subjective Progress Note Date: 03/15/22 Principal diagnosis: Pulmonary embolism, lung cancer. This is a pleasant 71-year-old female patient with a known history of hyperlipidemia, COPD, former smoker, anxiety/depression, dementia, previous CVA with right arm paralysis, aphasia, her. She had also been diagnosed withlung cancer/squamous cell carcinoma on 12/31/2021. Since that time she had been [facility] [place] She was brought here to the emergency room early this morning with shortness of breath according to the staff.She was diagnosed with COVID-19 1 week ago. Chest x-ray continues to show masslike infiltrate in the right lower lobe. New infiltrate in the left lower lobe compared to previous 01/06/2022. CT angiogram reveals a limited study however there is a filling defect within the right lower lobe pulmonary artery compatible with PE. There is enlarging right hilar/right upper lobe pulmonary mass with postobstructive volume loss, scattered satellite nodules as well as interstitial prominence. It is unclear if she is been started on any treatments for her lung cancer. She is not a surgical candidate. The patient is seen today in consultation in the emergency department. She is sitting up on the stretcher. Awake and alert in no acute distress. She is a poor historian. Unable to confirm any answers to our questions. She does deny any shortness of breath. She is unclear as to why she is here. She has been initiated on a heparin drip. Reevaluated today on 03/14/22, patient is doing much better today, breathing a lot easier, patient remains on heparin, I went ahead and recommended transitioning the patient to eliquis as per protocol for acute pulmonary embolism. Labs today were reviewed, PTT was over 200 WBC count is 11.3 hemoglobin is 11.6. Electrolytes are normal. Progress note dated 03/15/2022. The patient is seen today, in room 352. She is on 2 L of oxygen. She's not receiving any IV fluids. Her pro-calcitonin level is 0.06. Vancomycin will be discontinued. She is currently on a factor X a inhibitor. White count is 9.3, hemoglobin 11, hematocrit 32, platelet count 291,000. Sodium 134, potassium 4 .5, chlorides 105, CO2 23, BUN 22, and creatinine 0.88. Blood cultures from March 13 are positive for coagulase-negative staph. No chest x-ray done recently. Objective - Vital Signs Vital signs: Vital Signs Temp 98.1 F 03/15/22 09:12 Pulse 83 03/15/22 14:24 Resp 19 03/15/22 14:24 BP 129/60 03/15/22 12:50 Pulse Ox 95 03/15/22 12:50 FiO2 Intake & Output 03/14/22 03/15/22 03/15/22 18:59 06:59 18:59 Intake Total 253.358 Output Total 250 Balance 253.358 -250 Intake: Intake, IV Titration 13.358 Amount Heparin Sod,Pork in 0.45% 13.358 NaCl 25,000 unit In 0.45 % NaCl 1 250ml.bag @ 18 UNITS/KG/HR 15.105 mls/hr IV .[id number] [facility] Rx#: [id number] Oral 240 Output: Urine 250 Other: Voiding Method Diaper Diaper Diaper Incontinent Incontinent Incontinent External Catheter External Catheter # Voids 1 - Exam No acute distress, oriented 3. No respiratory distress. Currently on 2 L. HEENT examination is grossly unremarkable. Neck supple. Full range of motion. No adenopathy thyromegaly or neck vein distention. Cardiovascular examination reveals regular rhythm rate. S1-S2 normal. No S3 or S4. No discernible murmur noted. Lungs reveal clear breath sounds. Breath sounds are equal bilaterally. No adventitious lung sounds including wheezes rhonchi or crackles. 2 L saturation is 95%. Abdomen soft bowel sounds are heard. No masses or tenderness. Extremities are intact. No cyanosis clubbing or edema. Skin is without rash or lesion. Neurologic examination is brief but nonfocal. - Labs CBC & Chem 7: 03/15/22 10:41 03/15/22 10:41 Labs: Abnormal Lab Results - Last 24 Hours (Table) 03/15/22 03/15/22 Range/Units 10:41 10:41 RBC 3.31 L (3.80-5.40) m/uL Hgb 11.0 L (11.4-16.0) gm/dL Hct 32.0 L (34.0-46.0) % Sodium 134 L (137-145) mmol/L BUN 22 H (7-17) mg/dL Calcium 8.2 L (8.4-10.2) mg/dL Microbiology - Last 24 Hours (Table) 03/13/22 04:10 Blood Culture Gram Stain - Final Blood Blood Culture - Final Coagulase Negative Staph 03/13/22 04:15 Blood Culture Gram Stain - Final Blood Blood Culture - Final Coagulase Negative Staph Assessment and Plan Assessment: Acute hypoxemic respiratory failure secondary to right lower lobe pulmonary embolism. Squamous cell lung cancer, diagnosed December 2021. Coronavirus infection, 1 week ago. 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 Chronic right-sided hemiparesis from previous stroke. History of expressive aphagia. Hyperlipidemia. Chronic medical debility. History of restless leg syndrome. History of depression. Plan: Plan dated 03/15/2022. The patient's vancomycin will be discontinued. The blood cultures are positive for coagulase-negative staph. The patient's pro-calcitonin level was 0.06. The patient's ready on a factor X a inhibitor. Apparently she has seen oncology in the past. They're planning possible immunotherapy. She apparently is not a surgical candidate. Additional recommendations and suggestions are forthcoming. She is on 2 L. She's not receiving any IV fluids. Time with Patient: Less than 30
--- NOTE | 2022-03-15 15:27 | P.CNNES ---
History of Present Illness Consult date: 03/15/22 Requesting physician: Chiquita Man Reason for Consult: Dual antiplt therapy mgmt in setting of new PE. History of Present Illness: Patient is a 71-year-old female, with history of right hemiplegia, expressive aphasia due to previous strokes, with chronic left ICA occlusion, known to me from previous admissions to the hospital came to the hospital by ambulance on 03/13/2022 for shortness of breath, cough and positive Covid-19 testing. Patient's daughter was present, who concurred that patient was living in [facility] after recent discharge from the hospital on 01/12/2022. Patient was doing well, but developed shortness of breath and was already positive for Covid. Patient lives at [facility] on the [address]. When EMS arrived, it was reported patient has been tested positive for coronal virus 1 week ago on a rapid test and recently has been tested negative with the PCR test. When the nurse came at her shift at at 7 PM, patient had a coughing episode that induced vomiting and since then the patient appeared to have shallow, rapid respiration with a pulse oximetry of 86% on room air. Patient was started on 2 L oxygen by nasal cannula and her saturation improved to 96%. She has been asymptomatic since she has been tested positive for coronal virus 1 week ago but since the coughing episode, patient has been wheezing with the VAC productive cough. Patient does have history of lung cancer and COPD. When EMS arrived, patient was not on any distress. She was on 2 L/m via nasal cannula. Patient is alert and oriented 2 (patient's normal baseline per staff due to her history of CVA. Patient denied having any fever, chills, body aches, chest pain, nausea or diarrhea. Lung sounds had rhonchi bilaterally in the upper and lower lobes. Patient was noted to have cough with shallow respiration at a rate of 18-22 bpm. Patient was given nebulizer treatment. Her blood pressure was 116/75, pulse rate 93, respiration 28 and saturation 95%. Patient was diagnosed with acute pulmonary embolism, lung mass, Covid-19. Neurology was consulted for starting anticoagulation ?along with DAP. Patient's daughter was also present, who states patient is stable neurologically. Please refer to examination below. Patient has been seen by myself, most recently on 01/10/2022, when patient has presented with acute ischemic stroke manifesting with a bursting of expressive aphasia, anomia, worsening of ambulation status and slightly worsening of right facial droop. Patient was found to have complete occlusion of significant portion of left ICA, including approximately 8 mm segment of the left M1 segment. History of hypertensive hemorrhage involving the left hemispheric region 04/07/2019 with subsequent some expressive aphasia, and spastic right hemiparetic involving arm worse than the leg. Patient was also diagnosed with lung cancer. Her MRI of the brain was positive for evolving lacunar infarct in the left middle cerebral artery distribution on the background of old infarct. Background mild diffuse cerebral atrophy and moderate chronic small vessel ischemic changes redemonstrated. No enhancing or metastatic lesions were found. On my review at that time, there was involvement of the left caudate, part of the putamen and some insular cortex and very slight involvement of the left temporal cortex and left periventricular white matter, suggestive of embolic from left ICA occlusion. Patient had failed aspirin regimen at that time. Patient was placed on dual antiplatelet medication with aspirin and Plavix. Because of recurrent embolic risk, patient was recommended to be maintained on DAP. Cardiology declined VERONIKA at that time. Echo with bubble study was negative. A 30 day event monitor was recommended. Review of Systems Constitutional: Denies chills, Denies fever Eyes: denies blurred vision, denies pain Cardiovascular: Reports shortness of breath, Denies chest pain Respiratory: Reports cough, Reports cough with sputum, Reports wheezing Gastrointestinal: Denies abdominal pain, Denies diarrhea, Denies nausea, Denies vomiting Musculoskeletal: Denies myalgias Integumentary: Denies pruritus, Denies rash Neurological: Reports as per HPI, Reports paralysis, Denies double vision Past Medical History Past Medical History: COPD, CVA/TIA, Dementia, Hyperlipidemia Additional Past Medical History / Comment(s): Cholecystectomy with complication and was transferred to [facility], CVA with R arm paralysis/aphasia/dysarthria, renal failure d/t motrin, RLS, diverticular disease, benign colon polyps. History of Any Multi-Drug Resistant Organisms: None Reported Past Surgical History: Cholecystectomy Additional Past Surgical History / Comment(s): EGD/biliary stent since removed, ERCP, colonoscopies, benign cyst removed from neck, bilateral cataract removals/lens implants. Past Anesthesia/Blood Transfusion Reactions: No Reported Reaction Past Psychological History: Anxiety, Depression Additional Psychological History / Comment(s): Pt resides with her son who is very helpful. She transfers into a wheelchair. She states her son manages her medications and drives her to [employer]. She states she can feed herself, wash self up and dress self. She has a bsc. Smoking Status: Former smoker Past Alcohol Use History: None Reported Additional Past Alcohol Use History / Comment(s): Pt started smoking in 1975 and quit in 2019 Past Drug Use History: None Reported - Past Family History Father Family Medical History: Diabetes Mellitus, Myocardial Infarction (MD) Additional Family Medical History / Comment(s): KIDNEY FAILURE,EMPHYSEMA Mother Family Medical History: Cancer Additional Family Medical History / Comment(s): bladder/kidney Sister(s) Family Medical History: Diabetes Mellitus Son(s) Family Medical History: Deep Vein Thrombosis (DVT) Medications and Allergies Home Medications Medication Instructions Recorded Confirmed Type rOPINIRole HCL [Requip] 1 mg PO TID@0900,1400,2200 12/19/17 03/13/22 History Atorvastatin [Lipitor] 80 mg PO HS@2100 08/07/21 03/13/22 History Citalopram Hydrobromide [CeleXA] 20 mg PO DAILY@0900 08/07/21 03/13/22 History Acetaminophen Tab [Tylenol] 650 mg PO Q6HR PRN tab 08/11/21 03/13/22 Rx Ascorbic Acid [Vitamin C] 500 mg PO DAILY@0900 03/13/22 03/13/22 History Aspirin 81 mg PO DAILY@0900 03/13/22 03/13/22 History Clopidogrel [Plavix] 75 mg PO DAILY@0900 03/13/22 03/13/22 History Clotrimazole/Betameth Cream 1 applic TOPICAL Q12H 03/13/22 03/13/22 History [Lotrisone] Lactose-Reduced Food [Ensure Plus] 237 ml PO TID-W/MEALS 03/13/22 03/13/22 History Vitamin D Tablet (Unknown Strength) 1 dose PO DAILY@0900 03/13/22 03/13/22 History Zinc (Unknown Strength) 1 dose PO DAILY@0900 03/13/22 03/13/22 History Apixaban [Eliquis Starter Pack 5 - 10 mg PO DIRECTED 30 Days 03/15/22 Rx (for VTE)] #1 each Allergies Allergy/AdvReac Type Severity Reaction Status Date / Time No Known Allergies Allergy Verified 03/13/22 13:31 Physical Examination - Vital Signs Vital Signs: Vital Signs Temp Pulse Resp BP Pulse Ox 03/15/22 12:50 83 19 129/60 95 03/15/22 10:08 84 18 03/15/22 09:12 98.1 F 84 18 107/61 96 03/15/22 03:47 98 F 65 18 90/53 100 03/15/22 00:00 97.9 F 100 18 97/55 91 L 03/14/22 21:21 94 L 03/14/22 20:00 98.2 F 91 18 95/63 94 L 03/14/22 16:29 97 18 113/68 94 L 03/14/22 14:29 91 18 Intake and Output 03/14/22 03/15/22 03/15/22 22:59 06:59 14:59 Intake Total 240 Output Total 250 Balance 240 -250 Intake: Oral 240 Output: Urine 250 Other: Voiding Method Diaper Diaper Diaper Incontinent Incontinent Incontinent External Catheter External Catheter External Catheter Patient is an elderly female, in no acute distress. Patient is laying comfortably in the bed. Patient not able to recognize name of her daughter (Surekha), and mixing up with names like Leatha or Jeane, some other relatives. Patient is alert awake. Patient is oriented 1 at baseline. She could not tell the month, or the year. She can name objects like hand, but not the pen or the thumb. Patient and repeat very well. Patient's comprehension is quite intact. She was able to point to the door on her left side, the window on the right side and ceiling on the top. Patient has expressive aphasia, doesn't speak some sentences and phrases and words. Attention, concentration and fund of knowledge is limited. On cranial nerve examination, pupils are equal, round and reacting to light, visual juan are full on confrontation, with no neglect on double simultaneous stimulation. Extraocular muscles are intact with no nystagmus. Face has mild right-sided asymmetry on active testing. Her tongue protrudes to the midline. Palatal elevation and sensation normal, hearing and shoulder shrug normal, facial sensation normal. On muscle strength testing, patient is spastic plegic in the right upper extremity, which is chronic. The strength is completely normal on the left side of the body including arm and leg. On the right leg, hip flexion is 4, ankle dorsiflexion 5- with spasticity. Deep tendon reflexes are brisk on the right with upgoing plantar on the right. Sensory to touch is equal. Cerebellar function showed no ataxia for [id number] testing on the left. Tone is increased in rice of the body and bulk of muscles normal. Gait deferred.. On general examination, there is no carotid bruit or murmur, S1-S2 audible. Chest is clear on consultation. Abdomen is soft nontender. No organomegaly, bowel sounds present. Peripheral pulses are present. No edema. Results - Laboratory Findings CBC and BMP: 03/15/22 10:41 03/15/22 10:41 Abnormal Lab Findings: Abnormal Labs 03/13/22 03/13/22 03/13/22 04:15 04:15 07:00 WBC 12.2 H RBC Hgb Hct Neutrophils # 8.5 H APTT D-Dimer 6.10 H Sodium BUN 30 H Glucose 115 H Calcium Albumin 3.4 L Urine Appearance Urine Protein Ur Leukocyte Esterase Urine WBC Ur Squamous Epith Cells Urine Bacteria Urine Mucus Coronavirus (PCR) 03/13/22 03/13/22 03/13/22 10:23 17:21 23:19 WBC RBC Hgb Hct Neutrophils # APTT >200.0 H* D-Dimer Sodium BUN Glucose Calcium Albumin Urine Appearance Cloudy H Urine Protein Trace H Ur Leukocyte Esterase Large H Urine WBC 73 H Ur Squamous Epith Cells 13 H Urine Bacteria Rare H Urine Mucus Rare H Coronavirus (PCR) Detected A 03/14/22 03/14/22 03/14/22 02:13 02:13 02:13 WBC 11.3 H RBC 3.52 L Hgb Hct Neutrophils # 8.3 H APTT >200.0 H* D-Dimer Sodium 133 L BUN 25 H Glucose Calcium 8.3 L Albumin Urine Appearance Urine Protein Ur Leukocyte Esterase Urine WBC Ur Squamous Epith Cells Urine Bacteria Urine Mucus Coronavirus (PCR) 03/15/22 03/15/22 10:41 10:41 WBC RBC 3.31 L Hgb 11.0 L Hct 32.0 L Neutrophils # APTT D-Dimer Sodium 134 L BUN 22 H Glucose Calcium 8.2 L Albumin Urine Appearance Urine Protein Ur Leukocyte Esterase Urine WBC Ur Squamous Epith Cells Urine Bacteria Urine Mucus Coronavirus (PCR) Assessment and Plan Assessment: * Recent history of ischemic stroke on 01/07/2022, manifesting with worsening of baseline expressive aphasia, anomia and worsening of ambulation. Patient recovered very well from CVA and returned back to her baseline as per #2. * History of hypertensive hemorrhage involving left hemispheric region 04/07/2019, with subsequent some expressive aphasia and spastic right hemiparesis, right arm worse than leg. 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 * Hypertension * Acute pulmonary embolism * Acute Covid-19 infection * Lung cancer, recently diagnosed, not started on treatment * X tobacco use Plan: * Patient has acute pulmonary embolism. Patient has been started on heparin. Patient will be switched to Eliquis. * Patient has history of chronic left ICA occlusion. Patient will definitely need antiplatelet medication. Patient has recently failed aspirin regimen with the breakthrough CVA on 01/07/2022. Patient currently on DAP with aspirin 81 mg and Plavix 75 mg daily at home. Has patient has been started on Eliquis, patient will be maintained on single antiplatelet agent Plavix 75 mg daily. Stop aspirin. * No other neurological workup indicated, as her examination is completely at baseline. * Treatment of other medical conditions as per IM. * Neurologically clear. Spoke to the trimming caser. * Thank you for the consult.
--- NOTE | 2022-03-15 20:40 | P.PN ---
Subjective Progress Note Date: 03/15/22 Principal diagnosis: Covid, PE, Sq cell lung cancer In f/u today pt is reporting no SOB, generalized weakness, no pain. O2 sats in the 90's on 2L, Hgb 11. No unusual bleeding on heparin drip Objective - Vital Signs Vital signs: Vital Signs Temp 98.1 F 03/15/22 09:12 Pulse 86 03/15/22 16:12 Resp 19 03/15/22 16:12 BP 94/54 03/15/22 16:12 Pulse Ox 93 L 03/15/22 16:12 FiO2 Intake & Output 03/15/22 03/15/22 03/16/22 06:59 18:59 06:59 Output Total 250 250 Balance -250 -250 Output: Urine 250 250 Other: Voiding Method Diaper Diaper Incontinent Incontinent External Catheter External Catheter # Voids 0 - Constitutional General appearance: Present: average body habitus, cooperative, no acute distress - EENT Eyes: Present: anicteric sclerae, EOMI ENT: Present: hearing grossly normal - Respiratory Details: resp unlabored at rest - Neurologic Neurologic: Present: CNII-XII intact (grossly) - Psychiatric Psychiatric: Present: A&O x's 3, appropriate affect, intact judgment & insight - Labs CBC & Chem 7: 03/15/22 10:41 03/15/22 10:41 Labs: Abnormal Lab Results - Last 24 Hours (Table) 03/15/22 03/15/22 Range/Units 10:41 10:41 RBC 3.31 L (3.80-5.40) m/uL Hgb 11.0 L (11.4-16.0) gm/dL Hct 32.0 L (34.0-46.0) % Sodium 134 L (137-145) mmol/L BUN 22 H (7-17) mg/dL Calcium 8.2 L (8.4-10.2) mg/dL Microbiology - Last 24 Hours (Table) 03/13/22 04:10 Blood Culture Gram Stain - Final Blood Blood Culture - Final Coagulase Negative Staph 03/13/22 04:15 Blood Culture Gram Stain - Final Blood Blood Culture - Final Coagulase Negative Staph Assessment and Plan (1) COVID-19 Current Visit: Yes Status: Acute Priority: High Code(s): U07.1 - COVID-19 SNOMED Code(s): 145524990 (2) Pulmonary embolism Current Visit: Yes Status: Acute Priority: High Code(s): I26.99 - OTHER PULMONARY EMBOLISM WITHOUT ACUTE COR PULMONALE SNOMED Code(s): 04508603 (3) Squamous cell lung cancer Current Visit: No Status: Chronic Priority: Medium Code(s): C34.90 - MALIGNANT NEOPLASM OF UNSP PART OF UNSP BRONCHUS OR LUNG SNOMED Code(s): 835693520 Plan: Covid 19 treatment per Pulm and IM Cont heparin drip for now. Phospholipid ab testing for PE anticoagulation recommendations. With active malignancy would consider lifelong anticoagulation. Have aske for Neuro opinion re: dual antiplatelet therapy for Hx of CVA, now needing full dose anticoagulation for PE. F/U Dr. Frias re: sq cell lung cancer and possible IO treatment vs palliative care
[2022-03-15] MEDS: ATORVASTATIN 80 MG TAB PO SCH (21:12)
[2022-03-16 04:54] VITALS: RESP 18
[2022-03-16] MEDS: CLOPIDOGREL 75 MG TAB PO SCH (08:43)
[2022-03-16] MEDS: FAMOTIDINE 20 MG TAB PO SCH (08:43)
[2022-03-16] MEDS: APIXABAN 5 MG TAB PO SCH (08:43)
[2022-03-16] MEDS: CITALOPRAM HYDROBROMIDE 20 MG TAB PO SCH (08:44)
--- NOTE | 2022-03-16 09:26 | P.PN ---
Subjective Patient is a 71-year-old female with a known history of CVA/TIA with right-sided paralysis and aphasia and recently diagnosed squamous cell carcinoma of the lung on 12/31/2021, currently staying at [facility] on the [address] all appropriately with complaints of worsening shortness of breath. Patient was diagnosed with COVID- 19 about a week ago. Patient has been afebrile. Hypoxic on admission requiring 3 L oxygen via nasal cannula. Patient is a poor historian due to underlying dementia. Chest x-ray showed masslike infiltrate in the right lower lobe without change. There is new infiltrate in the left lower lobe and the lung base compared to old exam. CT angiogram of the chest showed portion of the study are limited as discussed above however there is filling defect within 9 first order right lower lobe pulmonary arterial branches compatible for PE. Large right hilar/right upper lobe pulmonary mass with postobstructive volume loss., Cataracts satellite nodules as well as interstitial prominence. These findings are highly suspicious for neoplasm. Correlate with PET/CT. EKG showed sinus tachycardia Laboratory pressure WBC 12.2 hemoglobin 13.5 and platelets 176 D-dimer level is about 6.1 Sodium 137 potassium 4.3 chloride 106 bicarb is 25 BUN 13 creatinine 0.88 and blood sugar is 115 liver Not elevated proBNP is 207 troponin x1 negative and procalcitonin level is 0.06 Coronavirus PCR detected. 03/14/2022 Patient is currently resting in the bed. Awake alert and oriented x1. Underlying dementia. Requiring oxygen at 2 L via nasal cannula. Heparin drip has been discontinued and patient was started on Eliquis. Laboratory showed WC 11.3 hemoglobin 11.6 and platelets 174 Sodium 133 potassium 4.7 chloride 105 bicarb is 24 BUN 25 and creatinine 0.8 and calcium 8.3 Blood cultures have been negative. 03/15/2020 patientis with mild tachypnea, she does not move around, she denies chest pain or significant coughing. Patient informed about her diagnosis of pulmonary embolism and worsening lung mass. She denies any specific complaints I discussed the plan of care with the patient and she wants to be no code, I called the daughter Cat AND SHE AGREES WITH HER MOTHER DECISION TO BE DO NOT RESUSCITATE Discussed findings and plan of care with the daughter and the patient, and recommendation of physical therapy teacher and oncologist for hospice care is noted and discussed with family. They: Discussed and decided. She's remains on 2 L oxygen She remains on Eliquis therapeutic dose antibiotic vancomycin for positive blood culture, possible contaminant positive blood cutlure possible contaminant, monitor creatinine Objective - Vital Signs Vital signs: Vital Signs Temp 98.0 F 03/16/22 04:00 Pulse 82 03/16/22 04:00 Resp 18 03/16/22 04:00 BP 96/62 03/16/22 04:00 Pulse Ox 94 L 03/16/22 04:00 FiO2 Intake & Output 03/15/22 03/16/22 03/16/22 18:59 06:59 18:59 Intake Total 120 Output Total 250 200 0 Balance -250 -200 120 Intake: Oral 120 Output: Gastric Drainage 0 Urine 250 200 0 Stool 0 Urine/Stool Mix 0 Emesis 0 Oral Regurgitation 0 Other: Voiding Method Diaper Diaper Incontinent Incontinent External Catheter External Catheter # Voids 0 0 # Bowel Movements 0 - Exam -GENERAL: The patient is alert and oriented x3, not in any acute distress. Well developed, well nourished. Tired looking HEENT: Pupils are round and equally reacting to light. EOMI. No scleral icterus. No conjunctival pallor. Normocephalic, atraumatic. No pharyngeal erythema. No thyromegaly. CARDIOVASCULAR: S1 and S2 present. No murmurs, rubs, or gallops. -PULMONARY: Chest is clear to auscultation, no wheezing or crackles. Decreased breath sounds especially on the right side ABDOMEN: Soft, nontender, nondistended, normoactive bowel sounds. No palpable organomegaly. MUSCULOSKELETAL: No joint swelling or deformity. EXTREMITIES: No cyanosis, clubbing, or pedal edema. NEUROLOGICAL: Gross neurological examination did not reveal any focal deficits. SKIN: No rashes. no petechiae. - Labs CBC & Chem 7: 03/15/22 10:41 03/16/22 06:44 Labs: Abnormal Lab Results - Last 24 Hours (Table) 03/15/22 03/15/22 Range/Units 10:41 10:41 RBC 3.31 L (3.80-5.40) m/uL Hgb 11.0 L (11.4-16.0) gm/dL Hct 32.0 L (34.0-46.0) % Sodium 134 L (137-145) mmol/L BUN 22 H (7-17) mg/dL Calcium 8.2 L (8.4-10.2) mg/dL Microbiology - Last 24 Hours (Table) 03/13/22 04:10 Blood Culture Gram Stain - Final Blood Blood Culture - Final Coagulase Negative Staph 03/13/22 04:15 Blood Culture Gram Stain - Final Blood Blood Culture - Final Coagulase Negative Staph Assessment and Plan Assessment: Acute right lower lobe pulmonary embolism likely due to underlying neoplasm. Acute hypoxic respiratory failure Recently diagnosed with squamous cell carcinoma of the lung in December 2021 Status post bronchoscopy and biopsy Acute COVID-19 infection diagnosed 1 week ago positive blood culture mostly likely a contaminant History of CVA with right-sided weakness, expressive aphasia Hyperlipidemia Restless leg syndrome Anxiety/depression Medical debility Dementia COPD Prior history of smoking Plan: Patient was continued Eliquis Neurologist recommended to discontinue aspirin and continue with Plavix on the top of her Eliquis for her history of stroke. Neurologically she is cleared for discharge Patient can be discharged once been cleared by pulmonary and oncology service. Vancomycin was discontinued. Blood culture most likely secondary dominant. Continue with symptomatic management. Oncology was consulted due to squamous cell carcinoma of the right lung. Due to poor functional status and other multiple medical problems including newly diagnosed lung cancer, patient has very poor prognosis and hospice was recommended by Oncology and pulmonary is on board. however as per oncology patient gets IO therapy versus palliative care, this could be addressed as inpatient or outpatient per Oncologist No code
--- NOTE | 2022-03-16 11:20 | P.PN ---
Subjective Progress Note Date: 03/16/22 Principal diagnosis: Pulmonary embolism, lung cancer. This is a pleasant 71-year-old female patient with a known history of hyperlipidemia, COPD, former smoker, anxiety/depression, dementia, previous CVA with right arm paralysis, aphasia, her. She had also been diagnosed withlung cancer/squamous cell carcinoma on 12/31/2021. Since that time she had been admitted for recurrent [place] [facility] [place] She was brought here to the emergency room early this morning with shortness of breath according to the staff.She was diagnosed with COVID-19 1 week ago. Chest x-ray continues to show masslike infiltrate in the right lower lobe. New infiltrate in the left lower lobe compared to previous 01/06/2022. CT angiogram reveals a limited study however there is a filling defect within the right lower lobe pulmonary artery compatible with PE. There is enlarging right hilar/right upper lobe pulmonary mass with postobstructive volume loss, scattered satellite nodules as well as interstitial prominence. It is unclear if she is been started on any treatments for her lung cancer. She is not a surgical candidate. The patient is seen today in consultation in the emergency department. She is sitting up on the stretcher. Awake and alert in no acute distress. She is a poor historian. Unable to confirm any answers to our questions. She does deny any shortness of breath. She is unclear as to why she is here. She has been initiated on a heparin drip. Reevaluated today on 03/14/22, patient is doing much better today, breathing a lot easier, patient remains on heparin, I went ahead and recommended transitioning the patient to eliquis as per protocol for acute pulmonary embolism. Labs today were reviewed, PTT was over 200 WBC count is 11.3 hemoglobin is 11.6. Electrolytes are normal. Progress note dated 03/15/2022. The patient is seen today, in room 352. She is on 2 L of oxygen. She's not receiving any IV fluids. Her pro-calcitonin level is 0.06. Vancomycin will be discontinued. She is currently on a factor X a inhibitor. White count is 9.3, hemoglobin 11, hematocrit 32, platelet count 291,000. Sodium 134, potassium 4 .5, chlorides 105, CO2 23, BUN 22, and creatinine 0.88. Blood cultures from March 13 are positive for coagulase-negative staph. No chest x-ray done recently. Progress note dated 03/16/2022. The patient is again seen today in room 352. The patient is a DO NOT RESUSCITATE patient. Her only on 2 L oxygen. Not receiving any IV fluids. The patient could be potentially discharged to one of the local nursing homes today. We will leave that up to the primary service. A lot will depend on whether or not the patient is to receive any kind therapy for her lung cancer. Laboratory data today includes a creatinine of 0.85. Objective - Vital Signs Vital signs: Vital Signs Temp 97.2 F L 03/16/22 08:40 Pulse 94 03/16/22 08:40 Resp 18 03/16/22 08:40 BP 128/70 03/16/22 08:40 Pulse Ox 94 L 03/16/22 08:40 FiO2 Intake & Output 03/15/22 03/16/22 03/16/22 18:59 06:59 18:59 Intake Total 120 Output Total 250 200 0 Balance -250 -200 120 Intake: Oral 120 Output: Gastric Drainage 0 Urine 250 200 0 Stool 0 Urine/Stool Mix 0 Emesis 0 Oral Regurgitation 0 Other: Voiding Method Diaper Diaper Diaper Incontinent Incontinent Incontinent External Catheter External Catheter External Catheter # Voids 0 0 # Bowel Movements 0 - Exam No acute distress, oriented 3. No respiratory distress. Currently on 2 L. HEENT examination is grossly unremarkable. Neck supple. Full range of motion. No adenopathy thyromegaly or neck vein distention. Cardiovascular examination reveals regular rhythm rate. S1-S2 normal. No S3 or S4. No discernible murmur noted. Heart rate 94 bpm. Lungs reveal clear breath sounds. Breath sounds are equal bilaterally. No adventitious lung sounds including wheezes rhonchi or crackles. 2 L saturation is 94 %. Abdomen soft bowel sounds are heard. No masses or tenderness. Extremities are intact. No cyanosis clubbing or edema. Skin is without rash or lesion. Neurologic examination is brief but nonfocal. - Labs CBC & Chem 7: 03/15/22 10:41 03/16/22 06:44 Labs: Abnormal Lab Results - Last 24 Hours (Table) 03/15/22 03/15/22 Range/Units 10:41 10:41 RBC 3.31 L (3.80-5.40) m/uL Hgb 11.0 L (11.4-16.0) gm/dL Hct 32.0 L (34.0-46.0) % Sodium 134 L (137-145) mmol/L BUN 22 H (7-17) mg/dL Calcium 8.2 L (8.4-10.2) mg/dL Microbiology - Last 24 Hours (Table) 03/13/22 04:10 Blood Culture Gram Stain - Final Blood Blood Culture - Final Coagulase Negative Staph 03/13/22 04:15 Blood Culture Gram Stain - Final Blood Blood Culture - Final Coagulase Negative Staph Assessment and Plan Assessment: Acute hypoxemic respiratory failure secondary to right lower lobe pulmonary embolism. Squamous cell lung cancer, diagnosed December 2021. Coronavirus infection, 1 week ago. 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 Chronic right-sided hemiparesis from previous stroke. History of expressive aphagia. Hyperlipidemia. Chronic medical debility. History of restless leg syndrome. History of depression. Plan: Plan dated 03/15/2022. The patient's vancomycin will be discontinued. The blood cultures are positive for coagulase-negative staph. The patient's pro-calcitonin level was 0.06. The patient's ready on a factor X a inhibitor. Apparently she has seen oncology in the past. They're planning possible immunotherapy. She apparently is not a surgical candidate. Additional recommendations and suggestions are forthcoming. She is on 2 L. She's not receiving any IV fluids. Plan dated 03/16/2022. Vancomycin was discontinued. Blood cultures were only positive for coagulase negative staph. The patient's pro-calcitonin level was very low. The patient is ready on a factor X a inhibitor. The patient will follow-up with oncology as an outpatient. Yet to be determined, is whether or not the patient will receive any treatment for her lung cancer. The nurses mentioned that she may end up deciding to go hospice. Time with Patient: Less than 30
[2022-03-16 12:10] VITALS: BP 101/57; PULSE 67; TEMP 96.7
--- NOTE | 2022-03-16 13:05 | P.PN ---
Subjective Progress Note Date: 03/16/22 Patient is laying comfortably in the bed. He admits to having "mild headache", but nothing major. Denies any pain anywhere else. Denies any visual symptoms. No nausea vomiting. Objective - Vital Signs Vital signs: Vital Signs Temp 97.2 F L 03/16/22 08:40 Pulse 94 03/16/22 08:40 Resp 18 03/16/22 08:40 BP 128/70 03/16/22 08:40 Pulse Ox 94 L 03/16/22 08:40 FiO2 Intake & Output 03/15/22 03/16/22 03/16/22 18:59 06:59 18:59 Intake Total 120 Output Total 250 200 0 Balance -250 -200 120 Intake: Oral 120 Output: Gastric Drainage 0 Urine 250 200 0 Stool 0 Urine/Stool Mix 0 Emesis 0 Oral Regurgitation 0 Other: Voiding Method Diaper Diaper Diaper Incontinent Incontinent Incontinent External Catheter External Catheter External Catheter # Voids 0 0 # Bowel Movements 0 - Exam Patient's speech is baseline. She is able to express some. Examination is no change - Labs CBC & Chem 7: 03/15/22 10:41 03/16/22 06:44 Labs: Abnormal Lab Results - Last 24 Hours (Table) 03/15/22 03/15/22 Range/Units 10:41 10:41 RBC 3.31 L (3.80-5.40) m/uL Hgb 11.0 L (11.4-16.0) gm/dL Hct 32.0 L (34.0-46.0) % Sodium 134 L (137-145) mmol/L BUN 22 H (7-17) mg/dL Calcium 8.2 L (8.4-10.2) mg/dL Microbiology - Last 24 Hours (Table) 03/13/22 04:10 Blood Culture Gram Stain - Final Blood Blood Culture - Final Coagulase Negative Staph 03/13/22 04:15 Blood Culture Gram Stain - Final Blood Blood Culture - Final Coagulase Negative Staph Assessment and Plan Assessment: * Recent history of ischemic stroke on 01/07/2022, manifesting with worsening of baseline expressive aphasia, anomia and worsening of ambulation. Patient recovered very well from CVA and returned back to her baseline as per #2. * History of hypertensive hemorrhage involving left hemispheric region 04/07/2019, with subsequent some expressive aphasia and spastic right hemiparesis, right arm worse than leg. 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 * Hypertension * Acute pulmonary embolism * Acute Covid-19 infection * Lung cancer, recently diagnosed, not started on treatment * X tobacco use Plan: * Patient has acute pulmonary embolism. Patient has been started on heparin. Patient will be switched to Eliquis. * Patient has history of chronic left ICA occlusion. Patient will definitely need antiplatelet medication. Patient has recently failed aspirin regimen with the breakthrough CVA on 01/07/2022. Patient currently on DAP with aspirin 81 mg and Plavix 75 mg daily at home. Has patient has been started on Eliquis, patient will be maintained on single antiplatelet agent Plavix 75 mg daily. Stop aspirin. * No other neurological workup indicated, as her examination is completely at baseline. * Treatment of other medical conditions as per IM. * Neurologically clear.
--- NOTE | 2022-03-16 13:10 | P.DS ---
Providers Date of admission: 03/13/22 09:57 Attending physician: Leonidas Patterson Consults: 03/13/22 09:57 Consult Physician Routine Consulting Provider: Beulah Spear Consult Reason/Comments: Pulmonary embolism, lung mass, COVID-19 Do you want consulting provider notified?: Yes 03/13/22 10:40 Consult Physician Routine Consulting Provider: Boo Frias Consult Reason/Comments: Lung cancer Do you want consulting provider notified?: Yes 03/15/22 09:11 Consult Physician Routine Consulting Provider: Elias Brito Consult Reason/Comments: Dual antiplt therapy mgmt in setting of new PE. Do you want consulting provider notified?: Yes Primary care physician: Jd Maddox Hospital Course: Diagnoses: Acute right lower lobe pulmonary embolism likely due to underlying neoplasm. Acute hypoxic respiratory failure Recently diagnosed with squamous cell carcinoma of the lung in December 2021 Status post bronchoscopy and biopsy Acute COVID-19 infection diagnosed 1 week ago positive blood culture mostly likely a contaminant History of CVA with right-sided weakness, expressive aphasia Hyperlipidemia Restless leg syndrome Anxiety/depression Medical debility Dementia COPD Prior history of smoking Hospital course: Patient is a 71-year-old female with a known history of CVA/TIA with right-sided paralysis and aphasia and recently diagnosed squamous cell carcinoma of the lung on 12/31/2021, currently staying at [facility] on the [place] all appropriately with complaints of worsening shortness of breath. Patient was diagnosed with COVID- 19 about a week ago. Patient was started on Eliquis for right pulmonary embolism, she will need to be on 10 mg twice a day total 03/20 on 1120 kidney Steri-Strips wished to 5 mg twice a day. Also patient is been followed closely by pulmonary and oncology service, she has significant squamous cell cancer of the lung, she has poor performance. Both oncology and pulmonary team recommended to consider hospice. Family met with hospice team today for information as per case hardener however later on I been contacted by hospice nurse Heather from [facility] that family have signed on to hospice service and she wants to start hospice care once she is back on R egency. I discussed the case with oncology team Ashlee today and she cleared the patient for discharge and Follow-up outpatient with Dr. Frias. pulmonary team also cleared the patient for discharge patient currently lying in bed comfortable, no pain, mildly tachypneic, she can talk freely but looks very weak and tired. She is saturating well on 2 L oxygen via nasal cannula. Problems and management plan were discussed with the patient and he verbalized understanding and acceptance Patient was found stable and can be discharged to [facility] in guarded and very poor prognosis however he needs follow-up as an outpatient. Patient was instructed to follow up with PCP within one week and patient agrees Patient was instructed to follow up with Dr. Frias as an outpatient in 2-4 weeks and counselor/art therapist Dr. Krause in one week Patient will benefit from palliative/hospice care as an outpatient. Physical exam -Gen: patient is a AAOx3, no distress. Very weak and tired CVS: S1-S2, RRR, no murmur -Lungs: B/L CTA, no wheezing. Tachypnea Abdomen: soft, no distention, no tenderness, positive bowel sounds Extremity: no leg edema or induration Time spent more than 35 minutes Plan - Discharge Summary Discharge Rx Participant: No New Discharge Prescriptions: New Famotidine [Pepcid] 20 mg PO BID tab Ascorbic Acid [Vitamin C] 500 mg PO DAILY #30 tablet Apixaban [Eliquis Starter Pack (for VTE)] 5 - 10 mg PO DIRECTED 30 Days #1 each Cholecalciferol [Vitamin D3 (25 Mcg = 1000 Iu)] 25 mcg PO DAILY #30 tab Zinc Gluconate [Zinc] 50 mg PO DAILY #30 tablet Continue rOPINIRole HCL [Requip] 1 mg PO TID@0900,1400,2200 Citalopram Hydrobromide [CeleXA] 20 mg PO DAILY@0900 Atorvastatin [Lipitor] 80 mg PO HS@2100 Clopidogrel [Plavix] 75 mg PO DAILY@0900 Acetaminophen Tab [Tylenol] 650 mg PO Q6HR PRN tab PRN Reason: Mild Pain Or Fever > 100.5 Lactose-Reduced Food [Ensure Plus] 237 ml PO TID-W/MEALS Discontinued Clotrimazole/Betameth Cream [Lotrisone] 1 applic TOPICAL Q12H Zinc (Unknown Strength) 1 dose PO DAILY@0900 Vitamin D Tablet (Unknown Strength) 1 dose PO DAILY@0900 Ascorbic Acid [Vitamin C] 500 mg PO DAILY@0900 Aspirin 81 mg PO DAILY@0900 Discharge Medication List rOPINIRole HCL [Requip] 1 mg PO TID@0900,1400,2200 08/20/18 [History] Atorvastatin [Lipitor] 80 mg PO HS@2100 08/07/21 [History] Citalopram Hydrobromide [CeleXA] 20 mg PO DAILY@0900 08/07/21 [History] Acetaminophen Tab [Tylenol] 650 mg PO Q6HR PRN tab 08/11/21 [Rx] Clopidogrel [Plavix] 75 mg PO DAILY@0900 03/13/22 [History] Lactose-Reduced Food [Ensure Plus] 237 ml PO TID-W/MEALS 03/13/22 [History] Apixaban [Eliquis Starter Pack (for VTE)] 5 - 10 mg PO DIRECTED 30 Days #1 each 03/15/22 [Rx] Ascorbic Acid [Vitamin C] 500 mg PO DAILY #30 tablet 03/16/22 [Rx] Cholecalciferol [Vitamin D3 (25 Mcg = 1000 Iu)] 25 mcg PO DAILY #30 tab 03/16/22 [Rx] Famotidine [Pepcid] 20 mg PO BID tab 03/16/22 [Rx] Zinc Gluconate [Zinc] 50 mg PO DAILY #30 tablet 03/16/22 [Rx] Follow up Appointment(s)/Referral(s): Beulah Spear MD [STAFF PHYSICIAN] - 1 Week Boo Frias MD [STAFF PHYSICIAN] - 4 Weeks Jd Maddox MD [Primary Care Provider] - 1-2 days Activity/Diet/Wound Care/Special Instructions: Regular diet Activity is as tolerated continue with Eliquis 10 mg 2 times a day till 03/20/2022. Switch the patient then to Eliquis 5 mg 2 times a day on 03/21/2022 Discharge Disposition: TRANSFER TO SNF/ECF
[2022-03-16 15:36] LABS: Cardiolipin Ab IgG Interp NEGATIVE (NEGATIVE); Cardiolipin Ab IgM Interp NEGATIVE (NEGATIVE); Cardiolipin IgA Antibody <2.0 U/mL; Cardiolipin IgM Antibody 1.7 U/mL
[2022-03-16] MEDS ORDERED: VANCOMYCIN TROUGH DUE 1 EACH MISC MISCELLANE ONE (23:00)
[2022-03-17 12:54] LABS: APTT 56 Sec(s) (<43); APTT 1:1 Mix 56 Sec(s) (<43); DRVVT 1:1 Mix 70 Sec(s) (<44); DRVVT Confirmation Negative (Negative); Dilute Russell Viper Venom 99 Sec(s) (<44); Hexagonal Phase Neutralization Negative (Negative)
== END 2022-03-16 15:02 | DRG 175 ==
LOC: EC 03:51 → 3SCARD 09:57
PROVIDERS: ADMIT Internal Medicine; ATTEND Internal Medicine
DX: I26.99 Other pulmonary embolism without acute cor pulmonale (principal); J96.01 Acute respiratory failure with hypoxia; U07.1 COVID-19; C34.91 Malignant neoplasm of unspecified part of right bronchus or lung; I69.351 Hemiplegia and hemiparesis following cerebral infarction affecting right dominant side; Z66 Do not resuscitate; Z51.5 Encounter for palliative care; E78.5 Hyperlipidemia, unspecified; F03.90 Unspecified dementia, unspecified severity, without behavioral disturbance, psychotic disturbance, mood disturbance, and anxiety; F41.9 Anxiety disorder, unspecified; F32.A Depression, unspecified; I65.22 Occlusion and stenosis of left carotid artery; G25.81 Restless legs syndrome; K57.90 Diverticulosis of intestine, part unspecified, without perforation or abscess without bleeding; I69.322 Dysarthria following cerebral infarction; R00.0 Tachycardia, unspecified; J44.9 Chronic obstructive pulmonary disease, unspecified; I10 Essential (primary) hypertension; Z87.891 Personal history of nicotine dependence; I69.320 Aphasia following cerebral infarction; R29.810 Facial weakness; Z85.118 Personal history of other malignant neoplasm of bronchus and lung; Z83.3 Family history of diabetes mellitus; Z79.02 Long term (current) use of antithrombotics/antiplatelets; Z79.82 Long term (current) use of aspirin; Z79.899 Other long term (current) drug therapy; Z86.711 Personal history of pulmonary embolism; Z87.19 Personal history of other diseases of the digestive system; Z98.42 Cataract extraction status, left eye; Z98.41 Cataract extraction status, right eye; Z90.49 Acquired absence of other specified parts of digestive tract; Z96.1 Presence of intraocular lens
CPT/HCPCS: 36415; 71046; 71275; 80048; 80053; 81001; 82565; 83605; 83880; 84145; 84484; 85025; 85379; 85610; 85613; 85730; 86147; 87040; 87635; 93005; 94760; 96365; 99285

== ENCOUNTER 2022-03-17 03:19 | Observation (INO) | payer MEDICARE, OTHER ==
[2022-03-17] MEDS ORDERED: SODIUM CHLORIDE 0.9% 500 ML 500 ML IV STA (03:41)
[2022-03-17 04:03] LABS: Basophils % (A) 0 %; Eosinophils # (A) 0.2 k/uL (0-0.7); Eosinophils % (A) 2 %; HCT 31.3 % (34.0-46.0); HGB 11.2 gm/dL (11.4-16.0); Lymphocytes % (A) 8 %; MCH 33.7 pg (25.0-35.0); MCHC 35.8 g/dL (31.0-37.0); MCV 94.1 fL (80.0-100.0); Mean Platelet Volume 7.6; Monocytes # (A) 0.5 k/uL (0-1.0); Monocytes % (A) 4 %; Neutrophils # (A) 11.1 k/uL (1.3-7.7); Neutrophils % (A) 85 %; Platelet Count 213 k/uL (150-450); RBC 3.33 m/uL (3.80-5.40); WBC 13.1 k/uL (3.8-10.6)
[2022-03-17 04:30] LABS: INR 1.1 (<1.2); Partial Thromboplastin Time 33.4 sec (22.0-30.0); Prothrombin Time 11.8 sec (9.0-12.0)
[2022-03-17 04:32] LABS: Albumin 3.2 g/dL (3.5-5.0); Calcium 8.4 mg/dL (8.4-10.2); Potassium 4.1 mmol/L (3.5-5.1); Total Bilirubin 0.8 mg/dL (0.2-1.3); Total Protein 6.7 g/dL (6.3-8.2)
--- NOTE | 2022-03-17 04:58 | ED ---
GI Bleed HPI - General Chief complaint: GI Bleed Stated complaint: GI Bleed Source: EMS Mode of arrival: EMS Limitations: altered mental status - Related Data Home Medications Medication Instructions Recorded Confirmed rOPINIRole HCL [Requip] 1 mg PO TID@0900,1400,2200 12/19/17 03/13/22 Atorvastatin [Lipitor] 80 mg PO HS@2100 08/07/21 03/13/22 Citalopram Hydrobromide [CeleXA] 20 mg PO DAILY@0900 08/07/21 03/13/22 Clopidogrel [Plavix] 75 mg PO DAILY@0900 03/13/22 03/13/22 Lactose-Reduced Food [Ensure Plus] 237 ml PO TID-W/MEALS 03/13/22 03/13/22 Previous Rx's Medication Instructions Recorded Acetaminophen Tab [Tylenol] 650 mg PO Q6HR PRN tab 08/11/21 Apixaban [Eliquis Starter Pack 5 - 10 mg PO DIRECTED 30 Days 03/15/22 (for VTE)] #1 each Ascorbic Acid [Vitamin C] 500 mg PO DAILY #30 tablet 03/16/22 Cholecalciferol [Vitamin D3 (25 25 mcg PO DAILY #30 tab 03/16/22 Mcg = 1000 Iu)] Famotidine [Pepcid] 20 mg PO BID tab 03/16/22 Zinc Gluconate [Zinc] 50 mg PO DAILY #30 tablet 03/16/22 Allergies Allergy/AdvReac Type Severity Reaction Status Date / Time No Known Allergies Allergy Verified 03/13/22 13:31 Review of Systems ROS Statement: Those systems with pertinent positive or pertinent negative responses have been documented in the HPI. ROS Other: All systems not noted in ROS Statement are negative. Past Medical History Past Medical History: COPD, CVA/TIA, Dementia, Hyperlipidemia Additional Past Medical History / Comment(s): Cholecystectomy with complication and was transferred to [facility]/vented, CVA with R arm paralysis /aphasia/dysarthria, renal failure d/t motrin, RLS, diverticular disease, benign colon polyps. History of Any Multi-Drug Resistant Organisms: None Reported Past Surgical History: Cholecystectomy Additional Past Surgical History / Comment(s): EGD/biliary stent since removed, ERCP, colonoscopies, benign cyst removed from neck, bilateral cataract removals/lens implants. Past Anesthesia/Blood Transfusion Reactions: No Reported Reaction Past Psychological History: Anxiety, Depression Smoking Status: Former smoker Past Alcohol Use History: None Reported Past Drug Use History: None Reported - Past Family History Father Family Medical History: Diabetes Mellitus, Myocardial Infarction (IA) Additional Family Medical History / Comment(s): KIDNEY FAILURE,EMPHYSEMA Mother Family Medical History: Cancer Additional Family Medical History / Comment(s): bladder/kidney Sister(s) Family Medical History: Diabetes Mellitus Son(s) Family Medical History: Deep Vein Thrombosis (DVT) General Exam Limitations: altered mental status Course Vital Signs 03/17/22 03/17/22 03:32 04:05 Temperature 99.3 F Pulse Rate 123 H 106 H Respiratory 26 H 24 Rate Blood Pressure 115/81 118/74 O2 Sat by Pulse 96 97 Oximetry Medical Decision Making - Lab Data Result diagrams: 03/17/22 03:58 03/17/22 03:58 Lab Results 03/17/22 03/17/22 03/17/22 Range/Units 03:58 03:58 03:58 WBC 13.1 H (3.8-10.6) k/uL RBC 3.33 L (3.80-5.40) m/uL Hgb 11.2 L (11.4-16.0) gm/dL Hct 31.3 L (34.0-46.0) % MCV 94.1 (80.0-100.0) fL MCH 33.7 (25.0-35.0) pg MCHC 35.8 (31.0-37.0) g/dL RDW 13.0 (11.5-15.5) % Plt Count 213 (150-450) k/uL MPV 7.6 Neutrophils % 85 % Lymphocytes % 8 % Monocytes % 4 % Eosinophils % 2 % Basophils % 0 % Neutrophils # 11.1 H (1.3-7.7) k/uL Lymphocytes # 1.0 (1.0-4.8) k/uL Monocytes # 0.5 (0-1.0) k/uL Eosinophils # 0.2 (0-0.7) k/uL Basophils # 0.0 (0-0.2) k/uL PT 11.8 (9.0-12.0) sec INR 1.1 (<1.2) APTT 33.4 H (22.0-30.0) sec Sodium 133 L (137-145) mmol/L Potassium 4.1 (3.5-5.1) mmol/L Chloride 106 (98-107) mmol/L Carbon Dioxide 22 (22-30) mmol/L Anion Gap 5 mmol/L BUN 29 H (7-17) mg/dL Creatinine 0.94 (0.52-1.04) mg/dL Est GFR (CKD-EPI)AfAm 71 (>60 ml/min/1.73 sqM) Est GFR (CKD-EPI)NonAf 61 (>60 ml/min/1.73 sqM) Glucose 121 H (74-99) mg/dL Calcium 8.4 (8.4-10.2) mg/dL Total Bilirubin 0.8 (0.2-1.3) mg/dL AST 40 H (14-36) U/L ALT 27 (4-34) U/L Alkaline Phosphatase 105 (38-126) U/L Troponin I (0.000-0.034) ng/mL Total Protein 6.7 (6.3-8.2) g/dL Albumin 3.2 L (3.5-5.0) g/dL Coronavirus (PCR) (Not Detectd) 03/17/22 03/17/22 Range/Units 03:58 03:58 WBC (3.8-10.6) k/uL RBC (3.80-5.40) m/uL Hgb (11.4-16.0) gm/dL Hct (34.0-46.0) % MCV (80.0-100.0) fL MCH (25.0-35.0) pg MCHC (31.0-37.0) g/dL RDW (11.5-15.5) % Plt Count (150-450) k/uL MPV Neutrophils % % Lymphocytes % % Monocytes % % Eosinophils % % Basophils % % Neutrophils # (1.3-7.7) k/uL Lymphocytes # (1.0-4.8) k/uL Monocytes # (0-1.0) k/uL Eosinophils # (0-0.7) k/uL Basophils # (0-0.2) k/uL PT (9.0-12.0) sec INR (<1.2) APTT (22.0-30.0) sec Sodium (137-145) mmol/L Potassium (3.5-5.1) mmol/L Chloride (98-107) mmol/L Carbon Dioxide (22-30) mmol/L Anion Gap mmol/L BUN (7-17) mg/dL Creatinine (0.52-1.04) mg/dL Est GFR (CKD-EPI)AfAm (>60 ml/min/1.73 sqM) Est GFR (CKD-EPI)NonAf (>60 ml/min/1.73 sqM) Glucose (74-99) mg/dL Calcium (8.4-10.2) mg/dL Total Bilirubin (0.2-1.3) mg/dL AST (14-36) U/L ALT (4-34) U/L Alkaline Phosphatase (38-126) U/L Troponin I <0.012 (0.000-0.034) ng/mL Total Protein (6.3-8.2) g/dL Albumin (3.5-5.0) g/dL Coronavirus (PCR) Not Detected (Not Detectd) - EKG Data -: EKG Interpreted by Me (EKG tachycardia 118 TX 152 QRS 73 QTC 388) Disposition Referrals: Jd Maddox MD [Primary Care Provider] - 1-2 days
[2022-03-17] MEDS ORDERED: NALOXONE 0.4 MG/ML 1 ML VIAL IV PRN (05:01)
[2022-03-17] MEDS ORDERED: MORPHINE SULFATE 4 MG/ML SYRINGE IV PRN (05:01)
--- NOTE | 2022-03-17 05:04 | XR ---
EXAMINATION TYPE: XR chest 1V DATE OF EXAM: 03/17/2022 COMPARISON: 03/13/2022 HISTORY: Short of breath TECHNIQUE: Single view FINDINGS: There is a 2 cm masslike area of consolidation in the right upper lobe. There is a mild int erstitial infiltrate left lower lobe. No heart failure. Heart size is normal. Thoracic aorta is ather omatous. IMPRESSION: Masslike infiltrate right upper lobe worse than last exam with increasing airspace infilt rate at the right lung apex. Interstitial infiltrate left lower lobe without change.
[2022-03-17] MEDS ORDERED: SODIUM CHLORIDE 0.9% 1,000 ML IV SCH (05:15)
[2022-03-17 08:39] VITALS: BP 92/65; PULSE 84; RESP 16; TEMP 97.4
--- NOTE | 2022-03-17 10:23 | P.HPIM ---
History of Present Illness Please consider this note as combined H&P and discharge summary Diagnoses: vomiting with mild hematemesis/hemoptysis, secondary to her lung cancer and been on a blood thinner. Resolved Acute right lower lobe pulmonary embolism likely due to underlying neoplasm. Acute hypoxic respiratory failure Recently diagnosed with squamous cell carcinoma of the lung in December 2021 Status post bronchoscopy and biopsy Acute COVID-19 infection diagnosed 1 week ago positive blood culture mostly likely a contaminant History of CVA with right-sided weakness, expressive aphasia Hyperlipidemia Restless leg syndrome Anxiety/depression Medical debility Dementia COPD Prior history of smoking Hospital course: Patient is a 71-year-old female with a known history of CVA/TIA with right-sided paralysis and aphasia and recently diagnosed squamous cell carcinoma of the lung on 12/31/2021, currently staying at [facility] on the [place] all appropriately with complaints of worsening shortness of breath. Patient was diagnosed with COVID- 19 about a week ago. Patient was started on Eliquis for right pulmonary embolism, she will need to be on 10 mg twice a day total 03/20. on 03/21 switch the pill to 5 mg twice a day. During last admission Both oncology and pulmonary team recommended to consider hospice. Family met with hospice team yesterday and decided to go with hospice care, I discussed the case with hospice nurse and patient was found to start hospice orders once she got to [facility]. However yesterday she started vomiting once she was at [facility] and there was some blood so it was sent back to the emergency room. Emergency room team also admits her to the hospital. Oriented also I discussed the case with hospice team who confirmed to me patient/family sign for hospice and the planned distal for her to go to hospice, we made for the patient at bedside me and the hospice team and talk to the patient, she was fully awake and oriented 3, she looks comfortable not in distress and she states she came because she was vomiting blood however she denies any other new symptoms. Vomiting. No hemoptysis less hematemesis. Now. Her vitals are stable she's not tachycardic, blood pressure 92/65 while on bedrest. Hemoglobin is stable or actually went up a little bit 11 up to 11.2. Patient conference dose and to monitor and hospice team that she still wants to pursue with hospice care. Also discussed the plan with hospice team and the going to start the orders at [facility]. Problems and management plan were discussed with the patient and he verbalized understanding and acceptance Patient was found stable and can be discharged home in guarded prognosis however he needs follow-up as an outpatient. Patient was instructed to follow up with PCP within one week and patient agrees to be recommended to start hospice care at [facility])( Physical exam -Gen: patient is a AAOx3, no distress. Generally weak CVS: S1-S2, RRR, no murmur Lungs: B/L CTA, no wheezing Abdomen: soft, no distention, no tenderness, positive bowel sounds Extremity: no leg edema or induration Time spent more than 35 minutes Past Medical History Past Medical History: COPD, CVA/TIA, Dementia, Hyperlipidemia Additional Past Medical History / Comment(s): Cholecystectomy with complication and was transferred to [facility]/critical access hospital, CVA with R arm paralysis/aphasia/dysarthria, renal failure d/t motrin, RLS, diverticular disease, benign colon polyps. History of Any Multi-Drug Resistant Organisms: None Reported Past Surgical History: Cholecystectomy Additional Past Surgical History / Comment(s): EGD/biliary stent since removed, ERCP, colonoscopies, benign cyst removed from neck, bilateral cataract removals/lens implants. Past Anesthesia/Blood Transfusion Reactions: No Reported Reaction Past Psychological History: Anxiety, Depression Additional Psychological History / Comment(s): Pt resides with her son who is very helpful. She transfers into a wheelchair. She states her son manages her medications and drives her to appts. She states she can feed herself, wash self up and dress self. She has a bsc. Smoking Status: Former smoker Past Alcohol Use History: None Reported Additional Past Alcohol Use History / Comment(s): Pt started smoking in 1975 and quit in 2019 Past Drug Use History: None Reported - Past Family History Father Family Medical History: Diabetes Mellitus, Myocardial Infarction (VT) Additional Family Medical History / Comment(s): KIDNEY FAILURE,EMPHYSEMA Mother Family Medical History: Cancer Additional Family Medical History / Comment(s): bladder/kidney Sister(s) Family Medical History: Diabetes Mellitus Son(s) Family Medical History: Deep Vein Thrombosis (DVT) Medications and Allergies Home Medications Medication Instructions Recorded Confirmed Type rOPINIRole HCL [Requip] 1 mg PO TID@0900,1400,2200 12/19/17 03/17/22 History Atorvastatin [Lipitor] 80 mg PO HS 08/07/21 03/17/22 History Citalopram Hydrobromide [CeleXA] 20 mg PO HS 08/07/21 03/17/22 History Clopidogrel [Plavix] 75 mg PO DAILY 03/13/22 03/17/22 History Ascorbic Acid [Vitamin C] 500 mg PO DAILY #30 tablet 03/16/22 03/17/22 Rx Cholecalciferol [Vitamin D3 (25 25 mcg PO DAILY #30 tab 03/16/22 03/17/22 Rx Mcg = 1000 Iu)] Famotidine [Pepcid] 20 mg PO BID tab 03/16/22 03/17/22 Rx Acetaminophen Tab [Tylenol] 650 mg PO Q6H PRN 03/17/22 03/17/22 History Apixaban [Eliquis Starter Pack See Taper PO DIRECTED 03/17/22 03/17/22 History (for VTE)] Ondansetron Odt [Zofran Odt] 4 mg PO Q8HR PRN #20 tab 03/17/22 Rx Zinc Gluconate [Zinc] 50 mg PO HS 03/17/22 03/17/22 History Allergies Allergy/AdvReac Type Severity Reaction Status Date / Time No Known Allergies Allergy Verified 03/17/22 09:45 Physical Exam Vitals: Vital Signs Temp Pulse Pulse Resp BP BP Pulse Ox 03/17/22 07:00 97.4 F L 84 16 92/65 97 03/17/22 06:50 92 18 108/81 98 03/17/22 04:58 106 H 24 116/82 97 03/17/22 04:05 106 H 24 118/74 97 03/17/22 03:32 99.3 F 123 H 26 H 115/81 96 Intake and Output 03/16/22 03/17/22 03/17/22 22:59 06:59 14:59 Other: Voiding Method External Catheter Weight 77.111 kg 77.111 kg Results CBC & Chem 7: 03/17/22 03:58 03/17/22 03:58 Labs: Abnormal Lab Results - Last 24 Hours (Table) 03/17/22 03/17/22 03/17/22 Range/Units 03:58 03:58 03:58 WBC 13.1 H (3.8-10.6) k/uL RBC 3.33 L (3.80-5.40) m/uL Hgb 11.2 L (11.4-16.0) gm/dL Hct 31.3 L (34.0-46.0) % Neutrophils # 11.1 H (1.3-7.7) k/uL APTT 33.4 H (22.0-30.0) sec Sodium 133 L (137-145) mmol/L BUN 29 H (7-17) mg/dL Glucose 121 H (74-99) mg/dL AST 40 H (14-36) U/L Albumin 3.2 L (3.5-5.0) g/dL Thrombosis Risk Factor Assmnt - Choose All That Apply Any of the Below Risk Factors Present?: Yes Each Factor Represents 1 point: Obesity (BMI >25), Varicose veins Other Risk Factors: Yes Each Risk Factor Represents 2 Points: Age 61-74 years Other congenital or acquired thrombophilia - If yes, enter type in comment: No Thrombosis Risk Factor Assessment Total Risk Factor Score: 4 Thrombosis Risk Factor Assessment Level: Moderate Risk
== END 2022-03-17 13:20 | disposition hospice, home (50) ==
LOC: EC 03:19 → 6NMEDSUR 05:05
PROVIDERS: ADMIT Hospitalist; ATTEND Hospitalist
DX: K92.0 Hematemesis (principal); C34.90 Malignant neoplasm of unspecified part of unspecified bronchus or lung; I26.99 Other pulmonary embolism without acute cor pulmonale; J96.01 Acute respiratory failure with hypoxia; J44.9 Chronic obstructive pulmonary disease, unspecified; E78.5 Hyperlipidemia, unspecified; I69.351 Hemiplegia and hemiparesis following cerebral infarction affecting right dominant side; I69.320 Aphasia following cerebral infarction; G25.81 Restless legs syndrome; R53.81 Other malaise; F03.94 Unspecified dementia, unspecified severity, with anxiety; F32.A Depression, unspecified; F41.9 Anxiety disorder, unspecified; Z86.16 Personal history of COVID-19; Z87.891 Personal history of nicotine dependence; Z79.02 Long term (current) use of antithrombotics/antiplatelets; Z79.899 Other long term (current) drug therapy; Z20.822 Contact with and (suspected) exposure to COVID-19
CPT/HCPCS: 96374; 99285; 36415; 93005; 86900; 86901; 80053; 84484; 85025; 85610; 85730; 86850; 87635; 71045; G0378; J2270